=== PATIENT | male | born 1955 | race Caucasian/White ===

== ENCOUNTER 2017-09-07 05:59 | Inpatient (IN) | payer OTHER, SELFPAY ==
[2017-09-07] VITALS (17 sets, daily range): BP systolic 95–133; BP diastolic 60–93; PULSE 67–124; RESP 14–22; TEMP 36.4–36.9; O2SAT 87–98; BMI 27.1; BMI 27.6
--- NOTE | 2017-09-07 | DI.ECHO.S_ITS ---
[facility] +---------+ : : [address] : [place] : : : : [id number] : : : : Phone: [phone]---------+ Echocardiogram Report + + :Name: YEHUDA RICARDO Study Date: 09/07/2017 Height: 72 in : :[facility] Weight: 200 lb : : Gender: Male BSA: 2.1 m2 : :: 1955 Age: 62 yrs BP: 133/78 mmHg: :Reason For Study: CHF : : Performed By: Sonal Sandoval : :Referring: PITER RENE : + + Interpretation Summary The patient was in atrial fibrillation with heart rates between 82-100 bpm during the exam. The left ventricle is moderately dilated. Left ventricular systolic function is moderate to severely reduced. The ejection fraction is estimated to be 30-35%. There is moderate to severe global hypokinesis of the left ventricle. There is severe mitral regurgitation. The mitral annulus is dilated. The mitral valve is normal in structure but abnormal in function. The right ventricular systolic pressure is estimated at 39 mmHg assuming a right atrial pressure of 8 mm Hg. The IVC is dilated (diameter is greater than 2.1 cm) yet it collapses greater than 50% with a sniff. This suggests a right atrial pressure of 8 mm Hg. Pleural effusion noted. The patient had an echocardiogram, but there is no comparison study available. No other echocardiographic abnormalities seen. Procedure: A two-dimensional transthoracic echocardiogram with color flow and Doppler was performed. The study quality was technically adequate. Comparison is made with the echocardiogram of 06/02/2008. The patient had an echocardiogram, but there is no comparison study available. The patient was in atrial fibrillation with heart rates between 82-100 bpm during the exam. Left Ventricle: The left ventricle is moderately dilated. Left ventricular wall thickness is at the upper limits of normal. There is no thrombus. The ejection fraction is estimated to be 30-35%. Left ventricular systolic function is moderate to severely reduced. There is moderate to severe global hypokinesis of the left ventricle. Diastolic function could not be accurately assessed due to atrial fibrillation. Right Ventricle: The right ventricle is normal size. Right ventricular systolic function is mildly reduced. Atria: The left atrium is severely dilated. Right atrial size is normal. There is no Doppler evidence for an interatrial shunt. Mitral Valve: The mitral annulus is dilated. The mitral valve leaflets appear thickened, but open well. The mitral valve is normal in structure but abnormal in function. There is no mitral valve stenosis. There is severe mitral regurgitation. Aortic Valve: The aortic valve is trileaflet. The aortic valve opens well. There is no aortic valve stenosis. There is mild aortic regurgitation. Tricuspid Valve: The tricuspid valve leaflets are thin and pliable. The right ventricular systolic pressure is estimated at 39 mmHg assuming a right atrial pressure of 8 mm Hg. There is mild tricuspid regurgitation. Pulmonic Valve: The pulmonic valve is normal in structure and function. There is a trace or physiologic amount of pulmonic regurgitation. Great Vessels: The aortic root is normal size. The ascending aorta is mildly enlarged. The aortic arch is mildly enlarged. The pulmonary artery is normal size. The IVC is dilated (diameter is greater than 2.1 cm) yet it collapses greater than 50% with a sniff. This suggests a right atrial pressure of 8 mm Hg. Pericardium/ Pleura There is no pericardial effusion. Pleural effusion noted. MMode/2D Measurements & Calculations LVIDd: 6.5 cm LVOT diam: 2.2 cm LVIDs: 5.4 cm Ao root diam: 3.7 cm FS: 18.0 % asc Aorta Diam: 3.9 cm IVSd: 0.81 cm Ao Arch Diam (Prox Trans): 3.1 cm LVPWd: 1.1 cm LV herring. diameter/BSA (cm/m^2): 3.1 LV sys. diameter/BSA (cm/m^2): 2.5 LA A2 area: 47.3 cm2 RA long axis: 5.9 cm LA A4 area: 44.7 cm2 RA area: 22.3 cm2 LA length (vol): 8.0 cm RA vol: 71.3 ml LA vol: 224.9 ml RA : 33.5 ml/m2 LA vol index: 105.6 ml/m2 IVC diam: 2.5 cm RVD1 (basal): 3.7 cm TAPSE: 1.1 cm Doppler Measurements & Calculations Ao V2 max: 91.5 cm/sec LVOT Max Luis Miguel: 78.1 cm/sec Ao V2 mean: 73.1 cm/sec LV V1 max P.5 mmHg Ao max P.5 mmHg LV V1 VTI: 12.4 cm Ao mean P.3 mmHg JESSIE(I,D): 3.0 cm2 Ao V2 VTI: 14.8 cm JESSIE(V,D): 3.1 cm2 sev ratio: 0.83 JESSIE indexed to BSA (cm^2/m^2): 1.4 MV E max luis miguel: 85.3 cm/sec TR max luis miguel: 279.8 cm/sec Med Peak E' Luis Miguel: 5.5 cm/sec TR max P.3 mmHg E/E' med: 15.6 PA V2 max: 46.8 cm/sec Lat Peak E' Luis Miguel: 10.7 cm/sec PA V2 mean: 31.9 cm/sec E/E' lat: 8.0 PA mean P.47 mmHg E/e' average: 11.8 MV P1/2t: 62.1 msec MV P1/2t max luis miguel: 85.8 cm/sec MVA(P1/2t): 3.5 cm2 Reading Physician:04:55 PM
--- NOTE | 2017-09-07 06:27 | ED.SOB ---
HPI - SOB/Dyspnea <Johanna Heredia, DO - Last Filed: 09/07/17 18:09> General Chief Complaint: Shortness of Breath/Dyspnea Stated Complaint: SHORTNESS OF BREATH Time Seen by Provider: 09/07/17 06:18 Source: patient Mode of arrival: ambulatory Limitations: no limitations History of Present Illness Patient is a 62-year-old male who presents with increasing shortness of breath. He was recently at the [facility] where he was found to have atrial fibrillation. He does have a past history of atrial fibrillation but had an ablation in 2004. He has since been started on apixaban and Coreg. He is in AFib with a rate about 120 now he has heart palpitations, but has had them for awhile and doesn't think its any worse. He was also found to have an ejection fraction of 28%. His breathing seems to get better when he is upright he can't tell if it is worse lying flat. He denies any swelling in his lower extremities no fever or productive cough. MD Complaint: shortness of breath Relieving factors: nothing Exacerbating factors: nothing Known history of: congestive heart failure Related Data Home Medications Medication Instructions Recorded Confirmed fluticasone [Flonase Allergy 1 spray INTRANASAL QDAY #0 02/17/16 09/07/17 Relief] beclomethasone dipropionate [Qvar] 1 puff INHALATION BID #0 06/11/17 09/07/17 diclofenac sodium [Voltaren] 2 g TOPICAL QID #0 06/11/17 09/07/17 acetaminophen [Tylenol] 650 mg PO Q4H PRN 09/07/17 09/07/17 apixaban 5 mg PO BID 09/07/17 09/07/17 bupropion HCl [Wellbutrin SR] 150 mg PO DAILY 09/07/17 09/07/17 carvedilol 3.125 mg PO DAILY 09/07/17 09/07/17 carvedilol 6.25 mg PO QPM 09/07/17 09/07/17 cholecalciferol (vitamin D3) 5,000 unit PO DAILY 09/07/17 09/07/17 [Vitamin D3] magnesium 400 mg PO QID 09/07/17 09/07/17 multivitamin 1 tab PO DAILY 09/07/17 09/07/17 niacin 500 mg PO DAILY 09/07/17 09/07/17 omega [id number] oil [[place]-3] 1 tab PO DAILY 09/07/17 09/07/17 omeprazole 20 mg PO DAILY 09/07/17 09/07/17 pregabalin [Lyrica] 75 mg PO DAILY 09/07/17 09/07/17 tamsulosin [Flomax] 0.4 mg PO DAILY 09/07/17 09/07/17 thyroid (pork) [Cantrall Thyroid] 60 mg PO TID 09/07/17 09/07/17 tramadol 50 mg PO TID PRN 09/07/17 09/07/17 Previous Rx's Medication Instructions Recorded etodolac 400 mg PO BID #60 tab 06/11/17 losartan 50 mg PO QDAY #90 tab 06/11/17 pregabalin 200 mg capsule 200 mg PO QHS #60 cap 09/06/17 Allergies Allergy/AdvReac Type Severity Reaction Status Date / Time azithromycin Allergy Mild RASH Verified 09/07/17 06:29 Penicillins Allergy Mild RASH Verified 09/07/17 06:29 simvastatin Allergy Mild ACHES Verified 09/07/17 06:29 Sulfa (Sulfonamide Allergy Mild RASH Verified 09/07/17 06:29 Antibiotics) Calcium Channel Yunier Allergy Mild RASH Uncoded 07/16/17 09:01 Review of Systems <Johanna Heredia DO - Last Filed: 09/07/17 18:09> Review of Systems All systems reviewed & are unremarkable except as noted in HPI and below Constitutional Denies chills, Denies fever(s), Denies lethargy and Denies weakness Cardiovascular Denies chest pain, Denies pedal edema, Denies irregular heart rhythm and Denies palpitations Respiratory Reports as per HPI and Reports system reviewed and no additional complaints, except as docu Gastrointestinal Gastrointestinal: Denies abdominal pain, Denies change in bowel habits, Denies diarrhea, Denies nausea and Denies vomiting Musculoskeletal Denies back pain, Denies muscle weakness, Denies numbness and Denies tingling Integumentary/Breasts Denies pruritus, Denies erythema, Denies rash and Denies wounds Neurologic Denies numbness, Denies tingling and Denies weakness Endocrine Denies palpitations Exam <DO Sandie Zamorano Last Filed: 09/07/17 18:09> Initial Vital Signs Initial Vital Signs: Vital Signs Temperature 97.8 F 09/07/17 06:05 Pulse Rate 124 H 09/07/17 06:05 Respiratory Rate 18 09/07/17 06:05 Blood Pressure 127/88 H 09/07/17 06:05 Pulse Oximetry 93 09/07/17 06:05 Const General: cooperative and healthy appearing Orientation: alert, awake and oriented x3 HENMT Head: normal to inspection and normocephalic Ears: hearing grossly normal bilaterally Eyes Pupils: PERRL EOM: EOM intact bilaterally Resp Effort & Inspection: normal respiratory effort and able to speak in complete sentences Auscultation: no crackles and rales on the left in the mid lung sharp Cardio Rate: tachycardic Rhythm: abnormal rhythm irregularly irregular GI Inspection: non-distended Palpation: soft, no hepatosplenomegaly, No guarding, No pulsatile mass and No tender Auscultation: normal bowel sounds Skin General: no rashes or lesions noted, No jaundice and No petechiae Neuro General: alert, oriented x3 and no focal motor deficits Speech: speech normal Extrem Right lower extremity: no edema Left lower extremity: no edema <Fabian Osman DO - Last Filed: 09/07/17 08:57> Initial Vital Signs Initial Vital Signs: Vital Signs Temperature 97.8 F 09/07/17 06:05 Pulse Rate 124 H 09/07/17 06:05 Respiratory Rate 18 09/07/17 06:05 Blood Pressure 127/88 H 09/07/17 06:05 Pulse Oximetry 93 09/07/17 06:05 Course <Johanna Heredia DO - Last Filed: 09/07/17 18:09> Orders Ordered: ED Orders 09/07/17 10:00 MRSA PCR Stat 09/07/17 12:10 Education, smoking cessation ONGOING 09/07/17 14:15 Magnesium Routine TSH w/ Reflex to FT4 Routine 09/08/17 05:00 Basic Metabolic Panel Routine Troponin I Routine Acetaminophen (Tylenol) 650 mg PO Q4H PRN PRN Reason: Pain, Mild (1-3) Apixaban (Eliquis) 5 mg PO BID [facility] Last Admin: 09/07/17 12:44 Dose: 5 mg Beclomethasone Dipropionate (Qvar) 1 puff INH RTBID [facility] Bupropion HCl (Wellbutrin Sr) 150 mg PO DAILY [facility] Last Admin: 09/07/17 12:45 Dose: 150 mg Fluticasone Propionate (Flonase) 1 spray NASAL DAILY [facility] Last Admin: 09/07/17 12:44 Dose: 1 spray Furosemide (Lasix) 40 mg IV Q8H [facility] Stop: 09/08/17 04:16 Last Admin: 09/07/17 12:44 Dose: 40 mg Magnesium Oxide (Mag Ox) 400 mg PO QID [facility] Last Admin: 09/07/17 17:24 Dose: 400 mg Admin: 09/07/17 12:45 Dose: 400 mg Metoprolol Tartrate (Lopressor) 25 mg PO Q6HR [facility] Last Admin: 09/07/17 17:24 Dose: 25 mg Admin: 09/07/17 12:44 Dose: 25 mg Pregabalin (Lyrica) 75 mg PO DAILY [facility] Last Admin: 09/07/17 12:44 Dose: 75 mg Pregabalin (Lyrica) 200 mg PO BEDTIME [facility] Sodium Chloride (Normal Saline 0.9% Flush) 10 ml IV BID [facility] Sodium Chloride (Normal Saline 0.9% Flush) 10 ml IV PRN PRN PRN Reason: Flush Tamsulosin HCl (Flomax) 0.4 mg PO DAILY [facility] Last Admin: 09/07/17 12:45 Dose: 0.4 mg Thyroid (Cantrall Thyroid) 60 mg PO TID [facility] Last Admin: 09/07/17 12:45 Dose: 60 mg Tramadol HCl (Ultram) 50 mg PO TID PRN PRN Reason: Pain, Moderate (4-6) Zolpidem Tartrate (Ambien) 5 mg PO BEDTIME PRN PRN Reason: Sleep Discontinued Medications Beclomethasone Dipropionate (Qvar) 1 puff INH RTBID [facility] Furosemide (Lasix) 40 mg IV NOW ONE Stop: 09/07/17 06:35 Last Admin: 09/07/17 06:40 Dose: 40 mg Metoprolol Tartrate (Lopressor) 5 mg IV NOW ONE Stop: 09/07/17 06:26 Last Admin: 09/07/17 06:33 Dose: 5 mg Metoprolol Tartrate (Lopressor) 5 mg IV NOW ONE Stop: 09/07/17 12:04 Last Admin: 09/07/17 12:44 Dose: 5 mg Vital Signs - 8 hr 09/07/17 12:21 09/07/17 12:44 09/07/17 15:24 Temperature 97.5 F L Pulse Rate 103 H Respiratory Rate 18 Blood Pressure 133/78 H Pulse Oximetry 98 98 <Fabian Osman, - Last Filed: 09/07/17 08:57> Orders Ordered: ED Orders 09/07/17 10:00 MRSA PCR Stat 09/07/17 12:10 Education, smoking cessation ONGOING 09/07/17 14:15 Magnesium Routine TSH w/ Reflex to FT4 Routine 09/08/17 05:00 Basic Metabolic Panel Routine Troponin I Routine Acetaminophen (Tylenol) 650 mg PO Q4H PRN PRN Reason: Pain, Mild (1-3) Apixaban (Eliquis) 5 mg PO BID [facility] Last Admin: 09/07/17 12:44 Dose: 5 mg Beclomethasone Dipropionate (Qvar) 1 puff INH RTBID [facility] Bupropion HCl (Wellbutrin Sr) 150 mg PO DAILY [facility] Last Admin: 09/07/17 12:45 Dose: 150 mg Fluticasone Propionate (Flonase) 1 spray NASAL DAILY [facility] Last Admin: 09/07/17 12:44 Dose: 1 spray Furosemide (Lasix) 40 mg IV Q8H [facility] Stop: 09/08/17 04:16 Last Admin: 09/07/17 12:44 Dose: 40 mg Magnesium Oxide (Mag Ox) 400 mg PO QID [facility] Last Admin: 09/07/17 17:24 Dose: 400 mg Admin: 09/07/17 12:45 Dose: 400 mg Metoprolol Tartrate (Lopressor) 25 mg PO Q6HR [facility] Last Admin: 09/07/17 17:24 Dose: 25 mg Admin: 09/07/17 12:44 Dose: 25 mg Pregabalin (Lyrica) 75 mg PO DAILY [facility] Last Admin: 09/07/17 12:44 Dose: 75 mg Pregabalin (Lyrica) 200 mg PO BEDTIME [facility] Sodium Chloride (Normal Saline 0.9% Flush) 10 ml IV BID [facility] Sodium Chloride (Normal Saline 0.9% Flush) 10 ml IV PRN PRN PRN Reason: Flush Tamsulosin HCl (Flomax) 0.4 mg PO DAILY [facility] Last Admin: 09/07/17 12:45 Dose: 0.4 mg Thyroid (Cantrall Thyroid) 60 mg PO TID [facility] Last Admin: 09/07/17 12:45 Dose: 60 mg Tramadol HCl (Ultram) 50 mg PO TID PRN PRN Reason: Pain, Moderate (4-6) Zolpidem Tartrate (Ambien) 5 mg PO BEDTIME PRN PRN Reason: Sleep Discontinued Medications Beclomethasone Dipropionate (Qvar) 1 puff INH RTBID [facility] Furosemide (Lasix) 40 mg IV NOW ONE Stop: 09/07/17 06:35 Last Admin: 09/07/17 06:40 Dose: 40 mg Metoprolol Tartrate (Lopressor) 5 mg IV NOW ONE Stop: 09/07/17 06:26 Last Admin: 09/07/17 06:33 Dose: 5 mg Metoprolol Tartrate (Lopressor) 5 mg IV NOW ONE Stop: 09/07/17 12:04 Last Admin: 09/07/17 12:44 Dose: 5 mg Vital Signs - 8 hr 09/07/17 12:21 09/07/17 12:44 09/07/17 15:24 Temperature 97.5 F L Pulse Rate 103 H Respiratory Rate 18 Blood Pressure 133/78 H Pulse Oximetry 98 98 MDM - SOB/Dyspnea <Johanna Heredia DO - Last Filed: 09/07/17 18:09> Lab Data Result diagrams: 09/07/17 06:20 09/07/17 06:20 Lab Results 09/07/17 09/07/17 09/07/17 Range/Units 06:20 06:20 06:20 WBC 6.0 (4.5-11.0) X10^3/uL RBC 5.16 (4.5-5.9) X10^6/uL Hgb 15.6 (13.5-17.5) g/dL Hct 46.5 (41-53) % MCV 90.1 (80-100) fL MCH 30.2 (26-34) PG MCHC 33.5 (30-36) % RDW 13.7 (11.6-14.8) % Plt Count 177 (150-400) X10^3/uL Neut % (Auto) 67.0 (50-75) % Lymph % (Auto) 17.3 L (25-40) % [place] % (Auto) 11.5 (3-14) % Eos % (Auto) 3.3 (2-4) % Baso % (Auto) 0.9 (0-2) % Neut # (Auto) 4000 (3232-3283) /uL PT 13.5 H (10.1-12.7) SECONDS INR 1.2 (0.9-1.3) APTT 37 H (26.4-36.2) SECONDS Sodium 141 (137-145) mmol/L Potassium 4.5 (3.4-5.1) mmol/L Chloride 104 (98-107) mmol/L Carbon Dioxide 28 (22-32) mmol/L BUN 23 H (9-20) mg/dL Creatinine 0.90 (0.66-1.25) mg/dL Estimated GFR > 60.0 (>60) mL/min BUN/Creatinine Ratio 25.6 H (6-22) Glucose 111 H (80-110) mg/dL Calcium 9.0 (8.4-10.2) mg/dL Magnesium 2.3 (1.6-2.3) mg/dL Total Bilirubin 0.8 (0.2-1.3) mg/dL AST 32 (17-59) IU/L ALT 35 (21-72) IU/L Alkaline Phosphatase 57 (38-126) U/L Total Creatine Kinase 148 (55-170) U/L CK-MB (CK-2) 3.82 H (<2.37) ng/mL CK-MB (CK-2) Rel Index 2.6 (1.5-5.0) % Troponin I 0.018 (0.01-0.034) ng/mL B-Natriuretic Peptide 393.0 H (<100) Total Protein 6.6 (6.3-8.2) g/dL Albumin 3.8 (3.5-5.0) g/dL Globulin 2.8 (1.7-4.1) g/dL Albumin/Globulin Ratio 1.4 (1.0-2.8) Procalcitonin (<0.5) ng/mL TSH (0.47-4.68) uIU/mL Nasal Screen MRSA (PCR) (Negative) 09/07/17 09/07/17 09/07/17 Range/Units 06:20 10:00 14:15 WBC (4.5-11.0) X10^3/uL RBC (4.5-5.9) X10^6/uL Hgb (13.5-17.5) g/dL Hct (41-53) % MCV (80-100) fL MCH (26-34) PG MCHC (30-36) % RDW (11.6-14.8) % Plt Count (150-400) X10^3/uL Neut % (Auto) (50-75) % Lymph % (Auto) (25-40) % [place] % (Auto) (3-14) % Eos % (Auto) (2-4) % Baso % (Auto) (0-2) % Neut # (Auto) (8068-4164) /uL PT (10.1-12.7) SECONDS INR (0.9-1.3) APTT (26.4-36.2) SECONDS Sodium (137-145) mmol/L Potassium (3.4-5.1) mmol/L Chloride (98-107) mmol/L Carbon Dioxide (22-32) mmol/L BUN (9-20) mg/dL Creatinine (0.66-1.25) mg/dL Estimated GFR (>60) mL/min BUN/Creatinine Ratio (6-22) Glucose (80-110) mg/dL Calcium (8.4-10.2) mg/dL Magnesium 2.0 (1.6-2.3) mg/dL Total Bilirubin (0.2-1.3) mg/dL AST (17-59) IU/L ALT (21-72) IU/L Alkaline Phosphatase (38-126) U/L Total Creatine Kinase (55-170) U/L CK-MB (CK-2) (<2.37) ng/mL CK-MB (CK-2) Rel Index (1.5-5.0) % Troponin I (0.01-0.034) ng/mL B-Natriuretic Peptide (<100) Total Protein (6.3-8.2) g/dL Albumin (3.5-5.0) g/dL Globulin (1.7-4.1) g/dL Albumin/Globulin Ratio (1.0-2.8) Procalcitonin < 0.05 (<0.5) ng/mL TSH (0.47-4.68) uIU/mL Nasal Screen MRSA (PCR) Negative for mrsa (Negative) 09/07/17 Range/Units 14:15 WBC (4.5-11.0) X10^3/uL RBC (4.5-5.9) X10^6/uL Hgb (13.5-17.5) g/dL Hct (41-53) % MCV (80-100) fL MCH (26-34) PG MCHC (30-36) % RDW (11.6-14.8) % Plt Count (150-400) X10^3/uL Neut % (Auto) (50-75) % Lymph % (Auto) (25-40) % [place] % (Auto) (3-14) % Eos % (Auto) (2-4) % Baso % (Auto) (0-2) % Neut # (Auto) (0721-0748) /uL PT (10.1-12.7) SECONDS INR (0.9-1.3) APTT (26.4-36.2) SECONDS Sodium (137-145) mmol/L Potassium (3.4-5.1) mmol/L Chloride (98-107) mmol/L Carbon Dioxide (22-32) mmol/L BUN (9-20) mg/dL Creatinine (0.66-1.25) mg/dL Estimated GFR (>60) mL/min BUN/Creatinine Ratio (6-22) Glucose (80-110) mg/dL Calcium (8.4-10.2) mg/dL Magnesium (1.6-2.3) mg/dL Total Bilirubin (0.2-1.3) mg/dL AST (17-59) IU/L ALT (21-72) IU/L Alkaline Phosphatase (38-126) U/L Total Creatine Kinase (55-170) U/L CK-MB (CK-2) (<2.37) ng/mL CK-MB (CK-2) Rel Index (1.5-5.0) % Troponin I (0.01-0.034) ng/mL B-Natriuretic Peptide (<100) Total Protein (6.3-8.2) g/dL Albumin (3.5-5.0) g/dL Globulin (1.7-4.1) g/dL Albumin/Globulin Ratio (1.0-2.8) Procalcitonin (<0.5) ng/mL TSH 1.30 (0.47-4.68) uIU/mL Nasal Screen MRSA (PCR) (Negative) ECG Data Attestation: I personally reviewed and interpreted this ECG as follows: Prior ECG tracings: not available for review Interpretation: AFib rate [address] changes no priors <Fabian Osman DO - Last Filed: 09/07/17 08:57> Lab Data Attestation: I reviewed the patient's lab results. Lab Results 09/07/17 09/07/17 09/07/17 Range/Units 06:20 06:20 06:20 WBC 6.0 (4.5-11.0) X10^3/uL RBC 5.16 (4.5-5.9) X10^6/uL Hgb 15.6 (13.5-17.5) g/dL Hct 46.5 (41-53) % MCV 90.1 (80-100) fL MCH 30.2 (26-34) PG MCHC 33.5 (30-36) % RDW 13.7 (11.6-14.8) % Plt Count 177 (150-400) X10^3/uL Neut % (Auto) 67.0 (50-75) % Lymph % (Auto) 17.3 L (25-40) % [place] % (Auto) 11.5 (3-14) % Eos % (Auto) 3.3 (2-4) % Baso % (Auto) 0.9 (0-2) % Neut # (Auto) 4000 (9947-0871) /uL PT 13.5 H (10.1-12.7) SECONDS INR 1.2 (0.9-1.3) APTT 37 H (26.4-36.2) SECONDS Sodium 141 (137-145) mmol/L Potassium 4.5 (3.4-5.1) mmol/L Chloride 104 (98-107) mmol/L Carbon Dioxide 28 (22-32) mmol/L BUN 23 H (9-20) mg/dL Creatinine 0.90 (0.66-1.25) mg/dL Estimated GFR > 60.0 (>60) mL/min BUN/Creatinine Ratio 25.6 H (6-22) Glucose 111 H (80-110) mg/dL Calcium 9.0 (8.4-10.2) mg/dL Magnesium 2.3 (1.6-2.3) mg/dL Total Bilirubin 0.8 (0.2-1.3) mg/dL AST 32 (17-59) IU/L ALT 35 (21-72) IU/L Alkaline Phosphatase 57 (38-126) U/L Total Creatine Kinase 148 (55-170) U/L CK-MB (CK-2) 3.82 H (<2.37) ng/mL CK-MB (CK-2) Rel Index 2.6 (1.5-5.0) % Troponin I 0.018 (0.01-0.034) ng/mL B-Natriuretic Peptide 393.0 H (<100) Total Protein 6.6 (6.3-8.2) g/dL Albumin 3.8 (3.5-5.0) g/dL Globulin 2.8 (1.7-4.1) g/dL Albumin/Globulin Ratio 1.4 (1.0-2.8) Procalcitonin (<0.5) ng/mL TSH (0.47-4.68) uIU/mL Nasal Screen MRSA (PCR) (Negative) 09/07/17 09/07/17 09/07/17 Range/Units 06:20 10:00 14:15 WBC (4.5-11.0) X10^3/uL RBC (4.5-5.9) X10^6/uL Hgb (13.5-17.5) g/dL Hct (41-53) % MCV (80-100) fL MCH (26-34) PG MCHC (30-36) % RDW (11.6-14.8) % Plt Count (150-400) X10^3/uL Neut % (Auto) (50-75) % Lymph % (Auto) (25-40) % [place] % (Auto) (3-14) % Eos % (Auto) (2-4) % Baso % (Auto) (0-2) % Neut # (Auto) (3100-5355) /uL PT (10.1-12.7) SECONDS INR (0.9-1.3) APTT (26.4-36.2) SECONDS Sodium (137-145) mmol/L Potassium (3.4-5.1) mmol/L Chloride (98-107) mmol/L Carbon Dioxide (22-32) mmol/L BUN (9-20) mg/dL Creatinine (0.66-1.25) mg/dL Estimated GFR (>60) mL/min BUN/Creatinine Ratio (6-22) Glucose (80-110) mg/dL Calcium (8.4-10.2) mg/dL Magnesium 2.0 (1.6-2.3) mg/dL Total Bilirubin (0.2-1.3) mg/dL AST (17-59) IU/L ALT (21-72) IU/L Alkaline Phosphatase (38-126) U/L Total Creatine Kinase (55-170) U/L CK-MB (CK-2) (<2.37) ng/mL CK-MB (CK-2) Rel Index (1.5-5.0) % Troponin I (0.01-0.034) ng/mL B-Natriuretic Peptide (<100) Total Protein (6.3-8.2) g/dL Albumin (3.5-5.0) g/dL Globulin (1.7-4.1) g/dL Albumin/Globulin Ratio (1.0-2.8) Procalcitonin < 0.05 (<0.5) ng/mL TSH (0.47-4.68) uIU/mL Nasal Screen MRSA (PCR) Negative for mrsa (Negative) 09/07/17 Range/Units 14:15 WBC (4.5-11.0) X10^3/uL RBC (4.5-5.9) X10^6/uL Hgb (13.5-17.5) g/dL Hct (41-53) % MCV (80-100) fL MCH (26-34) PG MCHC (30-36) % RDW (11.6-14.8) % Plt Count (150-400) X10^3/uL Neut % (Auto) (50-75) % Lymph % (Auto) (25-40) % [place] % (Auto) (3-14) % Eos % (Auto) (2-4) % Baso % (Auto) (0-2) % Neut # (Auto) (9936-3491) /uL PT (10.1-12.7) SECONDS INR (0.9-1.3) APTT (26.4-36.2) SECONDS Sodium (137-145) mmol/L Potassium (3.4-5.1) mmol/L Chloride (98-107) mmol/L Carbon Dioxide (22-32) mmol/L BUN (9-20) mg/dL Creatinine (0.66-1.25) mg/dL Estimated GFR (>60) mL/min BUN/Creatinine Ratio (6-22) Glucose (80-110) mg/dL Calcium (8.4-10.2) mg/dL Magnesium (1.6-2.3) mg/dL Total Bilirubin (0.2-1.3) mg/dL AST (17-59) IU/L ALT (21-72) IU/L Alkaline Phosphatase (38-126) U/L Total Creatine Kinase (55-170) U/L CK-MB (CK-2) (<2.37) ng/mL CK-MB (CK-2) Rel Index (1.5-5.0) % Troponin I (0.01-0.034) ng/mL B-Natriuretic Peptide (<100) Total Protein (6.3-8.2) g/dL Albumin (3.5-5.0) g/dL Globulin (1.7-4.1) g/dL Albumin/Globulin Ratio (1.0-2.8) Procalcitonin (<0.5) ng/mL TSH 1.30 (0.47-4.68) uIU/mL Nasal Screen MRSA (PCR) (Negative) Imaging Data Chest x-ray: Radiologist's impression: PROCEDURE: XR CHEST 1V INDICATIONS: shortness of breath TECHNIQUE: One view of the chest was acquired. COMPARISON: [facility], , CHEST 1 VIEW, 05/19/2008, 12:20. FINDINGS: Surgical changes and devices: None. Lungs and pleura: The pulmonary vasculature is diffusely increased with prominent perihilar interstitial markings evident. Increased attenuation at the left lung base partially obscures the left diaphragm. Small amount of fluid is seen extending along the minor fissure on the right. There is no pneumothorax. Mediastinum: Mediastinal contours appear normal. Moderate cardiomegaly is noted. Bones and chest wall: No suspicious bony lesions. Overlying soft tissues appear unremarkable. IMPRESSION: Cardiomegaly and moderate vascular congestion is suspicious for developing pulmonary edema. Superimposed atypical pneumonia is felt to be less likely. Note: The preliminary ED physician interpretation and the final report are concordant. Dictated by: Adam Cruz M.D. on 09/07/2017 at 8:28 ECG Data Attestation: I personally reviewed and interpreted this ECG as follows: Prior ECG tracings: not available for review Interpretation: Atrial fibrillation ventricular rate of 107 Occasional PVCs Right bundle branch block Nonspecific ST T wave changes MDM Narrative Medical decision making narrative: 0700: Received turned over from night provider. Reviewed patient's history and physical exam, labs, EKG, chest x-ray. Patient had received metoprolol and Lasix prior to my arrival. Heart rate now in the high 90s low 100s. Patient reports no improvement in his respiratory symptoms. Just after my initial evaluation patient did urinate approximately 400 cc. The decreased his oxygen to 1.5 L. Satting 100%. Patient unable to lay back in bed. Unable to sit in bed with his legs up. Reports no weight gain over the past several days. We did discuss options with the patient and his who was at bedside. I feel the patient would require a stay here in the emergency department for further diuresis and respiratory support. Attempted to contact [facility] where the patient's handle bar assembler and head lineman are located however they were full and not accepting transfers. I discussed with the patient other options to include transfer to another facility that has Cardiology and pulmonology although this would be to a place that does not have his records worse is being admitted here to this hospital. After this discussion the patient and family decided to not be transferred to be admitted to this hospital here. Patient's primary doctor is Dr. way and I discussed the case with Dr. Sanches who is director on air for [facility]. The patient and are requesting the hospitalist service. Dr. Sanches agreed for the hospital service to admit the patient. I discussed the case with Dr. Ellis who will admit the patient here for further evaluation and treatment. P Discharge Plan Departure Patient Disposition: Admitted As Inpatient Clinical Impression: CHF (congestive heart failure), Sarcoidosis, Atrial fibrillation, Breath shortness Discharge Date/Time: 09/07/17 09:35 Interventions: ED Discharge Assessment Last Done: 09/07/17 09:34 Admit Date/Time: 09/07/17 09:26 Admit Provider: Uli Ellis ED Cosign/Signout <Johanna Heredia DO - Last Filed: 09/07/17 18:09> Sign Out Provider Sign Out Attestation: Patient signed out to Dr. Osman. Waiting for Lasix to take affect on and monitor. Currently on 1 or 2 L of O2. Unknown if DC or admit at this time.
[2017-09-07 06:33] LABS: Add Manual Diff / Slide Review NO; Basophils Percent Auto 0.9 % (0-2); Eosinophils Percent Auto 3.3 % (2-4); Hematocrit 46.5 % (41-53); Hemoglobin 15.6 g/dL (13.5-17.5); Lymphocytes Percent Auto 17.3 % (25-40); Mean Corpuscular HGB Conc 33.5 % (30-36); Mean Corpuscular Hemoglobin 30.2 PG (26-34); Mean Corpuscular Volume 90.1 fL (80-100); Monocytes Percent Auto 11.5 % (3-14); Neutrophils Absolute Auto 4000 /uL (3000-5900); Platelet Count 177 X10^3/uL (150-400); Red Blood Cell Count 5.16 X10^6/uL (4.5-5.9); Red Cell Distribution Width 13.7 % (11.6-14.8)
[2017-09-07] MEDS: METOPROLOL TARTRATE 5 MG/5 ML INJ IV ×2 (06:33→12:44)
--- NOTE | 2017-09-07 06:34 | ED_ITS ---
HPI - SOB/Dyspnea <Johanna Heredia, DO - Last Filed: 09/07/17 18:09> General Chief Complaint: Shortness of Breath/Dyspnea Stated Complaint: SHORTNESS OF BREATH Time Seen by Provider: 09/07/17 06:18 Source: patient Mode of arrival: ambulatory Limitations: no limitations History of Present Illness Patient is a 62-year-old male who presents with increasing shortness of breath. He was recently at the [facility] where he was found to have atrial fibrillation. He does have a past history of atrial fibrillation but had an ablation in 2004. He has since been started on apixaban and Coreg. He is in AFib with a rate about 120 now he has heart palpitations, but has had them for awhile and doesn't think its any worse. He was also found to have an ejection fraction of 28%. His breathing seems to get better when he is upright he can't tell if it is worse lying flat. He denies any swelling in his lower extremities no fever or productive cough. MD Complaint: shortness of breath Relieving factors: nothing Exacerbating factors: nothing Known history of: congestive heart failure Related Data Home Medications Medication Instructions Recorded Confirmed fluticasone [Flonase Allergy 1 spray INTRANASAL QDAY #0 02/17/16 09/07/17 Relief] beclomethasone dipropionate [Qvar] 1 puff INHALATION BID #0 06/11/17 09/07/17 diclofenac sodium [Voltaren] 2 g TOPICAL QID #0 06/11/17 09/07/17 acetaminophen [Tylenol] 650 mg PO Q4H PRN 09/07/17 09/07/17 apixaban 5 mg PO BID 09/07/17 09/07/17 bupropion HCl [Wellbutrin SR] 150 mg PO DAILY 09/07/17 09/07/17 carvedilol 3.125 mg PO DAILY 09/07/17 09/07/17 carvedilol 6.25 mg PO QPM 09/07/17 09/07/17 cholecalciferol (vitamin D3) 5,000 unit PO DAILY 09/07/17 09/07/17 [Vitamin D3] magnesium 400 mg PO QID 09/07/17 09/07/17 multivitamin 1 tab PO DAILY 09/07/17 09/07/17 niacin 500 mg PO DAILY 09/07/17 09/07/17 omega [id number] oil [Pepperell-3] 1 tab PO DAILY 09/07/17 09/07/17 omeprazole 20 mg PO DAILY 09/07/17 09/07/17 pregabalin [Lyrica] 75 mg PO DAILY 09/07/17 09/07/17 tamsulosin [Flomax] 0.4 mg PO DAILY 09/07/17 09/07/17 thyroid (pork) [Hudson Thyroid] 60 mg PO TID 09/07/17 09/07/17 tramadol 50 mg PO TID PRN 09/07/17 09/07/17 Previous Rx's Medication Instructions Recorded etodolac 400 mg PO BID #60 tab 06/11/17 losartan 50 mg PO QDAY #90 tab 06/11/17 pregabalin 200 mg capsule 200 mg PO QHS #60 cap 09/06/17 Allergies Allergy/AdvReac Type Severity Reaction Status Date / Time azithromycin Allergy Mild RASH Verified 09/07/17 06:29 Penicillins Allergy Mild RASH Verified 09/07/17 06:29 simvastatin Allergy Mild ACHES Verified 09/07/17 06:29 Sulfa (Sulfonamide Allergy Mild RASH Verified 09/07/17 06:29 Antibiotics) Calcium Channel Yunier Allergy Mild RASH Uncoded 07/16/17 09:01 Review of Systems <Johanna Heredia DO - Last Filed: 09/07/17 18:09> Review of Systems All systems reviewed & are unremarkable except as noted in HPI and below Constitutional Denies chills, Denies fever(s), Denies lethargy and Denies weakness Cardiovascular Denies chest pain, Denies pedal edema, Denies irregular heart rhythm and Denies palpitations Respiratory Reports as per HPI and Reports system reviewed and no additional complaints, except as docu Gastrointestinal Gastrointestinal: Denies abdominal pain, Denies change in bowel habits, Denies diarrhea, Denies nausea and Denies vomiting Musculoskeletal Denies back pain, Denies muscle weakness, Denies numbness and Denies tingling Integumentary/Breasts Denies pruritus, Denies erythema, Denies rash and Denies wounds Neurologic Denies numbness, Denies tingling and Denies weakness Endocrine Denies palpitations Exam <DO Sanide Zamorano Last Filed: 09/07/17 18:09> Initial Vital Signs Initial Vital Signs: Vital Signs Temperature 97.8 F 09/07/17 06:05 Pulse Rate 124 H 09/07/17 06:05 Respiratory Rate 18 09/07/17 06:05 Blood Pressure 127/88 H 09/07/17 06:05 Pulse Oximetry 93 09/07/17 06:05 Const General: cooperative and healthy appearing Orientation: alert, awake and oriented x3 HENMT Head: normal to inspection and normocephalic Ears: hearing grossly normal bilaterally Eyes Pupils: PERRL EOM: EOM intact bilaterally Resp Effort & Inspection: normal respiratory effort and able to speak in complete sentences Auscultation: no crackles and rales on the left in the mid lung sharp Cardio Rate: tachycardic Rhythm: abnormal rhythm irregularly irregular GI Inspection: non-distended Palpation: soft, no hepatosplenomegaly, No guarding, No pulsatile mass and No tender Auscultation: normal bowel sounds Skin General: no rashes or lesions noted, No jaundice and No petechiae Neuro General: alert, oriented x3 and no focal motor deficits Speech: speech normal Extrem Right lower extremity: no edema Left lower extremity: no edema <Fabian Osman DO - Last Filed: 09/07/17 08:57> Initial Vital Signs Initial Vital Signs: Vital Signs Temperature 97.8 F 09/07/17 06:05 Pulse Rate 124 H 09/07/17 06:05 Respiratory Rate 18 09/07/17 06:05 Blood Pressure 127/88 H 09/07/17 06:05 Pulse Oximetry 93 09/07/17 06:05 Course <Johanna Heredia DO - Last Filed: 09/07/17 18:09> Orders Ordered: ED Orders 09/07/17 10:00 MRSA PCR Stat 09/07/17 12:10 Education, smoking cessation ONGOING 09/07/17 14:15 Magnesium Routine TSH w/ Reflex to FT4 Routine 09/08/17 05:00 Basic Metabolic Panel Routine Troponin I Routine Acetaminophen (Tylenol) 650 mg PO Q4H PRN PRN Reason: Pain, Mild (1-3) Apixaban (Eliquis) 5 mg PO BID [facility] Last Admin: 09/07/17 12:44 Dose: 5 mg Beclomethasone Dipropionate (Qvar) 1 puff INH RTBID [facility] Bupropion HCl (Wellbutrin Sr) 150 mg PO DAILY [facility] Last Admin: 09/07/17 12:45 Dose: 150 mg Fluticasone Propionate (Flonase) 1 spray NASAL DAILY [facility] Last Admin: 09/07/17 12:44 Dose: 1 spray Furosemide (Lasix) 40 mg IV Q8H [facility] Stop: 09/08/17 04:16 Last Admin: 09/07/17 12:44 Dose: 40 mg Magnesium Oxide (Mag Ox) 400 mg PO QID [facility] Last Admin: 09/07/17 17:24 Dose: 400 mg Admin: 09/07/17 12:45 Dose: 400 mg Metoprolol Tartrate (Lopressor) 25 mg PO Q6HR [facility] Last Admin: 09/07/17 17:24 Dose: 25 mg Admin: 09/07/17 12:44 Dose: 25 mg Pregabalin (Lyrica) 75 mg PO DAILY [facility] Last Admin: 09/07/17 12:44 Dose: 75 mg Pregabalin (Lyrica) 200 mg PO BEDTIME [facility] Sodium Chloride (Normal Saline 0.9% Flush) 10 ml IV BID [facility] Sodium Chloride (Normal Saline 0.9% Flush) 10 ml IV PRN PRN PRN Reason: Flush Tamsulosin HCl (Flomax) 0.4 mg PO DAILY [facility] Last Admin: 09/07/17 12:45 Dose: 0.4 mg Thyroid (Hudson Thyroid) 60 mg PO TID [facility] Last Admin: 09/07/17 12:45 Dose: 60 mg Tramadol HCl (Ultram) 50 mg PO TID PRN PRN Reason: Pain, Moderate (4-6) Zolpidem Tartrate (Ambien) 5 mg PO BEDTIME PRN PRN Reason: Sleep Discontinued Medications Beclomethasone Dipropionate (Qvar) 1 puff INH RTBID [facility] Furosemide (Lasix) 40 mg IV NOW ONE Stop: 09/07/17 06:35 Last Admin: 09/07/17 06:40 Dose: 40 mg Metoprolol Tartrate (Lopressor) 5 mg IV NOW ONE Stop: 09/07/17 06:26 Last Admin: 09/07/17 06:33 Dose: 5 mg Metoprolol Tartrate (Lopressor) 5 mg IV NOW ONE Stop: 09/07/17 12:04 Last Admin: 09/07/17 12:44 Dose: 5 mg Vital Signs - 8 hr 09/07/17 12:21 09/07/17 12:44 09/07/17 15:24 Temperature 97.5 F L Pulse Rate 103 H Respiratory Rate 18 Blood Pressure 133/78 H Pulse Oximetry 98 98 <Fabian Osman, - Last Filed: 09/07/17 08:57> Orders Ordered: ED Orders 09/07/17 10:00 MRSA PCR Stat 09/07/17 12:10 Education, smoking cessation ONGOING 09/07/17 14:15 Magnesium Routine TSH w/ Reflex to FT4 Routine 09/08/17 05:00 Basic Metabolic Panel Routine Troponin I Routine Acetaminophen (Tylenol) 650 mg PO Q4H PRN PRN Reason: Pain, Mild (1-3) Apixaban (Eliquis) 5 mg PO BID [facility] Last Admin: 09/07/17 12:44 Dose: 5 mg Beclomethasone Dipropionate (Qvar) 1 puff INH RTBID [facility] Bupropion HCl (Wellbutrin Sr) 150 mg PO DAILY [facility] Last Admin: 09/07/17 12:45 Dose: 150 mg Fluticasone Propionate (Flonase) 1 spray NASAL DAILY [facility] Last Admin: 09/07/17 12:44 Dose: 1 spray Furosemide (Lasix) 40 mg IV Q8H [facility] Stop: 09/08/17 04:16 Last Admin: 09/07/17 12:44 Dose: 40 mg Magnesium Oxide (Mag Ox) 400 mg PO QID [facility] Last Admin: 09/07/17 17:24 Dose: 400 mg Admin: 09/07/17 12:45 Dose: 400 mg Metoprolol Tartrate (Lopressor) 25 mg PO Q6HR [facility] Last Admin: 09/07/17 17:24 Dose: 25 mg Admin: 09/07/17 12:44 Dose: 25 mg Pregabalin (Lyrica) 75 mg PO DAILY [facility] Last Admin: 09/07/17 12:44 Dose: 75 mg Pregabalin (Lyrica) 200 mg PO BEDTIME [facility] Sodium Chloride (Normal Saline 0.9% Flush) 10 ml IV BID [facility] Sodium Chloride (Normal Saline 0.9% Flush) 10 ml IV PRN PRN PRN Reason: Flush Tamsulosin HCl (Flomax) 0.4 mg PO DAILY [facility] Last Admin: 09/07/17 12:45 Dose: 0.4 mg Thyroid (Hudson Thyroid) 60 mg PO TID [facility] Last Admin: 09/07/17 12:45 Dose: 60 mg Tramadol HCl (Ultram) 50 mg PO TID PRN PRN Reason: Pain, Moderate (4-6) Zolpidem Tartrate (Ambien) 5 mg PO BEDTIME PRN PRN Reason: Sleep Discontinued Medications Beclomethasone Dipropionate (Qvar) 1 puff INH RTBID [facility] Furosemide (Lasix) 40 mg IV NOW ONE Stop: 09/07/17 06:35 Last Admin: 09/07/17 06:40 Dose: 40 mg Metoprolol Tartrate (Lopressor) 5 mg IV NOW ONE Stop: 09/07/17 06:26 Last Admin: 09/07/17 06:33 Dose: 5 mg Metoprolol Tartrate (Lopressor) 5 mg IV NOW ONE Stop: 09/07/17 12:04 Last Admin: 09/07/17 12:44 Dose: 5 mg Vital Signs - 8 hr 09/07/17 12:21 09/07/17 12:44 09/07/17 15:24 Temperature 97.5 F L Pulse Rate 103 H Respiratory Rate 18 Blood Pressure 133/78 H Pulse Oximetry 98 98 MDM - SOB/Dyspnea <Johanna Heredia DO - Last Filed: 09/07/17 18:09> Lab Data Result diagrams: 09/07/17 06:20 09/07/17 06:20 Lab Results 09/07/17 09/07/17 09/07/17 Range/Units 06:20 06:20 06:20 WBC 6.0 (4.5-11.0) X10^3/uL RBC 5.16 (4.5-5.9) X10^6/uL Hgb 15.6 (13.5-17.5) g/dL Hct 46.5 (41-53) % MCV 90.1 (80-100) fL MCH 30.2 (26-34) PG MCHC 33.5 (30-36) % RDW 13.7 (11.6-14.8) % Plt Count 177 (150-400) X10^3/uL Neut % (Auto) 67.0 (50-75) % Lymph % (Auto) 17.3 L (25-40) % [place] % (Auto) 11.5 (3-14) % Eos % (Auto) 3.3 (2-4) % Baso % (Auto) 0.9 (0-2) % Neut # (Auto) 4000 (8622-5774) /uL PT 13.5 H (10.1-12.7) SECONDS INR 1.2 (0.9-1.3) APTT 37 H (26.4-36.2) SECONDS Sodium 141 (137-145) mmol/L Potassium 4.5 (3.4-5.1) mmol/L Chloride 104 (98-107) mmol/L Carbon Dioxide 28 (22-32) mmol/L BUN 23 H (9-20) mg/dL Creatinine 0.90 (0.66-1.25) mg/dL Estimated GFR > 60.0 (>60) mL/min BUN/Creatinine Ratio 25.6 H (6-22) Glucose 111 H (80-110) mg/dL Calcium 9.0 (8.4-10.2) mg/dL Magnesium 2.3 (1.6-2.3) mg/dL Total Bilirubin 0.8 (0.2-1.3) mg/dL AST 32 (17-59) IU/L ALT 35 (21-72) IU/L Alkaline Phosphatase 57 (38-126) U/L Total Creatine Kinase 148 (55-170) U/L CK-MB (CK-2) 3.82 H (<2.37) ng/mL CK-MB (CK-2) Rel Index 2.6 (1.5-5.0) % Troponin I 0.018 (0.01-0.034) ng/mL B-Natriuretic Peptide 393.0 H (<100) Total Protein 6.6 (6.3-8.2) g/dL Albumin 3.8 (3.5-5.0) g/dL Globulin 2.8 (1.7-4.1) g/dL Albumin/Globulin Ratio 1.4 (1.0-2.8) Procalcitonin (<0.5) ng/mL TSH (0.47-4.68) uIU/mL Nasal Screen MRSA (PCR) (Negative) 09/07/17 09/07/17 09/07/17 Range/Units 06:20 10:00 14:15 WBC (4.5-11.0) X10^3/uL RBC (4.5-5.9) X10^6/uL Hgb (13.5-17.5) g/dL Hct (41-53) % MCV (80-100) fL MCH (26-34) PG MCHC (30-36) % RDW (11.6-14.8) % Plt Count (150-400) X10^3/uL Neut % (Auto) (50-75) % Lymph % (Auto) (25-40) % [place] % (Auto) (3-14) % Eos % (Auto) (2-4) % Baso % (Auto) (0-2) % Neut # (Auto) (9788-5287) /uL PT (10.1-12.7) SECONDS INR (0.9-1.3) APTT (26.4-36.2) SECONDS Sodium (137-145) mmol/L Potassium (3.4-5.1) mmol/L Chloride (98-107) mmol/L Carbon Dioxide (22-32) mmol/L BUN (9-20) mg/dL Creatinine (0.66-1.25) mg/dL Estimated GFR (>60) mL/min BUN/Creatinine Ratio (6-22) Glucose (80-110) mg/dL Calcium (8.4-10.2) mg/dL Magnesium 2.0 (1.6-2.3) mg/dL Total Bilirubin (0.2-1.3) mg/dL AST (17-59) IU/L ALT (21-72) IU/L Alkaline Phosphatase (38-126) U/L Total Creatine Kinase (55-170) U/L CK-MB (CK-2) (<2.37) ng/mL CK-MB (CK-2) Rel Index (1.5-5.0) % Troponin I (0.01-0.034) ng/mL B-Natriuretic Peptide (<100) Total Protein (6.3-8.2) g/dL Albumin (3.5-5.0) g/dL Globulin (1.7-4.1) g/dL Albumin/Globulin Ratio (1.0-2.8) Procalcitonin < 0.05 (<0.5) ng/mL TSH (0.47-4.68) uIU/mL Nasal Screen MRSA (PCR) Negative for mrsa (Negative) 09/07/17 Range/Units 14:15 WBC (4.5-11.0) X10^3/uL RBC (4.5-5.9) X10^6/uL Hgb (13.5-17.5) g/dL Hct (41-53) % MCV (80-100) fL MCH (26-34) PG MCHC (30-36) % RDW (11.6-14.8) % Plt Count (150-400) X10^3/uL Neut % (Auto) (50-75) % Lymph % (Auto) (25-40) % [place] % (Auto) (3-14) % Eos % (Auto) (2-4) % Baso % (Auto) (0-2) % Neut # (Auto) (1856-8050) /uL PT (10.1-12.7) SECONDS INR (0.9-1.3) APTT (26.4-36.2) SECONDS Sodium (137-145) mmol/L Potassium (3.4-5.1) mmol/L Chloride (98-107) mmol/L Carbon Dioxide (22-32) mmol/L BUN (9-20) mg/dL Creatinine (0.66-1.25) mg/dL Estimated GFR (>60) mL/min BUN/Creatinine Ratio (6-22) Glucose (80-110) mg/dL Calcium (8.4-10.2) mg/dL Magnesium (1.6-2.3) mg/dL Total Bilirubin (0.2-1.3) mg/dL AST (17-59) IU/L ALT (21-72) IU/L Alkaline Phosphatase (38-126) U/L Total Creatine Kinase (55-170) U/L CK-MB (CK-2) (<2.37) ng/mL CK-MB (CK-2) Rel Index (1.5-5.0) % Troponin I (0.01-0.034) ng/mL B-Natriuretic Peptide (<100) Total Protein (6.3-8.2) g/dL Albumin (3.5-5.0) g/dL Globulin (1.7-4.1) g/dL Albumin/Globulin Ratio (1.0-2.8) Procalcitonin (<0.5) ng/mL TSH 1.30 (0.47-4.68) uIU/mL Nasal Screen MRSA (PCR) (Negative) ECG Data Attestation: I personally reviewed and interpreted this ECG as follows: Prior ECG tracings: not available for review Interpretation: AFib rate [address] changes no priors <Fabian Osman DO - Last Filed: 09/07/17 08:57> Lab Data Attestation: I reviewed the patient's lab results. Lab Results 09/07/17 09/07/17 09/07/17 Range/Units 06:20 06:20 06:20 WBC 6.0 (4.5-11.0) X10^3/uL RBC 5.16 (4.5-5.9) X10^6/uL Hgb 15.6 (13.5-17.5) g/dL Hct 46.5 (41-53) % MCV 90.1 (80-100) fL MCH 30.2 (26-34) PG MCHC 33.5 (30-36) % RDW 13.7 (11.6-14.8) % Plt Count 177 (150-400) X10^3/uL Neut % (Auto) 67.0 (50-75) % Lymph % (Auto) 17.3 L (25-40) % [place] % (Auto) 11.5 (3-14) % Eos % (Auto) 3.3 (2-4) % Baso % (Auto) 0.9 (0-2) % Neut # (Auto) 4000 (8166-4033) /uL PT 13.5 H (10.1-12.7) SECONDS INR 1.2 (0.9-1.3) APTT 37 H (26.4-36.2) SECONDS Sodium 141 (137-145) mmol/L Potassium 4.5 (3.4-5.1) mmol/L Chloride 104 (98-107) mmol/L Carbon Dioxide 28 (22-32) mmol/L BUN 23 H (9-20) mg/dL Creatinine 0.90 (0.66-1.25) mg/dL Estimated GFR > 60.0 (>60) mL/min BUN/Creatinine Ratio 25.6 H (6-22) Glucose 111 H (80-110) mg/dL Calcium 9.0 (8.4-10.2) mg/dL Magnesium 2.3 (1.6-2.3) mg/dL Total Bilirubin 0.8 (0.2-1.3) mg/dL AST 32 (17-59) IU/L ALT 35 (21-72) IU/L Alkaline Phosphatase 57 (38-126) U/L Total Creatine Kinase 148 (55-170) U/L CK-MB (CK-2) 3.82 H (<2.37) ng/mL CK-MB (CK-2) Rel Index 2.6 (1.5-5.0) % Troponin I 0.018 (0.01-0.034) ng/mL B-Natriuretic Peptide 393.0 H (<100) Total Protein 6.6 (6.3-8.2) g/dL Albumin 3.8 (3.5-5.0) g/dL Globulin 2.8 (1.7-4.1) g/dL Albumin/Globulin Ratio 1.4 (1.0-2.8) Procalcitonin (<0.5) ng/mL TSH (0.47-4.68) uIU/mL Nasal Screen MRSA (PCR) (Negative) 09/07/17 09/07/17 09/07/17 Range/Units 06:20 10:00 14:15 WBC (4.5-11.0) X10^3/uL RBC (4.5-5.9) X10^6/uL Hgb (13.5-17.5) g/dL Hct (41-53) % MCV (80-100) fL MCH (26-34) PG MCHC (30-36) % RDW (11.6-14.8) % Plt Count (150-400) X10^3/uL Neut % (Auto) (50-75) % Lymph % (Auto) (25-40) % [place] % (Auto) (3-14) % Eos % (Auto) (2-4) % Baso % (Auto) (0-2) % Neut # (Auto) (2131-4101) /uL PT (10.1-12.7) SECONDS INR (0.9-1.3) APTT (26.4-36.2) SECONDS Sodium (137-145) mmol/L Potassium (3.4-5.1) mmol/L Chloride (98-107) mmol/L Carbon Dioxide (22-32) mmol/L BUN (9-20) mg/dL Creatinine (0.66-1.25) mg/dL Estimated GFR (>60) mL/min BUN/Creatinine Ratio (6-22) Glucose (80-110) mg/dL Calcium (8.4-10.2) mg/dL Magnesium 2.0 (1.6-2.3) mg/dL Total Bilirubin (0.2-1.3) mg/dL AST (17-59) IU/L ALT (21-72) IU/L Alkaline Phosphatase (38-126) U/L Total Creatine Kinase (55-170) U/L CK-MB (CK-2) (<2.37) ng/mL CK-MB (CK-2) Rel Index (1.5-5.0) % Troponin I (0.01-0.034) ng/mL B-Natriuretic Peptide (<100) Total Protein (6.3-8.2) g/dL Albumin (3.5-5.0) g/dL Globulin (1.7-4.1) g/dL Albumin/Globulin Ratio (1.0-2.8) Procalcitonin < 0.05 (<0.5) ng/mL TSH (0.47-4.68) uIU/mL Nasal Screen MRSA (PCR) Negative for mrsa (Negative) 09/07/17 Range/Units 14:15 WBC (4.5-11.0) X10^3/uL RBC (4.5-5.9) X10^6/uL Hgb (13.5-17.5) g/dL Hct (41-53) % MCV (80-100) fL MCH (26-34) PG MCHC (30-36) % RDW (11.6-14.8) % Plt Count (150-400) X10^3/uL Neut % (Auto) (50-75) % Lymph % (Auto) (25-40) % [place] % (Auto) (3-14) % Eos % (Auto) (2-4) % Baso % (Auto) (0-2) % Neut # (Auto) (0943-7693) /uL PT (10.1-12.7) SECONDS INR (0.9-1.3) APTT (26.4-36.2) SECONDS Sodium (137-145) mmol/L Potassium (3.4-5.1) mmol/L Chloride (98-107) mmol/L Carbon Dioxide (22-32) mmol/L BUN (9-20) mg/dL Creatinine (0.66-1.25) mg/dL Estimated GFR (>60) mL/min BUN/Creatinine Ratio (6-22) Glucose (80-110) mg/dL Calcium (8.4-10.2) mg/dL Magnesium (1.6-2.3) mg/dL Total Bilirubin (0.2-1.3) mg/dL AST (17-59) IU/L ALT (21-72) IU/L Alkaline Phosphatase (38-126) U/L Total Creatine Kinase (55-170) U/L CK-MB (CK-2) (<2.37) ng/mL CK-MB (CK-2) Rel Index (1.5-5.0) % Troponin I (0.01-0.034) ng/mL B-Natriuretic Peptide (<100) Total Protein (6.3-8.2) g/dL Albumin (3.5-5.0) g/dL Globulin (1.7-4.1) g/dL Albumin/Globulin Ratio (1.0-2.8) Procalcitonin (<0.5) ng/mL TSH 1.30 (0.47-4.68) uIU/mL Nasal Screen MRSA (PCR) (Negative) Imaging Data Chest x-ray: Radiologist's impression: PROCEDURE: XR CHEST 1V INDICATIONS: shortness of breath TECHNIQUE: One view of the chest was acquired. COMPARISON: [facility], , CHEST 1 VIEW, 05/19/2008, 12:20. FINDINGS: Surgical changes and devices: None. Lungs and pleura: The pulmonary vasculature is diffusely increased with prominent perihilar interstitial markings evident. Increased attenuation at the left lung base partially obscures the left diaphragm. Small amount of fluid is seen extending along the minor fissure on the right. There is no pneumothorax. Mediastinum: Mediastinal contours appear normal. Moderate cardiomegaly is noted. Bones and chest wall: No suspicious bony lesions. Overlying soft tissues appear unremarkable. IMPRESSION: Cardiomegaly and moderate vascular congestion is suspicious for developing pulmonary edema. Superimposed atypical pneumonia is felt to be less likely. Note: The preliminary ED physician interpretation and the final report are concordant. Dictated by: Adam Cruz M.D. on 09/07/2017 at 8:28 ECG Data Attestation: I personally reviewed and interpreted this ECG as follows: Prior ECG tracings: not available for review Interpretation: Atrial fibrillation ventricular rate of 107 Occasional PVCs Right bundle branch block Nonspecific ST T wave changes MDM Narrative Medical decision making narrative: 0700: Received turned over from night provider. Reviewed patient's history and physical exam, labs, EKG, chest x- ray. Patient had received metoprolol and Lasix prior to my arrival. Heart rate now in the high 90s low 100s. Patient reports no improvement in his respiratory symptoms. Just after my initial evaluation patient did urinate approximately 400 cc. The decreased his oxygen to 1.5 L. Satting 100%. Patient unable to lay back in bed. Unable to sit in bed with his legs up. Reports no weight gain over the past several days. We did discuss options with the patient and his who was at bedside. I feel the patient would require a stay here in the emergency department for further diuresis and respiratory support. Attempted to contact [facility] where the patient's nurse assessor and finishing supervisor are located however they were full and not accepting transfers. I discussed with the patient other options to include transfer to another facility that has Cardiology and pulmonology although this would be to a place that does not have his records worse is being admitted here to this hospital. After this discussion the patient and family decided to not be transferred to be admitted to this hospital here. Patient's primary doctor is Dr. way and I discussed the case with Dr. Sanches who is nuisance wildlife control operator for [facility]. The patient and are requesting the hospitalist service. Dr. Sanches agreed for the hospital service to admit the patient. I discussed the case with Dr. Ellis who will admit the patient here for further evaluation and treatment. P Discharge Plan Departure Patient Disposition: Admitted As Inpatient Clinical Impression: CHF (congestive heart failure), Sarcoidosis, Atrial fibrillation, Breath shortness Discharge Date/Time: 09/07/17 09:35 Interventions: ED Discharge Assessment Last Done: 09/07/17 09:34 Admit Date/Time: 09/07/17 09:26 Admit Provider: Uli Ellis ED Cosign/Signout <Johanna Heredia DO - Last Filed: 09/07/17 18:09> Sign Out Provider Sign Out Attestation: Patient signed out to Dr. Osman. Waiting for Lasix to take affect on and monitor. Currently on 1 or 2 L of O2. Unknown if DC or admit at this time.
[2017-09-07 06:36] LABS: INR 1.2 (0.9-1.3); Prothrombin Time 13.5 SECONDS (10.1-12.7)
[2017-09-07 06:39] LABS: PTT Partial Thromboplastin Tim 37 SECONDS (26.4-36.2)
[2017-09-07] MEDS: FUROSEMIDE 40 MG/4 ML VIAL IV ×3 (06:40→21:07)
[2017-09-07 06:42] LABS: Alanine Aminotransferase 35 IU/L (21-72); Albumin 3.8 g/dL (3.5-5.0); Albumin Globulin Ratio 1.4 (1.0-2.8); Alkaline Phosphatase 57 U/L (38-126); Aspartate Aminotransferase 32 IU/L (17-59); BUN Creatinine Ratio 25.6 (6-22); Bilirubin Total 0.8 mg/dL (0.2-1.3); Blood Urea Nitrogen 23 mg/dL (9-20); Carbon Dioxide 28 mmol/L (22-32); Chloride 104 mmol/L (98-107); Creatine Kinase 148 U/L (55-170); Estimated Glomerular Filt Rate > 60.0 mL/min (>60); Globulin 2.8 g/dL (1.7-4.1); Glucose 111 mg/dL (80-110); HEMOLYSIS < 15 (0-50); Magnesium 2.3 mg/dL (1.6-2.3); Potassium 4.5 mmol/L (3.4-5.1); Sodium 141 mmol/L (137-145); Total Protein 6.6 g/dL (6.3-8.2)
[2017-09-07 06:54] LABS: Troponin I 0.018 ng/mL (0.01-0.034)
[2017-09-07 06:57] LABS: CKMB % Relative Index 2.6 % (1.5-5.0); Creatine Kinase MB 3.82 ng/mL (<2.37); Procalcitonin < 0.05 ng/mL (<0.5)
--- NOTE | 2017-09-07 10:25 | PC.ADMIT ---
Admission Note: Arrived room 101 from ER at 0930. Walked into room from stretcher, steady on feet. Mild shortness of breath on exertion but pt reports breathing is much improved post-Lasix administration. Oxygen sats 92-93% on 2L NC, crackles heard posteriorly to bases. Afib RVR on monitor with PVCs, rate in the low 100s, increases 110s with activity. Oriented to room and to bed/call light/tv controls. All valuables with , Amisha, who is at bedside. The patient,Yelitza Montalvo,62 y/o, was given written information regarding hospital policies, unit procedures and contact persons. Patient's smoking status: Never smoker. Vital Signs - 8 hr 09/07/17 06:05 09/07/17 06:49 09/07/17 08:00 Temperature 97.8 F 97.8 F Pulse Rate 124 H 124 H 103 H Respiratory Rate 18 18 14 Blood Pressure 127/88 H 127/88 H Blood Pressure [Left Arm] 96/80 Pulse Oximetry 93 93 95 09/07/17 08:51 09/07/17 09:47 Temperature 98.5 F Pulse Rate 100 H 110 H Respiratory Rate 18 15 Blood Pressure 114/93 H Blood Pressure [Left Arm] 101/82 H Pulse Oximetry 95 92
--- NOTE | 2017-09-07 12:18 | P.HP_ITS ---
History of Present Illness Date Patient Seen: 09/07/17 Time Patient Seen: 12:13 Chief complaint: SHORTNESS OF BREATH Narrative: 62-year-old male with history of sarcoidosis and intermittent atrial fibrillation presents with increasing shortness of breath over the past 24 hr. He has had significant orthopnea symptoms and dyspnea on exertion and dyspnea at rest. Symptoms also seem to be correlated with palpitations. Previous history of AFib underwent ablation in 2004 and then was fine up until just a few months ago when he started having intermittent symptoms and saw his supervisor litharge who placed a monitor on him that showed he was having AFib quite a lot. That that time they put him on carvedilol to help with rate control also put him on anticoagulation. Currently he is on carvedilol 3.125 in the morning and 6.25 at night. Some chest pressure with these symptoms also. He has been evaluated recently for his sarcoid they been investigating possible exacerbation of the sarcoid and possible cardiac involvement. He has had MRI of the heart and a PET scan of the heart looking for active sarcoid in these tests were inconclusive. The patient is on inhaled steroid for the sarcoid. He has not ever been on IV steroids. Patient History Medical History Sarcoidosis (Chronic) Essential hypertension (Chronic 09/26/10) Hyperlipidemia (Chronic 09/26/10) Hypothyroidism (01/20/14) GERD (gastroesophageal reflux disease) (Acute) Osteoarthritis (Acute) Sleep apnea (Acute) Afib (Acute) Cardiomyopathy (Acute) Surgical History History of cardiac radiofrequency ablation (RFA) History of carpal tunnel repair History of carpal tunnel repair Status post appendectomy Status post eye surgery Family & Social History Social History: household members spouse,family Prior Living Arrangements House Safety & Behavioral: Feels Safe in Current Yes Environment Been Physically Hurt or No Threatened By a Person Suicidal Ideation Description None Suicide Plan Description No Plan Tobacco & Substance use: Tobacco type smokeless tobacco Smoking Status Never smoker alcohol intake never alcohol intake frequency other Substance Use Type does not use Meds Home Medications Medication Instructions Recorded Confirmed Type fluticasone [Flonase Allergy 1 spray INTRANASAL QDAY #0 02/17/16 09/07/17 History Relief] beclomethasone dipropionate [Qvar] 1 puff INHALATION BID #0 06/11/17 09/07/17 History diclofenac sodium [Voltaren] 2 g TOPICAL QID #0 06/11/17 09/07/17 History etodolac 400 mg PO BID #60 tab 06/11/17 09/07/17 Rx losartan 50 mg PO QDAY #90 tab 06/11/17 09/07/17 Rx pregabalin 200 mg capsule 200 mg PO QHS #60 cap 09/06/17 09/07/17 Rx acetaminophen [Tylenol] 650 mg PO Q4H PRN 09/07/17 09/07/17 History apixaban 5 mg PO BID 09/07/17 09/07/17 History bupropion HCl [Wellbutrin SR] 150 mg PO DAILY 09/07/17 09/07/17 History carvedilol 3.125 mg PO DAILY 09/07/17 09/07/17 History carvedilol 6.25 mg PO QPM 09/07/17 09/07/17 History cholecalciferol (vitamin D3) 5,000 unit PO DAILY 09/07/17 09/07/17 History [Vitamin D3] magnesium 400 mg PO QID 09/07/17 09/07/17 History multivitamin 1 tab PO DAILY 09/07/17 09/07/17 History niacin 500 mg PO DAILY 09/07/17 09/07/17 History omega 4-ran-avu-fish oil [[employer]-3] 1 tab PO DAILY 09/07/17 09/07/17 History omeprazole 20 mg PO DAILY 09/07/17 09/07/17 History pregabalin [Lyrica] 75 mg PO DAILY 09/07/17 09/07/17 History tamsulosin [Flomax] 0.4 mg PO DAILY 09/07/17 09/07/17 History thyroid (pork) [[place] Thyroid] 60 mg PO TID 09/07/17 09/07/17 History tramadol 50 mg PO TID PRN 09/07/17 09/07/17 History Allergies Allergy/AdvReac Type Severity Reaction Status Date / Time azithromycin Allergy Mild RASH Verified 09/07/17 06:29 Penicillins Allergy Mild RASH Verified 09/07/17 06:29 simvastatin Allergy Mild ACHES Verified 09/07/17 06:29 Sulfa (Sulfonamide Allergy Mild RASH Verified 09/07/17 06:29 Antibiotics) Calcium Channel Yunier Allergy Mild RASH Uncoded 07/16/17 09:01 Review of Systems Review of Systems All systems reviewed & are unremarkable except as noted in HPI and below Exam Vital Signs (past 8 hours): - 09/07/17 06:05 09/07/17 06:49 09/07/17 08:00 Temperature 97.8 F 97.8 F Pulse Rate 124 H 124 H 103 H Respiratory Rate 18 18 14 Blood Pressure 127/88 H 127/88 H Blood Pressure [Left Arm] 96/80 Pulse Oximetry 93 93 95 09/07/17 08:51 09/07/17 09:47 Temperature 98.5 F Pulse Rate 100 H 110 H Respiratory Rate 18 15 Blood Pressure 114/93 H Blood Pressure [Left Arm] 101/82 H Pulse Oximetry 95 92 Oxygen Delivery Method Nasal Cannula Oxygen Flow Rate 2 Narrative Exam Narrative: Pleasant male no acute distress HEENT exam remarkable for alopecia Oropharynx clear Neck some JVD is noted No thyromegaly Lungs some crackles in the bases Heart is irregular tachycardic Abdomen soft nontender no masses Lower extremities trace edema Neuro exam awake alert oriented no focal deficits speech normal Skin warm and dry Objective Labs Result Diagrams: 09/07/17 06:20 09/07/17 06:20 Labs: Laboratory Results - last 24 hr 09/07/17 09/07/17 09/07/17 06:20 06:20 06:20 WBC 6.0 RBC 5.16 Hgb 15.6 Hct 46.5 MCV 90.1 MCH 30.2 MCHC 33.5 RDW 13.7 Plt Count 177 Neut % (Auto) 67.0 Lymph % (Auto) 17.3 L [place] % (Auto) 11.5 Eos % (Auto) 3.3 Baso % (Auto) 0.9 Neut # (Auto) 4000 PT 13.5 H INR 1.2 APTT 37 H Sodium 141 Potassium 4.5 Chloride 104 Carbon Dioxide 28 BUN 23 H Creatinine 0.90 Estimated GFR > 60.0 BUN/Creatinine Ratio 25.6 H Glucose 111 H Calcium 9.0 Magnesium 2.3 Total Bilirubin 0.8 AST 32 ALT 35 Alkaline Phosphatase 57 Total Creatine Kinase 148 CK-MB (CK-2) 3.82 H CK-MB (CK-2) Rel Index 2.6 Troponin I 0.018 B-Natriuretic Peptide 393.0 H Total Protein 6.6 Albumin 3.8 Globulin 2.8 Albumin/Globulin Ratio 1.4 Procalcitonin 09/07/17 06:20 WBC RBC Hgb Hct MCV MCH MCHC RDW Plt Count Neut % (Auto) Lymph % (Auto) [place] % (Auto) Eos % (Auto) Baso % (Auto) Neut # (Auto) PT INR APTT Sodium Potassium Chloride Carbon Dioxide BUN Creatinine Estimated GFR BUN/Creatinine Ratio Glucose Calcium Magnesium Total Bilirubin AST ALT Alkaline Phosphatase Total Creatine Kinase CK-MB (CK-2) CK-MB (CK-2) Rel Index Troponin I B-Natriuretic Peptide Total Protein Albumin Globulin Albumin/Globulin Ratio Procalcitonin < 0.05 Assessment & Plan Plan: Assessment/Plan Narrative: One. Acute exacerbation of systolic heart failure. He was told recently when he had his MRI that his ejection fraction was in the 20% 28% range. Previous echo back in February of last year showed ejection fraction in the 40s this is all reported to me verbally by the spouse. I think that at this point the course of action should be to diurese with Lasix and then rate control to get the heart rate back down I think that he will have more effective cardiac output with that. Repeat the echo today check thyroid magnesium also 2. Atrial fibrillation recurrent had been paroxysmal now seems to be chronic. Better he needs better rate control he is on a small dose of carvedilol his blood pressure is not very high am afraid that if we go higher on the carvedilol to control the rate that is pressure will go too low so I will switch him to metoprolol hold the losartan for now and get the rate under better control possibly add digoxin or diltiazem if needed. Continue anticoagulation 3. Sarcoidosis uncertain if this is active. I think initially controlling the heart rate and diuresing would be the 1st course of action to help with his symptoms but if he still having cough and dyspnea then putting him on a dose course of IV steroids to see if that helps would be reasonable 4. DVT prophylaxis already on anticoagulation Quality VTE Deep Vein Thrombosis/Pulmonary Embolism Present on Admission: No
[2017-09-07] MEDS: PREGABALIN 75 MG CAPSULE PO (12:44)
[2017-09-07] MEDS: APIXABAN 5 MG TABLET PO ×2 (12:44→21:07)
[2017-09-07] MEDS: FLUTICASONE 120 SPRAY/16 GM SPRAY.SUSP NASAL (12:44)
[2017-09-07] MEDS: METOPROLOL 25 MG TABLET PO ×3 (12:44→23:59)
[2017-09-07] MEDS: buPROPion SR 150 MG TAB PO (12:45)
[2017-09-07] MEDS: TAMSULOSIN 0.4 MG CAPSULE PO (12:45)
[2017-09-07] MEDS: THYROID, PORK 60 MG TABLET PO ×2 (12:45→21:08)
[2017-09-07] MEDS: MAGNESIUM OXIDE 400 MG TABLET PO ×3 (12:45→21:08)
[2017-09-07] MEDS: BECLOMETHASONE 80 MCG INH 10.6 GM 1 PUFF INH (18:25)
--- NOTE | 2017-09-07 20:07 | RT ---
BREATH SOUNDS ARE DECREASED W/ FAINT FINE CRACKLES IN BLL. RR = 16.
[2017-09-07] MEDS: PREGABALIN 50 MG CAPSULE 200 MG PO (21:08)
[2017-09-07] MEDS: SODIUM CHLORIDE 0.9% FLUSH 10 ML IV (21:09)
[2017-09-07] MEDS: PANTOPRAZOLE 20 MG TABLET PO (21:28)
--- NOTE | 2017-09-07 21:41 | PC.NURSE ---
aníbal note pt trialed on room air. Pt initally maintaining 93%, but dropped to 90% and reported some SOB. O2 back at 2 L/min. Home cpap set up and ready to go with O2 bleed-in.
[2017-09-08] VITALS (14 sets, daily range): BP systolic 94–116; BP diastolic 56–71; PULSE 69–84; RESP 16–19; TEMP 36.1–36.7; O2SAT 91–97
[2017-09-08] MEDS: FUROSEMIDE 40 MG/4 ML VIAL IV ×3 (04:55→21:41)
[2017-09-08] MEDS: METOPROLOL 25 MG TABLET PO (05:49)
[2017-09-08 05:58] LABS: BUN Creatinine Ratio 24.5 (6-22); Blood Urea Nitrogen 27 mg/dL (9-20); Calcium 9.1 mg/dL (8.4-10.2); Carbon Dioxide 37 mmol/L (22-32); Chloride 99 mmol/L (98-107); Estimated Glomerular Filt Rate > 60.0 mL/min (>60); Glucose 99 mg/dL (80-110); HEMOLYSIS < 15 (0-50); Potassium 3.9 mmol/L (3.4-5.1); Sodium 142 mmol/L (137-145)
[2017-09-08 06:08] LABS: Troponin I 0.018 ng/mL (0.01-0.034)
[2017-09-08] MEDS: BECLOMETHASONE 80 MCG INH 10.6 GM 1 PUFF INH ×2 (07:01→22:20)
[2017-09-08] MEDS: THYROID, PORK 60 MG TABLET PO ×3 (08:04→21:42)
[2017-09-08] MEDS: PREGABALIN 75 MG CAPSULE PO (08:05)
[2017-09-08] MEDS: APIXABAN 5 MG TABLET PO ×2 (08:05→21:41)
[2017-09-08] MEDS: FLUTICASONE 120 SPRAY/16 GM SPRAY.SUSP NASAL (08:05)
[2017-09-08] MEDS: MAGNESIUM OXIDE 400 MG TABLET PO ×4 (08:05→21:41)
[2017-09-08] MEDS: buPROPion SR 150 MG TAB PO (08:05)
[2017-09-08] MEDS: SODIUM CHLORIDE 0.9% FLUSH 10 ML IV ×2 (08:06→21:42)
[2017-09-08] MEDS: TAMSULOSIN 0.4 MG CAPSULE PO (08:06)
--- NOTE | 2017-09-08 11:15 | PM.PN.1 ---
Subjective Date Patient Seen: 09/08/17 Time Patient Seen: 11:16 Interval history: Feeling better Exam Vital Signs (past 8 hours): - 09/08/17 04:40 09/08/17 05:39 09/08/17 05:54 Temperature 97.6 F Pulse Rate 71 Respiratory Rate 18 Blood Pressure 116/58 L Pulse Oximetry 96 96 93 09/08/17 07:00 09/08/17 08:27 Temperature 97.0 F L Pulse Rate 69 Respiratory Rate 16 19 Blood Pressure 110/64 Pulse Oximetry 97 93 Oxygen Delivery Method Room Air Oxygen Flow Rate 0 Narrative Exam Narrative: In general no acute distress HEENT exam unremarkable Neck supple no JVD Lungs Clear to auscultation Heart irregular rate controlled Abdomen soft nontender Lower extremities trace edema Neuro exam unremarkable Skin warm and dry Objective Labs Result Diagrams: 09/07/17 06:20 09/08/17 05:15 Labs: Laboratory Results - last 24 hr 09/07/17 09/07/17 09/07/17 10:00 14:15 14:15 Sodium Potassium Chloride Carbon Dioxide BUN Creatinine Estimated GFR BUN/Creatinine Ratio Glucose Calcium Magnesium 2.0 Troponin I TSH 1.30 Nasal Screen MRSA (PCR) Negative for mrsa 09/08/17 05:15 Sodium 142 Potassium 3.9 Chloride 99 Carbon Dioxide 37 H BUN 27 H Creatinine 1.10 Estimated GFR > 60.0 BUN/Creatinine Ratio 24.5 H Glucose 99 Calcium 9.1 Magnesium Troponin I 0.018 TSH Nasal Screen MRSA (PCR) Assessment & Plan Plan: Assessment/Plan Narrative: One. Acute exacerbation of systolic heart failure. Echo showed ejection fraction 30% with global hypokinesis. He had uncontrolled rate during the echo on the AFib. Plan to continue IV diuresis he had a good diuresis yesterday I will continue with some IV Lasix today and start him on potassium and then had hopefully anticipate discharge tomorrow on oral Lasix with better rate control and continue losartan. I have decreased his losartan dose down to 25 as we are increasing his beta-yumiko. 2. Atrial fibrillation recurrent had been paroxysmal now seems to be chronic. Continue anticoagulation heart rate around 80 at rest. Plan to increase the metoprolol to 75 b.i.d. and see if we can get the resting rate a little lower. Carvedilol has been stopped 3. Sarcoidosis uncertain if this is active. I think initially controlling the heart rate and diuresing would be the 1st course of action to help with his symptoms but if he still having cough and dyspnea then putting him on a dose course of IV steroids to see if that helps would be reasonable 4. DVT prophylaxis already on anticoagulation 5. Sleep apnea he is on CPAP he required oxygen last night due to high some hypoxemia. This might be due to the heart failure. Plan to recheck oxygen tonight and if needed will arrange nighttime oxygen Quality VTE Deep Vein Thrombosis/Pulmonary Embolism Present on Admission: No
[2017-09-08] MEDS: METOPROLOL 25 MG TABLET 75 MG PO ×2 (11:58→21:40)
[2017-09-08] MEDS: POTASSIUM CHLORIDE 20 MEQ TAB PO ×2 (11:58→16:33)
--- NOTE | 2017-09-08 13:31 | CM.DANOTE ---
DCP: assessment: Case received, EMR reviewed and met with pt. Introduced self and role. Pt had just come out of the bathroom, RN confirms he is up and independent in his room. Pt is a 62 year old male who admitted yesterday to care of the hospitalist team. PCP: Dr. Rowe Payer: [facility] Pt sees cardiology and pulmonology at the [facility] Pt and his , Amisha (who works here at [facility] as Quality/Risk Director) did request that pt be admitted to the hospitalist team while here and Dr. Ellis and Dr. Sanches (on for Dr. Rowe) were agreeable to same. Pt is functionally independent in the community. He does say that he has been having some difficulty with breathing at night in spite of CPAP and that [facility] care team is looking into ? of home oxygen to be part of the CPAP process. Pt is expecting to d/c to home once stable for same. CM/dcp team to follow prn for any needs that may arise.
--- NOTE | 2017-09-08 14:19 | PC.NURSE ---
Day Shift Patient transferred to room 217 at 1420 via wheelchair. All belongings with pt including CPAP, cell phone, cell phone director of donor relations, clothing, and medications. Report given to Joann SHEEHAN.
--- NOTE | 2017-09-08 14:52 | PC.NURSE ---
TSF FROM ICU - arrived via wc, indep to bed, breathing unlabored, 02 sat 93% ra on arrival. RT notified and in to set up cpap for tonight and advised of dr. metz for contin 02 pulse ox and recordings to see if pt may qualify for home 02 as per Gisselle, pt req 2L 02 last night w/cpap. Has belongings, including cpap, cell phone, tablet, headphones, ham marker, clothing, oriented to room, bed, call light available.
[2017-09-08] MEDS: PANTOPRAZOLE 20 MG TABLET PO (16:33)
[2017-09-08] MEDS: PREGABALIN 50 MG CAPSULE 200 MG PO (21:40)
--- NOTE | 2017-09-08 22:39 | RT ---
PT APPEARS COMFORTABLE ON HOME CPAP ON RA. O2 SAT NOTED AT 96%. PT IS CURRENTLY ON CONTINUOUS P/O MONITORING, PER VERBAL ORDER BY DR. RENE. PLAN: PERIODICALLY NOTE O2 SAT ON RA WHILE ON HOME CPAP ASLEEP.
[2017-09-09] VITALS (7 sets, daily range): BP systolic 109–116; BP diastolic 54–68; PULSE 69–85; RESP 12–16; TEMP 36.4–36.5; O2SAT 90–97
--- NOTE | 2017-09-09 04:20 | PC.NURSE ---
Addendum entered by Betsy Ramirez R.N. 09/09/17 06:52: RT in to darleneal pt this AM. removed from continuous pulse ox. Pt stated RT told him that he wasn't going to need home oxygen. Pt stated the RT stated that he didn't drop below 90% through the night and pt stated that he tends to stop breathing when he relaxes while sleeping. Pt given coffee this AM per his request, pt belongings and call light within reach. pt ambulates steady gait. will continue to monitor. denied further needs at this time. Original Note: [id number]---- assumed care of pt from outgoing shift, pt awake, ambulates to BR and back to bed, no difficulty, steady gait. using hoe cpap no oxygen bled in. Pt on continuous pulse ox. Hr A fib so pulse ox is having difficulty reading the rhythm, and sometimes drops lower than what it is actually based off of pocket pulse ox. Pt makes needs known, pt compliant with nursing assessments. will continue to monitor pt for safety.
[2017-09-09 06:01] LABS: BUN Creatinine Ratio 25.5 (6-22); Blood Urea Nitrogen 28 mg/dL (9-20); Calcium 9.5 mg/dL (8.4-10.2); Carbon Dioxide 36 mmol/L (22-32); Chloride 97 mmol/L (98-107); Estimated Glomerular Filt Rate > 60.0 mL/min (>60); Glucose 105 mg/dL (80-110); HEMOLYSIS 22 (0-50); Potassium 4.3 mmol/L (3.4-5.1); Sodium 142 mmol/L (137-145)
[2017-09-09] MEDS: BECLOMETHASONE 80 MCG INH 10.6 GM 1 PUFF INH (08:37)
[2017-09-09] MEDS: FLUTICASONE 120 SPRAY/16 GM SPRAY.SUSP NASAL (09:10)
[2017-09-09] MEDS: POTASSIUM CHLORIDE 20 MEQ TAB PO (09:10)
[2017-09-09] MEDS: THYROID, PORK 60 MG TABLET PO (09:11)
[2017-09-09] MEDS: MAGNESIUM OXIDE 400 MG TABLET PO (09:13)
[2017-09-09] MEDS: buPROPion SR 150 MG TAB PO (09:13)
[2017-09-09] MEDS: APIXABAN 5 MG TABLET PO (09:13)
[2017-09-09] MEDS: LOSARTAN 25 MG TABLET PO (09:13)
[2017-09-09] MEDS: PREGABALIN 75 MG CAPSULE PO (09:14)
[2017-09-09] MEDS: METOPROLOL 25 MG TABLET 75 MG PO (09:14)
[2017-09-09] MEDS: TAMSULOSIN 0.4 MG CAPSULE PO (09:15)
--- NOTE | 2017-09-09 09:43 | PM.DS.1 ---
History of Present Illness Date Patient Seen: 09/09/17 Time Patient Seen: 09:43 Chief complaint: SHORTNESS OF BREATH Narrative: 62-year-old male with history of pulmonary sarcoidosis and intermittent atrial fibrillation presents with increasing shortness of breath over the past 24 hr. He has had significant orthopnea symptoms and dyspnea on exertion and dyspnea at rest. Symptoms also seem to be correlated with palpitations. Previous history of AFib underwent ablation in 2004 and then was fine up until just a few months ago when he started having intermittent symptoms and saw his casting sorter who placed a monitor on him that showed he was having AFib quite a lot. That that time they put him on carvedilol to help with rate control also put him on anticoagulation. Currently he is on carvedilol 3.125 in the morning and 6.25 at night. Some chest pressure with these symptoms also. He has been evaluated recently for his sarcoid they been investigating possible exacerbation of the sarcoid and possible cardiac involvement. He has had MRI of the heart and a PET scan of the heart looking for active sarcoid in these tests were inconclusive. The patient is on inhaled steroid for the sarcoid. He has not ever been on IV steroids. Discharge Providers Date of admission: 09/07/17 09:26 Primary care physician: Adenike Rowe MD Discharge provider: GREGG Kaufman Summary Discharge Diagnosis: 1. Acute exacerbation of chronic systolic heart failure 2. Atrial fibrillation 3. Chronic sarcoidosis Hospital Course: This is a summary of a 2 day hospitalization for this 62-year-old male who presented to the emergency room with increasing shortness of breath over 24 hr period. At the time of admission he was in atrial fibrillation with a rapid ventricular response in the 120s. BNP was 393 and his chest x-ray showed cardiomegaly and moderate vascular congestion suspicious for pulmonary edema. His echocardiogram showed all dilated left ventricle along with left ventricular systolic function moderately to severely reduced. His ejection fraction was estimated to be between 30 35%. There was also moderate to severe global hypokinesis of the left ventricle. There is also severe mitral regurgitation. A net loss of 4 L of fluid was diuresed using IV Lasix. He was started on metoprolol for better rate control. We decreased his dose of losartan and stop his carvedilol. He remains in atrial fibrillation with controlled ventricular response in the 60s 70s with occasional abberantly conducted beats. He will need to be followed up by Cardiology for his arrhythmia and his [place] line attendant to assess whether sarcoidosis is active at this point. He has a scheduled follow-up appointment with Cardiology this Saturday which she plans to keep. Exam Vital Signs (past 8 hours): - 09/09/17 02:20 09/09/17 05:07 09/09/17 07:55 Temperature 97.7 F 97.6 F Pulse Rate 76 85 Respiratory Rate 16 16 Blood Pressure 109/68 116/54 L Pulse Oximetry 91 92 95 09/09/17 08:19 09/09/17 08:39 Temperature Pulse Rate 69 Respiratory Rate 12 Blood Pressure Pulse Oximetry 93 97 Oxygen Delivery Method Room Air Oxygen Flow Rate 0 Narrative Exam Narrative: Sitting in bed in no acute pulmonary or cardiac distress. Const General: cooperative, healthy appearing, comfortable, well developed and well groomed Nutritional Appearance: average body habitus Orientation: alert, awake and oriented x3 HENMT Head: normal to inspection, normocephalic and atraumatic Eyes Pupils: PERRL Neck Neck: normal visual inspection, trachea midline and supple Other: No neck vein distention or lymphadenopathy. Chest Chest: normal inspection of the chest Resp Effort & Inspection: normal respiratory effort, able to speak in complete sentences and cough (This is a chronic cough since he had since approximately March.) Quality of cough: dry Auscultation: clear to auscultation bilaterally Cardio Rhythm: abnormal rhythm (Monitor shows atrial fibrillation with controlled ventricular response in the 60s to 70s. Occasional abberantly conducted beats.) GI Inspection: normal to inspection Palpation: soft Auscultation: normal bowel sounds Other: Nontender Other: No dysuria Back/Spine/Pelvis Back: normal to inspection Skin General: no rashes or lesions noted, dry skin and warm Neuro General: awake and oriented x3 Cranial Nerves: CN's II-XI intact bilaterally Cognition: normal cognition Speech: speech normal Gait: normal gait Motor: muscle tone normal throughout Sensory Exam: no sensory deficits noted Extrem General: normal to inspection and no pedal edema Psych Appearance: grossly normal Mental Status: mental status grossly normal Mood: congruent mood Affect: normal affect Attitude: cooperative Thought Process: normal Thought Content: normal Judgment: judgment good Objective Labs Result Diagrams: 09/07/17 06:20 09/09/17 05:18 Labs: Laboratory Results - last 24 hr 09/09/17 09/09/17 05:18 05:18 Sodium 142 Potassium 4.3 Chloride 97 L Carbon Dioxide 36 H BUN 28 H Creatinine 1.10 Estimated GFR > 60.0 BUN/Creatinine Ratio 25.5 H Glucose 105 Calcium 9.5 B-Natriuretic Peptide 283.0 H Name: YEHUDA RICARDO Study Date: 09/07/2017 Height: 72 in : :[facility] Weight: 200 lb : : Gender: Male BSA: 2.1 m2 : :: 1955 Age: 62 yrs BP: 133/78 mmHg: :Reason For Study: CHF : : Performed By: Sonal Sandoval : :Referring: PITER RENE : + + Interpretation Summary The patient was in atrial fibrillation with heart rates between 82-100 bpm during the exam. The left ventricle is moderately dilated. Left ventricular systolic function is moderate to severely reduced. The ejection fraction is estimated to be 30-35%. There is moderate to severe global hypokinesis of the left ventricle. There is severe mitral regurgitation. The mitral annulus is dilated. The mitral valve is normal in structure but abnormal in function. The right ventricular systolic pressure is estimated at 39 mmHg assuming a right atrial pressure of 8 mm Hg. The IVC is dilated (diameter is greater than 2.1 cm) yet it collapses greater than 50% with a sniff. This suggests a right atrial pressure of 8 mm Hg. Pleural effusion noted. The patient had an echocardiogram, but there is no comparison study available. No other echocardiographic abnormalities seen. Procedure: A two-dimensional transthoracic echocardiogram with color flow and Doppler was performed. The study quality was technically adequate. Comparison is made with the echocardiogram of 06/02/2008. The patient had an echocardiogram, but there is no comparison study available. The patient was in atrial fibrillation with heart rates between 82-100 bpm during the exam. Left Ventricle: The left ventricle is moderately dilated. Left ventricular wall thickness is at the upper limits of normal. There is no thrombus. The ejection fraction is estimated to be 30-35%. Left ventricular systolic function is moderate to severely reduced. There is moderate to severe global hypokinesis of the left ventricle. Diastolic function could not be accurately assessed due to atrial fibrillation. Right Ventricle: The right ventricle is normal size. Right ventricular systolic function is mildly reduced. Atria: The left atrium is severely dilated. Right atrial size is normal. There is no Doppler evidence for an interatrial shunt. Mitral Valve: The mitral annulus is dilated. The mitral valve leaflets appear thickened, but open well. The mitral valve is normal in structure but abnormal in function. There is no mitral valve stenosis. There is severe mitral regurgitation. Aortic Valve: The aortic valve is trileaflet. The aortic valve opens well. There is no aortic valve stenosis. There is mild aortic regurgitation. Tricuspid Valve: The tricuspid valve leaflets are thin and pliable. The right ventricular systolic pressure is estimated at 39 mmHg assuming a right atrial pressure of 8 mm Hg. There is mild tricuspid regurgitation. Pulmonic Valve: The pulmonic valve is normal in structure and function. There is a trace or physiologic amount of pulmonic regurgitation. Great Vessels: The aortic root is normal size. The ascending aorta is mildly enlarged. The aortic arch is mildly enlarged. The pulmonary artery is normal size. The IVC is dilated (diameter is greater than 2.1 cm) yet it collapses greater than 50% with a sniff. This suggests a right atrial pressure of 8 mm Hg. Pericardium/ Pleura There is no pericardial effusion. Pleural effusion noted. MMode/2D Measurements & Calculations LVIDd: 6.5 cm LVOT diam: 2.2 cm LVIDs: 5.4 cm Ao root diam: 3.7 cm FS: 18.0 % asc Aorta Diam: 3.9 cm IVSd: 0.81 cm Ao Arch Diam (Prox Trans): 3.1 cm LVPWd: 1.1 cm LV herring. diameter/BSA (cm/m^2): 3.1 LV sys. diameter/BSA (cm/m^2): 2.5 LA A2 area: 47.3 cm2 RA long axis: 5.9 cm LA A4 area: 44.7 cm2 RA area: 22.3 cm2 LA length (vol): 8.0 cm RA vol: 71.3 ml LA vol: 224.9 ml RA : 33.5 ml/m2 LA vol index: 105.6 ml/m2 IVC diam: 2.5 cm RVD1 (basal): 3.7 cm TAPSE: 1.1 cm Doppler Measurements & Calculations Ao V2 max: 91.5 cm/sec LVOT Max Luis Miguel: 78.1 cm/sec Ao V2 mean: 73.1 cm/sec LV V1 max P.5 mmHg Ao max P.5 mmHg LV V1 VTI: 12.4 cm Ao mean P.3 mmHg JESSIE(I,D): 3.0 cm2 Ao V2 VTI: 14.8 cm JESSIE(V,D): 3.1 cm2 sev ratio: 0.83 JESSIE indexed to BSA (cm^2/m^2): 1.4 MV E max luis miguel: 85.3 cm/sec TR max luis miguel: 279.8 cm/sec Med Peak E' Luis Miguel: 5.5 cm/sec TR max P.3 mmHg E/E' med: 15.6 PA V2 max: 46.8 cm/sec Lat Peak E' Luis Miguel: 10.7 cm/sec PA V2 mean: 31.9 cm/sec E/E' lat: 8.0 PA mean P.47 mmHg E/e' average: 11.8 MV P1/2t: 62.1 msec MV P1/2t max luis miguel: 85.8 cm/sec MVA(P1/2t): 3.5 cm2 Reading Physician:04:55 PM Discharge Plan Discharge Plan Patient Disposition: Home, Self-Care Discharge comment: Patient has follow-up appointment with Cardiology in [place] this . Discharge Med Rec/Prescriptions Prescriptions: New potassium chloride [Klor-Con M20] 20 mEq Tablet,Er Particles/Crystals 20 meq PO BIDWM Qty: 60 RF: 3 losartan 25 mg Tablet 25 mg PO DAILY Qty: 30 RF: 3 metoprolol tartrate 75 mg tablet 75 mg PO BID Qty: 60 RF: 3 furosemide [Lasix] 40 mg tablet 40 mg PO DAILY Qty: 30 RF: 3 Continue fluticasone [Flonase Allergy Relief] 9.9 ML spray,suspension 1 spray Intranasal QDAY Qty: 0 RF: 0 beclomethasone dipropionate [Qvar] 80 MCG/PUFF aerosol 1 puff Inhalation BID Qty: 0 RF: 0 diclofenac sodium [Voltaren] 1 % gel 2 g Topical QID Qty: 0 RF: 0 etodolac 400 MG tablet 400 mg PO BID Qty: 60 RF: 5 pregabalin [Lyrica] 200 mg capsule 200 mg PO QHS Qty: 60 RF: 0 multivitamin Tablet 1 tab PO DAILY RF: 0 niacin 500 mg Tablet 500 mg PO DAILY RF: 0 magnesium 200 mg Tablet 400 mg PO QID RF: 0 acetaminophen [Tylenol] 325 mg Capsule 650 mg PO Q4H PRN (Reason: Pain, Mild) RF: 0 cholecalciferol (vitamin D3) [Vitamin D3] 5,000 unit Tablet 5,000 unit PO DAILY RF: 0 thyroid (pork) [[place] Thyroid] 60 mg Tablet 60 mg PO TID RF: 0 apixaban 5 mg Tablet 5 mg PO BID RF: 0 omega 5-fuo-mvf-fish oil [[place]-3] 350 mg-235 mg- 90 mg-597 mg Capsule,Delayed Release(Dr/Ec) 1 tab PO DAILY RF: 0 bupropion HCl [Wellbutrin SR] 150 mg tablet extended release 12 hr 150 mg PO DAILY RF: 0 tramadol 50 MG tablet 50 mg PO TID PRN (Reason: Pain, Moderate) RF: 0 tamsulosin [Flomax] 0.4 MG capsule,extended release 24hr 0.4 mg PO DAILY RF: 0 omeprazole 20 MG capsule,delayed release(DR/EC) 20 mg PO DAILY RF: 0 pregabalin [Lyrica] 75 MG capsule 75 mg PO DAILY RF: 0 Discontinued losartan 50 MG tablet 50 mg PO QDAY Qty: 90 RF: 2 carvedilol 3.125 mg Tablet 3.125 mg PO DAILY RF: 0 carvedilol 3.125 mg Tablet 6.25 mg PO QPM RF: 0 Follow up/Referrals: Adenike Rowe MD [Primary Care Provider] - 1 Week (*appt:09/17 @ 11:30 w/dr rowe @ [facility] [phone]) Provider Discharge Instructions Diet: Low-sodium Activity: As tolerated Oxygen: Room air Visit Report/Discharge Packet Instructions: Heart Failure, Atrial Fibrillation, Sarcoidosis, DI for Heart Failure, DI for Atrial Fibrillation Discharge Data Primary Care Provider: Adenike Rowe Attending Provider: Piter Rene Admit Date/Time: 09/07/17 09:26 Quality VTE Deep Vein Thrombosis/Pulmonary Embolism Present on Admission: No
--- NOTE | 2017-09-09 10:02 | P.DS_ITS ---
History of Present Illness Date Patient Seen: 09/09/17 Time Patient Seen: 09:43 Chief complaint: SHORTNESS OF BREATH Narrative: 62-year-old male with history of pulmonary sarcoidosis and intermittent atrial fibrillation presents with increasing shortness of breath over the past 24 hr. He has had significant orthopnea symptoms and dyspnea on exertion and dyspnea at rest. Symptoms also seem to be correlated with palpitations. Previous history of AFib underwent ablation in 2004 and then was fine up until just a few months ago when he started having intermittent symptoms and saw his burrer marker axle who placed a monitor on him that showed he was having AFib quite a lot. That that time they put him on carvedilol to help with rate control also put him on anticoagulation. Currently he is on carvedilol 3.125 in the morning and 6.25 at night. Some chest pressure with these symptoms also. He has been evaluated recently for his sarcoid they been investigating possible exacerbation of the sarcoid and possible cardiac involvement. He has had MRI of the heart and a PET scan of the heart looking for active sarcoid in these tests were inconclusive. The patient is on inhaled steroid for the sarcoid. He has not ever been on IV steroids. Discharge Providers Date of admission: 09/07/17 09:26 Primary care physician: Adenike Rowe MD Discharge provider: GREGG Kaufman Summary Discharge Diagnosis: 1. Acute exacerbation of chronic systolic heart failure 2. Atrial fibrillation 3. Chronic sarcoidosis Hospital Course: This is a summary of a 2 day hospitalization for this 62-year- old male who presented to the emergency room with increasing shortness of breath over 24 hr period. At the time of admission he was in atrial fibrillation with a rapid ventricular response in the 120s. BNP was 393 and his chest x-ray showed cardiomegaly and moderate vascular congestion suspicious for pulmonary edema. His echocardiogram showed all dilated left ventricle along with left ventricular systolic function moderately to severely reduced. His ejection fraction was estimated to be between 30 35%. There was also moderate to severe global hypokinesis of the left ventricle. There is also severe mitral regurgitation. A net loss of 4 L of fluid was diuresed using IV Lasix. He was started on metoprolol for better rate control. We decreased his dose of losartan and stop his carvedilol. He remains in atrial fibrillation with controlled ventricular response in the 60s 70s with occasional abberantly conducted beats. 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 He has a scheduled follow-up appointment with Cardiology this Saturday which she plans to keep. Exam Vital Signs (past 8 hours): - 09/09/17 02:20 09/09/17 05:07 09/09/17 07:55 Temperature 97.7 F 97.6 F Pulse Rate 76 85 Respiratory Rate 16 16 Blood Pressure 109/68 116/54 L Pulse Oximetry 91 92 95 09/09/17 08:19 09/09/17 08:39 Temperature Pulse Rate 69 Respiratory Rate 12 Blood Pressure Pulse Oximetry 93 97 Oxygen Delivery Method Room Air Oxygen Flow Rate 0 Narrative Exam Narrative: Sitting in bed in no acute pulmonary or cardiac distress. Const General: cooperative, healthy appearing, comfortable, well developed and well groomed Nutritional Appearance: average body habitus Orientation: alert, awake and oriented x3 HENMT Head: normal to inspection, normocephalic and atraumatic Eyes Pupils: PERRL Neck Neck: normal visual inspection, trachea midline and supple Other: No neck vein distention or lymphadenopathy. Chest Chest: normal inspection of the chest Resp Effort & Inspection: normal respiratory effort, able to speak in complete sentences and cough (This is a chronic cough since he had since approximately March.) Quality of cough: dry Auscultation: clear to auscultation bilaterally Cardio Rhythm: abnormal rhythm (Monitor shows atrial fibrillation with controlled ventricular response in the 60s to 70s. Occasional abberantly conducted beats.) GI Inspection: normal to inspection Palpation: soft Auscultation: normal bowel sounds Other: Nontender Other: No dysuria Back/Spine/Pelvis Back: normal to inspection Skin General: no rashes or lesions noted, dry skin and warm Neuro General: awake and oriented x3 Cranial Nerves: CN's II-XI intact bilaterally Cognition: normal cognition Speech: speech normal Gait: normal gait Motor: muscle tone normal throughout Sensory Exam: no sensory deficits noted Extrem General: normal to inspection and no pedal edema Psych Appearance: grossly normal Mental Status: mental status grossly normal Mood: congruent mood Affect: normal affect Attitude: cooperative Thought Process: normal Thought Content: normal Judgment: judgment good Objective Labs Result Diagrams: 09/07/17 06:20 09/09/17 05:18 Labs: Laboratory Results - last 24 hr 09/09/17 09/09/17 05:18 05:18 Sodium 142 Potassium 4.3 Chloride 97 L Carbon Dioxide 36 H BUN 28 H Creatinine 1.10 Estimated GFR > 60.0 BUN/Creatinine Ratio 25.5 H Glucose 105 Calcium 9.5 B-Natriuretic Peptide 283.0 H Name: YEHUDA RICARDO Study Date: 09/07/2017 Height: 72 in : :[facility] Weight: 200 lb : : Gender: Male BSA: 2.1 m2 : :: 1955 Age: 62 yrs BP: 133/78 mmHg: :Reason For Study: CHF : : Performed By: Sonal Sandoval : :Referring: PITER RENE : + + Interpretation Summary The patient was in atrial fibrillation with heart rates between 82-100 bpm during the exam. The left ventricle is moderately dilated. Left ventricular systolic function is moderate to severely reduced. The ejection fraction is estimated to be 30-35%. There is moderate to severe global hypokinesis of the left ventricle. There is severe mitral regurgitation. The mitral annulus is dilated. The mitral valve is normal in structure but abnormal in function. The right ventricular systolic pressure is estimated at 39 mmHg assuming a right atrial pressure of 8 mm Hg. The IVC is dilated (diameter is greater than 2.1 cm) yet it collapses greater than 50% with a sniff. This suggests a right atrial pressure of 8 mm Hg. Pleural effusion noted. The patient had an echocardiogram, but there is no comparison study available. No other echocardiographic abnormalities seen. Procedure: A two-dimensional transthoracic echocardiogram with color flow and Doppler was performed. The study quality was technically adequate. Comparison is made with the echocardiogram of 06/02/2008. The patient had an echocardiogram, but there is no comparison study available. The patient was in atrial fibrillation with heart rates between 82-100 bpm during the exam. Left Ventricle: The left ventricle is moderately dilated. Left ventricular wall thickness is at the upper limits of normal. There is no thrombus. The ejection fraction is estimated to be 30-35%. Left ventricular systolic function is moderate to severely reduced. There is moderate to severe global hypokinesis of the left ventricle. Diastolic function could not be accurately assessed due to atrial fibrillation. Right Ventricle: The right ventricle is normal size. Right ventricular systolic function is mildly reduced. Atria: The left atrium is severely dilated. Right atrial size is normal. There is no Doppler evidence for an interatrial shunt. Mitral Valve: The mitral annulus is dilated. The mitral valve leaflets appear thickened, but open well. The mitral valve is normal in structure but abnormal in function. There is no mitral valve stenosis. There is severe mitral regurgitation. Aortic Valve: The aortic valve is trileaflet. The aortic valve opens well. There is no aortic valve stenosis. There is mild aortic regurgitation. Tricuspid Valve: The tricuspid valve leaflets are thin and pliable. The right ventricular systolic pressure is estimated at 39 mmHg assuming a right atrial pressure of 8 mm Hg. There is mild tricuspid regurgitation. Pulmonic Valve: The pulmonic valve is normal in structure and function. There is a trace or physiologic amount of pulmonic regurgitation. Great Vessels: The aortic root is normal size. The ascending aorta is mildly enlarged. The aortic arch is mildly enlarged. The pulmonary artery is normal size. The IVC is dilated (diameter is greater than 2.1 cm) yet it collapses greater than 50% with a sniff. This suggests a right atrial pressure of 8 mm Hg. Pericardium/ Pleura There is no pericardial effusion. Pleural effusion noted. MMode/2D Measurements & Calculations LVIDd: 6.5 cm LVOT diam: 2.2 cm LVIDs: 5.4 cm Ao root diam: 3.7 cm FS: 18.0 % asc Aorta Diam: 3.9 cm IVSd: 0.81 cm Ao Arch Diam (Prox Trans): 3.1 cm LVPWd: 1.1 cm LV herring. diameter/BSA (cm/m^2): 3.1 LV sys. diameter/BSA (cm/m^2): 2.5 LA A2 area: 47.3 cm2 RA long axis: 5.9 cm LA A4 area: 44.7 cm2 RA area: 22.3 cm2 LA length (vol): 8.0 cm RA vol: 71.3 ml LA vol: 224.9 ml RA : 33.5 ml/m2 LA vol index: 105.6 ml/m2 IVC diam: 2.5 cm RVD1 (basal): 3.7 cm TAPSE: 1.1 cm Doppler Measurements & Calculations Ao V2 max: 91.5 cm/sec LVOT Max Luis Miguel: 78.1 cm/sec Ao V2 mean: 73.1 cm/sec LV V1 max P.5 mmHg Ao max P.5 mmHg LV V1 VTI: 12.4 cm Ao mean P.3 mmHg JESSIE(I,D): 3.0 cm2 Ao V2 VTI: 14.8 cm JESSIE(V,D): 3.1 cm2 sev ratio: 0.83 JESSIE indexed to BSA (cm^2/m^2): 1.4 MV E max luis miguel: 85.3 cm/sec TR max luis miguel: 279.8 cm/sec Med Peak E' Luis Miguel: 5.5 cm/sec TR max P.3 mmHg E/E' med: 15.6 PA V2 max: 46.8 cm/sec Lat Peak E' Luis Miguel: 10.7 cm/sec PA V2 mean: 31.9 cm/sec E/E' lat: 8.0 PA mean P.47 mmHg E/e' average: 11.8 MV P1/2t: 62.1 msec MV P1/2t max luis miguel: 85.8 cm/sec MVA(P1/2t): 3.5 cm2 Reading Physician:04:55 PM Discharge Plan Discharge Plan Patient Disposition: Home, Self-Care Discharge comment: Patient has follow-up appointment with Cardiology in [place] this . Discharge Med Rec/Prescriptions Prescriptions: New potassium chloride [Klor-Con M20] 20 mEq Tablet,Er Particles/Crystals 20 meq PO BIDWM Qty: 60 RF: 3 losartan 25 mg Tablet 25 mg PO DAILY Qty: 30 RF: 3 metoprolol tartrate 75 mg tablet 75 mg PO BID Qty: 60 RF: 3 furosemide [Lasix] 40 mg tablet 40 mg PO DAILY Qty: 30 RF: 3 Continue fluticasone [Flonase Allergy Relief] 9.9 ML spray,suspension 1 spray Intranasal QDAY Qty: 0 RF: 0 beclomethasone dipropionate [Qvar] 80 MCG/PUFF aerosol 1 puff Inhalation BID Qty: 0 RF: 0 diclofenac sodium [Voltaren] 1 % gel 2 g Topical QID Qty: 0 RF: 0 etodolac 400 MG tablet 400 mg PO BID Qty: 60 RF: 5 pregabalin [Lyrica] 200 mg capsule 200 mg PO QHS Qty: 60 RF: 0 multivitamin Tablet 1 tab PO DAILY RF: 0 niacin 500 mg Tablet 500 mg PO DAILY RF: 0 magnesium 200 mg Tablet 400 mg PO QID RF: 0 acetaminophen [Tylenol] 325 mg Capsule 650 mg PO Q4H PRN (Reason: Pain, Mild) RF: 0 cholecalciferol (vitamin D3) [Vitamin D3] 5,000 unit Tablet 5,000 unit PO DAILY RF: 0 thyroid (pork) [[place] Thyroid] 60 mg Tablet 60 mg PO TID RF: 0 apixaban 5 mg Tablet 5 mg PO BID RF: 0 omega 1-fzw-kcf-fish oil [[place]-3] 350 mg-235 mg- 90 mg-597 mg Capsule, Delayed Release(Dr/Ec) 1 tab PO DAILY RF: 0 bupropion HCl [Wellbutrin SR] 150 mg tablet extended release 12 hr 150 mg PO DAILY RF: 0 tramadol 50 MG tablet 50 mg PO TID PRN (Reason: Pain, Moderate) RF: 0 tamsulosin [Flomax] 0.4 MG capsule,extended release 24hr 0.4 mg PO DAILY RF: 0 omeprazole 20 MG capsule,delayed release(DR/EC) 20 mg PO DAILY RF: 0 pregabalin [Lyrica] 75 MG capsule 75 mg PO DAILY RF: 0 Discontinued losartan 50 MG tablet 50 mg PO QDAY Qty: 90 RF: 2 carvedilol 3.125 mg Tablet 3.125 mg PO DAILY RF: 0 carvedilol 3.125 mg Tablet 6.25 mg PO QPM RF: 0 Follow up/Referrals: Adenike Rowe MD [Primary Care Provider] - 1 Week (*appt:09/17 @ 11:30 w/dr rowe @ [facility] [phone]) Provider Discharge Instructions Diet: Low-sodium Activity: As tolerated Oxygen: Room air Visit Report/Discharge Packet Instructions: Heart Failure, Atrial Fibrillation, Sarcoidosis, DI for Heart Failure, DI for Atrial Fibrillation Discharge Data Primary Care Provider: Adenike Rowe Attending Provider: Piter Rene Admit Date/Time: 09/07/17 09:26 Quality VTE Deep Vein Thrombosis/Pulmonary Embolism Present on Admission: No
--- NOTE | 2017-09-09 10:25 | CM.DPC ---
DC Plan and patient d/c today: DCP went to check in on patient who discharged to home this morning just moments prior to DCP arrival in pt room. He is d/c to home with self and spouse care. Marcy Dash RN
--- NOTE | 2017-09-09 10:39 | PC.NURSE ---
Day shift: Pt left unit at approx 1005. He ambulated to car with his spouse and this creative writer. HAs all personal belongings and MD scrips. Paperwork signed and questions answered.
== END 2017-09-09 10:40 | disposition home or self-care (01) | DRG 293 ==
LOC: ED 08:49 → ICU 09:27 → AC 09-08 14:49
PROVIDERS: Emergency Medicine; Admitting Provider Internal Medicine; Emergency Provider Emergency Medicine; Family Provider Nurse Practitioner; PCP Family Medicine; Visit Provider Internal Medicine
DX: I11.0 Hypertensive heart disease with heart failure (principal); I50.23 Acute on chronic systolic (congestive) heart failure; I42.9 Cardiomyopathy, unspecified; I48.2 Chronic atrial fibrillation; E03.9 Hypothyroidism, unspecified; K21.9 Gastro-esophageal reflux disease without esophagitis; G47.30 Sleep apnea, unspecified; D86.9 Sarcoidosis, unspecified; Z79.51 Long term (current) use of inhaled steroids; I34.0 Nonrheumatic mitral (valve) insufficiency
CPT/HCPCS: 36415; 71045; 80048; 80053; 82550; 82553; 83735; 83880; 84145; 84443; 84484; 85025; 85610; 85730; 87797; 93005; 93010; 93041; 93306; 94640; 94760; 94762; 96374; 96375; 99284; 99285; J1940

== ENCOUNTER → 2017-09-24 12:18 | Outpatient (CLI) | payer OTHER, SELFPAY ==
[2017-09-07 10:16] VITALS: BMI 27.6
[2017-09-24 13:03] LABS: HEMOLYSIS 37 (0-50); Potassium 4.2 mmol/L (3.4-5.1)
== END ==
PROVIDERS: Family Provider Nurse Practitioner; PCP Family Medicine; Visit Provider Family Medicine
DX: I50.9 Heart failure, unspecified (principal)
CPT/HCPCS: 36415; 84132

== ENCOUNTER → 2017-11-22 09:28 | Outpatient (CLI) | payer OTHER, SELFPAY ==
[2017-09-07 10:16] VITALS: BMI 27.6
== END ==
PROVIDERS: PCP Family Medicine; Visit Provider Family Medicine
DX: E03.9 Hypothyroidism, unspecified (principal)
CPT/HCPCS: 36415; 84443

== ENCOUNTER → 2018-01-07 09:38 | Outpatient (CLI) | payer OTHER, SELFPAY ==
[2017-09-07 10:16] VITALS: BMI 27.6
[2018-01-07 11:14] LABS: Thyroid Stimulating Hormone 4.75 uIU/mL (0.47-4.68)
== END ==
PROVIDERS: Family Provider Family Medicine; PCP Family Medicine; Visit Provider Family Medicine
DX: E03.9 Hypothyroidism, unspecified (principal)
CPT/HCPCS: 36415; 84443

== ENCOUNTER 2018-03-05 08:30 | Outpatient (RCR) | payer OTHER, SELFPAY ==
[2017-09-07 10:16] VITALS: BMI 27.6
[2017-12-03 09:30] VITALS: BP 120/70; BP 126/74; O2SAT 96; BMI 28.5
[2017-12-30 13:51] VITALS: BP 112/62
[2018-01-27 14:55] VITALS: BP 112/70
[2018-02-24 15:59] VITALS: BP 104/62
[2018-03-06 07:59] VITALS: BP 108/64; BP 118/66
== END 2018-03-13 09:33 ==
LOC: CAR 08:30
PROVIDERS: Family Provider Family Medicine; PCP Family Medicine; Visit Provider Internal Medicine
DX: I50.9 Heart failure, unspecified (principal)
CPT/HCPCS: 93798

== ENCOUNTER → 2018-08-04 10:39 | Outpatient (CLI) | payer OTHER, SELFPAY ==
[2017-09-07 10:16] VITALS: BMI 27.6
[2018-03-06 07:59] VITALS: BP 108/64
[2018-08-04 12:35] LABS: Thyroid Stimulating Hormone 1.78 uIU/mL (0.47-4.68)
== END ==
PROVIDERS: Family Provider Family Medicine; PCP Family Medicine; Visit Provider Family Medicine
DX: E03.9 Hypothyroidism, unspecified (principal)
CPT/HCPCS: 36415; 84443

== ENCOUNTER 2018-08-28 17:27 | Emergency (ER) | payer OTHER, SELFPAY ==
[2017-09-07 10:16] VITALS: BMI 27.6
[2018-03-06 07:59] VITALS: BP 108/64
[2018-08-28] VITALS (9 sets, daily range): BP systolic 103–132; BP diastolic 69–88; PULSE 55–99; RESP 10–16; TEMP 36.5–36.9; O2SAT 92–99
--- NOTE | 2018-08-28 17:43 | DI.RAD.S_ITS ---
PROCEDURE: XR CHEST 1V INDICATIONS: Tachycardia TECHNIQUE: One view of the chest was acquired. COMPARISON: [facility], CR, XR CHEST 1V, 09/07/2017, 6:31. [facility], CR, CHEST 1 VIEW, 05/19/2008, 12:20. FINDINGS: Surgical changes and devices: An electronic device projects over the mediastinal silhouette. Lungs and pleura: There is prominence of pulmonary vasculature. Left perihilar and left basilar pulmonary opacities are similar to slightly decreased from prior exam of 09/07/17. Mediastinum: Mediastinal contours appear normal. Heart size is normal. Bones and chest wall: No suspicious bony lesions. Overlying soft tissues appear unremarkable. IMPRESSION: Left perihilar and left basilar pulmonary opacities are similar to slightly decreased from comparison exam of 09/07/17, and may represent parenchymal scarring (less likely atelectasis or aspiration/pneumonia). Dictated by: Francisco J Stanley M.D. on 08/28/2018 at 19:14 Approved by: Francisco J Stanley M.D. on 08/28/2018 at 19:16
[2018-08-28 17:58] LABS: Add Manual Diff / Slide Review NO; Basophils Absolute Auto 100 /uL (0-100); Basophils Percent Auto 0.9 % (0-2); Eosinophils Absolute Auto 100 /uL (0-450); Hematocrit 45.7 % (41-53); Hemoglobin 15.7 g/dL (13.5-17.5); Lymphocytes Absolute Auto 1000 /uL (1100-4500); Lymphocytes Percent Auto 15.6 % (25-40); Mean Corpuscular HGB Conc 34.2 % (30-36); Mean Corpuscular Hemoglobin 32.1 PG (26-34); Mean Corpuscular Volume 93.7 fL (80-100); Monocytes Absolute Auto 600 /uL (0-900); Monocytes Percent Auto 10.3 % (3-14); Neutrophils Absolute Auto 4500 /uL (1500-7000); Neutrophils Percent Auto 72.2 % (50-75); Platelet Count 214 X10^3/uL (150-400); Red Blood Cell Count 4.88 X10^6/uL (4.5-5.9); White Blood Cell Count 6.3 X10^3/uL (4.5-11.0)
[2018-08-28 18:02] LABS: INR 1.1 (0.9-1.3); Prothrombin Time 12.7 SECONDS (10.1-12.7)
[2018-08-28 18:09] LABS: Alanine Aminotransferase 22 IU/L (21-72); Albumin 4.1 g/dL (3.5-5.0); Albumin Globulin Ratio 1.6 (1.0-2.8); Alkaline Phosphatase 43 U/L (38-126); Aspartate Aminotransferase 30 IU/L (17-59); BUN Creatinine Ratio 33.3 (6-22); Bilirubin Total 0.4 mg/dL (0.2-1.3); Blood Urea Nitrogen 30 mg/dL (9-20); Calcium 9.6 mg/dL (8.4-10.2); Carbon Dioxide 29 mmol/L (22-32); Chloride 103 mmol/L (98-107); Estimated Glomerular Filt Rate > 60.0 mL/min (>60); Globulin 2.6 g/dL (1.7-4.1); Glucose 113 mg/dL (80-110); HEMOLYSIS 19 (0-50); Lipase 147 U/L (23-300); PTT Partial Thromboplastin Tim 34 SECONDS (26.4-36.2); Potassium 4.1 mmol/L (3.4-5.1); Sodium 138 mmol/L (137-145); Total Protein 6.7 g/dL (6.3-8.2)
[2018-08-28 18:20] LABS: B Type Natriuretic Peptide < 100 (<100); Troponin I < 0.012 ng/mL (0.01-0.034)
--- NOTE | 2018-08-28 18:33 | ED.ARRPALP ---
HPI - Arrhythmia/Palpitations General Chief Complaint: Arrhythmia/Palpitations Stated Complaint: irregular heart beats Time Seen by Provider: 08/28/18 17:42 Source: patient and family Mode of arrival: ambulatory Limitations: no limitations History of Present Illness HPI narrative: 63-year-old male nonsmoker with history of sarcoid and recurrence atrial fibrillation and a flutter status post for ablation so presents with chest pain and palpitations. [facility] and had been symptom-free and doing quite well until 1 week ago when he developed palpitations. It is very characteristic for him to develop anterior chest pain with palpitations despite the rate. He denies associated symptoms such as dizziness, weakness or lightheadedness. He denies any change in medications, lifestyle or diet. 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 Due to his ongoing symptoms he was encouraged to come see us by his doctors. He has been on apixaban since his last ablation many months ago and has missed no doses. MD complaint: rapid heart beat and palpitations Onset (ago): day(s) Duration: constant Severity: moderate Arrhythmia history: atrial fibrillation, on anti-coagulants, history of ablation and history of electrical cardioversion Associated symptoms: chest pain Related Data Home Medications Medication Instructions Recorded Confirmed fluticasone propionate [Flonase 1 spray INTRANASAL QDAY #0 02/17/16 08/28/18 Allergy Relief] diclofenac sodium [Voltaren] 2 g TOPICAL QID #0 06/11/17 08/28/18 acetaminophen [Tylenol] 650 mg PO Q4H PRN 09/07/17 08/28/18 apixaban 5 mg PO BID 09/07/17 08/28/18 cholecalciferol (vitamin D3) 5,000 unit PO DAILY 09/07/17 08/28/18 [Vitamin D3] magnesium 400 mg PO QID 09/07/17 08/08/18 multivitamin 1 tab PO DAILY 09/07/17 08/08/18 niacin 500 mg PO DAILY 09/07/17 08/08/18 omega 4-[id number]-wmv-fish oil [[place]-3] 1 tab PO DAILY 09/07/17 08/08/18 beclomethasone dipropionate [Qvar 1 puff INHALATION BID 08/28/18 08/28/18 RediHaler] metoprolol succinate 25 mg PO BID 08/28/18 08/28/18 prednisone 10 mg PO DAILY 08/28/18 08/28/18 pregabalin [Lyrica] 200 mg PO BEDTIME 08/28/18 08/28/18 Previous Rx's Medication Instructions Recorded bupropion HCl SR 150 mg tablet,12 150 mg PO BID #180 tab 01/10/18 hr sustained-release thyroid (pork) 90 mg tablet 90 mg PO DAILY #90 tab 01/10/18 tamsulosin 0.4 mg capsule 0.8 mg PO DAILY #180 cap 05/23/18 losartan 25 mg tablet 12.5 mg PO BID #30 tab 07/25/18 pregabalin 75 mg capsule 75 mg PO TID #90 cap 07/25/18 furosemide 20 mg tablet 20 mg PO DAILY #30 tab 07/30/18 tramadol 50 mg tablet 50 mg PO TID PRN #60 tab 08/08/18 omeprazole 20 mg capsule,delayed 20 mg PO BID #60 cap 08/13/18 release Allergies Allergy/AdvReac Type Severity Reaction Status Date / Time azithromycin Allergy Mild RASH Verified 08/08/18 08:48 Penicillins Allergy Mild RASH Verified 08/08/18 08:48 simvastatin Allergy Mild ACHES Verified 08/08/18 08:48 Sulfa (Sulfonamide Allergy Mild RASH Verified 08/08/18 08:48 Antibiotics) Calcium Channel Yunier Allergy Mild RASH Uncoded 08/08/18 08:48 Review of Systems Constitutional Denies chills, Denies fever(s), Denies lethargy and Denies weakness Eyes Denies change in vision, Denies eye discharge, Denies irritation and Denies loss of vision ENT Ears, Nose, Mouth, and Throat: Denies change in voice, Denies neck pain and Denies sore throat Cardiovascular Reports chest pain, Reports irregular heart rhythm, Denies lightheadedness, Reports palpitations, Denies dyspnea, Denies dyspnea on exertion and Denies orthopnea Respiratory Denies cough, Denies dyspnea, Denies dyspnea on exertion and Denies wheezing Gastrointestinal Gastrointestinal: Denies abdominal pain, Denies change in bowel habits, Denies diarrhea, Denies nausea and Denies vomiting Genitourinary Denies hematuria, Denies flank pain, Denies urinary incontinence and Denies urinary urgency Musculoskeletal Denies neck pain Integumentary/Breasts Denies pruritus, Denies erythema, Denies rash and Denies wounds Neurologic Denies confusion, Denies loss of vision and Denies weakness Psychiatric Denies anxiety, Denies confusion, Denies depression, Denies homicidal ideation and Denies suicidal ideation Endocrine Reports palpitations Hematologic/Lymphatic Denies easy bruising Allergic/Immunologic Denies wheezing [facility] History Sarcoidosis (Chronic) Essential hypertension (Chronic 09/26/10) Hyperlipidemia (Chronic 09/26/10) Hypothyroidism (Chronic 01/20/14) Afib (Chronic) Allergy to mold (Chronic ~2011) Cardiomyopathy (Chronic) Chronic systolic heart failure (Chronic) Fibromyalgia (Chronic 2009) GERD (gastroesophageal reflux disease) (Chronic) Hayfever (Chronic 2011) Morphea (Chronic) Osteoarthritis (Chronic) Shoulder pain (Chronic) Sleep apnea (Chronic 2002) Trigger finger (Chronic 2014) Vitiligo (Chronic ~1994) Abnormal CXR (chest x-ray) (Resolved 2002) CTS (carpal tunnel syndrome) (Resolved 1999) Cardiac arrhythmia (Resolved 2004) Chicken pox (Resolved) Measles (Resolved) Mumps (Resolved) Surgical History Anesthesia (Resolved) History of cardiac radiofrequency ablation (RFA) (Resolved 2004) History of carpal tunnel repair (Resolved 1979) History of carpal tunnel repair (Resolved 2011) History of nasal surgery (Resolved ~2012) History of orthopedic surgery (Resolved ~1959) History of thoracic surgery (Resolved 2004) Status post appendectomy (Resolved 1977) Status post eye surgery (Resolved) Family History Brother Overweight History of Coumadin therapy Father Psoriasis Mother Hypertension Depression Circulation disorder of lower extremity Social History household members: spouse and family pets and animals: Yes education level: college guillermo/tenriism: Jewish seatbelt use: always water heater temp set < 120 deg: Yes working smoke detector in home: Yes fire extinguisher in home: Yes Smoking Status: Never smoker alcohol intake: never caffeine: Yes (1-2 per day) Family History Brother Overweight History of Coumadin therapy Father Psoriasis Mother Hypertension Depression Circulation disorder of lower extremity Social History household members: spouse and family pets and animals: Yes education level: college guillermo/tenriism: Jewish seatbelt use: always water heater temp set < 120 deg: Yes working smoke detector in home: Yes fire extinguisher in home: Yes Smoking Status: Never smoker alcohol intake: never caffeine: Yes (1-2 per day) Exam Narrative Exam Narrative: GENERAL: A 63-year-old male resting comfortably, appears stated age, mild distress HEAD: Atraumatic. Normocephalic. No temporal or scalp tenderness. EYES: Pupils equal round and reactive. Extraocular motions intact. No scleral icterus. No injection or drainage. ENT: Nose without bleeding, purulent drainage or septal hematoma. Throat without erythema, tonsillar hypertrophy or exudate. Uvula midline. Airway patent. NECK: Trachea midline. No JVD or lymphadenopathy. Supple, nontender, no meningeal signs. CARDIOVASCULAR: Irregular rate and rhythm without murmurs, gallops, or rubs. RESPIRATORY: Clear to auscultation. Breath sounds equal bilaterally. No wheezes, rales, or rhonchi. GASTROINTESTINAL: Abdomen soft, non-tender, nondistended. No hepato-splenomegaly, or palpable masses. No guarding. EXTREMITIES: No clubbing, cyanosis, or edema. No joint tenderness, effusion, or edema noted. BACK: Nontender without deformity or crepitance. No flank tenderness. NEURO: AOx3. SKIN: No rash or erythema. Initial Vital Signs Initial Vital Signs: Vital Signs Temperature 98.4 F 08/28/18 17:38 Pulse Rate 99 H 08/28/18 17:38 Respiratory Rate 12 08/28/18 17:38 Blood Pressure 132/81 08/28/18 17:38 Pulse Oximetry 99 08/28/18 17:38 Procedures Cardioversion Consent Signed: Yes Cardiac rhythm prior to cardioversion: 2:1 to 4:1 flutter Stability: Unstable Number of attempts (shocks): 1 Joules used: 50 Cardiac rhythm post-cardioversion: NSR @ 61 Procedural Sedation Patient Age: Patient is 5yrs or older Consent signed: Yes Time out performed: Yes Indication: cardioversion ASA Class: II Mallampati Airway Classification: Class II Preparation: manager cardiac applied, pulse oximeter, capnometry used, supplemental O2 applied, suction/airway equipment at bedside and IV secured IV Propofol dose (mg): 80 Intraservice time/total sedation time (min): 10 ED Sedation Level: Moderate (Concious) Patient Tolerated Procedure: Well Complications: hypoventilation Interventions: Airway repositioned Course Orders Ordered: ED Orders 08/28/18 17:37 EKG-12 Lead Stat 08/28/18 17:43 XR chest 1V Stat 08/28/18 17:45 B Type Natriuretic Peptide Stat Complete Blood Count AUTO DIFF Stat Comprehensive Metabolic Panel Stat Lipase Stat Partial Thromboplastin Time Stat Prothrombin Time INR Stat Thyroid Stimulating Hormone Stat Troponin I Stat Discontinued Medications Propofol (Diprivan) 80 mg IV NOW ONE Stop: 08/28/18 20:08 Last Admin: 08/28/18 19:58 Dose: 80 mg Consultations Consultation #1: call to Cardiology. Discussed case with on-call atrophy is the hardboard grinder who assures agreement that this patient is appropriate candidate for cardioversion given his symptoms and assumed safety of procedure given use of Eliquis. Though he has no signs of ischemia he becomes quite symptomatic any time he is in atrial flutter even with a rate in the 60s to 70s. Time: 18:49 Vital Signs - 8 hr 08/28/18 17:38 08/28/18 19:55 08/28/18 20:00 Temperature 98.4 F 97.7 F Pulse Rate 99 H 68 89 Respiratory Rate 12 11 L Blood Pressure 132/81 Blood Pressure [Right Arm] 110/88 117/75 Pulse Oximetry 99 98 96 08/28/18 20:05 08/28/18 20:40 Temperature Pulse Rate 59 L 84 Respiratory Rate 16 Blood Pressure Blood Pressure [Right Arm] 114/71 Pulse Oximetry 99 MDM - Arrhythmia/Palpitations Lab Data Result diagrams: 08/28/18 17:45 08/28/18 17:45 Lab Results 08/28/18 08/28/18 08/28/18 Range/Units 17:45 17:45 17:45 WBC 6.3 (4.5-11.0) X10^3/uL RBC 4.88 (4.5-5.9) X10^6/uL Hgb 15.7 (13.5-17.5) g/dL Hct 45.7 (41-53) % MCV 93.7 (80-100) fL MCH 32.1 (26-34) PG MCHC 34.2 (30-36) % RDW 13.0 (11.6-14.8) % Plt Count 214 (150-400) X10^3/uL Neut % (Auto) 72.2 (50-75) % Lymph % (Auto) 15.6 L (25-40) % [place] % (Auto) 10.3 (3-14) % Eos % (Auto) 1.0 L (2-4) % Baso % (Auto) 0.9 (0-2) % Neut # (Auto) 4500 (8629-5273) /uL Lymph # (Auto) 1000 L (4877-1456) /uL [place] # (Auto) 600 (0-900) /uL Eos # (Auto) 100 (0-450) /uL Baso # (Auto) 100 (0-100) /uL PT (10.1-12.7) SECONDS INR (0.9-1.3) APTT 34 D (26.4-36.2) SECONDS Sodium 138 (137-145) mmol/L Potassium 4.1 (3.4-5.1) mmol/L Chloride 103 (98-107) mmol/L Carbon Dioxide 29 (22-32) mmol/L BUN 30 H (9-20) mg/dL Creatinine 0.90 (0.66-1.25) mg/dL Estimated GFR > 60.0 (>60) mL/min BUN/Creatinine Ratio 33.3 H (6-22) Glucose 113 H (80-110) mg/dL Calcium 9.6 (8.4-10.2) mg/dL Total Bilirubin 0.4 (0.2-1.3) mg/dL AST 30 (17-59) IU/L ALT 22 (21-72) IU/L Alkaline Phosphatase 43 (38-126) U/L Troponin I (0.01-0.034) ng/mL B-Natriuretic Peptide < 100 (<100) Total Protein 6.7 (6.3-8.2) g/dL Albumin 4.1 (3.5-5.0) g/dL Globulin 2.6 (1.7-4.1) g/dL Albumin/Globulin Ratio 1.6 (1.0-2.8) Lipase 147 (23-300) U/L TSH (0.47-4.68) uIU/mL 08/28/18 08/28/18 08/28/18 Range/Units 17:45 17:45 17:45 WBC (4.5-11.0) X10^3/uL RBC (4.5-5.9) X10^6/uL Hgb (13.5-17.5) g/dL Hct (41-53) % MCV (80-100) fL MCH (26-34) PG MCHC (30-36) % RDW (11.6-14.8) % Plt Count (150-400) X10^3/uL Neut % (Auto) (50-75) % Lymph % (Auto) (25-40) % [place] % (Auto) (3-14) % Eos % (Auto) (2-4) % Baso % (Auto) (0-2) % Neut # (Auto) (2635-4999) /uL Lymph # (Auto) (6476-3463) /uL [place] # (Auto) (0-900) /uL Eos # (Auto) (0-450) /uL Baso # (Auto) (0-100) /uL PT 12.7 (10.1-12.7) SECONDS INR 1.1 (0.9-1.3) APTT (26.4-36.2) SECONDS Sodium (137-145) mmol/L Potassium (3.4-5.1) mmol/L Chloride (98-107) mmol/L Carbon Dioxide (22-32) mmol/L BUN (9-20) mg/dL Creatinine (0.66-1.25) mg/dL Estimated GFR (>60) mL/min BUN/Creatinine Ratio (6-22) Glucose (80-110) mg/dL Calcium (8.4-10.2) mg/dL Total Bilirubin (0.2-1.3) mg/dL AST (17-59) IU/L ALT (21-72) IU/L Alkaline Phosphatase (38-126) U/L Troponin I < 0.012 (0.01-0.034) ng/mL B-Natriuretic Peptide (<100) Total Protein (6.3-8.2) g/dL Albumin (3.5-5.0) g/dL Globulin (1.7-4.1) g/dL Albumin/Globulin Ratio (1.0-2.8) Lipase (23-300) U/L TSH 1.73 (0.47-4.68) uIU/mL Discharge Plan Departure Patient Disposition: Home Clinical Impression: Atrial fibrillation and flutter Discharge Date/Time: 08/28/18 21:25 Interventions: ED Discharge Assessment Last Done: 08/28/18 21:25 Instructions: DI for Atrial Flutter Activity Restrictions/Additional Instructions: *You have been diagnosed with [symptomatic atrial flutter with procedural sedation and electrocardioversion] *What to do: * continue to take medications as directed *Follow up with your primary care provider in 2-3 days, call for an appointment. Let them know you were seen in the Emergency Department and that we ask that you be seen in follow up *Return to ER if you should have any new, worsening or concerning symptoms, such as [ chest pain, dizziness, weakness, shortness of breath or other bothersome symptoms] Prescriptions: No Action tramadol 50 mg tablet 50 mg PO TID PRN (Reason: Pain, Moderate) Qty: 60 RF: 0 fluticasone propionate [Flonase Allergy Relief] 9.9 ML spray,suspension 1 spray Intranasal QDAY Qty: 0 RF: 0 diclofenac sodium [Voltaren] 1 % gel 2 g Topical QID Qty: 0 RF: 0 thyroid (pork) [[place] Thyroid] 90 mg tablet 90 mg PO DAILY Qty: 90 RF: 3 bupropion HCl [Wellbutrin SR] 150 mg tablet sustained-release 12 hr 150 mg PO BID Qty: 180 RF: 3 tamsulosin [Flomax] 0.4 mg capsule 0.8 mg PO DAILY Qty: 180 RF: 3 losartan 25 mg tablet 12.5 mg PO BID Qty: 30 RF: 5 Lyrica 75 mg capsule 75 mg PO TID Qty: 90 RF: 3 furosemide 20 mg tablet 20 mg PO DAILY Qty: 30 RF: 5 omeprazole 20 mg capsule,delayed release(DR/EC) 20 mg PO BID Qty: 60 RF: 5 multivitamin Tablet 1 tab PO DAILY RF: 0 niacin 500 mg Tablet 500 mg PO DAILY RF: 0 magnesium 200 mg Tablet 400 mg PO QID RF: 0 acetaminophen [Tylenol] 325 mg Capsule 650 mg PO Q4H PRN (Reason: Pain, Mild) RF: 0 cholecalciferol (vitamin D3) [Vitamin D3] 5,000 unit Tablet 5,000 unit PO DAILY RF: 0 apixaban 5 mg Tablet 5 mg PO BID RF: 0 omega 5-qrr-oys-fish oil [[place]-3] 350 mg-235 mg- 90 mg-597 mg Capsule,Delayed Release(Dr/Ec) 1 tab PO DAILY RF: 0 prednisone 10 mg tablet 10 mg PO DAILY RF: 0 metoprolol succinate 25 mg tablet extended release 24 hr 25 mg PO BID RF: 0 Qvar RediHaler 80 mcg/actuation HFA aerosol breath activated 1 puff inhalation BID RF: 0 Lyrica 200 mg capsule 200 mg PO BEDTIME RF: 0 Referrals: Adenike Rowe MD [Primary Care Provider] -
--- NOTE | 2018-08-28 18:50 | ED_ITS ---
HPI - Arrhythmia/Palpitations General Chief Complaint: Arrhythmia/Palpitations Stated Complaint: irregular heart beats Time Seen by Provider: 08/28/18 17:42 Source: patient and family Mode of arrival: ambulatory Limitations: no limitations History of Present Illness HPI narrative: 63-year-old male nonsmoker with history of sarcoid and recurrence atrial fibrillation and a flutter status post for ablation so presents with chest pain and palpitations. He had 4 ablation last year at the [facility] and had been symptom-free and doing quite well until 1 week ago when he developed palpitations. It is very characteristic for him to develop anterior chest pain with palpitations despite the rate. He denies associated symptoms such as dizziness, weakness or lightheadedness. He denies any change in medications, lifestyle or diet. 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 Due to his ongoing symptoms he was encouraged to come see us by his doctors. He has been on apixaban since his last ablation many months ago and has missed no doses. MD complaint: rapid heart beat and palpitations Onset (ago): day(s) Duration: constant Severity: moderate Arrhythmia history: atrial fibrillation, on anti-coagulants, history of ablation and history of electrical cardioversion Associated symptoms: chest pain Related Data Home Medications Medication Instructions Recorded Confirmed fluticasone propionate [Flonase 1 spray INTRANASAL QDAY #0 02/17/16 08/28/18 Allergy Relief] diclofenac sodium [Voltaren] 2 g TOPICAL QID #0 06/11/17 08/28/18 acetaminophen [Tylenol] 650 mg PO Q4H PRN 09/07/17 08/28/18 apixaban 5 mg PO BID 09/07/17 08/28/18 cholecalciferol (vitamin D3) 5,000 unit PO DAILY 09/07/17 08/28/18 [Vitamin D3] magnesium 400 mg PO QID 09/07/17 08/08/18 multivitamin 1 tab PO DAILY 09/07/17 08/08/18 niacin 500 mg PO DAILY 09/07/17 08/08/18 omega 3-puq-kcu-fish oil [[place]-3] 1 tab PO DAILY 09/07/17 08/08/18 beclomethasone dipropionate [Qvar 1 puff INHALATION BID 08/28/18 08/28/18 RediHaler] metoprolol succinate 25 mg PO BID 08/28/18 08/28/18 prednisone 10 mg PO DAILY 08/28/18 08/28/18 pregabalin [Lyrica] 200 mg PO BEDTIME 08/28/18 08/28/18 Previous Rx's Medication Instructions Recorded bupropion HCl SR 150 mg tablet,12 150 mg PO BID #180 tab 01/10/18 hr sustained-release thyroid (pork) 90 mg tablet 90 mg PO DAILY #90 tab 01/10/18 tamsulosin 0.4 mg capsule 0.8 mg PO DAILY #180 cap 05/23/18 losartan 25 mg tablet 12.5 mg PO BID #30 tab 07/25/18 pregabalin 75 mg capsule 75 mg PO TID #90 cap 07/25/18 furosemide 20 mg tablet 20 mg PO DAILY #30 tab 07/30/18 tramadol 50 mg tablet 50 mg PO TID PRN #60 tab 08/08/18 omeprazole 20 mg capsule,delayed 20 mg PO BID #60 cap 08/13/18 release Allergies Allergy/AdvReac Type Severity Reaction Status Date / Time azithromycin Allergy Mild RASH Verified 08/08/18 08:48 Penicillins Allergy Mild RASH Verified 08/08/18 08:48 simvastatin Allergy Mild ACHES Verified 08/08/18 08:48 Sulfa (Sulfonamide Allergy Mild RASH Verified 08/08/18 08:48 Antibiotics) Calcium Channel Yunier Allergy Mild RASH Uncoded 08/08/18 08:48 Review of Systems Constitutional Denies chills, Denies fever(s), Denies lethargy and Denies weakness Eyes Denies change in vision, Denies eye discharge, Denies irritation and Denies loss of vision ENT Ears, Nose, Mouth, and Throat: Denies change in voice, Denies neck pain and Denies sore throat Cardiovascular Reports chest pain, Reports irregular heart rhythm, Denies lightheadedness, Reports palpitations, Denies dyspnea, Denies dyspnea on exertion and Denies orthopnea Respiratory Denies cough, Denies dyspnea, Denies dyspnea on exertion and Denies wheezing Gastrointestinal Gastrointestinal: Denies abdominal pain, Denies change in bowel habits, Denies diarrhea, Denies nausea and Denies vomiting Genitourinary Denies hematuria, Denies flank pain, Denies urinary incontinence and Denies urinary urgency Musculoskeletal Denies neck pain Integumentary/Breasts Denies pruritus, Denies erythema, Denies rash and Denies wounds Neurologic Denies confusion, Denies loss of vision and Denies weakness Psychiatric Denies anxiety, Denies confusion, Denies depression, Denies homicidal ideation and Denies suicidal ideation Endocrine Reports palpitations Hematologic/Lymphatic Denies easy bruising Allergic/Immunologic Denies wheezing [facility] Medical History Sarcoidosis (Chronic) Essential hypertension (Chronic 09/26/10) Hyperlipidemia (Chronic 09/26/10) Hypothyroidism (Chronic 01/20/14) Afib (Chronic) Allergy to mold (Chronic ~2011) Cardiomyopathy (Chronic) Chronic systolic heart failure (Chronic) Fibromyalgia (Chronic 2009) GERD (gastroesophageal reflux disease) (Chronic) Hayfever (Chronic 2011) Morphea (Chronic) Osteoarthritis (Chronic) Shoulder pain (Chronic) Sleep apnea (Chronic 2002) Trigger finger (Chronic 2014) Vitiligo (Chronic ~1994) Abnormal CXR (chest x-ray) (Resolved 2002) CTS (carpal tunnel syndrome) (Resolved 1999) Cardiac arrhythmia (Resolved 2004) Chicken pox (Resolved) Measles (Resolved) Mumps (Resolved) Surgical History Anesthesia (Resolved) History of cardiac radiofrequency ablation (RFA) (Resolved 2004) History of carpal tunnel repair (Resolved 1979) History of carpal tunnel repair (Resolved 2011) History of nasal surgery (Resolved ~2012) History of orthopedic surgery (Resolved ~1959) History of thoracic surgery (Resolved 2004) Status post appendectomy (Resolved 1977) Status post eye surgery (Resolved) Family History Brother Overweight History of Coumadin therapy Father Psoriasis Mother Hypertension Depression Circulation disorder of lower extremity Social History household members: spouse and family pets and animals: Yes education level: college guillermo/restoration: [employer] seatbelt use: always water heater temp set < 120 deg: Yes working smoke detector in home: Yes fire extinguisher in home: Yes Smoking Status: Never smoker alcohol intake: never caffeine: Yes (1-2 per day) Family History Brother Overweight History of Coumadin therapy Father Psoriasis Mother Hypertension Depression Circulation disorder of lower extremity Social History household members: spouse and family pets and animals: Yes education level: college guillermo/restoration: [employer] seatbelt use: always water heater temp set < 120 deg: Yes working smoke detector in home: Yes fire extinguisher in home: Yes Smoking Status: Never smoker alcohol intake: never caffeine: Yes (1-2 per day) Exam Narrative Exam Narrative: GENERAL: A 63-year-old male resting comfortably, appears stated age, mild distress HEAD: Atraumatic. Normocephalic. No temporal or scalp tenderness. EYES: Pupils equal round and reactive. Extraocular motions intact. No scleral icterus. No injection or drainage. ENT: Nose without bleeding, purulent drainage or septal hematoma. Throat without erythema, tonsillar hypertrophy or exudate. Uvula midline. Airway patent. NECK: Trachea midline. No JVD or lymphadenopathy. Supple, nontender, no meningeal signs. CARDIOVASCULAR: Irregular rate and rhythm without murmurs, gallops, or rubs. RESPIRATORY: Clear to auscultation. Breath sounds equal bilaterally. No wheezes, rales, or rhonchi. GASTROINTESTINAL: Abdomen soft, non-tender, nondistended. No hepato- splenomegaly, or palpable masses. No guarding. EXTREMITIES: No clubbing, cyanosis, or edema. No joint tenderness, effusion, or edema noted. BACK: Nontender without deformity or crepitance. No flank tenderness. NEURO: AOx3. SKIN: No rash or erythema. Initial Vital Signs Initial Vital Signs: Vital Signs Temperature 98.4 F 08/28/18 17:38 Pulse Rate 99 H 08/28/18 17:38 Respiratory Rate 12 08/28/18 17:38 Blood Pressure 132/81 08/28/18 17:38 Pulse Oximetry 99 08/28/18 17:38 Procedures Cardioversion Consent Signed: Yes Cardiac rhythm prior to cardioversion: 2:1 to 4:1 flutter Stability: Unstable Number of attempts (shocks): 1 Joules used: 50 Cardiac rhythm post-cardioversion: NSR @ 61 Procedural Sedation Patient Age: Patient is 5yrs or older Consent signed: Yes Time out performed: Yes Indication: cardioversion ASA Class: II Mallampati Airway Classification: Class II Preparation: security monitor applied, pulse oximeter, capnometry used, supplemental O2 applied, suction/airway equipment at bedside and IV secured IV Propofol dose (mg): 80 Intraservice time/total sedation time (min): 10 ED Sedation Level: Moderate (Concious) Patient Tolerated Procedure: Well Complications: hypoventilation Interventions: Airway repositioned Course Orders Ordered: ED Orders 08/28/18 17:37 EKG-12 Lead Stat 08/28/18 17:43 XR chest 1V Stat 08/28/18 17:45 B Type Natriuretic Peptide Stat Complete Blood Count AUTO DIFF Stat Comprehensive Metabolic Panel Stat Lipase Stat Partial Thromboplastin Time Stat Prothrombin Time INR Stat Thyroid Stimulating Hormone Stat Troponin I Stat Discontinued Medications Propofol (Diprivan) 80 mg IV NOW ONE Stop: 08/28/18 20:08 Last Admin: 08/28/18 19:58 Dose: 80 mg Consultations Consultation #1: call to Cardiology. Discussed case with on-call atrophy is the attending radiologist who assures agreement that this patient is appropriate candidate for cardioversion given his symptoms and assumed safety of procedure given use of Eliquis. Though he has no signs of ischemia he becomes quite symptomatic any time he is in atrial flutter even with a rate in the 60s to 70s. Time: 18:49 Vital Signs - 8 hr 08/28/18 17:38 08/28/18 19:55 08/28/18 20:00 Temperature 98.4 F 97.7 F Pulse Rate 99 H 68 89 Respiratory Rate 12 11 L Blood Pressure 132/81 Blood Pressure [Right Arm] 110/88 117/75 Pulse Oximetry 99 98 96 08/28/18 20:05 08/28/18 20:40 Temperature Pulse Rate 59 L 84 Respiratory Rate 16 Blood Pressure Blood Pressure [Right Arm] 114/71 Pulse Oximetry 99 MDM - Arrhythmia/Palpitations Lab Data Result diagrams: 08/28/18 17:45 08/28/18 17:45 Lab Results 08/28/18 08/28/18 08/28/18 Range/Units 17:45 17:45 17:45 WBC 6.3 (4.5-11.0) X10^3/uL RBC 4.88 (4.5-5.9) X10^6/uL Hgb 15.7 (13.5-17.5) g/dL Hct 45.7 (41-53) % MCV 93.7 (80-100) fL MCH 32.1 (26-34) PG MCHC 34.2 (30-36) % RDW 13.0 (11.6-14.8) % Plt Count 214 (150-400) X10^3/uL Neut % (Auto) 72.2 (50-75) % Lymph % (Auto) 15.6 L (25-40) % [place] % (Auto) 10.3 (3-14) % Eos % (Auto) 1.0 L (2-4) % Baso % (Auto) 0.9 (0-2) % Neut # (Auto) 4500 (9539-2592) /uL Lymph # (Auto) 1000 L (2369-6636) /uL [place] # (Auto) 600 (0-900) /uL Eos # (Auto) 100 (0-450) /uL Baso # (Auto) 100 (0-100) /uL PT (10.1-12.7) SECONDS INR (0.9-1.3) APTT 34 D (26.4-36.2) SECONDS Sodium 138 (137-145) mmol/L Potassium 4.1 (3.4-5.1) mmol/L Chloride 103 (98-107) mmol/L Carbon Dioxide 29 (22-32) mmol/L BUN 30 H (9-20) mg/dL Creatinine 0.90 (0.66-1.25) mg/dL Estimated GFR > 60.0 (>60) mL/min BUN/Creatinine Ratio 33.3 H (6-22) Glucose 113 H (80-110) mg/dL Calcium 9.6 (8.4-10.2) mg/dL Total Bilirubin 0.4 (0.2-1.3) mg/dL AST 30 (17-59) IU/L ALT 22 (21-72) IU/L Alkaline Phosphatase 43 (38-126) U/L Troponin I (0.01-0.034) ng/mL B-Natriuretic Peptide < 100 (<100) Total Protein 6.7 (6.3-8.2) g/dL Albumin 4.1 (3.5-5.0) g/dL Globulin 2.6 (1.7-4.1) g/dL Albumin/Globulin Ratio 1.6 (1.0-2.8) Lipase 147 (23-300) U/L TSH (0.47-4.68) uIU/mL 08/28/18 08/28/18 08/28/18 Range/Units 17:45 17:45 17:45 WBC (4.5-11.0) X10^3/uL RBC (4.5-5.9) X10^6/uL Hgb (13.5-17.5) g/dL Hct (41-53) % MCV (80-100) fL MCH (26-34) PG MCHC (30-36) % RDW (11.6-14.8) % Plt Count (150-400) X10^3/uL Neut % (Auto) (50-75) % Lymph % (Auto) (25-40) % [place] % (Auto) (3-14) % Eos % (Auto) (2-4) % Baso % (Auto) (0-2) % Neut # (Auto) (3671-8408) /uL Lymph # (Auto) (8178-8114) /uL [place] # (Auto) (0-900) /uL Eos # (Auto) (0-450) /uL Baso # (Auto) (0-100) /uL PT 12.7 (10.1-12.7) SECONDS INR 1.1 (0.9-1.3) APTT (26.4-36.2) SECONDS Sodium (137-145) mmol/L Potassium (3.4-5.1) mmol/L Chloride (98-107) mmol/L Carbon Dioxide (22-32) mmol/L BUN (9-20) mg/dL Creatinine (0.66-1.25) mg/dL Estimated GFR (>60) mL/min BUN/Creatinine Ratio (6-22) Glucose (80-110) mg/dL Calcium (8.4-10.2) mg/dL Total Bilirubin (0.2-1.3) mg/dL AST (17-59) IU/L ALT (21-72) IU/L Alkaline Phosphatase (38-126) U/L Troponin I < 0.012 (0.01-0.034) ng/mL B-Natriuretic Peptide (<100) Total Protein (6.3-8.2) g/dL Albumin (3.5-5.0) g/dL Globulin (1.7-4.1) g/dL Albumin/Globulin Ratio (1.0-2.8) Lipase (23-300) U/L TSH 1.73 (0.47-4.68) uIU/mL Discharge Plan Departure Patient Disposition: Home Clinical Impression: Atrial fibrillation and flutter Discharge Date/Time: 08/28/18 21:25 Interventions: ED Discharge Assessment Last Done: 08/28/18 21:25 Instructions: DI for Atrial Flutter Activity Restrictions/Additional Instructions: *You have been diagnosed with [symptomatic atrial flutter with procedural sedation and electrocardioversion] *What to do: * continue to take medications as directed *Follow up with your primary care provider in 2-3 days, call for an appointment. Let them know you were seen in the Emergency Department and that we ask that you be seen in follow up *Return to ER if you should have any new, worsening or concerning symptoms, such as [ chest pain, dizziness, weakness, shortness of breath or other bothersome symptoms] Prescriptions: No Action tramadol 50 mg tablet 50 mg PO TID PRN (Reason: Pain, Moderate) Qty: 60 RF: 0 fluticasone propionate [Flonase Allergy Relief] 9.9 ML spray,suspension 1 spray Intranasal QDAY Qty: 0 RF: 0 diclofenac sodium [Voltaren] 1 % gel 2 g Topical QID Qty: 0 RF: 0 thyroid (pork) [[place] Thyroid] 90 mg tablet 90 mg PO DAILY Qty: 90 RF: 3 bupropion HCl [Wellbutrin SR] 150 mg tablet sustained-release 12 hr 150 mg PO BID Qty: 180 RF: 3 tamsulosin [Flomax] 0.4 mg capsule 0.8 mg PO DAILY Qty: 180 RF: 3 losartan 25 mg tablet 12.5 mg PO BID Qty: 30 RF: 5 Lyrica 75 mg capsule 75 mg PO TID Qty: 90 RF: 3 furosemide 20 mg tablet 20 mg PO DAILY Qty: 30 RF: 5 omeprazole 20 mg capsule,delayed release(DR/EC) 20 mg PO BID Qty: 60 RF: 5 multivitamin Tablet 1 tab PO DAILY RF: 0 niacin 500 mg Tablet 500 mg PO DAILY RF: 0 magnesium 200 mg Tablet 400 mg PO QID RF: 0 acetaminophen [Tylenol] 325 mg Capsule 650 mg PO Q4H PRN (Reason: Pain, Mild) RF: 0 cholecalciferol (vitamin D3) [Vitamin D3] 5,000 unit Tablet 5,000 unit PO DAILY RF: 0 apixaban 5 mg Tablet 5 mg PO BID RF: 0 omega 9-rps-oep-fish oil [[place]-3] 350 mg-235 mg- 90 mg-597 mg Capsule,Delayed Release(Dr/Ec) 1 tab PO DAILY RF: 0 prednisone 10 mg tablet 10 mg PO DAILY RF: 0 metoprolol succinate 25 mg tablet extended release 24 hr 25 mg PO BID RF: 0 Qvar RediHaler 80 mcg/actuation HFA aerosol breath activated 1 puff inhalation BID RF: 0 Lyrica 200 mg capsule 200 mg PO BEDTIME RF: 0 Referrals: Adenike Rowe MD [Primary Care Provider] -
[2018-08-28 18:52] LABS: Thyroid Stimulating Hormone 1.73 uIU/mL (0.47-4.68)
[2018-08-28] MEDS: PROPOFOL 200 MG/20 ML VIAL 80 MG IV (19:58)
== END 2018-08-28 21:25 | disposition home or self-care (01) ==
PROVIDERS: Emergency Medicine; Emergency Provider Emergency Medicine; Family Provider Family Medicine; PCP Family Medicine
DX: I48.91 Unspecified atrial fibrillation (principal)
CPT/HCPCS: 36591; 71045; 80053; 83690; 83880; 84443; 84484; 85025; 85610; 85730; 92960; 93005; 94770; 99283; 99285; J2704

== ENCOUNTER → 2019-01-16 08:55 | Outpatient (CLI) | payer OTHER, SELFPAY ==
[2017-09-07 10:16] VITALS: BMI 27.6
[2018-03-06 07:59] VITALS: BP 108/64
--- NOTE | 2019-01-23 07:53 | PM.PFT.1 ---
Pulmonary Function Test Referral & Results Date Patient Seen: 01/16/19 Requesting provider: Raisa Hunter Results: The spirometry demonstrates an FVC of 5.62 L which is 112% of predicted. The FEV1 was measured at 3.88 L which is 103% of predicted. The FEV1/FVC ratio was 69 which is 92% of predicted. Following the administration of bronchodilator there was a 51% improvement in FEF 25-75% and 9% improvement in FEV1. Lung volumes show an SVC of 5.23 L which is 104% of predicted. The diffusing capacity was measured at 30.62 which is 87% of predicted. No hemoglobin value was provided, so no correction for potential anemia could be made, if appropriate. The maximum voluntary ventilation was normal Interpretation: This study demonstrates normal spirometry although there is some limited evidence of mild improvement following bronchodilator in the face of these normal numbers There may be a slight reduction in diffusing capacity unless patient is anemic This study could also be considered entirely normal Clinical correlation suggested
== END ==
PROVIDERS: PCP Family Medicine; Visit Provider Internal Medicine
DX: D86.9 Sarcoidosis, unspecified (principal)
CPT/HCPCS: 94060; 94726; 94729

== ENCOUNTER 2019-01-29 12:22 | Emergency (ER) | payer OTHER, SELFPAY ==
[2017-09-07 10:16] VITALS: BMI 27.6
[2018-03-06 07:59] VITALS: BP 108/64
[2019-01-29 12:30] VITALS: BP 146/94; PULSE 58; RESP 16; TEMP 36.6; O2SAT 98
--- NOTE | 2019-01-29 12:34 | DI.RAD.S_ITS ---
PROCEDURE: XR SHOULDER RT MIN 2V INDICATIONS: right shoulder new injury/ low rom. TECHNIQUE: 3 views of the shoulder were acquired. COMPARISON: None. FINDINGS: Bones: No fractures or dislocations. No suspicious bony lesions. Visualized ribs appear intact. A.c. joint and glenohumeral joint degenerative change. Soft tissues: No suspicious soft tissue calcifications. IMPRESSION: No evidence acute bony abnormality of the right shoulder. Degenerative change. If clinical suspicion and/or symptoms persist, further assessment with repeat plain films, or advanced imaging (e.g., CT, MRI, or bone scan) may be helpful for further assessment. Dictated by: Sabas Barrera M.D. on 01/29/2019 at 12:50 Approved by: Sabas Barrera M.D. on 01/29/2019 at 12:53
--- NOTE | 2019-01-29 12:34 | DI.RAD.S_ITS ---
PROCEDURE: XR HUMERUS RT 2V INDICATIONS: new injury/ low rom. TECHNIQUE: 2 views of the humerus were acquired. COMPARISON: [facility], CR, XR SHOULDER RT MIN 2V, 01/29/2019, 12:32. FINDINGS: Bones: No fractures or dislocations. No suspicious bony lesions. Soft tissues: No suspicious soft tissue calcifications. The visualized lung demonstrates an unremarkable appearance. IMPRESSION: Normal plain films. Dictated by: Luis Brown M.D. on 01/29/2019 at 11:51 Approved by: Luis Brown M.D. on 01/29/2019 at 11:52
--- NOTE | 2019-01-29 12:36 | ED.GENADULT ---
HPI - General Adult General Chief complaint: Extremity Injury, Upper Stated complaint: tripped and injured right shoulder Time Seen by Provider: 01/29/19 12:26 Source: patient Mode of arrival: Ambulatory Limitations: no limitations History of Present Illness HPI narrative: 63-year-old male here for evaluation of right shoulder injury. Patient states approximately 2 hours ago he was walking and tripped on the sidewalk and landing forward with both arms outstretched. Since then has had right shoulder pain. No other injuries reported from the event. Related Data Home Medications Medication Instructions Recorded Confirmed fluticasone propionate [Flonase 1 spray INTRANASAL QDAY #0 02/17/16 08/28/18 Allergy Relief] diclofenac sodium [Voltaren] 2 g TOPICAL QID #0 06/11/17 08/28/18 acetaminophen [Tylenol] 650 mg PO Q4H PRN 09/07/17 08/28/18 apixaban 5 mg PO BID 09/07/17 08/28/18 cholecalciferol (vitamin D3) 5,000 unit PO DAILY 09/07/17 08/28/18 [Vitamin D3] magnesium 400 mg PO QID 09/07/17 08/08/18 multivitamin 1 tab PO DAILY 09/07/17 08/08/18 niacin 500 mg PO DAILY 09/07/17 08/08/18 omega 2-dlt-qmh-fish oil [[place]-3] 1 tab PO DAILY 09/07/17 08/08/18 beclomethasone dipropionate [Qvar 1 puff INHALATION BID 08/28/18 08/28/18 RediHaler] metoprolol succinate 25 mg PO BID 08/28/18 08/28/18 prednisone 10 mg PO DAILY 08/28/18 08/28/18 amiodarone 200 mg tablet 200 mg PO DAILY 12/11/18 Previous Rx's Medication Instructions Recorded tamsulosin 0.4 mg capsule 0.8 mg PO DAILY #180 cap 05/23/18 pregabalin 75 mg capsule 75 mg PO TID #90 cap 07/25/18 omeprazole 20 mg capsule,delayed 20 mg PO BID #60 cap 08/13/18 release losartan 25 mg tablet 12.5 mg PO BID #30 tab 12/16/18 bupropion HCl 150 mg tablet,12 hr See Rx Instructions .ROUTE 10/22/19 sustained-release .COMPLEX #180 tablet tramadol 50 mg tablet See Rx Instructions .ROUTE 01/13/19 .COMPLEX #60 tablet pregabalin 200 mg capsule See Rx Instructions .ROUTE 01/21/19 .COMPLEX #90 cap furosemide 20 mg tablet See Rx Instructions .ROUTE 01/23/19 .COMPLEX #30 tablet thyroid (pork) 90 mg tablet 90 mg PO DAILY #90 tab 01/23/19 meloxicam [Mobic] 15 mg PO DAILY PRN #30 tab 01/29/19 Allergies Allergy/AdvReac Type Severity Reaction Status Date / Time azithromycin Allergy Mild RASH Verified 08/08/18 08:48 Penicillins Allergy Mild RASH Verified 08/08/18 08:48 simvastatin Allergy Mild ACHES Verified 08/08/18 08:48 Sulfa (Sulfonamide Allergy Mild RASH Verified 08/08/18 08:48 Antibiotics) Calcium Channel Yunier Allergy Mild RASH Uncoded 08/08/18 08:48 Review of Systems Constitutional Constitutional: Denies headache(s) ENT Ears, Nose, Mouth, and Throat: Denies headache(s) and Denies disequilibrium Cardiovascular Cardiovascular: Denies chest pain and Denies dyspnea Respiratory Respiratory: Denies dyspnea Musculoskeletal Musculoskeletal: Reports arthralgias Comments: Right shoulder Integumentary/Breasts Skin/Breast: Denies rash Neurologic Neurologic: Denies headache(s), Denies paresthesias and Denies disequilibrium Patient History Medical History Abnormal CXR (chest x-ray) (Resolved 2002) Afib (Chronic) Allergy to mold (Chronic ~2011) Cardiac arrhythmia (Resolved 2004) Cardiomyopathy (Chronic) Chicken pox (Resolved) Chronic systolic heart failure (Chronic) CTS (carpal tunnel syndrome) (Resolved 1999) Essential hypertension (Chronic 09/26/10) Fibromyalgia (Chronic 2009) GERD (gastroesophageal reflux disease) (Chronic) Hayfever (Chronic 2011) Hyperlipidemia (Chronic 09/26/10) Hypothyroidism (Chronic 01/20/14) Measles (Resolved) Morphea (Chronic) Mumps (Resolved) Osteoarthritis (Chronic) Sarcoidosis (Chronic) Shoulder pain (Chronic) Sleep apnea (Chronic 2002) Trigger finger (Chronic 2014) Vitiligo (Chronic ~1994) Social History household members: spouse and family pets and animals: Yes education level: college [employer]/syn[employer]: [employer] seatbelt use: always water heater temp set < 120 deg: Yes working smoke detector in home: Yes fire extinguisher in home: Yes Smoking Status: Never smoker alcohol intake: never caffeine: Yes (1-2 per day) alcohol intake frequency: other Substance Use Type: does not use Exam Initial Vital Signs Initial Vital Signs: Vital Signs Temperature 97.8 F 01/29/19 12:30 Pulse Rate 58 L 01/29/19 12:30 Respiratory Rate 16 01/29/19 12:30 Blood Pressure 146/94 H 01/29/19 12:30 Pulse Oximetry 98 01/29/19 12:30 HENMT Head: normal to inspection and normocephalic Cardio Pulses: radial pulses present on the left Skin Lesions: no lesions Rashes: no rashes Neuro Sensory Exam: no sensory deficits noted Extrem Other: Left wrist, left hand, left elbow unremarkable. Patient with tenderness to palpation and decreased range of motion of the left shoulder. Course Orders Ordered: ED Orders 01/29/19 12:34 XR humerus RT 2V Stat XR shoulder RT min 2V Stat Vital Signs Vital signs: Vital Signs - 8 hr 01/29/19 12:30 Temperature 97.8 F Pulse Rate 58 L Respiratory Rate 16 Blood Pressure 146/94 H Pulse Oximetry 98 Medical Decision Making Imaging Data Shoulder x-ray: Radiologist's impression: [address] [address] XRay Report Signed Patient: Yelitza Montalvo LMR#: [id number] : 6Acct:[id number] Age/Sex: 63 / MDate of Service: 01/29/19 Loc: ED Accession Number: [id number] Procedure: XR shoulder RT min 2V Ordering Provider: Fabian Osman D.O. PROCEDURE: XR SHOULDER RT MIN 2V INDICATIONS: right shoulder new injury/ low rom. TECHNIQUE: 3 views of the shoulder were acquired. COMPARISON: None. FINDINGS: Bones: No fractures or dislocations. No suspicious bony lesions. Visualized ribs appear intact. A.c. joint and glenohumeral joint degenerative change. Soft tissues: No suspicious soft tissue calcifications. IMPRESSION: No evidence acute bony abnormality of the right shoulder. Degenerative change. If clinical suspicion and/or symptoms persist, further assessment with repeat plain films, or advanced imaging (e.g., CT, MRI, or bone scan) may be helpful for further assessment. Dictated by: Sabas Barrera M.D. on 01/29/2019 at 12:50 Approved by: Sabas Barrera M.D. on 01/29/2019 at 12:53 Humerus x-ray: Radiologist's impression: [address] [address] XRay Report Signed Patient: Yelitza Montalvo LMR#: [id number] : 6Acct:[id number] Age/Sex: 63 / MDate of Service: 01/29/19 Loc: ED Accession Number: [id number] Procedure: XR humerus RT 2V Ordering Provider: Fabian Osman D.O. PROCEDURE: XR HUMERUS RT 2V INDICATIONS: new injury/ low rom. TECHNIQUE: 2 views of the humerus were acquired. COMPARISON: [facility], CR, XR SHOULDER RT MIN 2V, 01/29/2019, 12:32. FINDINGS: Bones: No fractures or dislocations. No suspicious bony lesions. Soft tissues: No suspicious soft tissue calcifications. The visualized lung demonstrates an unremarkable appearance. IMPRESSION: Normal plain films. Dictated by: Luis Brown M.D. on 01/29/2019 at 11:51 Approved by: Luis Brown M.D. on 01/29/2019 at 11:52 MDM Narrative Medical decision making narrative: No fractures noted on the x-ray. Patient is neurovascularly intact. Offered a sling however the patient declined. Offered pain medication however the patient declined. Did discuss pendulum swings. Informed him that if his symptoms do not improve in the next couple days should talk with his primary doctor about further evaluation treatment. He expressed understanding agreement plan. Discharge Plan Departure Patient Disposition: Home Clinical Impression: Right shoulder pain Qualifiers: Chronicity: acute Qualified Code(s): M25.511 - Pain in right shoulder Instructions: How To Perform RICE (Rest, Ice, Compress, Elevate), DI for Shoulder Pain Activity Restrictions/Additional Instructions: Use ice like we discussed. Also do the pendulum swings like we discussed. If your symptoms do not improve over the next couple days contact your primary provider for follow-up to discuss further workup to include potential physical therapy or orthopedic referrals. Your not restricted on any of your activities. Return to the emergency department for any new or worsening symptoms Prescriptions: New meloxicam [Mobic] 15 mg tablet 15 mg PO DAILY PRN (Reason: pain) Qty: 30 RF: 0 No Action fluticasone propionate [Flonase Allergy Relief] 9.9 ML spray,suspension 1 spray Intranasal QDAY Qty: 0 RF: 0 diclofenac sodium [Voltaren] 1 % gel 2 g Topical QID Qty: 0 RF: 0 tamsulosin [Flomax] 0.4 mg capsule 0.8 mg PO DAILY Qty: 180 RF: 3 Lyrica 75 mg capsule 75 mg PO TID Qty: 90 RF: 3 omeprazole 20 mg capsule,delayed release(DR/EC) 20 mg PO BID Qty: 60 RF: 5 amiodarone 200 mg tablet 200 mg PO DAILY RF: 0 losartan 25 mg tablet 12.5 mg PO BID Qty: 30 RF: 5 bupropion HCl 150 mg tablet sustained-release 12 hr See Rx Instructions .ROUTE .COMPLEX Qty: 180 RF: 2 tramadol 50 mg tablet See Rx Instructions .ROUTE .COMPLEX Qty: 60 RF: 0 pregabalin 200 mg capsule See Rx Instructions .ROUTE .COMPLEX Qty: 90 RF: 0 furosemide 20 mg tablet See Rx Instructions .ROUTE .COMPLEX Qty: 30 RF: 3 thyroid (pork) [[place] Thyroid] 90 mg tablet 90 mg PO DAILY Qty: 90 RF: 1 multivitamin Tablet 1 tab PO DAILY RF: 0 niacin 500 mg Tablet 500 mg PO DAILY RF: 0 magnesium 200 mg Tablet 400 mg PO QID RF: 0 acetaminophen [Tylenol] 325 mg Capsule 650 mg PO Q4H PRN (Reason: Pain, Mild) RF: 0 cholecalciferol (vitamin D3) [Vitamin D3] 5,000 unit Tablet 5,000 unit PO DAILY RF: 0 apixaban 5 mg Tablet 5 mg PO BID RF: 0 omega 7-uzf-xsf-fish oil [[place]-3] 350 mg-235 mg- 90 mg-597 mg Capsule,Delayed Release(Dr/Ec) 1 tab PO DAILY RF: 0 prednisone 10 mg tablet 10 mg PO DAILY RF: 0 metoprolol succinate 25 mg tablet extended release 24 hr 25 mg PO BID RF: 0 Qvar RediHaler 80 mcg/actuation HFA aerosol breath activated 1 puff inhalation BID RF: 0 Referrals: Adenike Rowe MD [Primary Care Provider] - Stand Alone Forms: Work Release Note
[2019-01-29 13:36] VITALS: BP 126/76; PULSE 51; RESP 16; O2SAT 96
== END 2019-01-29 13:36 | disposition home or self-care (01) ==
PROVIDERS: Emergency Provider Emergency Medicine; PCP Family Medicine
DX: M25.511 Pain in right shoulder (principal)
CPT/HCPCS: 73030; 73060; 99282; 99283

== ENCOUNTER → 2019-02-10 17:38 | Outpatient (CLI) | payer OTHER, SELFPAY ==
[2017-09-07 10:16] VITALS: BMI 27.6
[2018-03-06 07:59] VITALS: BP 108/64
--- NOTE | 2019-02-10 17:42 | DI.MRI.S_ITS ---
PROCEDURE: MR SHOULDER RT WO CON INDICATIONS: unable to lift , shoulder pain, injury, fall TECHNIQUE: Noncontrast oblique coronal T2 fast spin echo with fat saturation, oblique sagittal T1 spin echo and T2 fast spin echo with fat saturation, axial T1 spin echo and T2 fast spin echo with fat saturation through the shoulder. COMPARISON: None. FINDINGS: Image quality: Excellent. Rotator cuff: The infraspinatus and subscapularis tendons appear intact throughout but the infraspinatus muscle dorsally at its middle third contains elevated fluid signal and immediately adjacent soft tissue edema with irregularity within the substance of the infraspinatus musculature, to the degree that partial-thickness tear is present. Additionally, there is destruction of the supraspinatus tendon, chronicity uncertain, with 2.8 cm medial retraction of the tendon itself.. Sagittal images demonstrate no definite muscle atrophy. Bones and bursae: No bone marrow contusions or fractures. There is moderate acromioclavicular joint degeneration of fibrous and osseous hypertrophy impinging inferiorly against the normal course of the proximal supraspinatus tendon. The acromion demonstrates conventional anatomy, without an os acromiale. No pathologic subacromial-subdeltoid or subcoracoid bursal fluid is present. Capsule and soft tissues: In the absence of intra-articular contrast, the labrum and glenohumeral ligaments appear intact. The long head of the biceps tendon demonstrates normal location and morphology. The rotator interval appears normal, without fibrosis. The coracohumeral ligament is normal in thickness. IMPRESSION: Full-thickness retracted supraspinatus rotator cuff tear with a 2.8 cm retraction deficit above the humeral head which is subluxed superiorly near the undersurface of the acromium. Additionally, there is partial-thickness tear involving the middle third substance of the infraspinatus musculature in this setting of trauma. The infraspinatus tendon more laterally, however, is not disrupted. Dictated by: Nico Vo M.D. on 02/11/2019 at 15:01 Approved by: Nico Vo M.D. on 02/11/2019 at 15:08
== END ==
PROVIDERS: Family Provider Family Medicine; PCP Family Medicine; Visit Provider Family Medicine
DX: M25.511 Pain in right shoulder (principal); S46.011A Strain of muscle(s) and tendon(s) of the rotator cuff of right shoulder, initial encounter; W19.XXXA Unspecified fall, initial encounter
CPT/HCPCS: 73221

== ENCOUNTER → 2019-05-28 13:49 | Outpatient (CLI) | payer OTHER, SELFPAY ==
[2017-09-07 10:16] VITALS: BMI 27.6
[2018-03-06 07:59] VITALS: BP 108/64
--- NOTE | 2019-05-28 13:51 | DI.CT.S_ITS ---
PROCEDURE: CT CHEST HIGH RESOLUTION INDICATIONS: Sarcoidosis TECHNIQUE: Noncontrast 1.0 and 5.0 mm thick contiguous axial sections from the pulmonary apex to the posterior costophrenic angles, with 7 mm thick coronal and sagittal MIP reformats. 1 mm thick dynamic expiratory images acquired through the upper, mid, and lower lungs. 1.0 mm thick axial sections acquired from the tiffany to the posterior costophrenic angles in the prone end-inspiration position. For radiation dose reduction, the following was used: automated exposure control, adjustment of mA and/or kV according to patient size. COMPARISON: [facility], CT, THORAX WITHOUT CONTRAST, 10/25/2016, 11:05. Outside Facility, RG, CT PET CT CARDIAC INFLAMMATION-SARCOID, 08/27/2018, 11:44. FINDINGS: Image quality: Excellent. Lungs: Multiple scattered pulmonary nodules bilaterally. The majority of which demonstrate central calcification. Many of these nodules are peripherally located or along the fissures. For example: -Left lower lobe nodule measuring 1.9 x 1.3 cm, (3/to 24), previously 1.9 x 1.7 cm on 10/25/2016. -Right upper lobe nodule measuring 1 x 0.9 cm, (3/90), new. Minimal groundglass opacity in the posterior right upper lobe and right middle lobe. Streaky opacity in the lingula. Mild scarring at the lung bases. This persists on the prone sequences. No air trapping. No honeycombing. Central airways are clear. Pleura: No pleural effusions or pneumothorax. Mediastinum: Extensive calcified mediastinal and bilateral hilar and paraesophageal adenopathy similar to multiple prior exams. Heart size is normal. No pericardial effusion. Thoracic aorta and central pulmonary arteries are normal in size. Esophagus is normal in caliber. Bones and chest wall: No suspicious bony lesions. No vertebral body compression fractures. Thoracic spine kyphosis. Abdomen: Visualized upper abdominal solid organs and bowel loops appear normal. IMPRESSION: 1. Numerous pulmonary nodules similar to the prior exams. Many of these nodules are in a perilymphatic distribution with central calcification. At least one new nodule in the right upper lobe. These findings are in keeping with sarcoidosis. 2. Minimal ground was opacity in the right upper lobe and right middle lobe. 3. Calcified mediastinal and hilar adenopathy. Dictated by: Robert Hope M.D. on 05/28/2019 at 17:55 Approved by: Robert Hope M.D. on 05/28/2019 at 18:09
== END ==
PROVIDERS: Family Provider Family Medicine; PCP Family Medicine; Referring Provider Family Medicine; Visit Provider Family Medicine
DX: D86.9 Sarcoidosis, unspecified (principal); R59.0 Localized enlarged lymph nodes
CPT/HCPCS: 71250

== ENCOUNTER → 2019-09-15 09:46 | Outpatient (CLI) | payer OTHER, SELFPAY ==
[2017-09-07 10:16] VITALS: BMI 27.6
[2018-03-06 07:59] VITALS: BP 108/64
--- NOTE | 2019-09-15 | DI.MRI.S_ITS ---
PROCEDURE: MR SHOULDER RT WO CON INDICATIONS: Strain of muscle and tendon of right rotator cuff TECHNIQUE: Noncontrast oblique coronal T2 fast spin echo with fat saturation, oblique sagittal T1 spin echo and T2 fast spin echo with fat saturation, axial T1 spin echo and T2 fast spin echo with fat saturation through the shoulder. COMPARISON: [facility], MR, MR SHOULDER RT WO CON, 02/10/2019, 17:55. FINDINGS: Image quality: Excellent. Rotator cuff: Patient is status post prior repair of rotator cuff tendons with postsurgical changes. Most anterior fibers of the distal supraspinatus show moderate grade articular surface partial thickness tear. There is full-thickness rupture involving rest of supraspinatus tendon and infraspinatus tendon at their insertion humeral head with medial retraction of torn tendon fibers to the level of the glenoid. Distal subscapularis tendinosis and low to moderate grade partial-thickness tear is seen. Sagittal images demonstrate mild to moderate supraspinatus and infraspinatus muscle atrophy. Bones and bursae: Postsurgical changes are noted in right femoral head. No gross acute fracture or dislocation. Expected postsurgical widening of acromioclavicular joint is seen. Moderate to large amount of joint effusion a subacromial subdeltoid bursal fluid is noted. Capsule and soft tissues: In the absence of intra-articular contrast, the labrum and glenohumeral ligaments appear intact. The long head of the biceps tendinosis and low to moderate grade partial-thickness tear is seen. The rotator interval appears normal, without fibrosis. The coracohumeral ligament is normal in thickness. IMPRESSION: 1. Post surgical changes from prior rotator cuff tendon repair. No gross acute fracture or dislocation. Expected post surgical widening of acromioclavicular joint. Moderate to large amount of joint fluid in subacromial subdeltoid bursal fluid. No gross intra-articular loose body. 2. Recurrent full-thickness rupture involving distal supraspinatus and infraspinatus at their insertions on humeral head with medially retracted torn tendon fibers to the level of the glenoid. Most anterior fibers of distal supraspinatus show moderate grade articular surface partial thickness tear. Mild to moderate supraspinatus and infraspinatus muscle atrophy. Distal subscapularis tendinosis and low-grade intrasubstance partial-thickness tear. 3. No definite focal labral tear. 4. Tendinosis and moderate grade partial-thickness tear involving proximal intra-articular portion of long head biceps. Dictated by: Bradford Vazquez M.D. on 09/15/2019 at 11:03 Approved by: Bradford Vazquez M.D. on 09/15/2019 at 11:14
== END ==
PROVIDERS: PCP Family Medicine; Referring Provider Orthopaedic Surgery; Visit Provider Orthopaedic Surgery
DX: S46.011A Strain of muscle(s) and tendon(s) of the rotator cuff of right shoulder, initial encounter (principal); S46.111A Strain of muscle, fascia and tendon of long head of biceps, right arm, initial encounter
CPT/HCPCS: 73221

== ENCOUNTER → 2019-09-29 15:22 | Outpatient (CLI) | payer OTHER, SELFPAY ==
[2017-09-07 10:16] VITALS: BMI 27.6
[2018-03-06 07:59] VITALS: BP 108/64
[2019-09-30 08:18] LABS: COVID19 Sendout Not Detected (Not Detect)
== END ==
PROVIDERS: PCP Family Medicine; Visit Provider Physician Assistant
DX: Z01.812 Encounter for preprocedural laboratory examination (principal)
CPT/HCPCS: 87635

== ENCOUNTER 2019-12-07 11:15 | Outpatient (RCR) | payer OTHER, SELFPAY ==
[2017-09-07 10:16] VITALS: BMI 27.6
[2018-03-06 07:59] VITALS: BP 108/64
--- NOTE | 2019-09-14 12:17 | PT.OIE ---
Current Diagnoses Strain of muscle(s) and tendon(s) of the rotator cuff of right shoulder, initial encounter (09/14/19) Past Medical History (Last Reviewed 01/29/19 @ 12:41 by Fabian Osman DO) Abnormal CXR (chest x-ray) (Resolved 2002) Afib (Chronic) Allergy to mold (Chronic ~2011) Cardiac arrhythmia (Resolved 2004) Cardiomyopathy (Chronic) Chicken pox (Resolved) Chronic systolic heart failure (Chronic) CTS (carpal tunnel syndrome) (Resolved 1999) Essential hypertension (Chronic 09/26/10) Fibromyalgia (Chronic 2009) GERD (gastroesophageal reflux disease) (Chronic) Hayfever (Chronic 2011) Hyperlipidemia (Chronic 09/26/10) Hypothyroidism (Chronic 01/20/14) Measles (Resolved) Morphea (Chronic) Mumps (Resolved) Osteoarthritis (Chronic) Sarcoidosis (Chronic) Shoulder pain (Chronic) Sleep apnea (Chronic 2002) Trigger finger (Chronic 2014) Vitiligo (Chronic ~1994) Past Surgical History (Last Reviewed 08/28/18 @ 20:16 by Iker Jimenez DO) Anesthesia (Resolved) History of cardiac radiofrequency ablation (RFA) (Resolved 2004) History of carpal tunnel repair (Resolved 1979) History of carpal tunnel repair (Resolved 2011) History of nasal surgery (Resolved ~2012) History of orthopedic surgery (Resolved ~1959) History of thoracic surgery (Resolved 2004) Status post appendectomy (Resolved 1977) Status post eye surgery (Resolved) Visit Care Team Role Provider Type Adenike Rowe MD Primary Care Provider Physician Specialty: Family Practice Address: [address] [place] [address], [facility] [place], [address] Email: [email or web address] Fabian Escobar MD Attending Provider Non-Staff Referring Provider Specialty: Orthopedic Surgery Address: [address] [place] [address], [address], [place], [address] Email: Physical Therapy Initial Evaluation PT-OP-A Visit Information Start: 09/14/19 11:31 Freq: Status: Active Protocol: Document 09/14/19 11:31 (Rec: 09/14/19 12:17 [email or web address]) Out-Patient Physical Therapy Visit Information Visit Information Visit Type Initial Evaluation Visit Start Time 08:15 Visit Stop Time 09:00 Total Visit Minutes 45 Visit Number / Number of PARTS SALES REPRESENTATIVE Visits 0 Evaluation Information Evaluation Date 09/14/19 Precautions Precautions fibromyalgia A recent echocardiogram demonstrates an ejection fraction of greater than 60%, his atrial fibrillation has been ablated and recent monitoring demonstrates few episodes of fibrillation SOB for long walks. PT-OP-B Current Condition Start: 09/14/19 11:31 Freq: Status: Active Protocol: Document 09/14/19 11:31 (Rec: 09/14/19 12:17 [email or web address]) Current Condition History of Current Condition Onset Date Jan, 2019 Current Complaints R shoulder pain and limited ROM s/p RTC repair History of Current Condition This is a 63-year-old male here for evaluation of right shoulder pain and limited ROM. Patient states approximately he tripped on the sidewalk and landing forward with both arms outstretched in Jan, 2019 . MRI showed retracted supraspinatus RTC tear and partial thickness tear of infraspinatus. Pt received RTC repair surgery in March this year but has not had any physical therapy since then d/ t COVID -19 pandemic. Pt had a follow up 2 weeks ago with surgeon and his surgeon is not satisfied with his progress. Patient travis is unable to abduct/ flex his arm >90 degrees actively, but able to reach further with L arm assistance. External rotation is very limited with pain compared to internal rotation. He is able to reach behind his back but slowly. Pt was required to lift heavy objects up to 40lbs in a daily basis for his previous job but he was forced to retired early since the accident and surgery . Pt has been doing some home exercises by learning through online rehab program but he thinks he hits plateau at this point. Per EMR, pt also on prednisone chronically for sarcoidosis. He and his are also caring for his mother , who is deteriorating, which has been very hard on him. He feels that many days he is able to cope with his health issues, but others it feels overwhelming to him. He is frequently frustrated that he is not feeling better. He knows he is doing better now, but remains frustrated by his limitation Prior Treatments and Tests Full-thickness retracted supraspinatus rotator cuff tear with a 2.8 cm retraction deficit above the humeral head which is subluxed superiorly near the undersurface of the acromium. Additionally, there is partial -thickness tear involving the middle third substance of the infraspinatus musculature in this setting of trauma. The infraspinatus tendon more laterally, however, is not disrupted. Future Testing and Treatments Planned 2nd MRI on 09/15/19 Treatment Goals Patient/Caregiver Goals 1. To regain R shoulder ROM and strength Prior Functional Status Baseline Function- ADL's Independent Baseline Function- Mobility Independent Current Functional Impairments (Reported) Functional Limitations- ADL's unable to wash his back while showering Functional Limitations- Work/School unable to lift any objects >5 lbs d/t pain with R shoulder Personal Factors Other Personal Factors That May Effect fibromyalgia Therapy/Recovery depression sarcoidosis PT-OP-C Subjective Start: 09/14/19 11:31 Freq: Status: Active Protocol: Document 09/14/19 11:31 (Rec: 09/14/19 12:17 [email or web address]) OP-PT Subjective Patient Comments Patient Comments I want to get my R shoulder better Patient Questionnaires Quick Dash- Upper Extremity Quick Dash UE Score 38.6 Quick Dash UE Impairment 20 to 39% Impaired (Score 20- 39) OP-PT Pain Assessment Location R shoulder Pain Location Details generalized shoulder pain Intensity 6 Scale Used Numeric (0 - 10) Description Aching Frequency Frequent Pain Aggravating Factors Position,Changing Position,ADL 's,Activity,Exercise,Lifting Pain Alleviating Factors Inactivity PT-OP-F Manual Assessment Start: 09/14/19 11:31 Freq: Status: Active Protocol: Document 09/14/19 11:31 HH (Rec: 09/14/19 12:17 [email or web address]) Manual Assessments Soft Tissue Assessment Soft Tissue Mobility Assessment tenderness to pressure at R infraspinatus belly, R pec minor, major and latissimus dorsi PT-OP-J Posture/Palpation/Skin Start: 09/14/19 11:31 Freq: Status: Active Protocol: Document 09/14/19 11:31 HH (Rec: 09/14/19 12:17 [email or web address]) Posture Evaluation Position Standing Shoulder Posture (R) Rounded Shoulder Subluxation Degree (R) 1 Finger wide Scapula Posture (R) Protracted,(R) Tipped Palpation Assessment Location R RTC Palpation Location R infraspinatus, teres major, minor Palpation Findings Tenderness Palpation Details noticeable R RTC atrophy compared to L PT-OP-K Range of Motion Start: 09/14/19 11:31 Freq: Status: Active Protocol: Document 09/14/19 11:31 HH (Rec: 09/14/19 12:17 [email or web address]) Shoulder Goniometric Range of Motion Shoulder Left Active Shoulder ROM WFL Yes Flexion 175 Extension 65 Abduction 175 External Rotation at 90 degrees 85 Abduction Internal Rotation 90 Right Passive Shoulder ROM WFL Yes Testing Position Supine Flexion 170 Abduction 160 External Rotation at 90 degrees 45 Abduction Internal Rotation 73 Right Active Shoulder ROM WFL No Testing Position Standing Flexion 160 Extension 68 Abduction 75 External Rotation at 90 degrees 40 Abduction Internal Rotation 70 Shoulder ROM Limitations Shoulder ROM Limitations Muscle Weakness,Pain Comments pain worst with active shoulder abd at 70 degrees and flexion at 90 degrees and end range ER PT-OP-M Strength Start: 09/14/19 11:31 Freq: Status: Active Protocol: Document 09/14/19 11:31 HH (Rec: 09/14/19 12:17 [email or web address]) Shoulder Strength Shoulder Manual Muscle Testing Right Flexion 4- Good- Extension 4 Good Abduction (C5) 3+ Fair+ Adduction 4 Good External Rotation 3+ Fair+ Internal Rotation 4 Good Reason Not Measured Pain Left Flexion 5 Normal Extension 5 Normal Abduction (C5) 5 Normal Adduction 5 Normal External Rotation 5 Normal Internal Rotation 5 Normal Elbow/Forearm Strength Elbow and Forearm Manual Muscle Testing Right Flexion (C6) 4+ Good+ Extension (C7) 5 Normal Left Flexion (C6) 5 Normal Extension (C7) 5 Normal PT-OP-Q Treatments Start: 09/14/19 11:31 Freq: Status: Active Protocol: Document 09/14/19 11:31 (Rec: 09/14/19 12:17 [email or web address]) Therapeutic Exercises Sitting Exercises joint approximation Sitting Exercise Name elbow on armrest Side right Equipment Used armrest from chair Reps/Minutes 8 x2 Comments weight shift to R side to facilitate GH approximation Standing Exercises tennis ball release Standing Exercise Name against wall for RTC and pecs Side right Reps/Minutes 4 mins Comments for hEP PT-OP-T Assessment and Plan Start: 09/14/19 11:31 Freq: Status: Active Protocol: Document 09/14/19 11:31 HH (Rec: 09/14/19 12:17 [email or web address]) Physical Therapy Assessment Rehab Potential Rehabilitation Potential Good Evaluation Complexity Number of Personal Factors/Comorbidities 3 or More Number of Body Systems Impaired 3 Clinical Presentation at Evaluation Stable Impairments Impairments Activity Tolerance,Functional Activities,Functional Mobility ,Pain,Posture,ROM,Soft Tissue Mobility,Strength Goals Strength Impairment significant strength loss Short Term Goal (STG) Pt will show 1/2 MMT grade to improve his R shoulder strength STG Duration 4 weeks Cylinder Grinder Goal (LTG) Pt will show 1 full MMT grade to improve his R shoulder strength so he can start providing care for his mom LTG Duration 8 weeks ROM Impairment significant AROM loss Short Term Goal (STG) pt will gain 15 degrees or more for R shoulder AROM STG Duration 4 weeks Mcc Goal (LTG) Pt will gain 25 degrees or more for R shoulder AROM so he can reach overhead for objects on the shelf and wash his back without discomfort. LTG Duration 8 weeks Quickdash Impairment pt scores 38.6 on quickdash Short Term Goal (STG) Pt will score 30 or lower on quickdash STG Duration 4 weeks Cylinder Grinder Goal (LTG) pt will score 25 or lower on quickdash to improve his functional mobility and strength for R shoulder. LTG Duration 8 weeks Assessment Summary Assessment This is a high complexity evaluation for this 64yo male here for R shoulder pain with very limited strength and ROM s/p RTC repair surgery from March,. Pt had a fall last year who had a full supraspinatus tear and partial thickness tear of infrapinatus. Pt is going to have another MRI tomorrow 09/14 . Upon assessment, pt's PROM is WFL with minimal pain but AROM is worst with abduction > ER> flexion. There's noticeable 1 finger wide of subluxation from acromion, along with significant anterior translated humeral head with RTC muscle atrophy. Educated pt to use tennis ball release on RTC and pecs followed by seated approximation of GHJ. Pt will benefit from skilled therapy to strengthen his RTC and improve GHJ congruency and stability in order to for him to be functional mobile for activities like reaching overhead and behind his back. Physical Therapy Plan Frequency and Duration Frequency of Treatment 2x/Week Duration of Treatment 8 weeks Plan of Care Start Date 09/14/19 Plan of Care End Date 11/13/19 Therapeutic Interventions Therapeutic Interventions Home Exercise Program,Joint Mobilizations,Manual Therapy, Neuromuscular Re-education, Patient/Caregiver Education, Self-Care/Home Management,Soft Tissue Mobilization,Taping, Therapeutic Activities, Therapeutic Exercises Modalities Cold Pack/Ice Massage,Electric Stimulation,Hot Packs, Infrared Therapy,Ultrasound Next Visit Focus/Plan Next Note Type Treatment Note Next Visit Plan check new MRI result start with manual therapy on Rtc release, pecs stretch followed by GHj approximation, add band for HEp review his self educated HEP ghJ stability, rtc strength gravity limited ROM ex.
--- NOTE | 2019-09-14 12:17 | PT.OPPOC ---
Physical, Occupational & Speech Therapy At [facility] Current Diagnoses Strain of muscle(s) and tendon(s) of the rotator cuff of right shoulder, initial encounter (09/14/19) Visit Care Team Role Provider Type Adenike Rowe MD Primary Care Provider Physician Specialty: Family Practice Address: [address] [place] [address], [place], [address] Email: [email or web address] Fabian Escobar MD Attending Provider Non-Staff Referring Provider Specialty: Orthopedic Surgery Address: [address] [place] [address], [address], [place], [address] Email: Plan Of Care PT-OP-T Assessment and Plan Start: 09/14/19 11:31 Freq: Status: Active Protocol: Document 09/14/19 11:31 (Rec: 09/14/19 12:17 [email or web address]) Physical Therapy Assessment Rehab Potential Rehabilitation Potential Good Evaluation Complexity Number of Personal Factors/Comorbidities 3 or More Number of Body Systems Impaired 3 Clinical Presentation at Evaluation Stable Impairments Impairments Activity Tolerance,Functional Activities,Functional Mobility ,Pain,Posture,ROM,Soft Tissue Mobility,Strength Goals Strength Impairment significant strength loss Short Term Goal (STG) Pt will show 1/2 MMT grade to improve his R shoulder strength STG Duration 4 weeks Retirement Goal (LTG) Pt will show 1 full MMT grade to improve his R shoulder strength so he can start providing care for his mom LTG Duration 8 weeks ROM Impairment significant AROM loss Short Term Goal (STG) pt will gain 15 degrees or more for R shoulder AROM STG Duration 4 weeks Tank Maker Wood Goal (LTG) Pt will gain 25 degrees or more for R shoulder AROM so he can reach overhead for objects on the shelf and wash his back without discomfort. LTG Duration 8 weeks Quickdash Impairment pt scores 38.6 on quickdash Short Term Goal (STG) Pt will score 30 or lower on quickdash STG Duration 4 weeks Tank Maker [employer] Goal (LTG) pt will score 25 or lower on quickdash to improve his functional mobility and strength for R shoulder. LTG Duration 8 weeks Assessment Summary Assessment This is a high complexity evaluation for this 64yo male here for R shoulder pain with very limited strength and ROM s/p RTC repair surgery from March,. Pt had a fall last year who had a full supraspinatus tear and partial thickness tear of infrapinatus. Pt is going to have another MRI tomorrow 09/14 . Upon assessment, pt's PROM is WFL with minimal pain but AROM is worst with abduction > ER> flexion. There's noticeable 1 finger wide of subluxation from acromion, along with significant anterior translated humeral head with RTC muscle atrophy. Educated pt to use tennis ball release on RTC and pecs followed by seated approximation of GHJ. Pt will benefit from skilled therapy to strengthen his RTC and improve GHJ congruency and stability in order to for him to be functional mobile for activities like reaching overhead and behind his back. Physical Therapy Plan Frequency and Duration Frequency of Treatment 2x/Week Duration of Treatment 8 weeks Plan of Care Start Date 09/14/19 Plan of Care End Date 11/13/19 Therapeutic Interventions Therapeutic Interventions Home Exercise Program,Joint Mobilizations,Manual Therapy, Neuromuscular Re-education, Patient/Caregiver Education, Self-Care/Home Management,Soft Tissue Mobilization,Taping, Therapeutic Activities, Therapeutic Exercises Modalities Cold Pack/Ice Massage,Electric Stimulation,Hot Packs, Infrared Therapy,Ultrasound Next Visit Focus/Plan Next Note Type Treatment Note Next Visit Plan check new MRI result start with manual therapy on Rtc release, pecs stretch followed by GHj approximation, add band for HEp review his self educated HEP ghJ stability, rtc strength gravity limited ROM ex. Plan of Care Dates Plan of Care Start Date 09/14/19 Plan of Care End Date 11/13/19 Electronically Signed by: West Christian PT 09/14/19 [id number] Please Sign and Return: I have reviewed this Plan of Care and certify that the skilled therapy services above are required to meet the patient?s needs. Physician Signature Date Printed Name and Credentials Clinical Instructor Signature Printed Name and Credentials
--- NOTE | 2019-09-17 08:59 | PT.OTN ---
Current Diagnoses Strain of muscle(s) and tendon(s) of the rotator cuff of right shoulder, initial encounter (09/17/19) Physical Therapy Treatment Note PT-OP-A Visit Information Start: 09/14/19 11:31 Freq: Status: Active Protocol: Document 09/17/19 07:28 LR (Rec: 09/17/19 08:35 [facility] [id number]) Out-Patient Physical Therapy Visit Information Visit Information Visit Type Treatment Note Visit Start Time 07:31 Visit Stop Time 08:16 Total Visit Minutes 45 Visit Number 2/12 Number of ELECTRICAL SUBCONTRACTOR Visits 0 PT-OP-B Current Condition Start: 09/14/19 11:31 Freq: Status: Active Protocol: Document 09/14/19 11:31 HH (Rec: 09/14/19 12:17 HH [email or web address]) Current Condition History of Current Condition Onset Date Jan, 2019 Current Complaints R shoulder pain and limited ROM s/p RTC repair History of Current Condition This is a 63-year-old male here for evaluation of right shoulder pain and limited ROM. Patient states approximately he tripped on the sidewalk and landing forward with both arms outstretched in Jan, 2019 . MRI showed retracted supraspinatus RTC tear and partial thickness tear of infraspinatus. Pt received RTC repair surgery in March this year but has not had any physical therapy since then d/ t COVID -19 pandemic. Pt had a follow up 2 weeks ago with surgeon and his surgeon is not satisfied with his progress. Patient travis is unable to abduct/ flex his arm >90 degrees actively, but able to reach further with L arm assistance. External rotation is very limited with pain compared to internal rotation. He is able to reach behind his back but slowly. Pt was required to lift heavy objects up to 40lbs in a daily basis for his previous job but he was forced to retired early since the accident and surgery . Pt has been doing some home exercises by learning through online rehab program but he thinks he hits plateau at this point. Per EMR, pt also on prednisone chronically for sarcoidosis. He and his are also caring for his mother , who is deteriorating, which has been very hard on him. He feels that many days he is able to cope with his health issues, but others it feels overwhelming to him. He is frequently frustrated that he is not feeling better. He knows he is doing better now, but remains frustrated by his limitation Prior Treatments and Tests Full-thickness retracted supraspinatus rotator cuff tear with a 2.8 cm retraction deficit above the humeral head which is subluxed superiorly near the undersurface of the acromium. Additionally, there is partial -thickness tear involving the middle third substance of the infraspinatus musculature in this setting of trauma. The infraspinatus tendon more laterally, however, is not disrupted. Future Testing and Treatments Planned 2nd MRI on 09/15/19 Treatment Goals Patient/Caregiver Goals 1. To regain R shoulder ROM and strength Prior Functional Status Baseline Function- ADL's Independent Baseline Function- Mobility Independent Current Functional Impairments (Reported) Functional Limitations- ADL's unable to wash his back while showering Functional Limitations- Work/School unable to lift any objects >5 lbs d/t pain with R shoulder Personal Factors Other Personal Factors That May Effect fibromyalgia Therapy/Recovery depression sarcoidosis PT-OP-C Subjective Start: 09/14/19 11:31 Freq: Status: Active Protocol: Document 09/17/19 07:28 [facility] (Rec: 09/17/19 08:35 [facility] [id number]) OP-PT Subjective Patient Comments Patient Comments reports he got bad news last night that he completely retore. PT-OP-F Manual Assessment Start: 09/14/19 11:31 Freq: Status: Active Protocol: Document 09/14/19 11:31 (Rec: 09/14/19 12:17 [email or web address]) Manual Assessments Soft Tissue Assessment Soft Tissue Mobility Assessment tenderness to pressure at R infraspinatus belly, R pec minor, major and latissimus dorsi PT-OP-J Posture/Palpation/Skin Start: 09/14/19 11:31 Freq: Status: Active Protocol: Document 09/14/19 11:31 HH (Rec: 09/14/19 12:17 HH [email or web address]) Posture Evaluation Position Standing Shoulder Posture (R) Rounded Shoulder Subluxation Degree (R) 1 Finger wide Scapula Posture (R) Protracted,(R) Tipped Palpation Assessment Location R RTC Palpation Location R infraspinatus, teres major, minor Palpation Findings Tenderness Palpation Details noticeable R RTC atrophy compared to L PT-OP-K Range of Motion Start: 09/14/19 11:31 Freq: Status: Active Protocol: Document 09/14/19 11:31 (Rec: 09/14/19 12:17 [email or web address]) Shoulder Goniometric Range of Motion Shoulder Left Active Shoulder ROM WFL Yes Flexion 175 Extension 65 Abduction 175 External Rotation at 90 degrees 85 Abduction Internal Rotation 90 Right Passive Shoulder ROM WFL Yes Testing Position Supine Flexion 170 Abduction 160 External Rotation at 90 degrees 45 Abduction Internal Rotation 73 Right Active Shoulder ROM WFL No Testing Position Standing Flexion 160 Extension 68 Abduction 75 External Rotation at 90 degrees 40 Abduction Internal Rotation 70 Shoulder ROM Limitations Shoulder ROM Limitations Muscle Weakness,Pain Comments pain worst with active shoulder abd at 70 degrees and flexion at 90 degrees and end range ER PT-OP-M Strength Start: 09/14/19 11:31 Freq: Status: Active Protocol: Document 09/14/19 11:31 (Rec: 09/14/19 12:17 [email or web address]) Shoulder Strength Shoulder Manual Muscle Testing Right Flexion 4- Good- Extension 4 Good Abduction (C5) 3+ Fair+ Adduction 4 Good External Rotation 3+ Fair+ Internal Rotation 4 Good Reason Not Measured Pain Left Flexion 5 Normal Extension 5 Normal Abduction (C5) 5 Normal Adduction 5 Normal External Rotation 5 Normal Internal Rotation 5 Normal Elbow/Forearm Strength Elbow and Forearm Manual Muscle Testing Right Flexion (C6) 4+ Good+ Extension (C7) 5 Normal Left Flexion (C6) 5 Normal Extension (C7) 5 Normal PT-OP-Q Treatments Start: 09/14/19 11:31 Freq: Status: Active Protocol: Document 09/17/19 07:28 [facility] (Rec: 09/17/19 08:35 [facility] [id number]) Therapeutic Exercises Supine Exercises ER Supine Exercise Name AAROm at 0 and 90 deg Side right Equipment Used bar Reps/Minutes 15 flex Supine Exercise Name AAROM Side right Equipment Used bar Reps/Minutes 20 Standing Exercises ext Side bilateral Equipment Used L1 Reps/Minutes 10x2 Comments focus on scap movement Other Exercises serratus punch Other Exercise Name in hip hinge onto mat table Side bilateral Reps/Minutes 5 Manual Therapy Treatment Soft Tissue Mobilization post Body Location infraspinatus, [place], teres Mobilization Type Rolling Intensity/Depth Moderate Neuro Re-Education Treatment Other Activities plank Details forearms on counter w/traction facilitation PNF Details post depression Comments 1. rhythmic initiation 2. sustained isometric at end range 3.combo of isotonics Self-Care/Home Management Treatment Education Other Education edu on anatomy and importance of posture PT-OP-T Assessment and Plan Start: 09/14/19 11:31 Freq: Status: Active Protocol: Document 09/17/19 07:28 [facility] (Rec: 09/17/19 08:35 [facility] [id number]) Physical Therapy Assessment Goals Strength Impairment significant strength loss Short Term Goal (STG) Pt will show 1/2 MMT grade to improve his R shoulder strength STG Duration 4 weeks Forest And Conservation Worker Goal (LTG) Pt will show 1 full MMT grade to improve his R shoulder strength so he can start providing care for his mom LTG Duration 8 weeks ROM Impairment significant AROM loss Short Term Goal (STG) pt will gain 15 degrees or more for R shoulder AROM STG Duration 4 weeks Forest And Conservation Worker Goal (LTG) Pt will gain 25 degrees or more for R shoulder AROM so he can reach overhead for objects on the shelf and wash his back without discomfort. LTG Duration 8 weeks Quickdash Impairment pt scores 38.6 on quickdash Short Term Goal (STG) Pt will score 30 or lower on quickdash STG Duration 4 weeks Residential Goal (LTG) pt will score 25 or lower on quickdash to improve his functional mobility and strength for R shoulder. LTG Duration 8 weeks Assessment Summary Assessment Pt had difficulty maintaining good scapular movement throughout exercises. Cued throughout the relax shoulders down. He had difficulty with PNF exercises, but got imrpoved facilitation after neuro re-edu. Physical Therapy Plan Frequency and Duration Frequency of Treatment 2x/Week Duration of Treatment 8 weeks Plan of Care Start Date 09/14/19 Plan of Care End Date 11/13/19 Next Visit Focus/Plan Next Note Type Treatment Note Next Visit Plan review HEP and cont to work on GHJ approximation
--- NOTE | 2019-09-21 09:03 | PT.OTN ---
Current Diagnoses Strain of muscle(s) and tendon(s) of the rotator cuff of right shoulder, initial encounter (09/21/19) Physical Therapy Treatment Note PT-OP-A Visit Information Start: 09/14/19 11:31 Freq: Status: Active Protocol: Document 09/21/19 08:13 HH (Rec: 09/21/19 09:03 [id number]) Out-Patient Physical Therapy Visit Information Visit Information Visit Type Treatment Note Visit Start Time 08:16 Visit Stop Time 09:00 Total Visit Minutes 44 Visit Number 3/12 Number of CHIEF EXECUTIVE Visits 0 PT-OP-B Current Condition Start: 09/14/19 11:31 Freq: Status: Active Protocol: Document 09/14/19 11:31 HH (Rec: 09/14/19 12:17 [email or web address]) Current Condition History of Current Condition Onset Date Jan, 2019 Current Complaints R shoulder pain and limited ROM s/p RTC repair History of Current Condition This is a 63-year-old male here for evaluation of right shoulder pain and limited ROM. Patient states approximately he tripped on the sidewalk and landing forward with both arms outstretched in Jan, 2019 . MRI showed retracted supraspinatus RTC tear and partial thickness tear of infraspinatus. Pt received RTC repair surgery in March this year but has not had any physical therapy since then d/ t COVID -19 pandemic. Pt had a follow up 2 weeks ago with surgeon and his surgeon is not satisfied with his progress. Patient travis is unable to abduct/ flex his arm >90 degrees actively, but able to reach further with L arm assistance. External rotation is very limited with pain compared to internal rotation. He is able to reach behind his back but slowly. Pt was required to lift heavy objects up to 40lbs in a daily basis for his previous job but he was forced to retired early since the accident and surgery . Pt has been doing some home exercises by learning through online rehab program but he thinks he hits plateau at this point. Per EMR, pt also on prednisone chronically for sarcoidosis. He and his are also caring for his mother , who is deteriorating, which has been very hard on him. He feels that many days he is able to cope with his health issues, but others it feels overwhelming to him. He is frequently frustrated that he is not feeling better. He knows he is doing better now, but remains frustrated by his limitation Prior Treatments and Tests Full-thickness retracted supraspinatus rotator cuff tear with a 2.8 cm retraction deficit above the humeral head which is subluxed superiorly near the undersurface of the acromium. Additionally, there is partial -thickness tear involving the middle third substance of the infraspinatus musculature in this setting of trauma. The infraspinatus tendon more laterally, however, is not disrupted. Future Testing and Treatments Planned 2nd MRI on 09/15/19 Treatment Goals Patient/Caregiver Goals 1. To regain R shoulder ROM and strength Prior Functional Status Baseline Function- ADL's Independent Baseline Function- Mobility Independent Current Functional Impairments (Reported) Functional Limitations- ADL's unable to wash his back while showering Functional Limitations- Work/School unable to lift any objects >5 lbs d/t pain with R shoulder Personal Factors Other Personal Factors That May Effect fibromyalgia Therapy/Recovery depression sarcoidosis PT-OP-C Subjective Start: 09/14/19 11:31 Freq: Status: Active Protocol: Document 09/21/19 08:13 HH (Rec: 09/21/19 09:03 [id number]) OP-PT Subjective Patient Comments Patient Comments I dont want to do an immediate surgery and want to try therapy and see where it takes. PT-OP-F Manual Assessment Start: 09/14/19 11:31 Freq: Status: Active Protocol: Document 09/14/19 11:31 HH (Rec: 09/14/19 12:17 [email or web address]) Manual Assessments Soft Tissue Assessment Soft Tissue Mobility Assessment tenderness to pressure at R infraspinatus belly, R pec minor, major and latissimus dorsi PT-OP-J Posture/Palpation/Skin Start: 09/14/19 11:31 Freq: Status: Active Protocol: Document 09/14/19 11:31 HH (Rec: 09/14/19 12:17 [email or web address]) Posture Evaluation Position Standing Shoulder Posture (R) Rounded Shoulder Subluxation Degree (R) 1 Finger wide Scapula Posture (R) Protracted,(R) Tipped Palpation Assessment Location R RTC Palpation Location R infraspinatus, teres major, minor Palpation Findings Tenderness Palpation Details noticeable R RTC atrophy compared to L PT-OP-K Range of Motion Start: 06/29/20 11:31 Freq: Status: Active Protocol: Document 09/14/19 11:31 (Rec: 09/14/19 12:17 [email or web address]) Shoulder Goniometric Range of Motion Shoulder Left Active Shoulder ROM WFL Yes Flexion 175 Extension 65 Abduction 175 External Rotation at 90 degrees 85 Abduction Internal Rotation 90 Right Passive Shoulder ROM WFL Yes Testing Position Supine Flexion 170 Abduction 160 External Rotation at 90 degrees 45 Abduction Internal Rotation 73 Right Active Shoulder ROM WFL No Testing Position Standing Flexion 160 Extension 68 Abduction 75 External Rotation at 90 degrees 40 Abduction Internal Rotation 70 Shoulder ROM Limitations Shoulder ROM Limitations Muscle Weakness,Pain Comments pain worst with active shoulder abd at 70 degrees and flexion at 90 degrees and end range ER PT-OP-M Strength Start: 09/14/19 11:31 Freq: Status: Active Protocol: Document 09/14/19 11:31 (Rec: 09/14/19 12:17 [email or web address]) Shoulder Strength Shoulder Manual Muscle Testing Right Flexion 4- Good- Extension 4 Good Abduction (C5) 3+ Fair+ Adduction 4 Good External Rotation 3+ Fair+ Internal Rotation 4 Good Reason Not Measured Pain Left Flexion 5 Normal Extension 5 Normal Abduction (C5) 5 Normal Adduction 5 Normal External Rotation 5 Normal Internal Rotation 5 Normal Elbow/Forearm Strength Elbow and Forearm Manual Muscle Testing Right Flexion (C6) 4+ Good+ Extension (C7) 5 Normal Left Flexion (C6) 5 Normal Extension (C7) 5 Normal PT-OP-Q Treatments Start: 09/14/19 11:31 Freq: Status: Active Protocol: Document 09/21/19 08:13 (Rec: 09/21/19 09:03 [id number]) Therapeutic Exercises Supine Exercises ER Supine Exercise Name AAROm at 0 and 90 deg Side right Equipment Used bar Reps/Minutes 15 flex Supine Exercise Name AAROM, followed by AROM Side right Equipment Used bar Reps/Minutes 20 Prone Exercises scap squeeze Prone Exercise Name with shoulder extension Side bilateral Reps/Minutes 3 sec hold at top, 10 x2 Comments cues on scap retraction, for HEP Sidelying Exercises SL ER Side right Reps/Minutes 5x1 Comments pain noted. shd abd Side right Reps/Minutes 8 x1 Comments for HEP hor scap abduction Side right Reps/Minutes 10 x 2 Comments cues scap squeeze Manual Therapy Treatment Soft Tissue Mobilization pecs Mobilization Type Sustained Pressure,Trigger Point Release Intensity/Depth Moderate Body Position Supine RTC Body Location infraspinatus, kaleb minor Mobilization Type Sustained Pressure,Trigger Point Release Intensity/Depth Moderate Body Position Prone Comments pain noted Joint Mobilizations PA mob Joint T1-T8 Direction PA mob Grade III Body Position Prone Reps/Duration 2 mins PT-OP-T Assessment and Plan Start: 09/14/19 11:31 Freq: Status: Active Protocol: Document 09/21/19 08:13 (Rec: 09/21/19 09:03 [id number]) Physical Therapy Assessment Goals Strength Impairment significant strength loss Short Term Goal (STG) Pt will show 1/2 MMT grade to improve his R shoulder strength STG Duration 4 weeks Penitentiary Goal (LTG) Pt will show 1 full MMT grade to improve his R shoulder strength so he can start providing care for his mom LTG Duration 8 weeks ROM Impairment significant AROM loss Short Term Goal (STG) pt will gain 15 degrees or more for R shoulder AROM STG Duration 4 weeks Penitentiary Goal (LTG) Pt will gain 25 degrees or more for R shoulder AROM so he can reach overhead for objects on the shelf and wash his back without discomfort. LTG Duration 8 weeks Quickdash Impairment pt scores 38.6 on quickdash Short Term Goal (STG) Pt will score 30 or lower on quickdash STG Duration 4 weeks Telemarketing Manager Goal (LTG) pt will score 25 or lower on quickdash to improve his functional mobility and strength for R shoulder. LTG Duration 8 weeks Assessment Summary Assessment Pt stephanie session well with scap stabilization ex: hor abd, prone scap squeeze. pain noted with active ER, SL abd. POC will cont to focus on AAROM followed AROM in pain free range. Physical Therapy Plan Next Visit Focus/Plan Next Note Type Treatment Note Next Visit Plan review HEP and cont to work on GHJ approximation
--- NOTE | 2019-09-24 15:18 | PT.OTN ---
Current Diagnoses Strain of muscle(s) and tendon(s) of the rotator cuff of right shoulder, initial encounter (09/24/19) Physical Therapy Treatment Note PT-OP-A Visit Information Start: 09/14/19 11:31 Freq: Status: Active Protocol: Document 09/24/19 14:35 HH (Rec: 09/24/19 15:18 HH [id number]) Out-Patient Physical Therapy Visit Information Visit Information Visit Type Treatment Note Visit Start Time 14:35 Visit Stop Time 15:15 Total Visit Minutes 40 Visit Number 4/12 Number of HAND BULLDOZER Visits 0 PT-OP-B Current Condition Start: 09/14/19 11:31 Freq: Status: Active Protocol: Document 09/14/19 11:31 HH (Rec: 09/14/19 12:17 HH [email or web address]) Current Condition History of Current Condition Onset Date Jan, 2019 Current Complaints R shoulder pain and limited ROM s/p RTC repair History of Current Condition This is a 63-year-old male here for evaluation of right shoulder pain and limited ROM. Patient states approximately he tripped on the sidewalk and landing forward with both arms outstretched in Jan, 2019 . MRI showed retracted supraspinatus RTC tear and partial thickness tear of infraspinatus. Pt received RTC repair surgery in March this year but has not had any physical therapy since then d/ t COVID -19 pandemic. Pt had a follow up 2 weeks ago with surgeon and his surgeon is not satisfied with his progress. Patient travis is unable to abduct/ flex his arm >90 degrees actively, but able to reach further with L arm assistance. External rotation is very limited with pain compared to internal rotation. He is able to reach behind his back but slowly. Pt was required to lift heavy objects up to 40lbs in a daily basis for his previous job but he was forced to retired early since the accident and surgery . Pt has been doing some home exercises by learning through online rehab program but he thinks he hits plateau at this point. Per EMR, pt also on prednisone chronically for sarcoidosis. He and his are also caring for his mother , who is deteriorating, which has been very hard on him. He feels that many days he is able to cope with his health issues, but others it feels overwhelming to him. He is frequently frustrated that he is not feeling better. He knows he is doing better now, but remains frustrated by his limitation Prior Treatments and Tests Full-thickness retracted supraspinatus rotator cuff tear with a 2.8 cm retraction deficit above the humeral head which is subluxed superiorly near the undersurface of the acromium. Additionally, there is partial -thickness tear involving the middle third substance of the infraspinatus musculature in this setting of trauma. The infraspinatus tendon more laterally, however, is not disrupted. Future Testing and Treatments Planned 2nd MRI on 09/15/19 Treatment Goals Patient/Caregiver Goals 1. To regain R shoulder ROM and strength Prior Functional Status Baseline Function- ADL's Independent Baseline Function- Mobility Independent Current Functional Impairments (Reported) Functional Limitations- ADL's unable to wash his back while showering Functional Limitations- Work/School unable to lift any objects >5 lbs d/t pain with R shoulder Personal Factors Other Personal Factors That May Effect fibromyalgia Therapy/Recovery depression sarcoidosis PT-OP-C Subjective Start: 09/14/19 11:31 Freq: Status: Active Protocol: Document 09/24/19 14:35 HH (Rec: 09/24/19 15:18 [id number]) OP-PT Subjective Patient Comments Patient Comments Im doing okay and my exercises as well. I schedule my shoulder surgery in November but i want to see where PT takes me in terms of progress PT-OP-F Manual Assessment Start: 09/14/19 11:31 Freq: Status: Active Protocol: Document 09/14/19 11:31 HH (Rec: 09/14/19 12:17 [email or web address]) Manual Assessments Soft Tissue Assessment Soft Tissue Mobility Assessment tenderness to pressure at R infraspinatus belly, R pec minor, major and latissimus dorsi PT-OP-J Posture/Palpation/Skin Start: 09/14/19 11:31 Freq: Status: Active Protocol: Document 09/14/19 11:31 HH (Rec: 09/14/19 12:17 [email or web address]) Posture Evaluation Position Standing Shoulder Posture (R) Rounded Shoulder Subluxation Degree (R) 1 Finger wide Scapula Posture (R) Protracted,(R) Tipped Palpation Assessment Location R RTC Palpation Location R infraspinatus, teres major, minor Palpation Findings Tenderness Palpation Details noticeable R RTC atrophy compared to L PT-OP-K Range of Motion Start: 09/14/19 11:31 Freq: Status: Active Protocol: Document 09/14/19 11:31 (Rec: 09/14/19 12:17 [email or web address]) Shoulder Goniometric Range of Motion Shoulder Left Active Shoulder ROM WFL Yes Flexion 175 Extension 65 Abduction 175 External Rotation at 90 degrees 85 Abduction Internal Rotation 90 Right Passive Shoulder ROM WFL Yes Testing Position Supine Flexion 170 Abduction 160 External Rotation at 90 degrees 45 Abduction Internal Rotation 73 Right Active Shoulder ROM WFL No Testing Position Standing Flexion 160 Extension 68 Abduction 75 External Rotation at 90 degrees 40 Abduction Internal Rotation 70 Shoulder ROM Limitations Shoulder ROM Limitations Muscle Weakness,Pain Comments pain worst with active shoulder abd at 70 degrees and flexion at 90 degrees and end range ER PT-OP-M Strength Start: 09/14/19 11:31 Freq: Status: Active Protocol: Document 09/14/19 11:31 (Rec: 09/14/19 12:17 [email or web address]) Shoulder Strength Shoulder Manual Muscle Testing Right Flexion 4- Good- Extension 4 Good Abduction (C5) 3+ Fair+ Adduction 4 Good External Rotation 3+ Fair+ Internal Rotation 4 Good Reason Not Measured Pain Left Flexion 5 Normal Extension 5 Normal Abduction (C5) 5 Normal Adduction 5 Normal External Rotation 5 Normal Internal Rotation 5 Normal Elbow/Forearm Strength Elbow and Forearm Manual Muscle Testing Right Flexion (C6) 4+ Good+ Extension (C7) 5 Normal Left Flexion (C6) 5 Normal Extension (C7) 5 Normal PT-OP-Q Treatments Start: 09/14/19 11:31 Freq: Status: Active Protocol: Document 09/24/19 14:35 (Rec: 09/24/19 15:18 [id number]) Therapeutic Exercises Supine Exercises ER Supine Exercise Name AAROM at shoulder 90degrees abducted Side right Equipment Used with PT assistance Reps/Minutes 8 x 2 Sidelying Exercises SL ER Side right Reps/Minutes 6 x 1 Comments no pain noted. weakness noted. shd abd Side right Reps/Minutes 8 x1 Comments for HEP hor scap abduction Sidelying Exercise Name at shoulder 90 degrees. Side right Reps/Minutes 10 x 2 Comments cues scap squeeze Sitting Exercises OH chris Sitting Exercise Name AAROM Side bilateral Reps/Minutes 4 mins Comments pain noted with less assistance given scap row Sitting Exercise Name with elbow extension Side bilateral Equipment Used level 1 Reps/Minutes 8 x 2 Manual Therapy Treatment Soft Tissue Mobilization pecs Mobilization Type Sustained Pressure,Trigger Point Release Intensity/Depth Moderate Body Position Supine RTC Body Location infraspinatus, kaleb minor Mobilization Type Sustained Pressure,Trigger Point Release Intensity/Depth Moderate Body Position Prone Comments pain noted PT-OP-T Assessment and Plan Start: 09/14/19 11:31 Freq: Status: Active Protocol: Document 09/24/19 14:35 HH (Rec: 09/24/19 15:18 HH [id number]) Physical Therapy Assessment Goals Strength Impairment significant strength loss Short Term Goal (STG) Pt will show 1/2 MMT grade to improve his R shoulder strength STG Duration 4 weeks Fci Goal (LTG) Pt will show 1 full MMT grade to improve his R shoulder strength so he can start providing care for his mom LTG Duration 8 weeks ROM Impairment significant AROM loss Short Term Goal (STG) pt will gain 15 degrees or more for R shoulder AROM STG Duration 4 weeks Fci Goal (LTG) Pt will gain 25 degrees or more for R shoulder AROM so he can reach overhead for objects on the shelf and wash his back without discomfort. LTG Duration 8 weeks Quickdash Impairment pt scores 38.6 on quickdash Short Term Goal (STG) Pt will score 30 or lower on quickdash STG Duration 4 weeks Swabber Goal (LTG) pt will score 25 or lower on quickdash to improve his functional mobility and strength for R shoulder. LTG Duration 8 weeks Assessment Summary Assessment Tx focused on AAROM in gravilty eliminated position. Added OH chris today. Pt was also able to do supine ER with shoulder at 90 degrees abduction in pain free with close to full range. Physical Therapy Plan Next Visit Focus/Plan Next Note Type Treatment Note Next Visit Plan review HEP and cont to work on GHJ approximation scap stabilization in pain free range and gravity eliminated position. Pt reports slight fatigue at the end of session
--- NOTE | 2019-09-28 09:06 | PT.OTN ---
Current Diagnoses Strain of muscle(s) and tendon(s) of the rotator cuff of right shoulder, initial encounter (09/28/19) Physical Therapy Treatment Note PT-OP-A Visit Information Start: 09/14/19 11:31 Freq: Status: Active Protocol: Document 09/28/19 08:12 HH (Rec: 09/28/19 09:06 [id number]) Out-Patient Physical Therapy Visit Information Visit Information Visit Type Treatment Note Visit Start Time 08:14 Visit Stop Time 08:59 Total Visit Minutes 45 Visit Number 5/12 Number of BEHAVIORAL ANALYST Visits 0 PT-OP-B Current Condition Start: 09/14/19 11:31 Freq: Status: Active Protocol: Document 09/14/19 11:31 HH (Rec: 09/14/19 12:17 [email or web address]) Current Condition History of Current Condition Onset Date Jan, 2019 Current Complaints R shoulder pain and limited ROM s/p RTC repair History of Current Condition This is a 63-year-old male here for evaluation of right shoulder pain and limited ROM. Patient states approximately he tripped on the sidewalk and landing forward with both arms outstretched in Jan, 2019 . MRI showed retracted supraspinatus RTC tear and partial thickness tear of infraspinatus. Pt received RTC repair surgery in March this year but has not had any physical therapy since then d/ t COVID -19 pandemic. Pt had a follow up 2 weeks ago with surgeon and his surgeon is not satisfied with his progress. Patient travis is unable to abduct/ flex his arm >90 degrees actively, but able to reach further with L arm assistance. External rotation is very limited with pain compared to internal rotation. He is able to reach behind his back but slowly. Pt was required to lift heavy objects up to 40lbs in a daily basis for his previous job but he was forced to retired early since the accident and surgery . Pt has been doing some home exercises by learning through online rehab program but he thinks he hits plateau at this point. Per EMR, pt also on prednisone chronically for sarcoidosis. He and his are also caring for his mother , who is deteriorating, which has been very hard on him. He feels that many days he is able to cope with his health issues, but others it feels overwhelming to him. He is frequently frustrated that he is not feeling better. He knows he is doing better now, but remains frustrated by his limitation Prior Treatments and Tests Full-thickness retracted supraspinatus rotator cuff tear with a 2.8 cm retraction deficit above the humeral head which is subluxed superiorly near the undersurface of the acromium. Additionally, there is partial -thickness tear involving the middle third substance of the infraspinatus musculature in this setting of trauma. The infraspinatus tendon more laterally, however, is not disrupted. Future Testing and Treatments Planned 2nd MRI on 09/15/19 Treatment Goals Patient/Caregiver Goals 1. To regain R shoulder ROM and strength Prior Functional Status Baseline Function- ADL's Independent Baseline Function- Mobility Independent Current Functional Impairments (Reported) Functional Limitations- ADL's unable to wash his back while showering Functional Limitations- Work/School unable to lift any objects >5 lbs d/t pain with R shoulder Personal Factors Other Personal Factors That May Effect fibromyalgia Therapy/Recovery depression sarcoidosis PT-OP-C Subjective Start: 09/14/19 11:31 Freq: Status: Active Protocol: Document 09/28/19 08:12 (Rec: 09/28/19 09:06 [id number]) OP-PT Subjective Patient Comments Patient Comments I think i slept in a wrong position two nights and i can hardly move but once i recovered quite fast. I do feel that my exercises are getting easier to complete. PT-OP-F Manual Assessment Start: 09/14/19 11:31 Freq: Status: Active Protocol: Document 09/14/19 11:31 HH (Rec: 09/14/19 12:17 [email or web address]) Manual Assessments Soft Tissue Assessment Soft Tissue Mobility Assessment tenderness to pressure at R infraspinatus belly, R pec minor, major and latissimus dorsi PT-OP-J Posture/Palpation/Skin Start: 09/14/19 11:31 Freq: Status: Active Protocol: Document 09/14/19 11:31 HH (Rec: 09/14/19 12:17 [email or web address]) Posture Evaluation Position Standing Shoulder Posture (R) Rounded Shoulder Subluxation Degree (R) 1 Finger wide Scapula Posture (R) Protracted,(R) Tipped Palpation Assessment Location R RTC Palpation Location R infraspinatus, teres major, minor Palpation Findings Tenderness Palpation Details noticeable R RTC atrophy compared to L PT-OP-K Range of Motion Start: 09/14/19 11:31 Freq: Status: Active Protocol: Document 09/14/19 11:31 (Rec: 09/14/19 12:17 [email or web address]) Shoulder Goniometric Range of Motion Shoulder Left Active Shoulder ROM WFL Yes Flexion 175 Extension 65 Abduction 175 External Rotation at 90 degrees 85 Abduction Internal Rotation 90 Right Passive Shoulder ROM WFL Yes Testing Position Supine Flexion 170 Abduction 160 External Rotation at 90 degrees 45 Abduction Internal Rotation 73 Right Active Shoulder ROM WFL No Testing Position Standing Flexion 160 Extension 68 Abduction 75 External Rotation at 90 degrees 40 Abduction Internal Rotation 70 Shoulder ROM Limitations Shoulder ROM Limitations Muscle Weakness,Pain Comments pain worst with active shoulder abd at 70 degrees and flexion at 90 degrees and end range ER PT-OP-M Strength Start: 09/14/19 11:31 Freq: Status: Active Protocol: Document 09/14/19 11:31 (Rec: 09/14/19 12:17 [email or web address]) Shoulder Strength Shoulder Manual Muscle Testing Right Flexion 2 Poor Extension 4 Good Abduction (C5) 2 Poor Adduction 4 Good External Rotation 2+ Poor+ Internal Rotation 4 Good Reason Not Measured Pain Left Flexion 5 Normal Extension 5 Normal Abduction (C5) 5 Normal Adduction 5 Normal External Rotation 5 Normal Internal Rotation 5 Normal Elbow/Forearm Strength Elbow and Forearm Manual Muscle Testing Right Flexion (C6) 4+ Good+ Extension (C7) 5 Normal Left Flexion (C6) 5 Normal Extension (C7) 5 Normal PT-OP-Q Treatments Start: 09/14/19 11:31 Freq: Status: Active Protocol: Document 09/28/19 08:12 (Rec: 09/28/19 09:06 [id number]) Therapeutic Exercises Supine Exercises SA punch Side right Reps/Minutes 8 x 2 Comments for HEP, slight pain noted at end range (top) ER Supine Exercise Name AAROM at shoulder 90degrees abducted Side right Reps/Minutes 8 x 2 Comments for HEP, no pain noted with cues on scap retraction Prone Exercises prone horizontal abd Side right Reps/Minutes 8x2 Comments for HEP, shoulder extension Prone Exercise Name with scap retraction Side right Reps/Minutes 8 x2 Comments for HEP, no pain noted Sitting Exercises OH chris Sitting Exercise Name AAROM Side bilateral Reps/Minutes 4 mins Comments no pain noted Manual Therapy Treatment Soft Tissue Mobilization pecs Mobilization Type Sustained Pressure,Trigger Point Release Intensity/Depth Moderate Body Position Supine Joint Mobilizations approximation Joint R GHJ Grade III Body Position Supine Comments open pack position and axial approximation post glide Joint R GHJ Grade III Body Position Supine Comments improved shoulder stability and no pain noted during active ER with shoulder at 90 abd Neuro Re-Education Treatment Movement Re-Education Movement Re-education Activities PNF scap stabilization upward downward, retraction and protraction. PT-OP-T Assessment and Plan Start: 09/14/19 11:31 Freq: Status: Active Protocol: Document 09/28/19 08:12 (Rec: 09/28/19 09:06 [id number]) Physical Therapy Assessment Goals Strength Impairment significant strength loss Short Term Goal (STG) Pt will show 1/2 MMT grade to improve his R shoulder strength STG Duration 4 weeks Halfway Goal (LTG) Pt will show 1 full MMT grade to improve his R shoulder strength so he can start providing care for his mom LTG Duration 8 weeks ROM Impairment significant AROM loss Short Term Goal (STG) pt will gain 15 degrees or more for R shoulder AROM STG Duration 4 weeks Halfway Goal (LTG) Pt will gain 25 degrees or more for R shoulder AROM so he can reach overhead for objects on the shelf and wash his back without discomfort. LTG Duration 8 weeks Quickdash Impairment pt scores 38.6 on quickdash Short Term Goal (STG) Pt will score 30 or lower on quickdash STG Duration 4 weeks Electronics Utility Worker Goal (LTG) pt will score 25 or lower on quickdash to improve his functional mobility and strength for R shoulder. LTG Duration 8 weeks Assessment Summary Assessment Pt stated his ex is getting easier to complete. Recommended him to acquire HI chris for AAROM. Pt stephanie very well with new set of scap stabilization HEP, This session primarily focus on scapular and GHJ coordination and stability. Physical Therapy Plan Next Visit Focus/Plan Next Note Type Treatment Note Next Visit Plan review HEP and cont to work on GHJ approximation scap stabilization in pain free range and gravity eliminated position. scap stabilizatoin focused
--- NOTE | 2019-10-01 12:03 | PT.OTN ---
Current Diagnoses Strain of muscle(s) and tendon(s) of the rotator cuff of right shoulder, initial encounter (10/01/19) Physical Therapy Treatment Note PT-OP-A Visit Information Start: 09/14/19 11:31 Freq: Status: Active Protocol: Document 10/01/19 10:28 LR (Rec: 10/01/19 12:03 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 Patient states approximately he tripped on the sidewalk and landing forward with both arms outstretched in Jan, 2019 . MRI showed retracted supraspinatus RTC tear and partial thickness tear of infraspinatus. Pt received RTC repair surgery in March this year but has not had any physical therapy since then d/ t COVID -19 pandemic. Pt had a follow up 2 weeks ago with surgeon and his surgeon is not satisfied with his progress. Patient travis is unable to abduct/ flex his arm >90 degrees actively, but able to reach further with L arm assistance. External rotation is very limited with pain compared to internal rotation. He is able to reach behind his back but slowly. Pt was required to lift heavy objects up to 40lbs in a daily basis for his previous job but he was forced to retired early since the accident and surgery . Pt has been doing some home exercises by learning through online rehab program but he thinks he hits plateau at this point. Per EMR, pt also on prednisone chronically for sarcoidosis. He and his are also caring for his mother , who is deteriorating, which has been very hard on him. He feels that many days he is able to cope with his health issues, but others it feels overwhelming to him. He is frequently frustrated that he is not feeling better. He knows he is doing better now, but remains frustrated by his limitation Prior Treatments and Tests Full-thickness retracted supraspinatus rotator cuff tear with a 2.8 cm retraction deficit above the humeral head which is subluxed superiorly near the undersurface of the acromium. Additionally, there is partial -thickness tear involving the middle third substance of the infraspinatus musculature in this setting of trauma. The infraspinatus tendon more laterally, however, is not disrupted. Future Testing and Treatments Planned 2nd MRI on 09/15/19 Treatment Goals Patient/Caregiver Goals 1. To regain R shoulder ROM and strength Prior Functional Status Baseline Function- ADL's Independent Baseline Function- Mobility Independent Current Functional Impairments (Reported) Functional Limitations- ADL's unable to wash his back while showering Functional Limitations- Work/School unable to lift any objects >5 lbs d/t pain with R shoulder Personal Factors Other Personal Factors That May Effect fibromyalgia Therapy/Recovery depression sarcoidosis PT-OP-C Subjective Start: 09/14/19 11:31 Freq: Status: Active Protocol: Document 10/01/19 10:28 [facility] (Rec: 10/01/19 12:03 [facility] [id number]) OP-PT Subjective Patient Comments Patient Comments Pt reports he has been more sore recently. Unsure if that is due to exercises or inc activity. PT-OP-F Manual Assessment Start: 09/14/19 11:31 Freq: Status: Active Protocol: Document 09/14/19 11:31 (Rec: 09/14/19 12:17 [email or web address]) Manual Assessments Soft Tissue Assessment Soft Tissue Mobility Assessment tenderness to pressure at R infraspinatus belly, R pec minor, major and latissimus dorsi PT-OP-J Posture/Palpation/Skin Start: 09/14/19 11:31 Freq: Status: Active Protocol: Document 09/14/19 11:31 HH (Rec: 09/14/19 12:17 HH [email or web address]) Posture Evaluation Position Standing Shoulder Posture (R) Rounded Shoulder Subluxation Degree (R) 1 Finger wide Scapula Posture (R) Protracted,(R) Tipped Palpation Assessment Location R RTC Palpation Location R infraspinatus, teres major, minor Palpation Findings Tenderness Palpation Details noticeable R RTC atrophy compared to L PT-OP-K Range of Motion Start: 09/14/19 11:31 Freq: Status: Active Protocol: Document 09/14/19 11:31 (Rec: 09/14/19 12:17 [email or web address]) Shoulder Goniometric Range of Motion Shoulder Left Active Shoulder ROM WFL Yes Flexion 175 Extension 65 Abduction 175 External Rotation at 90 degrees 85 Abduction Internal Rotation 90 Right Passive Shoulder ROM WFL Yes Testing Position Supine Flexion 170 Abduction 160 External Rotation at 90 degrees 45 Abduction Internal Rotation 73 Right Active Shoulder ROM WFL No Testing Position Standing Flexion 160 Extension 68 Abduction 75 External Rotation at 90 degrees 40 Abduction Internal Rotation 70 Shoulder ROM Limitations Shoulder ROM Limitations Muscle Weakness,Pain Comments pain worst with active shoulder abd at 70 degrees and flexion at 90 degrees and end range ER PT-OP-M Strength Start: 09/14/19 11:31 Freq: Status: Active Protocol: Document 09/14/19 11:31 (Rec: 09/14/19 12:17 [email or web address]) Shoulder Strength Shoulder Manual Muscle Testing Right Flexion 2 Poor Extension 4 Good Abduction (C5) 2 Poor Adduction 4 Good External Rotation 2+ Poor+ Internal Rotation 4 Good Reason Not Measured Pain Left Flexion 5 Normal Extension 5 Normal Abduction (C5) 5 Normal Adduction 5 Normal External Rotation 5 Normal Internal Rotation 5 Normal Elbow/Forearm Strength Elbow and Forearm Manual Muscle Testing Right Flexion (C6) 4+ Good+ Extension (C7) 5 Normal Left Flexion (C6) 5 Normal Extension (C7) 5 Normal PT-OP-Q Treatments Start: 09/14/19 11:31 Freq: Status: Active Protocol: Document 10/01/19 10:28 [facility] (Rec: 10/01/19 12:03 [facility] [id number]) Therapeutic Exercises Supine Exercises SA punch Side right Reps/Minutes 8 x 2 Comments for HEP, slight pain noted at end range (top) Prone Exercises prone horizontal abd Side right Reps/Minutes 8x2 Comments for HEP, shoulder extension Prone Exercise Name with scap retraction Side right Reps/Minutes 8 x2 Comments for HEP, no pain noted Sidelying Exercises SL ER Side right Reps/Minutes 10 Comments no pain noted. weakness noted. shd abd Side right Reps/Minutes 10 Comments for HEP Sitting Exercises OH chris Sitting Exercise Name AAROM Side bilateral Reps/Minutes 4 mins Comments no pain noted Standing Exercises flex Standing Exercise Name AAROM flex then eccentric lowering Side right Equipment Used bar Reps/Minutes 8 Manual Therapy Treatment Soft Tissue Mobilization pecs Mobilization Type Sustained Pressure,Trigger Point Release Intensity/Depth Moderate Body Position Supine Joint Mobilizations AC Direction ventral FM post glide Joint R GHJ Grade III Body Position Supine Neuro Re-Education Treatment Other Activities rhythmic initiaiton Details at 120 deg, 140 deg nd 160 deg PNF Details post depression Comments 1. rhythmic initiation 2. sustained isometric at end range 3.combo of isotonics PT-OP-T Assessment and Plan Start: 09/14/19 11:31 Freq: Status: Active Protocol: Document 10/01/19 10:28 [facility] (Rec: 10/01/19 12:03 [facility] [id number]) Physical Therapy Assessment Goals Strength Impairment significant strength loss Short Term Goal (STG) Pt will show 1/2 MMT grade to improve his R shoulder strength STG Duration 4 weeks Fdc Goal (LTG) Pt will show 1 full MMT grade to improve his R shoulder strength so he can start providing care for his mom LTG Duration 8 weeks ROM Impairment significant AROM loss Short Term Goal (STG) pt will gain 15 degrees or more for R shoulder AROM STG Duration 4 weeks Fdc Goal (LTG) Pt will gain 25 degrees or more for R shoulder AROM so he can reach overhead for objects on the shelf and wash his back without discomfort. LTG Duration 8 weeks Quickdash Impairment pt scores 38.6 on quickdash Short Term Goal (STG) Pt will score 30 or lower on quickdash STG Duration 4 weeks Fdc Goal (LTG) pt will score 25 or lower on quickdash to improve his functional mobility and strength for R shoulder. LTG Duration 8 weeks Assessment Summary Assessment Pt did well with exercises today but required cueing throughout for scap position. He was able to do eccentric lowering without pain so given as exercise Physical Therapy Plan Frequency and Duration Frequency of Treatment 2x/Week Duration of Treatment 8 weeks Plan of Care Start Date 09/14/19 Plan of Care End Date 11/13/19 Next Visit Focus/Plan Next Note Type Treatment Note Next Visit Plan review HEP and cont to work on GHJ approximation scap stabilization in pain free range and gravity eliminated position. scap stabilizatoin focused
--- NOTE | 2019-10-05 12:16 | PT.OTN ---
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 Patient states approximately he tripped on the sidewalk and landing forward with both arms outstretched in Jan, 2019 . MRI showed retracted supraspinatus RTC tear and partial thickness tear of infraspinatus. Pt received RTC repair surgery in March this year but has not had any physical therapy since then d/ t COVID -19 pandemic. Pt had a follow up 2 weeks ago with surgeon and his surgeon is not satisfied with his progress. Patient travis is unable to abduct/ flex his arm >90 degrees actively, but able to reach further with L arm assistance. External rotation is very limited with pain compared to internal rotation. He is able to reach behind his back but slowly. Pt was required to lift heavy objects up to 40lbs in a daily basis for his previous job but he was forced to retired early since the accident and surgery . Pt has been doing some home exercises by learning through online rehab program but he thinks he hits plateau at this point. Per EMR, pt also on prednisone chronically for sarcoidosis. He and his are also caring for his mother , who is deteriorating, which has been very hard on him. He feels that many days he is able to cope with his health issues, but others it feels overwhelming to him. He is frequently frustrated that he is not feeling better. He knows he is doing better now, but remains frustrated by his limitation Prior Treatments and Tests Full-thickness retracted supraspinatus rotator cuff tear with a 2.8 cm retraction deficit above the humeral head which is subluxed superiorly near the undersurface of the acromium. Additionally, there is partial -thickness tear involving the middle third substance of the infraspinatus musculature in this setting of trauma. The infraspinatus tendon more laterally, however, is not disrupted. Future Testing and Treatments Planned 2nd MRI on 09/15/19 Treatment Goals Patient/Caregiver Goals 1. To regain R shoulder ROM and strength Prior Functional Status Baseline Function- ADL's Independent Baseline Function- Mobility Independent Current Functional Impairments (Reported) Functional Limitations- ADL's unable to wash his back while showering Functional Limitations- Work/School unable to lift any objects >5 lbs d/t pain with R shoulder Personal Factors Other Personal Factors That May Effect fibromyalgia Therapy/Recovery depression sarcoidosis PT-OP-C Subjective Start: 09/14/19 11:31 Freq: Status: Active Protocol: Document 10/05/19 09:03 HH (Rec: 10/05/19 12:16 [id number]) OP-PT Subjective Patient Comments Patient Comments My shoulder still feels sore probably because i overwork myself sometimes plus my low back has been acting up. PT-OP-F Manual Assessment Start: 09/14/19 11:31 Freq: Status: Active Protocol: Document 09/14/19 11:31 HH (Rec: 09/14/19 12:17 [email or web address]) Manual Assessments Soft Tissue Assessment Soft Tissue Mobility Assessment tenderness to pressure at R infraspinatus belly, R pec minor, major and latissimus dorsi PT-OP-J Posture/Palpation/Skin Start: 09/14/19 11:31 Freq: Status: Active Protocol: Document 09/14/19 11:31 HH (Rec: 09/14/19 12:17 [email or web address]) Posture Evaluation Position Standing Shoulder Posture (R) Rounded Shoulder Subluxation Degree (R) 1 Finger wide Scapula Posture (R) Protracted,(R) Tipped Palpation Assessment Location R RTC Palpation Location R infraspinatus, teres major, minor Palpation Findings Tenderness Palpation Details noticeable R RTC atrophy compared to L PT-OP-K Range of Motion Start: 09/14/19 11:31 Freq: Status: Active Protocol: Document 09/14/19 11:31 (Rec: 09/14/19 12:17 [email or web address]) Shoulder Goniometric Range of Motion Shoulder Left Active Shoulder ROM WFL Yes Flexion 175 Extension 65 Abduction 175 External Rotation at 90 degrees 85 Abduction Internal Rotation 90 Right Passive Shoulder ROM WFL Yes Testing Position Supine Flexion 170 Abduction 160 External Rotation at 90 degrees 45 Abduction Internal Rotation 73 Right Active Shoulder ROM WFL No Testing Position Standing Flexion 160 Extension 68 Abduction 75 External Rotation at 90 degrees 40 Abduction Internal Rotation 70 Shoulder ROM Limitations Shoulder ROM Limitations Muscle Weakness,Pain Comments pain worst with active shoulder abd at 70 degrees and flexion at 90 degrees and end range ER PT-OP-M Strength Start: 09/14/19 11:31 Freq: Status: Active Protocol: Document 09/14/19 11:31 (Rec: 09/14/19 12:17 [email or web address]) Shoulder Strength Shoulder Manual Muscle Testing Right Flexion 2 Poor Extension 4 Good Abduction (C5) 2 Poor Adduction 4 Good External Rotation 2+ Poor+ Internal Rotation 4 Good Reason Not Measured Pain Left Flexion 5 Normal Extension 5 Normal Abduction (C5) 5 Normal Adduction 5 Normal External Rotation 5 Normal Internal Rotation 5 Normal Elbow/Forearm Strength Elbow and Forearm Manual Muscle Testing Right Flexion (C6) 4+ Good+ Extension (C7) 5 Normal Left Flexion (C6) 5 Normal Extension (C7) 5 Normal PT-OP-Q Treatments Start: 09/14/19 11:31 Freq: Status: Active Protocol: Document 10/05/19 09:03 (Rec: 10/05/19 12:16 [id number]) Therapeutic Exercises Supine Exercises SA punch Side right Reps/Minutes 8 x 2 Comments for HEP, no pain noted for full range Prone Exercises unilateral Y Prone Exercise Name to mid range Side right Reps/Minutes 5 x2 Comments cues on lower trap engagement prone horizontal abd Side right Reps/Minutes 5x 2 Comments slight pain noted at top shoulder extension Prone Exercise Name with scap retraction Side right Reps/Minutes 8 x2 Comments no pain noted Sidelying Exercises hor scap abduction Sidelying Exercise Name no pain noted Side right Reps/Minutes 8 x2 Comments improved scap retraction noted . Sitting Exercises OH chris Sitting Exercise Name AAROM Side bilateral Reps/Minutes 4 mins Comments no pain noted Manual Therapy Treatment Soft Tissue Mobilization pecs Mobilization Type Sustained Pressure,Trigger Point Release Intensity/Depth Moderate Body Position Supine Joint Mobilizations AC Direction ventral FM post glide Joint R GHJ Grade III Body Position Supine Comments improved shoulder stability and no pain noted during active ER with shoulder at 90 abd Neuro Re-Education Treatment Other Activities PNF Details depression, elevation, retraction Comments for scapular only 1. rhythmic initiation 2. sustained isometric at end range 3.combo of isotonics PT-OP-T Assessment and Plan Start: 09/14/19 11:31 Freq: Status: Active Protocol: Document 10/05/19 09:03 (Rec: 10/05/19 12:16 [id number]) Physical Therapy Assessment Goals Strength Impairment significant strength loss Short Term Goal (STG) Pt will show 1/2 MMT grade to improve his R shoulder strength STG Duration 4 weeks Brake Drum Lathe Operator Goal (LTG) Pt will show 1 full MMT grade to improve his R shoulder strength so he can start providing care for his mom LTG Duration 8 weeks ROM Impairment significant AROM loss Short Term Goal (STG) pt will gain 15 degrees or more for R shoulder AROM STG Duration 4 weeks Brake Drum Lathe Operator Goal (LTG) Pt will gain 25 degrees or more for R shoulder AROM so he can reach overhead for objects on the shelf and wash his back without discomfort. LTG Duration 8 weeks Quickdash Impairment pt scores 38.6 on quickdash Short Term Goal (STG) Pt will score 30 or lower on quickdash STG Duration 4 weeks Brake Drum Lathe Operator Goal (LTG) pt will score 25 or lower on quickdash to improve his functional mobility and strength for R shoulder. LTG Duration 8 weeks Assessment Summary Assessment Pt has a good session today. Improved active scap movements and stability with his HEP. He was also able to complete scap punch, scap hor abd, prone Y (half range) without pain. Educated pt to engage scap retraction for all his HEP. Physical Therapy Plan Next Visit Focus/Plan Next Note Type Treatment Note Next Visit Plan review HEP and cont to scap stabilization in pain free range and gravity eliminated / gravity position. scap stabilizatoin focused add weight if stephanie prone flexion
--- NOTE | 2019-10-07 09:02 | PT.OTN ---
Current Diagnoses Strain of muscle(s) and tendon(s) of the rotator cuff of right shoulder, initial encounter (10/07/19) Physical Therapy Treatment Note PT-OP-A Visit Information Start: 09/14/19 11:31 Freq: Status: Active Protocol: Document 10/07/19 08:20 [facility] (Rec: 10/07/19 09:02 [facility] [id number]) Out-Patient Physical Therapy Visit Information Visit Information Visit Type Treatment Note Visit Start Time 08:19 Visit Stop Time 08:59 Total Visit Minutes 40 Visit Number 8/12 Number of SHOE CLERK Visits 0 PT-OP-B Current Condition Start: 09/14/19 11:31 Freq: Status: Active Protocol: Document 09/14/19 11:31 HH (Rec: 09/14/19 12:17 HH [email or web address]) Current Condition History of Current Condition Onset Date Jan, 2019 Current Complaints R shoulder pain and limited ROM s/p RTC repair History of Current Condition This is a 63-year-old male here for evaluation of right shoulder pain and limited ROM. Patient states approximately he tripped on the sidewalk and landing forward with both arms outstretched in Jan, 2019 . MRI showed retracted supraspinatus RTC tear and partial thickness tear of infraspinatus. Pt received RTC repair surgery in March this year but has not had any physical therapy since then d/ t COVID -19 pandemic. Pt had a follow up 2 weeks ago with surgeon and his surgeon is not satisfied with his progress. Patient travis is unable to abduct/ flex his arm >90 degrees actively, but able to reach further with L arm assistance. External rotation is very limited with pain compared to internal rotation. He is able to reach behind his back but slowly. Pt was required to lift heavy objects up to 40lbs in a daily basis for his previous job but he was forced to retired early since the accident and surgery . Pt has been doing some home exercises by learning through online rehab program but he thinks he hits plateau at this point. Per EMR, pt also on prednisone chronically for sarcoidosis. He and his are also caring for his mother , who is deteriorating, which has been very hard on him. He feels that many days he is able to cope with his health issues, but others it feels overwhelming to him. He is frequently frustrated that he is not feeling better. He knows he is doing better now, but remains frustrated by his limitation Prior Treatments and Tests Full-thickness retracted supraspinatus rotator cuff tear with a 2.8 cm retraction deficit above the humeral head which is subluxed superiorly near the undersurface of the acromium. Additionally, there is partial -thickness tear involving the middle third substance of the infraspinatus musculature in this setting of trauma. The infraspinatus tendon more laterally, however, is not disrupted. Future Testing and Treatments Planned 2nd MRI on 09/15/19 Treatment Goals Patient/Caregiver Goals 1. To regain R shoulder ROM and strength Prior Functional Status Baseline Function- ADL's Independent Baseline Function- Mobility Independent Current Functional Impairments (Reported) Functional Limitations- ADL's unable to wash his back while showering Functional Limitations- Work/School unable to lift any objects >5 lbs d/t pain with R shoulder Personal Factors Other Personal Factors That May Effect fibromyalgia Therapy/Recovery depression sarcoidosis PT-OP-C Subjective Start: 09/14/19 11:31 Freq: Status: Active Protocol: Document 10/07/19 08:20 [facility] (Rec: 10/07/19 09:02 [facility] [id number]) OP-PT Subjective Patient Comments Patient Comments Pt feels like he is making a little improvement. Pt reprots soreness is reasonable. PT-OP-F Manual Assessment Start: 09/14/19 11:31 Freq: Status: Active Protocol: Document 09/14/19 11:31 (Rec: 09/14/19 12:17 [email or web address]) Manual Assessments Soft Tissue Assessment Soft Tissue Mobility Assessment tenderness to pressure at R infraspinatus belly, R pec minor, major and latissimus dorsi PT-OP-J Posture/Palpation/Skin Start: 09/14/19 11:31 Freq: Status: Active Protocol: Document 09/14/19 11:31 HH (Rec: 09/14/19 12:17 HH [email or web address]) Posture Evaluation Position Standing Shoulder Posture (R) Rounded Shoulder Subluxation Degree (R) 1 Finger wide Scapula Posture (R) Protracted,(R) Tipped Palpation Assessment Location R RTC Palpation Location R infraspinatus, teres major, minor Palpation Findings Tenderness Palpation Details noticeable R RTC atrophy compared to L PT-OP-K Range of Motion Start: 09/14/19 11:31 Freq: Status: Active Protocol: Document 09/14/19 11:31 HH (Rec: 09/14/19 12:17 [email or web address]) Shoulder Goniometric Range of Motion Shoulder Left Active Shoulder ROM WFL Yes Flexion 175 Extension 65 Abduction 175 External Rotation at 90 degrees 85 Abduction Internal Rotation 90 Right Passive Shoulder ROM WFL Yes Testing Position Supine Flexion 170 Abduction 160 External Rotation at 90 degrees 45 Abduction Internal Rotation 73 Right Active Shoulder ROM WFL No Testing Position Standing Flexion 160 Extension 68 Abduction 75 External Rotation at 90 degrees 40 Abduction Internal Rotation 70 Shoulder ROM Limitations Shoulder ROM Limitations Muscle Weakness,Pain Comments pain worst with active shoulder abd at 70 degrees and flexion at 90 degrees and end range ER PT-OP-M Strength Start: 09/14/19 11:31 Freq: Status: Active Protocol: Document 09/14/19 11:31 (Rec: 09/14/19 12:17 [email or web address]) Shoulder Strength Shoulder Manual Muscle Testing Right Flexion 2 Poor Extension 4 Good Abduction (C5) 2 Poor Adduction 4 Good External Rotation 2+ Poor+ Internal Rotation 4 Good Reason Not Measured Pain Left Flexion 5 Normal Extension 5 Normal Abduction (C5) 5 Normal Adduction 5 Normal External Rotation 5 Normal Internal Rotation 5 Normal Elbow/Forearm Strength Elbow and Forearm Manual Muscle Testing Right Flexion (C6) 4+ Good+ Extension (C7) 5 Normal Left Flexion (C6) 5 Normal Extension (C7) 5 Normal PT-OP-Q Treatments Start: 09/14/19 11:31 Freq: Status: Active Protocol: Document 10/07/19 08:20 [facility] (Rec: 10/07/19 09:02 [facility] [id number]) Therapeutic Exercises Supine Exercises SA punch Side right Equipment Used 1# Reps/Minutes 10 x 2 Comments for HEP, no pain noted for full range Prone Exercises unilateral Y Prone Exercise Name to mid range Side right Reps/Minutes 8 x2 Comments cues on lower trap engagement prone horizontal abd Side right Reps/Minutes 8x 2 Comments slight pain noted at top shoulder extension Prone Exercise Name with scap retraction Side right Equipment Used 0#, 1# Reps/Minutes 10 x2 Comments no pain noted Sidelying Exercises hor scap abduction Sidelying Exercise Name no pain noted Side right Reps/Minutes 10 x2 Comments improved scap retraction noted . Sitting Exercises OH chris Sitting Exercise Name AAROM:scaption, flex, abd Side bilateral Reps/Minutes 5mins Comments no pain noted Manual Therapy Treatment Soft Tissue Mobilization pecs Mobilization Type Sustained Pressure,Trigger Point Release Intensity/Depth Moderate Body Position Supine Joint Mobilizations AC Direction ventral post glide Joint R GHJ Grade III Body Position Supine Comments improved shoulder stability and no pain noted during active ER with shoulder at 90 abd Neuro Re-Education Treatment Other Activities PNF Details post depression Comments for scapular only 1. rhythmic initiation 2. sustained isometric at end range 3.combo of isotonics PT-OP-T Assessment and Plan Start: 09/14/19 11:31 Freq: Status: Active Protocol: Document 10/07/19 08:20 [facility] (Rec: 10/07/19 09:02 [facility] [id number]) Physical Therapy Assessment Goals Strength Impairment significant strength loss Short Term Goal (STG) Pt will show 1/2 MMT grade to improve his R shoulder strength STG Duration 4 weeks Detention Goal (LTG) Pt will show 1 full MMT grade to improve his R shoulder strength so he can start providing care for his mom LTG Duration 8 weeks ROM Impairment significant AROM loss Short Term Goal (STG) pt will gain 15 degrees or more for R shoulder AROM STG Duration 4 weeks Detention Goal (LTG) Pt will gain 25 degrees or more for R shoulder AROM so he can reach overhead for objects on the shelf and wash his back without discomfort. LTG Duration 8 weeks Quickdash Impairment pt scores 38.6 on quickdash Short Term Goal (STG) Pt will score 30 or lower on quickdash STG Duration 4 weeks Rack Pusher Goal (LTG) pt will score 25 or lower on quickdash to improve his functional mobility and strength for R shoulder. LTG Duration 8 weeks Assessment Summary Assessment Pt demonstrated significantly improved performance with prone, s/l and supine exercise stoday. Very little cueing needing during exercises. He is able to complete almost full range in prone scaption now Physical Therapy Plan Frequency and Duration Frequency of Treatment 2x/Week Duration of Treatment 8 weeks Plan of Care Start Date 09/14/19 Plan of Care End Date 11/13/19 Next Visit Focus/Plan Next Note Type Treatment Note Next Visit Plan review HEP and cont to scap stabilization in pain free range and gravity eliminated / gravity position. scap stabilizatoin focused add weight if stephanie prone flexion
--- NOTE | 2019-10-12 11:41 | PT.OTN ---
Current Diagnoses Strain of muscle(s) and tendon(s) of the rotator cuff of right shoulder, initial encounter (10/12/19) Physical Therapy Treatment Note PT-OP-A Visit Information Start: 09/14/19 11:31 Freq: Status: Active Protocol: Document 10/12/19 08:16 HH (Rec: 10/12/19 11:41 HH [id number]) Out-Patient Physical Therapy Visit Information Visit Information Visit Type Treatment Note Visit Start Time 08:17 Visit Stop Time 09:00 Total Visit Minutes 43 Visit Number 11/27 Number of SCHOOL BUS DRIVER/CUSTODIAN Visits 0 PT-OP-B Current Condition Start: 09/14/19 11:31 Freq: Status: Active Protocol: Document 09/14/19 11:31 HH (Rec: 09/14/19 12:17 HH [email or web address]) Current Condition History of Current Condition Onset Date Jan, 2019 Current Complaints R shoulder pain and limited ROM s/p RTC repair History of Current Condition This is a 63-year-old male here for evaluation of right shoulder pain and limited ROM. Patient states approximately he tripped on the sidewalk and landing forward with both arms outstretched in Jan, 2019 . MRI showed retracted supraspinatus RTC tear and partial thickness tear of infraspinatus. Pt received RTC repair surgery in March this year but has not had any physical therapy since then d/ t COVID -19 pandemic. Pt had a follow up 2 weeks ago with surgeon and his surgeon is not satisfied with his progress. Patient travis is unable to abduct/ flex his arm >90 degrees actively, but able to reach further with L arm assistance. External rotation is very limited with pain compared to internal rotation. He is able to reach behind his back but slowly. Pt was required to lift heavy objects up to 40lbs in a daily basis for his previous job but he was forced to retired early since the accident and surgery . Pt has been doing some home exercises by learning through online rehab program but he thinks he hits plateau at this point. Per EMR, pt also on prednisone chronically for sarcoidosis. He and his are also caring for his mother , who is deteriorating, which has been very hard on him. He feels that many days he is able to cope with his health issues, but others it feels overwhelming to him. He is frequently frustrated that he is not feeling better. He knows he is doing better now, but remains frustrated by his limitation Prior Treatments and Tests Full-thickness retracted supraspinatus rotator cuff tear with a 2.8 cm retraction deficit above the humeral head which is subluxed superiorly near the undersurface of the acromium. Additionally, there is partial -thickness tear involving the middle third substance of the infraspinatus musculature in this setting of trauma. The infraspinatus tendon more laterally, however, is not disrupted. Future Testing and Treatments Planned 2nd MRI on 09/15/19 Treatment Goals Patient/Caregiver Goals 1. To regain R shoulder ROM and strength Prior Functional Status Baseline Function- ADL's Independent Baseline Function- Mobility Independent Current Functional Impairments (Reported) Functional Limitations- ADL's unable to wash his back while showering Functional Limitations- Work/School unable to lift any objects >5 lbs d/t pain with R shoulder Personal Factors Other Personal Factors That May Effect fibromyalgia Therapy/Recovery depression sarcoidosis PT-OP-C Subjective Start: 09/14/19 11:31 Freq: Status: Active Protocol: Document 10/12/19 08:16 HH (Rec: 10/12/19 11:41 [id number]) OP-PT Subjective Patient Comments Patient Comments Im pleased with the progress lately but it is still frustrating when i cant reach up for something, Patient Reported Progress Improving PT-OP-F Manual Assessment Start: 09/14/19 11:31 Freq: Status: Active Protocol: Document 09/14/19 11:31 HH (Rec: 09/14/19 12:17 [email or web address]) Manual Assessments Soft Tissue Assessment Soft Tissue Mobility Assessment tenderness to pressure at R infraspinatus belly, R pec minor, major and latissimus dorsi PT-OP-J Posture/Palpation/Skin Start: 09/14/19 11:31 Freq: Status: Active Protocol: Document 09/14/19 11:31 HH (Rec: 09/14/19 12:17 [email or web address]) Posture Evaluation Position Standing Shoulder Posture (R) Rounded Shoulder Subluxation Degree (R) 1 Finger wide Scapula Posture (R) Protracted,(R) Tipped Palpation Assessment Location R RTC Palpation Location R infraspinatus, teres major, minor Palpation Findings Tenderness Palpation Details noticeable R RTC atrophy compared to L PT-OP-K Range of Motion Start: 09/14/19 11:31 Freq: Status: Active Protocol: Document 09/14/19 11:31 (Rec: 09/14/19 12:17 [email or web address]) Shoulder Goniometric Range of Motion Shoulder Left Active Shoulder ROM WFL Yes Flexion 175 Extension 65 Abduction 175 External Rotation at 90 degrees 85 Abduction Internal Rotation 90 Right Passive Shoulder ROM WFL Yes Testing Position Supine Flexion 170 Abduction 160 External Rotation at 90 degrees 45 Abduction Internal Rotation 73 Right Active Shoulder ROM WFL No Testing Position Standing Flexion 160 Extension 68 Abduction 75 External Rotation at 90 degrees 40 Abduction Internal Rotation 70 Shoulder ROM Limitations Shoulder ROM Limitations Muscle Weakness,Pain Comments pain worst with active shoulder abd at 70 degrees and flexion at 90 degrees and end range ER PT-OP-M Strength Start: 09/14/19 11:31 Freq: Status: Active Protocol: Document 09/14/19 11:31 (Rec: 09/14/19 12:17 [email or web address]) Shoulder Strength Shoulder Manual Muscle Testing Right Flexion 2 Poor Extension 4 Good Abduction (C5) 2 Poor Adduction 4 Good External Rotation 2+ Poor+ Internal Rotation 4 Good Reason Not Measured Pain Left Flexion 5 Normal Extension 5 Normal Abduction (C5) 5 Normal Adduction 5 Normal External Rotation 5 Normal Internal Rotation 5 Normal Elbow/Forearm Strength Elbow and Forearm Manual Muscle Testing Right Flexion (C6) 4+ Good+ Extension (C7) 5 Normal Left Flexion (C6) 5 Normal Extension (C7) 5 Normal PT-OP-Q Treatments Start: 09/14/19 11:31 Freq: Status: Active Protocol: Document 10/12/19 08:16 (Rec: 10/12/19 11:41 [id number]) Therapeutic Exercises Supine Exercises scap stability Supine Exercise Name scap punch possition (90 flexoin) Side right Equipment Used 2 lb ball Reps/Minutes 20 secs x 4 Comments cues on stabilizing shoulder to go against PT perturbation SA punch Side right Equipment Used 2# Reps/Minutes 12x2 Comments for HEP, no pain noted for full range Prone Exercises unilateral Y Prone Exercise Name to OH Side right Reps/Minutes 8 x2 Comments cues on lower trap engagement prone horizontal abd Side right Reps/Minutes 8x 2 Comments no pain noted. shoulder extension Prone Exercise Name with scap retraction Side right Equipment Used 0#, 1# Reps/Minutes 10 x2 Comments no cues noted Sidelying Exercises scap dynamic stability Sidelying Exercise Name R shoulder at 90 abduction Side right Equipment Used holding a 2lb weighted ball Reps/Minutes 20 secs x 4 Comments cues on stabilizing shoulder to go against PT perturbation SL shoulder punch Sidelying Exercise Name shoulder at 90 abd Equipment Used 2# DB Reps/Minutes 12 x2 Sitting Exercises OH chris Sitting Exercise Name AAROM:scaption, flex, abd Side bilateral Reps/Minutes 5mins Comments no pain noted Standing Exercises foam roller wall climb Standing Exercise Name cues on SA engagement, shd at 90 to overhead position Side bilateral Equipment Used foam roller Reps/Minutes 8 x 2 Comments discomfort noted at R shoulder Manual Therapy Treatment Soft Tissue Mobilization pecs Mobilization Type Sustained Pressure,Trigger Point Release Intensity/Depth Moderate Body Position Supine Neuro Re-Education Treatment Other Activities rhythmic stabilization Details SL position, shoulder at 90 abd Comments with 2 lb ball, PT provided resistance. PT-OP-T Assessment and Plan Start: 09/14/19 11:31 Freq: Status: Active Protocol: Document 10/12/19 08:16 (Rec: 10/12/19 11:41 [id number]) Physical Therapy Assessment Goals Strength Impairment significant strength loss Short Term Goal (STG) Pt will show 1/2 MMT grade to improve his R shoulder strength STG Duration 4 weeks Longterm Goal (LTG) Pt will show 1 full MMT grade to improve his R shoulder strength so he can start providing care for his mom LTG Duration 8 weeks ROM Impairment significant AROM loss Short Term Goal (STG) pt will gain 15 degrees or more for R shoulder AROM STG Duration 4 weeks Longterm Goal (LTG) Pt will gain 25 degrees or more for R shoulder AROM so he can reach overhead for objects on the shelf and wash his back without discomfort. LTG Duration 8 weeks Quickdash Impairment pt scores 38.6 on quickdash Short Term Goal (STG) Pt will score 30 or lower on quickdash STG Duration 4 weeks Optician Goal (LTG) pt will score 25 or lower on quickdash to improve his functional mobility and strength for R shoulder. LTG Duration 8 weeks Assessment Summary Assessment At the beginning of the session, pt was able to close to full active range of flexion and abduction with minimal discomfort for the first time. Pt's R scap mobility and stability cont to improve. Added dynamic scap stability ex today and pt stephanie tx well. Will change POC to once a week starting from next week. Physical Therapy Plan Next Visit Focus/Plan Next Note Type Progress Note Next Visit Plan add new scap ex scap stabilization in pain free range and gravity eliminated / gravity position. scap stabilizatoin focused add weight if stephanie prone flexion
--- NOTE | 2019-10-15 09:05 | PT.OTN ---
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 Patient states approximately he tripped on the sidewalk and landing forward with both arms outstretched in Jan, 2019 . MRI showed retracted supraspinatus RTC tear and partial thickness tear of infraspinatus. Pt received RTC repair surgery in March this year but has not had any physical therapy since then d/ t COVID -19 pandemic. Pt had a follow up 2 weeks ago with surgeon and his surgeon is not satisfied with his progress. Patient travis is unable to abduct/ flex his arm >90 degrees actively, but able to reach further with L arm assistance. External rotation is very limited with pain compared to internal rotation. He is able to reach behind his back but slowly. Pt was required to lift heavy objects up to 40lbs in a daily basis for his previous job but he was forced to retired early since the accident and surgery . Pt has been doing some home exercises by learning through online rehab program but he thinks he hits plateau at this point. Per EMR, pt also on prednisone chronically for sarcoidosis. He and his are also caring for his mother , who is deteriorating, which has been very hard on him. He feels that many days he is able to cope with his health issues, but others it feels overwhelming to him. He is frequently frustrated that he is not feeling better. He knows he is doing better now, but remains frustrated by his limitation Prior Treatments and Tests Full-thickness retracted supraspinatus rotator cuff tear with a 2.8 cm retraction deficit above the humeral head which is subluxed superiorly near the undersurface of the acromium. Additionally, there is partial -thickness tear involving the middle third substance of the infraspinatus musculature in this setting of trauma. The infraspinatus tendon more laterally, however, is not disrupted. Future Testing and Treatments Planned 2nd MRI on 09/15/19 Treatment Goals Patient/Caregiver Goals 1. To regain R shoulder ROM and strength Prior Functional Status Baseline Function- ADL's Independent Baseline Function- Mobility Independent Current Functional Impairments (Reported) Functional Limitations- ADL's unable to wash his back while showering Functional Limitations- Work/School unable to lift any objects >5 lbs d/t pain with R shoulder Personal Factors Other Personal Factors That May Effect fibromyalgia Therapy/Recovery depression sarcoidosis PT-OP-C Subjective Start: 09/14/19 11:31 Freq: Status: Active Protocol: Document 10/15/19 08:25 SP (Rec: 10/15/19 09:23 SP [id number]) OP-PT Subjective Patient Comments Patient Comments Everytime I come seems like doing better, able to get more control over muscles. Still limited in forward and side movement with 4/10 pain and uses LUE for assistance. PT-OP-F Manual Assessment Start: 09/14/19 11:31 Freq: Status: Active Protocol: Document 09/14/19 11:31 HH (Rec: 09/14/19 12:17 HH [email or web address]) Manual Assessments Soft Tissue Assessment Soft Tissue Mobility Assessment tenderness to pressure at R infraspinatus belly, R pec minor, major and latissimus dorsi PT-OP-J Posture/Palpation/Skin Start: 09/14/19 11:31 Freq: Status: Active Protocol: Document 09/14/19 11:31 HH (Rec: 09/14/19 12:17 HH [email or web address]) Posture Evaluation Position Standing Shoulder Posture (R) Rounded Shoulder Subluxation Degree (R) 1 Finger wide Scapula Posture (R) Protracted,(R) Tipped Palpation Assessment Location R RTC Palpation Location R infraspinatus, teres major, minor Palpation Findings Tenderness Palpation Details noticeable R RTC atrophy compared to L PT-OP-K Range of Motion Start: 09/14/19 11:31 Freq: Status: Active Protocol: Document 09/14/19 11:31 HH (Rec: 09/14/19 12:17 HH [email or web address]) Shoulder Goniometric Range of Motion Shoulder Left Active Shoulder ROM WFL Yes Flexion 175 Extension 65 Abduction 175 External Rotation at 90 degrees 85 Abduction Internal Rotation 90 Right Passive Shoulder ROM WFL Yes Testing Position Supine Flexion 170 Abduction 160 External Rotation at 90 degrees 45 Abduction Internal Rotation 73 Right Active Shoulder ROM WFL No Testing Position Standing Flexion 160 Extension 68 Abduction 75 External Rotation at 90 degrees 40 Abduction Internal Rotation 70 Shoulder ROM Limitations Shoulder ROM Limitations Muscle Weakness,Pain Comments pain worst with active shoulder abd at 70 degrees and flexion at 90 degrees and end range ER PT-OP-M Strength Start: 09/14/19 11:31 Freq: Status: Active Protocol: Document 09/14/19 11:31 HH (Rec: 09/14/19 12:17 [email or web address]) Shoulder Strength Shoulder Manual Muscle Testing Right Flexion 2 Poor Extension 4 Good Abduction (C5) 2 Poor Adduction 4 Good External Rotation 2+ Poor+ Internal Rotation 4 Good Reason Not Measured Pain Left Flexion 5 Normal Extension 5 Normal Abduction (C5) 5 Normal Adduction 5 Normal External Rotation 5 Normal Internal Rotation 5 Normal Elbow/Forearm Strength Elbow and Forearm Manual Muscle Testing Right Flexion (C6) 4+ Good+ Extension (C7) 5 Normal Left Flexion (C6) 5 Normal Extension (C7) 5 Normal PT-OP-Q Treatments Start: 09/14/19 11:31 Freq: Status: Active Protocol: Document 10/15/19 08:25 SP (Rec: 10/15/19 09:23 SP [id number]) Therapeutic Exercises Supine Exercises SA punch Side right Equipment Used 3# Reps/Minutes 10reps Comments for HEP, no pain noted for full range flex Supine Exercise Name forward flexion Side right Equipment Used 1# weight Reps/Minutes 5 reps Comments for HEP, no pain noted, fatigue near 5 reps Sidelying Exercises open book Equipment Used AROM, 1# DB Reps/Minutes x3 Comments cued head with arm scapular and TS ROM pre HABD SL ER Side right Resistance AROM Equipment Used towel roll under arm Reps/Minutes 5 reps Comments Cues for facilitation in small range to neutral, relaxation of neck shd abd Side right Reps/Minutes 10reps Comments Cues for palm toward face/ thumbs up and GHJ depression hor scap abduction Sidelying Exercise Name focus on ecc use of scapular retractors Side right Comments Cued low trap and rhomboid facilitation Sitting Exercises scap row Sitting Exercise Name performed standing Side bilateral Resistance level 2 Equipment Used TB Reps/Minutes 10 Comments cues for scapular retraction Standing Exercises ext Standing Exercise Name performed alternating unilaterally with isometric hold Side bilateral Resistance level 2 Equipment Used TB Reps/Minutes 10 Comments education for scapular depression and avoiding hyperextension Manual Therapy Treatment Soft Tissue Mobilization RTC Body Location infraspinatus, supraspinatus, levator scapulae Mobilization Type Myofascial Release,Trigger Point Release Comments trigger point release to infra /supra and levator to improve scapular depression and stability Joint Mobilizations inferior glide Joint R GHJ Inferior and posterior Grade III Body Position Supine Comments no pain noted during mobilization with shoulder in 90 degrees of abduction Other Other Manual Treatments PROM R shld FF, abd, ER cued inferior glide humerous. PT-OP-T Assessment and Plan Start: 09/14/19 11:31 Freq: Status: Active Protocol: Document 10/15/19 08:25 SP (Rec: 10/15/19 09:23 SP [id number]) Physical Therapy Assessment Goals Strength Impairment significant strength loss Short Term Goal (STG) Pt will show 1/2 MMT grade to improve his R shoulder strength STG Duration 4 weeks Web Weaver Goal (LTG) Pt will show 1 full MMT grade to improve his R shoulder strength so he can start providing care for his mom LTG Duration 8 weeks ROM Impairment significant AROM loss Short Term Goal (STG) pt will gain 15 degrees or more for R shoulder AROM STG Duration 4 weeks Web Weaver Goal (LTG) Pt will gain 25 degrees or more for R shoulder AROM so he can reach overhead for objects on the shelf and wash his back without discomfort. LTG Duration 8 weeks Quickdash Impairment pt scores 38.6 on quickdash Short Term Goal (STG) Pt will score 30 or lower on quickdash 10/15/2019 = 31.81 STG Duration 4 weeks Correction Goal (LTG) pt will score 25 or lower on quickdash to improve his functional mobility and strength for R shoulder. LTG Duration 8 weeks Assessment Summary Assessment Pt strength improving in R RTC . HEP review. Initiated ER against gravity sidelying, 1# DB FF supine, shld ext resisted band with good feedback results no pain and nice challenge. See handouts. Cuing required for inferior humeral glide and rhomboid / LT facilitation to improve scapular stabilization and decrease GH jt noted. Physical Therapy Plan Frequency and Duration Frequency of Treatment 2x/Week Duration of Treatment 8 weeks Plan of Care Start Date 09/14/19 Plan of Care End Date 11/13/19 Therapeutic Interventions Therapeutic Interventions Home Exercise Program,Joint Mobilizations,Manual Therapy, Neuromuscular Re-education, Patient/Caregiver Education, Self-Care/Home Management,Soft Tissue Mobilization,Taping, Therapeutic Activities, Therapeutic Exercises Modalities Cold Pack/Ice Massage,Electric Stimulation,Hot Packs, Infrared Therapy,Ultrasound Next Visit Focus/Plan Next Note Type Treatment Note Next Visit Plan Assess response to last tx. See assessment added to HEP. continue per PT POC: add new scap ex scap stabilization in pain free range and gravity eliminated / gravity position. scap stabilizatoin focused add weight if stephanie prone flexion
--- NOTE | 2019-10-19 09:03 | PT.OTN ---
Current Diagnoses Strain of muscle(s) and tendon(s) of the rotator cuff of right shoulder, initial encounter (10/19/19) Physical Therapy Treatment Note PT-OP-A Visit Information Start: 09/14/19 11:31 Freq: Status: Active Protocol: Document 10/19/19 08:16 HH (Rec: 10/19/19 09:03 HH [id number]) Out-Patient Physical Therapy Visit Information Visit Information Visit Type Treatment Note Visit Start Time 08:16 Visit Stop Time 09:00 Total Visit Minutes 44 Visit Number 01/27 Number of ARTIST AND REPERTOIRE MANAGER Visits 0 PT-OP-B Current Condition Start: 09/14/19 11:31 Freq: Status: Active Protocol: Document 09/14/19 11:31 HH (Rec: 09/14/19 12:17 HH [email or web address]) Current Condition History of Current Condition Onset Date Jan, 2019 Current Complaints R shoulder pain and limited ROM s/p RTC repair History of Current Condition This is a 63-year-old male here for evaluation of right shoulder pain and limited ROM. Patient states approximately he tripped on the sidewalk and landing forward with both arms outstretched in Jan, 2019 . MRI showed retracted supraspinatus RTC tear and partial thickness tear of infraspinatus. Pt received RTC repair surgery in March this year but has not had any physical therapy since then d/ t COVID -19 pandemic. Pt had a follow up 2 weeks ago with surgeon and his surgeon is not satisfied with his progress. Patient travis is unable to abduct/ flex his arm >90 degrees actively, but able to reach further with L arm assistance. External rotation is very limited with pain compared to internal rotation. He is able to reach behind his back but slowly. Pt was required to lift heavy objects up to 40lbs in a daily basis for his previous job but he was forced to retired early since the accident and surgery . Pt has been doing some home exercises by learning through online rehab program but he thinks he hits plateau at this point. Per EMR, pt also on prednisone chronically for sarcoidosis. He and his are also caring for his mother , who is deteriorating, which has been very hard on him. He feels that many days he is able to cope with his health issues, but others it feels overwhelming to him. He is frequently frustrated that he is not feeling better. He knows he is doing better now, but remains frustrated by his limitation Prior Treatments and Tests Full-thickness retracted supraspinatus rotator cuff tear with a 2.8 cm retraction deficit above the humeral head which is subluxed superiorly near the undersurface of the acromium. Additionally, there is partial -thickness tear involving the middle third substance of the infraspinatus musculature in this setting of trauma. The infraspinatus tendon more laterally, however, is not disrupted. Future Testing and Treatments Planned 2nd MRI on 09/15/19 Treatment Goals Patient/Caregiver Goals 1. To regain R shoulder ROM and strength Prior Functional Status Baseline Function- ADL's Independent Baseline Function- Mobility Independent Current Functional Impairments (Reported) Functional Limitations- ADL's unable to wash his back while showering Functional Limitations- Work/School unable to lift any objects >5 lbs d/t pain with R shoulder Personal Factors Other Personal Factors That May Effect fibromyalgia Therapy/Recovery depression sarcoidosis PT-OP-C Subjective Start: 09/14/19 11:31 Freq: Status: Active Protocol: Document 10/19/19 08:16 HH (Rec: 10/19/19 09:03 [id number]) OP-PT Subjective Patient Comments Patient Comments Courtney been doing my exercises. Everything is doing pretty good. PT-OP-F Manual Assessment Start: 09/14/19 11:31 Freq: Status: Active Protocol: Document 09/14/19 11:31 HH (Rec: 09/14/19 12:17 [email or web address]) Manual Assessments Soft Tissue Assessment Soft Tissue Mobility Assessment tenderness to pressure at R infraspinatus belly, R pec minor, major and latissimus dorsi PT-OP-J Posture/Palpation/Skin Start: 09/14/19 11:31 Freq: Status: Active Protocol: Document 09/14/19 11:31 HH (Rec: 09/14/19 12:17 [email or web address]) Posture Evaluation Position Standing Shoulder Posture (R) Rounded Shoulder Subluxation Degree (R) 1 Finger wide Scapula Posture (R) Protracted,(R) Tipped Palpation Assessment Location R RTC Palpation Location R infraspinatus, teres major, minor Palpation Findings Tenderness Palpation Details noticeable R RTC atrophy compared to L PT-OP-K Range of Motion Start: 09/14/19 11:31 Freq: Status: Active Protocol: Document 09/14/19 11:31 HH (Rec: 09/14/19 12:17 [email or web address]) Shoulder Goniometric Range of Motion Shoulder Left Active Shoulder ROM WFL Yes Flexion 175 Extension 65 Abduction 175 External Rotation at 90 degrees 85 Abduction Internal Rotation 90 Right Passive Shoulder ROM WFL Yes Testing Position Supine Flexion 170 Abduction 160 External Rotation at 90 degrees 45 Abduction Internal Rotation 73 Right Active Shoulder ROM WFL No Testing Position Standing Flexion 160 Extension 68 Abduction 75 External Rotation at 90 degrees 40 Abduction Internal Rotation 70 Shoulder ROM Limitations Shoulder ROM Limitations Muscle Weakness,Pain Comments pain worst with active shoulder abd at 70 degrees and flexion at 90 degrees and end range ER PT-OP-M Strength Start: 09/14/19 11:31 Freq: Status: Active Protocol: Document 09/14/19 11:31 (Rec: 09/14/19 12:17 [email or web address]) Shoulder Strength Shoulder Manual Muscle Testing Right Flexion 2 Poor Extension 4 Good Abduction (C5) 2 Poor Adduction 4 Good External Rotation 2+ Poor+ Internal Rotation 4 Good Reason Not Measured Pain Left Flexion 5 Normal Extension 5 Normal Abduction (C5) 5 Normal Adduction 5 Normal External Rotation 5 Normal Internal Rotation 5 Normal Elbow/Forearm Strength Elbow and Forearm Manual Muscle Testing Right Flexion (C6) 4+ Good+ Extension (C7) 5 Normal Left Flexion (C6) 5 Normal Extension (C7) 5 Normal PT-OP-Q Treatments Start: 09/14/19 11:31 Freq: Status: Active Protocol: Document 10/19/19 08:16 (Rec: 10/19/19 09:03 [id number]) Cardio Equipment Upper Body Ergometer (UBE) Duration (Minutes) 5 RPM 50 Height 4 Other 30 sec forward then backward Gym Equipment Cable Column (Body Solid) scap row Resistance 40 lbs x 8 reps x 2 Reps/Time 8 reps x 2 Therapeutic Exercises Supine Exercises scap stability Supine Exercise Name scap punch possition (90 flexoin) Side right Equipment Used 2.2 lb ball Reps/Minutes 20 secs x 4 Comments cues on stabilizing shoulder to go against PT perturbation SA punch Side right Equipment Used 3.3# Reps/Minutes 8 x2 Comments for HEP, no pain noted for full range flex Supine Exercise Name forward flexion Side right Equipment Used 2.2# weighted ball Reps/Minutes 8 reps Comments for HEP, no pain noted, fatigue near 5 reps Sidelying Exercises SL shoulder punch Sidelying Exercise Name shoulder at 90 abd Equipment Used 3.3lb ball Reps/Minutes 8x2 shd abd Sidelying Exercise Name to abd 90 degrees Side right Reps/Minutes 10reps Comments Cues for palm toward face/ thumbs up and GHJ depression hor scap abduction Sidelying Exercise Name focus on ecc use of scapular retractors Side right Comments Cued low trap and rhomboid facilitation Sitting Exercises OH chris Sitting Exercise Name AAROM:scaption, flex, abd Side bilateral Reps/Minutes 5mins Comments no pain noted Neuro Re-Education Treatment Other Activities rhythmic stabilization Details SL position, shoulder at 90 abd Reps/Duration 8 mins Comments with 2 lb ball, PT provided resistance. Improved stability and muscle response noted L with 3.3 lbs ball PT-OP-T Assessment and Plan Start: 09/14/19 11:31 Freq: Status: Active Protocol: Document 10/19/19 08:16 (Rec: 10/19/19 09:03 [id number]) Physical Therapy Assessment Goals Strength Impairment significant strength loss Short Term Goal (STG) Pt will show 1/2 MMT grade to improve his R shoulder strength STG Duration 4 weeks Usp Goal (LTG) Pt will show 1 full MMT grade to improve his R shoulder strength so he can start providing care for his mom LTG Duration 8 weeks ROM Impairment significant AROM loss Short Term Goal (STG) pt will gain 15 degrees or more for R shoulder AROM STG Duration 4 weeks Usp Goal (LTG) Pt will gain 25 degrees or more for R shoulder AROM so he can reach overhead for objects on the shelf and wash his back without discomfort. LTG Duration 8 weeks Quickdash Impairment pt scores 38.6 on quickdash Short Term Goal (STG) Pt will score 30 or lower on quickdash 10/15/2019 = 31.81 STG Duration 4 weeks Usp Goal (LTG) pt will score 25 or lower on quickdash to improve his functional mobility and strength for R shoulder. LTG Duration 8 weeks Assessment Summary Assessment Pt has improved scap stability and quicker muscle response during rhythmic stabilization. Added seated scap row, and UBE today. Pt stephanie tx very well . Physical Therapy Plan Next Visit Focus/Plan Next Note Type Treatment Note Next Visit Plan Assess response to last tx. See assessment added to HEP. continue per PT POC: add new scap ex scap stabilization in pain free range and gravity eliminated / gravity position. scap stabilizatoin focused add weight if stephanie prone flexion
--- NOTE | 2019-10-22 09:01 | PT.OTN ---
Current Diagnoses Strain of muscle(s) and tendon(s) of the rotator cuff of right shoulder, initial encounter (10/22/19) Physical Therapy Treatment Note PT-OP-A Visit Information Start: 09/14/19 11:31 Freq: Status: Active Protocol: Document 10/22/19 08:17 HH (Rec: 10/22/19 09:01 [id number]) Out-Patient Physical Therapy Visit Information Visit Information Visit Type Treatment Note Visit Start Time 08:16 Visit Stop Time 09:00 Total Visit Minutes 44 Visit Number 1/5 Number of MEDICAL UNIT SECRETARY Visits 0 PT-OP-B Current Condition Start: 09/14/19 11:31 Freq: Status: Active Protocol: Document 09/14/19 11:31 HH (Rec: 09/14/19 12:17 [email or web address]) Current Condition History of Current Condition Onset Date Jan, 2019 Current Complaints R shoulder pain and limited ROM s/p RTC repair History of Current Condition This is a 63-year-old male here for evaluation of right shoulder pain and limited ROM. Patient states approximately he tripped on the sidewalk and landing forward with both arms outstretched in Jan, 2019 . MRI showed retracted supraspinatus RTC tear and partial thickness tear of infraspinatus. Pt received RTC repair surgery in March this year but has not had any physical therapy since then d/ t COVID -19 pandemic. Pt had a follow up 2 weeks ago with surgeon and his surgeon is not satisfied with his progress. Patient travis is unable to abduct/ flex his arm >90 degrees actively, but able to reach further with L arm assistance. External rotation is very limited with pain compared to internal rotation. He is able to reach behind his back but slowly. Pt was required to lift heavy objects up to 40lbs in a daily basis for his previous job but he was forced to retired early since the accident and surgery . Pt has been doing some home exercises by learning through online rehab program but he thinks he hits plateau at this point. Per EMR, pt also on prednisone chronically for sarcoidosis. He and his are also caring for his mother , who is deteriorating, which has been very hard on him. He feels that many days he is able to cope with his health issues, but others it feels overwhelming to him. He is frequently frustrated that he is not feeling better. He knows he is doing better now, but remains frustrated by his limitation Prior Treatments and Tests Full-thickness retracted supraspinatus rotator cuff tear with a 2.8 cm retraction deficit above the humeral head which is subluxed superiorly near the undersurface of the acromium. Additionally, there is partial -thickness tear involving the middle third substance of the infraspinatus musculature in this setting of trauma. The infraspinatus tendon more laterally, however, is not disrupted. Future Testing and Treatments Planned 2nd MRI on 09/15/19 Treatment Goals Patient/Caregiver Goals 1. To regain R shoulder ROM and strength Prior Functional Status Baseline Function- ADL's Independent Baseline Function- Mobility Independent Current Functional Impairments (Reported) Functional Limitations- ADL's unable to wash his back while showering Functional Limitations- Work/School unable to lift any objects >5 lbs d/t pain with R shoulder Personal Factors Other Personal Factors That May Effect fibromyalgia Therapy/Recovery depression sarcoidosis PT-OP-C Subjective Start: 09/14/19 11:31 Freq: Status: Active Protocol: Document 10/22/19 08:17 (Rec: 10/22/19 09:01 [id number]) OP-PT Subjective Patient Comments Patient Comments I did get sore from last visit and got achy at night since i did a lot on that day. I did feel better yesterday though Patient Reported Progress Improving PT-OP-F Manual Assessment Start: 09/14/19 11:31 Freq: Status: Active Protocol: Document 09/14/19 11:31 HH (Rec: 09/14/19 12:17 [email or web address]) Manual Assessments Soft Tissue Assessment Soft Tissue Mobility Assessment tenderness to pressure at R infraspinatus belly, R pec minor, major and latissimus dorsi PT-OP-J Posture/Palpation/Skin Start: 09/14/19 11:31 Freq: Status: Active Protocol: Document 09/14/19 11:31 HH (Rec: 09/14/19 12:17 [email or web address]) Posture Evaluation Position Standing Shoulder Posture (R) Rounded Shoulder Subluxation Degree (R) 1 Finger wide Scapula Posture (R) Protracted,(R) Tipped Palpation Assessment Location R RTC Palpation Location R infraspinatus, teres major, minor Palpation Findings Tenderness Palpation Details noticeable R RTC atrophy compared to L PT-OP-K Range of Motion Start: 09/14/19 11:31 Freq: Status: Active Protocol: Document 09/14/19 11:31 (Rec: 09/14/19 12:17 [email or web address]) Shoulder Goniometric Range of Motion Shoulder Left Active Shoulder ROM WFL Yes Flexion 175 Extension 65 Abduction 175 External Rotation at 90 degrees 85 Abduction Internal Rotation 90 Right Passive Shoulder ROM WFL Yes Testing Position Supine Flexion 170 Abduction 160 External Rotation at 90 degrees 45 Abduction Internal Rotation 73 Right Active Shoulder ROM WFL No Testing Position Standing Flexion 160 Extension 68 Abduction 75 External Rotation at 90 degrees 40 Abduction Internal Rotation 70 Shoulder ROM Limitations Shoulder ROM Limitations Muscle Weakness,Pain Comments pain worst with active shoulder abd at 70 degrees and flexion at 90 degrees and end range ER PT-OP-M Strength Start: 09/14/19 11:31 Freq: Status: Active Protocol: Document 09/14/19 11:31 (Rec: 09/14/19 12:17 [email or web address]) Shoulder Strength Shoulder Manual Muscle Testing Right Flexion 2 Poor Extension 4 Good Abduction (C5) 2 Poor Adduction 4 Good External Rotation 2+ Poor+ Internal Rotation 4 Good Reason Not Measured Pain Left Flexion 5 Normal Extension 5 Normal Abduction (C5) 5 Normal Adduction 5 Normal External Rotation 5 Normal Internal Rotation 5 Normal Elbow/Forearm Strength Elbow and Forearm Manual Muscle Testing Right Flexion (C6) 4+ Good+ Extension (C7) 5 Normal Left Flexion (C6) 5 Normal Extension (C7) 5 Normal PT-OP-Q Treatments Start: 09/14/19 11:31 Freq: Status: Active Protocol: Document 10/22/19 08:17 (Rec: 10/22/19 09:01 [id number]) Cardio Equipment Upper Body Ergometer (UBE) Duration (Minutes) 6 RPM 50 Height 4 Other 30 sec forward then backward Therapeutic Exercises Supine Exercises SA punch Side right Equipment Used 3.3# Reps/Minutes 8 x2 Comments for HEP, no pain noted for full range Prone Exercises scap push up Side bilateral Comments for HEP, bird dog I,Y,T Side bilateral Comments for HEP, cues on scap control Sidelying Exercises SL shoulder punch Sidelying Exercise Name shoulder at 90 abd Equipment Used 3.3lb ball Reps/Minutes 8x2 shd abd Sidelying Exercise Name to abd 90 degrees Side right Reps/Minutes 10reps Comments Cues for palm toward face/ thumbs up and GHJ depression hor scap abduction Sidelying Exercise Name focus on ecc use of scapular retractors Side right Comments Cued low trap and rhomboid facilitation Neuro Re-Education Treatment Other Activities rhythmic stabilization Details SL position, shoulder at 90 abd Reps/Duration 8 mins Comments with 2 lb ball, PT provided resistance. Improved stability and muscle response noted improved muscular response and stability for sagittal plane L with 3.3 lbs ball rhythmic initiaiton Details SL position Reps/Duration 4 mins Comments for scap elevation, depression , protraction and retraction PT-OP-T Assessment and Plan Start: 09/14/19 11:31 Freq: Status: Active Protocol: Document 10/22/19 08:17 (Rec: 10/22/19 09:01 [id number]) Physical Therapy Assessment Goals Strength Impairment significant strength loss Short Term Goal (STG) Pt will show 1/2 MMT grade to improve his R shoulder strength STG Duration 4 weeks Coal Chemist Goal (LTG) Pt will show 1 full MMT grade to improve his R shoulder strength so he can start providing care for his mom LTG Duration 8 weeks ROM Impairment significant AROM loss Short Term Goal (STG) pt will gain 15 degrees or more for R shoulder AROM STG Duration 4 weeks Coal Chemist Goal (LTG) Pt will gain 25 degrees or more for R shoulder AROM so he can reach overhead for objects on the shelf and wash his back without discomfort. LTG Duration 8 weeks Quickdash Impairment pt scores 38.6 on quickdash Short Term Goal (STG) Pt will score 30 or lower on quickdash 10/15/2019 = 31.81 STG Duration 4 weeks Coal Chemist Goal (LTG) pt will score 25 or lower on quickdash to improve his functional mobility and strength for R shoulder. LTG Duration 8 weeks Assessment Summary Assessment Pt reports some fatigue today especially after UBE. But pt cont to have good scap control for gravity eliminated position. Provided new HEP to pt and changed POC to once a week d/t his good progress. Physical Therapy Plan Next Visit Focus/Plan Next Note Type Treatment Note Next Visit Plan Assess response to last tx. See assessment added to HEP. continue per PT POC: add new scap ex scap stabilization in pain free range and gravity eliminated / gravity position. scap stabilizatoin focused add weight if stephanie prone flexion
--- NOTE | 2019-10-29 09:03 | PT.OTN ---
Current Diagnoses Strain of muscle(s) and tendon(s) of the rotator cuff of right shoulder, initial encounter (10/29/19) Physical Therapy Treatment Note PT-OP-A Visit Information Start: 09/14/19 11:31 Freq: Status: Active Protocol: Document 10/29/19 08:18 HH (Rec: 10/29/19 09:03 HH [id number]) Out-Patient Physical Therapy Visit Information Visit Information Visit Type Treatment Note Visit Start Time 08:17 Visit Stop Time 09:00 Total Visit Minutes 43 Visit Number 2/5 Number of HOSE INSPECTOR AND PATCHER Visits 0 PT-OP-B Current Condition Start: 09/14/19 11:31 Freq: Status: Active Protocol: Document 09/14/19 11:31 HH (Rec: 09/14/19 12:17 [email or web address]) Current Condition History of Current Condition Onset Date Jan, 2019 Current Complaints R shoulder pain and limited ROM s/p RTC repair History of Current Condition This is a 63-year-old male here for evaluation of right shoulder pain and limited ROM. Patient states approximately he tripped on the sidewalk and landing forward with both arms outstretched in Jan, 2019 . MRI showed retracted supraspinatus RTC tear and partial thickness tear of infraspinatus. Pt received RTC repair surgery in March this year but has not had any physical therapy since then d/ t COVID -19 pandemic. Pt had a follow up 2 weeks ago with surgeon and his surgeon is not satisfied with his progress. Patient travis is unable to abduct/ flex his arm >90 degrees actively, but able to reach further with L arm assistance. External rotation is very limited with pain compared to internal rotation. He is able to reach behind his back but slowly. Pt was required to lift heavy objects up to 40lbs in a daily basis for his previous job but he was forced to retired early since the accident and surgery . Pt has been doing some home exercises by learning through online rehab program but he thinks he hits plateau at this point. Per EMR, pt also on prednisone chronically for sarcoidosis. He and his are also caring for his mother , who is deteriorating, which has been very hard on him. He feels that many days he is able to cope with his health issues, but others it feels overwhelming to him. He is frequently frustrated that he is not feeling better. He knows he is doing better now, but remains frustrated by his limitation Prior Treatments and Tests Full-thickness retracted supraspinatus rotator cuff tear with a 2.8 cm retraction deficit above the humeral head which is subluxed superiorly near the undersurface of the acromium. Additionally, there is partial -thickness tear involving the middle third substance of the infraspinatus musculature in this setting of trauma. The infraspinatus tendon more laterally, however, is not disrupted. Future Testing and Treatments Planned 2nd MRI on 09/15/19 Treatment Goals Patient/Caregiver Goals 1. To regain R shoulder ROM and strength Prior Functional Status Baseline Function- ADL's Independent Baseline Function- Mobility Independent Current Functional Impairments (Reported) Functional Limitations- ADL's unable to wash his back while showering Functional Limitations- Work/School unable to lift any objects >5 lbs d/t pain with R shoulder Personal Factors Other Personal Factors That May Effect fibromyalgia Therapy/Recovery depression sarcoidosis PT-OP-C Subjective Start: 09/14/19 11:31 Freq: Status: Active Protocol: Document 10/29/19 08:18 HH (Rec: 10/29/19 09:03 [id number]) OP-PT Subjective Patient Comments Patient Comments Im doing pretty good but my shoulder get sore if i did lots of manual work the day before. But my morning is usually pretty good that i could move pretty well. Patient Reported Progress Same PT-OP-F Manual Assessment Start: 09/14/19 11:31 Freq: Status: Active Protocol: Document 09/14/19 11:31 HH (Rec: 09/14/19 12:17 [email or web address]) Manual Assessments Soft Tissue Assessment Soft Tissue Mobility Assessment tenderness to pressure at R infraspinatus belly, R pec minor, major and latissimus dorsi PT-OP-J Posture/Palpation/Skin Start: 09/14/19 11:31 Freq: Status: Active Protocol: Document 09/14/19 11:31 HH (Rec: 09/14/19 12:17 [email or web address]) Posture Evaluation Position Standing Shoulder Posture (R) Rounded Shoulder Subluxation Degree (R) 1 Finger wide Scapula Posture (R) Protracted,(R) Tipped Palpation Assessment Location R RTC Palpation Location R infraspinatus, teres major, minor Palpation Findings Tenderness Palpation Details noticeable R RTC atrophy compared to L PT-OP-K Range of Motion Start: 09/14/19 11:31 Freq: Status: Active Protocol: Document 09/14/19 11:31 (Rec: 09/14/19 12:17 [email or web address]) Shoulder Goniometric Range of Motion Shoulder Left Active Shoulder ROM WFL Yes Flexion 175 Extension 65 Abduction 175 External Rotation at 90 degrees 85 Abduction Internal Rotation 90 Right Passive Shoulder ROM WFL Yes Testing Position Supine Flexion 170 Abduction 160 External Rotation at 90 degrees 45 Abduction Internal Rotation 73 Right Active Shoulder ROM WFL No Testing Position Standing Flexion 160 Extension 68 Abduction 75 External Rotation at 90 degrees 40 Abduction Internal Rotation 70 Shoulder ROM Limitations Shoulder ROM Limitations Muscle Weakness,Pain Comments pain worst with active shoulder abd at 70 degrees and flexion at 90 degrees and end range ER PT-OP-M Strength Start: 09/14/19 11:31 Freq: Status: Active Protocol: Document 09/14/19 11:31 (Rec: 09/14/19 12:17 [email or web address]) Shoulder Strength Shoulder Manual Muscle Testing Right Flexion 2 Poor Extension 4 Good Abduction (C5) 2 Poor Adduction 4 Good External Rotation 2+ Poor+ Internal Rotation 4 Good Reason Not Measured Pain Left Flexion 5 Normal Extension 5 Normal Abduction (C5) 5 Normal Adduction 5 Normal External Rotation 5 Normal Internal Rotation 5 Normal Elbow/Forearm Strength Elbow and Forearm Manual Muscle Testing Right Flexion (C6) 4+ Good+ Extension (C7) 5 Normal Left Flexion (C6) 5 Normal Extension (C7) 5 Normal PT-OP-Q Treatments Start: 09/14/19 11:31 Freq: Status: Active Protocol: Document 10/29/19 08:18 (Rec: 10/29/19 09:03 [id number]) Therapeutic Exercises Supine Exercises shoulder flexion Supine Exercise Name with PVC and 5lbs ankle weight Side right Equipment Used 5 lbs Reps/Minutes 10 x2 scap stability Supine Exercise Name scap punch possition (90 flexoin) Side right Equipment Used 2.2 lb ball Reps/Minutes 20 secs x 4 Comments cues on stabilizing shoulder to go against PT perturbation flex Equipment Used 3.5lbs weighted ball Reps/Minutes 8 x2 Comments no discomfort noted Prone Exercises prone I , T ,Y Side bilateral Equipment Used on red therapy ball Reps/Minutes 8 x 2 Comments no pain noted Sidelying Exercises shd abd Sidelying Exercise Name to abd 90 degrees Side right Equipment Used 1 lbs DB Reps/Minutes 10reps Comments pain noted at 90 degrees abd hor scap abduction Sidelying Exercise Name focus on ecc use of scapular retractors Side right Equipment Used 2lb DB Comments minimal discomfort Neuro Re-Education Treatment Other Activities rhythmic stabilization Details SL position, shoulder at 90 abd Reps/Duration 4 mins Comments with 3.5 lb ball, PT provided resistance. Improved stability and muscle response noted for shoulder abduction improved muscular response and stability for sagittal plane L with 3.3 lbs ball PT-OP-T Assessment and Plan Start: 09/14/19 11:31 Freq: Status: Active Protocol: Document 10/29/19 08:18 (Rec: 10/29/19 09:03 [id number]) Physical Therapy Assessment Goals Strength Impairment significant strength loss Short Term Goal (STG) Pt will show 1/2 MMT grade to improve his R shoulder strength STG Duration 4 weeks Mental Hygiene Consultant Goal (LTG) Pt will show 1 full MMT grade to improve his R shoulder strength so he can start providing care for his mom LTG Duration 8 weeks ROM Impairment significant AROM loss Short Term Goal (STG) pt will gain 15 degrees or more for R shoulder AROM STG Duration 4 weeks Intermediate Goal (LTG) Pt will gain 25 degrees or more for R shoulder AROM so he can reach overhead for objects on the shelf and wash his back without discomfort. LTG Duration 8 weeks Quickdash Impairment pt scores 38.6 on quickdash Short Term Goal (STG) Pt will score 30 or lower on quickdash 10/15/2019 = 31.81 STG Duration 4 weeks Mental Hygiene Consultant Goal (LTG) pt will score 25 or lower on quickdash to improve his functional mobility and strength for R shoulder. LTG Duration 8 weeks Assessment Summary Assessment Pt has improved abduction strength and stability at 90 degrees. He is also able to perform prone Y, I , T on therapy without discomfort. Will cont POC to strengthen his shoulder in prone position . Physical Therapy Plan Next Visit Focus/Plan Next Note Type Treatment Note Next Visit Plan Assess response to last tx. See assessment added to HEP. continue per PT POC: add new scap ex scap stabilization in pain free range and gravity eliminated / gravity position. scap stabilizatoin focused add weight if stephanie prone flexion
--- NOTE | 2019-11-05 09:04 | PT.OTN ---
Current Diagnoses Strain of muscle(s) and tendon(s) of the rotator cuff of right shoulder, initial encounter (11/05/19) Physical Therapy Treatment Note PT-OP-A Visit Information Start: 09/14/19 11:31 Freq: Status: Active Protocol: Document 11/05/19 08:13 HH (Rec: 11/05/19 09:04 [id number]) Out-Patient Physical Therapy Visit Information Visit Information Visit Type Treatment Note Visit Start Time 08:16 Visit Stop Time 09:00 Total Visit Minutes 44 Visit Number 7/5 Number of DIRECTOR OF THE BIOPHYSICS FACILITY Visits 0 PT-OP-B Current Condition Start: 09/14/19 11:31 Freq: Status: Active Protocol: Document 09/14/19 11:31 HH (Rec: 09/14/19 12:17 [email or web address]) Current Condition History of Current Condition Onset Date Jan, 2019 Current Complaints R shoulder pain and limited ROM s/p RTC repair History of Current Condition This is a 63-year-old male here for evaluation of right shoulder pain and limited ROM. Patient states approximately he tripped on the sidewalk and landing forward with both arms outstretched in Jan, 2019 . MRI showed retracted supraspinatus RTC tear and partial thickness tear of infraspinatus. Pt received RTC repair surgery in March this year but has not had any physical therapy since then d/ t COVID -19 pandemic. Pt had a follow up 2 weeks ago with surgeon and his surgeon is not satisfied with his progress. Patient travis is unable to abduct/ flex his arm >90 degrees actively, but able to reach further with L arm assistance. External rotation is very limited with pain compared to internal rotation. He is able to reach behind his back but slowly. Pt was required to lift heavy objects up to 40lbs in a daily basis for his previous job but he was forced to retired early since the accident and surgery . Pt has been doing some home exercises by learning through online rehab program but he thinks he hits plateau at this point. Per EMR, pt also on prednisone chronically for sarcoidosis. He and his are also caring for his mother , who is deteriorating, which has been very hard on him. He feels that many days he is able to cope with his health issues, but others it feels overwhelming to him. He is frequently frustrated that he is not feeling better. He knows he is doing better now, but remains frustrated by his limitation Prior Treatments and Tests Full-thickness retracted supraspinatus rotator cuff tear with a 2.8 cm retraction deficit above the humeral head which is subluxed superiorly near the undersurface of the acromium. Additionally, there is partial -thickness tear involving the middle third substance of the infraspinatus musculature in this setting of trauma. The infraspinatus tendon more laterally, however, is not disrupted. Future Testing and Treatments Planned 2nd MRI on 09/15/19 Treatment Goals Patient/Caregiver Goals 1. To regain R shoulder ROM and strength Prior Functional Status Baseline Function- ADL's Independent Baseline Function- Mobility Independent Current Functional Impairments (Reported) Functional Limitations- ADL's unable to wash his back while showering Functional Limitations- Work/School unable to lift any objects >5 lbs d/t pain with R shoulder Personal Factors Other Personal Factors That May Effect fibromyalgia Therapy/Recovery depression sarcoidosis PT-OP-C Subjective Start: 09/14/19 11:31 Freq: Status: Active Protocol: Document 11/05/19 08:13 HH (Rec: 11/05/19 09:04 [id number]) OP-PT Subjective Patient Comments Patient Comments i am doing okay and i could lift my arm quite easy sometimes but it is still frustrating. Patient Reported Progress Improving PT-OP-F Manual Assessment Start: 09/14/19 11:31 Freq: Status: Active Protocol: Document 09/14/19 11:31 HH (Rec: 09/14/19 12:17 [email or web address]) Manual Assessments Soft Tissue Assessment Soft Tissue Mobility Assessment tenderness to pressure at R infraspinatus belly, R pec minor, major and latissimus dorsi PT-OP-J Posture/Palpation/Skin Start: 09/14/19 11:31 Freq: Status: Active Protocol: Document 09/14/19 11:31 HH (Rec: 09/14/19 12:17 [email or web address]) Posture Evaluation Position Standing Shoulder Posture (R) Rounded Shoulder Subluxation Degree (R) 1 Finger wide Scapula Posture (R) Protracted,(R) Tipped Palpation Assessment Location R RTC Palpation Location R infraspinatus, teres major, minor Palpation Findings Tenderness Palpation Details noticeable R RTC atrophy compared to L PT-OP-K Range of Motion Start: 09/14/19 11:31 Freq: Status: Active Protocol: Document 09/14/19 11:31 (Rec: 09/14/19 12:17 [email or web address]) Shoulder Goniometric Range of Motion Shoulder Left Active Shoulder ROM WFL Yes Flexion 175 Extension 65 Abduction 175 External Rotation at 90 degrees 85 Abduction Internal Rotation 90 Right Passive Shoulder ROM WFL Yes Testing Position Supine Flexion 170 Abduction 160 External Rotation at 90 degrees 45 Abduction Internal Rotation 73 Right Active Shoulder ROM WFL No Testing Position Standing Flexion 160 Extension 68 Abduction 75 External Rotation at 90 degrees 40 Abduction Internal Rotation 70 Shoulder ROM Limitations Shoulder ROM Limitations Muscle Weakness,Pain Comments pain worst with active shoulder abd at 70 degrees and flexion at 90 degrees and end range ER PT-OP-M Strength Start: 09/14/19 11:31 Freq: Status: Active Protocol: Document 09/14/19 11:31 (Rec: 09/14/19 12:17 [email or web address]) Shoulder Strength Shoulder Manual Muscle Testing Right Flexion 2 Poor Extension 4 Good Abduction (C5) 2 Poor Adduction 4 Good External Rotation 2+ Poor+ Internal Rotation 4 Good Reason Not Measured Pain Left Flexion 5 Normal Extension 5 Normal Abduction (C5) 5 Normal Adduction 5 Normal External Rotation 5 Normal Internal Rotation 5 Normal Elbow/Forearm Strength Elbow and Forearm Manual Muscle Testing Right Flexion (C6) 4+ Good+ Extension (C7) 5 Normal Left Flexion (C6) 5 Normal Extension (C7) 5 Normal PT-OP-Q Treatments Start: 09/14/19 11:31 Freq: Status: Active Protocol: Document 11/05/19 08:13 (Rec: 11/05/19 09:04 [id number]) Therapeutic Exercises Prone Exercises shoulder tap Side bilateral Reps/Minutes 15 Comments for warm up prone I , T ,Y Side bilateral Equipment Used on red therapy ball Reps/Minutes 8 x 2 Comments no pain noted scap push up Side bilateral Comments for HEP, bird dog I,Y,T Side bilateral Comments no discomfort noted Standing Exercises scap retraction Standing Exercise Name with arm extended Side bilateral Reps/Minutes 8 x2 Comments R shoulder shrug noted. ball toss Standing Exercise Name with PT Side right Reps/Minutes 4 mins Comments pt tends to shrug his R shoulder but improved after repetition abd Standing Exercise Name with ball against wall, Side bilateral Reps/Minutes 8 x 2 Comments no pain noted flex Standing Exercise Name with ball against wall, Side bilateral Reps/Minutes 8 x2 Comments no pain noted PT-OP-T Assessment and Plan Start: 09/14/19 11:31 Freq: Status: Active Protocol: Document 11/05/19 08:13 (Rec: 11/05/19 09:04 [id number]) Physical Therapy Assessment Goals ROM Impairment significant AROM loss Short Term Goal (STG) pt will gain 15 degrees or more for R shoulder AROM STG Duration 4 weeks Snf Goal (LTG) Pt will gain 25 degrees or more for R shoulder AROM so he can reach overhead for objects on the shelf and wash his back without discomfort. LTG Duration 8 weeks Quickdash Impairment pt scores 38.6 on quickdash Short Term Goal (STG) Pt will score 30 or lower on quickdash 10/15/2019 = 31.81 STG Duration 4 weeks Snf Goal (LTG) pt will score 25 or lower on quickdash to improve his functional mobility and strength for R shoulder. LTG Duration 8 weeks Assessment Summary Assessment Pt cont to show improvements who has good strength and stability R scapular, no pain for therex in prone and started shoulder ex in standing today. Pt stated minimal discomfort with flexion and abduction with ball agains tthe wall. will cont POC Physical Therapy Plan Next Visit Focus/Plan Next Note Type Treatment Note Next Visit Plan Assess response to last tx. See assessment added to HEP. continue per PT POC: add new scap ex scap stabilization in pain free range and gravity eliminated / gravity position. scap stabilizatoin focused add weight if stephanie prone flexion
--- NOTE | 2019-11-12 10:11 | PT.OTN ---
Current Diagnoses Strain of muscle(s) and tendon(s) of the rotator cuff of right shoulder, initial encounter (11/12/19) Physical Therapy Treatment Note PT-OP-A Visit Information Start: 09/14/19 11:31 Freq: Status: Active Protocol: Document 11/12/19 08:58 HH (Rec: 11/12/19 10:10 [id number]) Out-Patient Physical Therapy Visit Information Visit Information Visit Type Treatment Note Visit Start Time 08:17 Visit Stop Time 08:59 Total Visit Minutes 42 Visit Number 4/5 Number of DYE JIG OPERATOR Visits 0 PT-OP-B Current Condition Start: 09/14/19 11:31 Freq: Status: Active Protocol: Document 09/14/19 11:31 HH (Rec: 09/14/19 12:17 [email or web address]) Current Condition History of Current Condition Onset Date Jan, 2019 Current Complaints R shoulder pain and limited ROM s/p RTC repair History of Current Condition This is a 63-year-old male here for evaluation of right shoulder pain and limited ROM. Patient states approximately he tripped on the sidewalk and landing forward with both arms outstretched in Jan, 2019 . MRI showed retracted supraspinatus RTC tear and partial thickness tear of infraspinatus. Pt received RTC repair surgery in March this year but has not had any physical therapy since then d/ t COVID -19 pandemic. Pt had a follow up 2 weeks ago with surgeon and his surgeon is not satisfied with his progress. Patient travis is unable to abduct/ flex his arm >90 degrees actively, but able to reach further with L arm assistance. External rotation is very limited with pain compared to internal rotation. He is able to reach behind his back but slowly. Pt was required to lift heavy objects up to 40lbs in a daily basis for his previous job but he was forced to retired early since the accident and surgery . Pt has been doing some home exercises by learning through online rehab program but he thinks he hits plateau at this point. Per EMR, pt also on prednisone chronically for sarcoidosis. He and his are also caring for his mother , who is deteriorating, which has been very hard on him. He feels that many days he is able to cope with his health issues, but others it feels overwhelming to him. He is frequently frustrated that he is not feeling better. He knows he is doing better now, but remains frustrated by his limitation Prior Treatments and Tests Full-thickness retracted supraspinatus rotator cuff tear with a 2.8 cm retraction deficit above the humeral head which is subluxed superiorly near the undersurface of the acromium. Additionally, there is partial -thickness tear involving the middle third substance of the infraspinatus musculature in this setting of trauma. The infraspinatus tendon more laterally, however, is not disrupted. Future Testing and Treatments Planned 2nd MRI on 09/15/19 Treatment Goals Patient/Caregiver Goals 1. To regain R shoulder ROM and strength Prior Functional Status Baseline Function- ADL's Independent Baseline Function- Mobility Independent Current Functional Impairments (Reported) Functional Limitations- ADL's unable to wash his back while showering Functional Limitations- Work/School unable to lift any objects >5 lbs d/t pain with R shoulder Personal Factors Other Personal Factors That May Effect fibromyalgia Therapy/Recovery depression sarcoidosis PT-OP-C Subjective Start: 09/14/19 11:31 Freq: Status: Active Protocol: Document 11/12/19 08:58 HH (Rec: 11/12/19 10:10 [id number]) OP-PT Subjective Patient Comments Patient Comments Im doing pretty good and doing all my exercises Patient Reported Progress Improving PT-OP-F Manual Assessment Start: 09/14/19 11:31 Freq: Status: Active Protocol: Document 09/14/19 11:31 HH (Rec: 09/14/19 12:17 [email or web address]) Manual Assessments Soft Tissue Assessment Soft Tissue Mobility Assessment tenderness to pressure at R infraspinatus belly, R pec minor, major and latissimus dorsi PT-OP-J Posture/Palpation/Skin Start: 09/14/19 11:31 Freq: Status: Active Protocol: Document 09/14/19 11:31 HH (Rec: 09/14/19 12:17 [email or web address]) Posture Evaluation Position Standing Shoulder Posture (R) Rounded Shoulder Subluxation Degree (R) 1 Finger wide Scapula Posture (R) Protracted,(R) Tipped Palpation Assessment Location R RTC Palpation Location R infraspinatus, teres major, minor Palpation Findings Tenderness Palpation Details noticeable R RTC atrophy compared to L PT-OP-K Range of Motion Start: 09/14/19 11:31 Freq: Status: Active Protocol: Document 09/14/19 11:31 HH (Rec: 09/14/19 12:17 [email or web address]) Shoulder Goniometric Range of Motion Shoulder Left Active Shoulder ROM WFL Yes Flexion 175 Extension 65 Abduction 175 External Rotation at 90 degrees 85 Abduction Internal Rotation 90 Right Passive Shoulder ROM WFL Yes Testing Position Supine Flexion 170 Abduction 160 External Rotation at 90 degrees 45 Abduction Internal Rotation 73 Right Active Shoulder ROM WFL No Testing Position Standing Flexion 160 Extension 68 Abduction 75 External Rotation at 90 degrees 40 Abduction Internal Rotation 70 Shoulder ROM Limitations Shoulder ROM Limitations Muscle Weakness,Pain Comments pain worst with active shoulder abd at 70 degrees and flexion at 90 degrees and end range ER PT-OP-M Strength Start: 09/14/19 11:31 Freq: Status: Active Protocol: Document 09/14/19 11:31 (Rec: 09/14/19 12:17 [email or web address]) Shoulder Strength Shoulder Manual Muscle Testing Right Flexion 2 Poor Extension 4 Good Abduction (C5) 2 Poor Adduction 4 Good External Rotation 2+ Poor+ Internal Rotation 4 Good Reason Not Measured Pain Left Flexion 5 Normal Extension 5 Normal Abduction (C5) 5 Normal Adduction 5 Normal External Rotation 5 Normal Internal Rotation 5 Normal Elbow/Forearm Strength Elbow and Forearm Manual Muscle Testing Right Flexion (C6) 4+ Good+ Extension (C7) 5 Normal Left Flexion (C6) 5 Normal Extension (C7) 5 Normal PT-OP-Q Treatments Start: 09/14/19 11:31 Freq: Status: Active Protocol: Document 11/12/19 08:58 (Rec: 11/12/19 10:10 [id number]) Cardio Equipment Upper Body Ergometer (UBE) Duration (Minutes) 3 Other backward for cool down at the end of session Therapeutic Exercises Prone Exercises prone I , T ,Y Side bilateral Equipment Used on red therapy ball Reps/Minutes 8 x 2 Comments pt stated T is the hardest scap push up Prone Exercise Name up and down, then protract and retract Side bilateral Reps/Minutes 8 x2 Comments for HEP, Sidelying Exercises scap dynamic stability Sidelying Exercise Name PT provides resistance Side right Resistance 3 lbs ball shd abd Sidelying Exercise Name to abd 90 degrees Side right Equipment Used 1 lbs DB Reps/Minutes 10reps Comments pain noted at 45 degrees eccentric abduction Sitting Exercises OH chris Sitting Exercise Name flexion, abd, IR Side right Comments for home use Standing Exercises wall climb Standing Exercise Name with towel, flexion and abduction Side right Reps/Minutes 8 x 2 Comments pain noted <90 abduction. ball toss Standing Exercise Name with PT, under and upper hand Side right Reps/Minutes 3 mins each Comments improved coordination this time PT-OP-T Assessment and Plan Start: 09/14/19 11:31 Freq: Status: Active Protocol: Document 11/12/19 08:58 HH (Rec: 11/12/19 10:10 HH [id number]) Physical Therapy Assessment Goals Strength Impairment significant strength loss Short Term Goal (STG) Pt will show 1/2 MMT grade to improve his R shoulder strength STG Duration 4 weeks Long-Term Goal (LTG) Pt will show 1 full MMT grade to improve his R shoulder strength so he can start providing care for his mom LTG Duration 8 weeks ROM Impairment significant AROM loss Short Term Goal (STG) pt will gain 15 degrees or more for R shoulder AROM STG Duration 4 weeks Lobby Attendant Goal (LTG) Pt will gain 25 degrees or more for R shoulder AROM so he can reach overhead for objects on the shelf and wash his back without discomfort. LTG Duration 8 weeks Quickdash Impairment pt scores 38.6 on quickdash Short Term Goal (STG) Pt will score 30 or lower on quickdash 10/15/2019 = 31.81 STG Duration 4 weeks Long-Term Goal (LTG) pt will score 25 or lower on quickdash to improve his functional mobility and strength for R shoulder. LTG Duration 8 weeks Assessment Summary Assessment Pt cont to improve AROM with improved scap control. Pt can now abduct and flex fully with minimal discomfort but still has poor endurance to do it multiple times. He also has improved gross and fine motor control for ball toss today but tossing with balloon caused some pain at his R shoulder. Pt will consult with his surgeon to reassess his progress. Will reevaluate rehab goals next time. Physical Therapy Plan Next Visit Focus/Plan Next Note Type Progress Note Next Visit Plan check rehab goals cont prone ex, and progress standing ex.
--- NOTE | 2019-11-18 09:18 | PT.OPPOC ---
Physical, Occupational & Speech Therapy At [facility] Current Diagnoses Strain of muscle(s) and tendon(s) of the rotator cuff of right shoulder, initial encounter (11/18/19) Visit Care Team Role Provider Type Adenike Rowe MD Primary Care Provider Physician Specialty: Family Practice Address: [address] [place] [address], [place], [address] Email: [email or web address] Fabian Escobar MD Attending Provider Non-Staff Referring Provider Specialty: Orthopedic Surgery Address: [address], [address], [place], [address] Email: Plan Of Care PT-OP-T Assessment and Plan Start: 09/14/19 11:31 Freq: Status: Active Protocol: Document 11/18/19 09:01 (Rec: 11/18/19 09:17 [email or web address]) Physical Therapy Assessment Goals pain Impairment pt has consistent pain at 4 during activities. Penitentiary Goal (LTG) Pt will have pain no more than 2/10 for any shoulder related movements. LTG Duration 8 weeks Strength Impairment significant strength loss Short Term Goal (STG) 92 goal met pt shows improved overall R shoulder strength in gravity position STG Duration 4 weeks Sales And Marketing Analyst Goal (LTG) Pt will show 4/5 MMT grade to improve his R shoulder strength so he can start providing care for his mom LTG Duration 8 weeks ROM Impairment significant AROM loss Short Term Goal (STG) 92 goal met pt reached full ROM for flexion, abd in standing position, with pain noted during abduction @90 degrees. LTG Duration 8 weeks Quickdash Impairment pt scores 38.6 on quickdash Short Term Goal (STG) 10/15/2019 = 31.81 STG Duration 4 weeks Penitentiary Goal (LTG) 92 goal pt scores 25 on quickdash today. Pt will be able to sore 20 or lower on Quickdash so he can complete parlor chaperone with minimal discomfort LTG Duration 8 weeks Progress Towards Goals Progress Towards Goals Progressing Toward Goals,Slow Progress due to Medical Issues Assessment Summary Assessment Pt possibly strained his pecs and and lower trap while doing active flexion and abduction with weight at home. Educated pt to be cautious with open chain ex with weight and should focus on CKC and gravity eliminated position ex . However, pt has shown very good progress since IE with close to WNL shoulder ROM but his shoulder strength is still limited d/t the fact that 2 torn RTC muscles. Expect pt to cont progress from skilled therapy so he can optimize his functional mobility and strength to avoid further surgery. Physical Therapy Plan Frequency and Duration Frequency of Treatment 1x/Week Duration of Treatment 8 weeks Plan of Care Start Date 11/18/19 Plan of Care End Date 01/17/20 Next Visit Focus/Plan Next Note Type Progress Note Next Visit Plan check rehab goals cont prone ex, and progress standing ex. Plan of Care Dates Plan of Care Start Date 11/18/19 Plan of Care End Date 01/17/20 Electronically Signed by: [place] [facility] PT 11/18/19 09 Please Sign and Return: I have reviewed this Plan of Care and certify that the skilled therapy services above are required to meet the patient?s needs. Physician Signature Date Printed Name and Credentials Clinical Instructor Signature Printed Name and Credentials
--- NOTE | 2019-11-18 09:19 | PT.OTN ---
Current Diagnoses Strain of muscle(s) and tendon(s) of the rotator cuff of right shoulder, initial encounter (11/18/19) Physical Therapy Treatment Note PT-OP-A Visit Information Start: 09/14/19 11:31 Freq: Status: Active Protocol: Document 11/18/19 09:01 HH (Rec: 11/18/19 09:17 HH [email or web address]) Out-Patient Physical Therapy Visit Information Visit Information Visit Type Re-Evaluation Visit Start Time 08:15 Visit Stop Time 09:00 Total Visit Minutes 45 Visit Number 6/6 Number of SHIELD INSTALLER Visits 0 PT-OP-B Current Condition Start: 09/14/19 11:31 Freq: Status: Active Protocol: Document 09/14/19 11:31 HH (Rec: 09/14/19 12:17 HH [email or web address]) Current Condition History of Current Condition Onset Date Jan, 2019 Current Complaints R shoulder pain and limited ROM s/p RTC repair History of Current Condition This is a 63-year-old male here for evaluation of right shoulder pain and limited ROM. Patient states approximately he tripped on the sidewalk and landing forward with both arms outstretched in Jan, 2019 . MRI showed retracted supraspinatus RTC tear and partial thickness tear of infraspinatus. Pt received RTC repair surgery in March this year but has not had any physical therapy since then d/ t COVID -19 pandemic. Pt had a follow up 2 weeks ago with surgeon and his surgeon is not satisfied with his progress. Patient travis is unable to abduct/ flex his arm >90 degrees actively, but able to reach further with L arm assistance. External rotation is very limited with pain compared to internal rotation. He is able to reach behind his back but slowly. Pt was required to lift heavy objects up to 40lbs in a daily basis for his previous job but he was forced to retired early since the accident and surgery . Pt has been doing some home exercises by learning through online rehab program but he thinks he hits plateau at this point. Per EMR, pt also on prednisone chronically for sarcoidosis. He and his are also caring for his mother , who is deteriorating, which has been very hard on him. He feels that many days he is able to cope with his health issues, but others it feels overwhelming to him. He is frequently frustrated that he is not feeling better. He knows he is doing better now, but remains frustrated by his limitation Prior Treatments and Tests Full-thickness retracted supraspinatus rotator cuff tear with a 2.8 cm retraction deficit above the humeral head which is subluxed superiorly near the undersurface of the acromium. Additionally, there is partial -thickness tear involving the middle third substance of the infraspinatus musculature in this setting of trauma. The infraspinatus tendon more laterally, however, is not disrupted. Future Testing and Treatments Planned 2nd MRI on 09/15/19 Treatment Goals Patient/Caregiver Goals 1. To regain R shoulder ROM and strength Prior Functional Status Baseline Function- ADL's Independent Baseline Function- Mobility Independent Current Functional Impairments (Reported) Functional Limitations- ADL's unable to wash his back while showering Functional Limitations- Work/School unable to lift any objects >5 lbs d/t pain with R shoulder Personal Factors Other Personal Factors That May Effect fibromyalgia Therapy/Recovery depression sarcoidosis PT-OP-C Subjective Start: 09/14/19 11:31 Freq: Status: Active Protocol: Document 11/18/19 09:01 (Rec: 11/18/19 09:17 [email or web address]) OP-PT Subjective Patient Comments Patient Comments I think i strained my chest and back when i was doing my flexion and abduction ex with weight at home. Patient Reported Progress Same Patient Questionnaires Quick Dash- Upper Extremity Quick Dash UE Score 25 Quick Dash UE Impairment 20 to 39% Impaired (Score 20- 39) OP-PT Pain Assessment Location R shoulder Intensity 4 Scale Used Numeric (0 - 10) Description Aching Frequency Frequent Pain Aggravating Factors Activity,Exercise Pain Alleviating Factors Inactivity PT-OP-F Manual Assessment Start: 09/14/19 11:31 Freq: Status: Active Protocol: Document 09/14/19 11:31 HH (Rec: 09/14/19 12:17 [email or web address]) Manual Assessments Soft Tissue Assessment Soft Tissue Mobility Assessment tenderness to pressure at R infraspinatus belly, R pec minor, major and latissimus dorsi PT-OP-J Posture/Palpation/Skin Start: 09/14/19 11:31 Freq: Status: Active Protocol: Document 09/14/19 11:31 (Rec: 09/14/19 12:17 [email or web address]) Posture Evaluation Position Standing Shoulder Posture (R) Rounded Shoulder Subluxation Degree (R) 1 Finger wide Scapula Posture (R) Protracted,(R) Tipped Palpation Assessment Location R RTC Palpation Location R infraspinatus, teres major, minor Palpation Findings Tenderness Palpation Details noticeable R RTC atrophy compared to L PT-OP-K Range of Motion Start: 09/14/19 11:31 Freq: Status: Active Protocol: Document 11/18/19 09:01 (Rec: 11/18/19 09:17 [email or web address]) Shoulder Goniometric Range of Motion Shoulder Right Active Shoulder ROM WFL Yes Testing Position Standing Flexion 170 Extension 68 Abduction 165 External Rotation at 90 degrees 68 Abduction Internal Rotation 70 Shoulder ROM Limitations Shoulder ROM Limitations Pain PT-OP-M Strength Start: 09/14/19 11:31 Freq: Status: Active Protocol: Document 11/18/19 09:01 (Rec: 11/18/19 09:17 [email or web address]) Shoulder Strength Shoulder Manual Muscle Testing Right Flexion 4- Good- Extension 4+ Good+ Abduction (C5) 3+ Fair+ Adduction 4+ Good+ External Rotation 3+ Fair+ PT-OP-Q Treatments Start: 09/14/19 11:31 Freq: Status: Active Protocol: Document 11/18/19 09:01 (Rec: 11/18/19 09:17 [email or web address]) Cardio Equipment Upper Body Ergometer (UBE) Duration (Minutes) 5 Other soreness noted at the 4 th min Manual Therapy Treatment Soft Tissue Mobilization lower trap Mobilization Type Sustained Pressure,Trigger Point Release Intensity/Depth Moderate Body Position Sidelying Comments tender to pressure noted at lower trap pecs Mobilization Type Sustained Pressure,Trigger Point Release Intensity/Depth Moderate Body Position Supine Comments tender to pressure noted at R mid pecs PT-OP-T Assessment and Plan Start: 09/14/19 11:31 Freq: Status: Active Protocol: Document 11/18/19 09:01 (Rec: 11/18/19 09:17 [email or web address]) Physical Therapy Assessment Goals pain Impairment pt has consistent pain at 4 during activities. Product Representative Goal (LTG) Pt will have pain no more than 2/10 for any shoulder related movements. LTG Duration 8 weeks Strength Impairment significant strength loss Short Term Goal (STG) 9/2 goal met pt shows improved overall R shoulder strength in gravity position STG Duration 4 weeks Product Representative Goal (LTG) Pt will show 4/5 MMT grade to improve his R shoulder strength so he can start providing care for his mom LTG Duration 8 weeks ROM Impairment significant AROM loss Short Term Goal (STG) 9 goal met pt reached full ROM for flexion, abd in standing position, with pain noted during abduction @90 degrees. LTG Duration 8 weeks Quickdash Impairment pt scores 38.6 on quickdash Short Term Goal (STG) 10/15/2019 = 31.81 STG Duration 4 weeks Nursing Home Goal (LTG) 9 goal pt scores 25 on quickdash today. 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 Educated pt to be cautious with open chain ex with weight and should focus on CKC and gravity eliminated position ex . However, pt has shown very good progress since IE with close to WNL shoulder ROM but his shoulder strength is still limited d/t the fact that 2 torn RTC muscles. Expect pt to cont progress from skilled therapy so he can optimize his functional mobility and strength to avoid further surgery. Physical Therapy Plan Frequency and Duration Frequency of Treatment 1x/Week Duration of Treatment 8 weeks Plan of Care Start Date 11/18/19 Plan of Care End Date 01/17/20 Next Visit Focus/Plan Next Note Type Progress Note Next Visit Plan check rehab goals cont prone ex, and progress standing ex.
--- NOTE | 2019-11-26 09:02 | PT.OTN ---
Current Diagnoses Strain of muscle(s) and tendon(s) of the rotator cuff of right shoulder, initial encounter (11/26/19) Physical Therapy Treatment Note PT-OP-A Visit Information Start: 09/14/19 11:31 Freq: Status: Active Protocol: Document 11/26/19 08:18 HH (Rec: 11/26/19 09:02 [id number]) Out-Patient Physical Therapy Visit Information Visit Information Visit Type Treatment Note Visit Start Time 08:19 Visit Stop Time 09:00 Total Visit Minutes 41 Visit Number 1/4 Number of WHEEL WORKER Visits 0 PT-OP-B Current Condition Start: 09/14/19 11:31 Freq: Status: Active Protocol: Document 09/14/19 11:31 HH (Rec: 09/14/19 12:17 [email or web address]) Current Condition History of Current Condition Onset Date Jan, 2019 Current Complaints R shoulder pain and limited ROM s/p RTC repair History of Current Condition This is a 63-year-old male here for evaluation of right shoulder pain and limited ROM. Patient states approximately he tripped on the sidewalk and landing forward with both arms outstretched in Jan, 2019 . MRI showed retracted supraspinatus RTC tear and partial thickness tear of infraspinatus. Pt received RTC repair surgery in March this year but has not had any physical therapy since then d/ t COVID -19 pandemic. Pt had a follow up 2 weeks ago with surgeon and his surgeon is not satisfied with his progress. Patient travis is unable to abduct/ flex his arm >90 degrees actively, but able to reach further with L arm assistance. External rotation is very limited with pain compared to internal rotation. He is able to reach behind his back but slowly. Pt was required to lift heavy objects up to 40lbs in a daily basis for his previous job but he was forced to retired early since the accident and surgery . Pt has been doing some home exercises by learning through online rehab program but he thinks he hits plateau at this point. Per EMR, pt also on prednisone chronically for sarcoidosis. He and his are also caring for his mother , who is deteriorating, which has been very hard on him. He feels that many days he is able to cope with his health issues, but others it feels overwhelming to him. He is frequently frustrated that he is not feeling better. He knows he is doing better now, but remains frustrated by his limitation Prior Treatments and Tests Full-thickness retracted supraspinatus rotator cuff tear with a 2.8 cm retraction deficit above the humeral head which is subluxed superiorly near the undersurface of the acromium. Additionally, there is partial -thickness tear involving the middle third substance of the infraspinatus musculature in this setting of trauma. The infraspinatus tendon more laterally, however, is not disrupted. Future Testing and Treatments Planned 2nd MRI on 09/15/19 Treatment Goals Patient/Caregiver Goals 1. To regain R shoulder ROM and strength Prior Functional Status Baseline Function- ADL's Independent Baseline Function- Mobility Independent Current Functional Impairments (Reported) Functional Limitations- ADL's unable to wash his back while showering Functional Limitations- Work/School unable to lift any objects >5 lbs d/t pain with R shoulder Personal Factors Other Personal Factors That May Effect fibromyalgia Therapy/Recovery depression sarcoidosis PT-OP-C Subjective Start: 09/14/19 11:31 Freq: Status: Active Protocol: Document 11/26/19 08:18 HH (Rec: 11/26/19 09:02 [id number]) OP-PT Subjective Patient Comments Patient Comments My chest still feels sore and i had a chiropractic treatment. It felt great for a day but thats it. My arm feels easier to bring up now. Patient Reported Progress Improving PT-OP-F Manual Assessment Start: 09/14/19 11:31 Freq: Status: Active Protocol: Document 09/14/19 11:31 HH (Rec: 09/14/19 12:17 [email or web address]) Manual Assessments Soft Tissue Assessment Soft Tissue Mobility Assessment tenderness to pressure at R infraspinatus belly, R pec minor, major and latissimus dorsi PT-OP-J Posture/Palpation/Skin Start: 09/14/19 11:31 Freq: Status: Active Protocol: Document 09/14/19 11:31 HH (Rec: 09/14/19 12:17 [email or web address]) Posture Evaluation Position Standing Shoulder Posture (R) Rounded Shoulder Subluxation Degree (R) 1 Finger wide Scapula Posture (R) Protracted,(R) Tipped Palpation Assessment Location R RTC Palpation Location R infraspinatus, teres major, minor Palpation Findings Tenderness Palpation Details noticeable R RTC atrophy compared to L PT-OP-K Range of Motion Start: 09/14/19 11:31 Freq: Status: Active Protocol: Document 11/18/19 09:01 (Rec: 11/18/19 09:17 [email or web address]) Shoulder Goniometric Range of Motion Shoulder Right Active Shoulder ROM WFL Yes Testing Position Standing Flexion 170 Extension 68 Abduction 165 External Rotation at 90 degrees 68 Abduction Internal Rotation 70 Shoulder ROM Limitations Shoulder ROM Limitations Pain PT-OP-M Strength Start: 09/14/19 11:31 Freq: Status: Active Protocol: Document 11/18/19 09:01 (Rec: 11/18/19 09:17 [email or web address]) Shoulder Strength Shoulder Manual Muscle Testing Right Flexion 4- Good- Extension 4+ Good+ Abduction (C5) 3+ Fair+ Adduction 4+ Good+ External Rotation 3+ Fair+ PT-OP-Q Treatments Start: 09/14/19 11:31 Freq: Status: Active Protocol: Document 11/26/19 08:18 (Rec: 11/26/19 09:02 [id number]) Therapeutic Exercises Prone Exercises breast stroke Side bilateral Reps/Minutes 4 x 2 Comments fatigue with shoulder at 90 abd and ER overhead press Side bilateral Equipment Used PVC pipe Reps/Minutes 8 x 3 Comments with PT assistance shoulder lift off Prone Exercise Name cone at 140, 120 and 90 degrees Reps/Minutes 5 rounds x 3 Comments lift off to go over cones. prone I , T ,Y Side bilateral Equipment Used on table Reps/Minutes 8 x 2 Comments pt stated T is the hardest scap push up Prone Exercise Name up and down, then protract and retract Side bilateral Reps/Minutes 8 x2 Comments for HEP, Sidelying Exercises open book Sidelying Exercise Name for pec stretch Side right Reps/Minutes 12 x 2 scap dynamic stability Sidelying Exercise Name PT provides resistance Side right Resistance 3 lbs ball Standing Exercises wall climb Standing Exercise Name with towel, flexion and abduction Side right Reps/Minutes 8 x 2 Comments pain noted <90 abduction. Manual Therapy Treatment Soft Tissue Mobilization pecs Mobilization Type Sustained Pressure,Trigger Point Release Intensity/Depth Moderate Body Position Supine Comments tender to pressure noted at R mid pecs PT-OP-T Assessment and Plan Start: 09/14/19 11:31 Freq: Status: Active Protocol: Document 11/26/19 08:18 (Rec: 11/26/19 09:02 [id number]) Physical Therapy Assessment Goals pain Impairment pt has consistent pain at 4 during activities. Halfway Goal (LTG) Pt will have pain no more than 2/10 for any shoulder related movements. LTG Duration 8 weeks Strength Impairment significant strength loss Short Term Goal (STG) 9/2 goal met pt shows improved overall R shoulder strength in gravity position STG Duration 4 weeks Halfway Goal (LTG) Pt will show 4/5 MMT grade to improve his R shoulder strength so he can start providing care for his mom LTG Duration 8 weeks ROM Impairment significant AROM loss Short Term Goal (STG) 9/2 goal met pt reached full ROM for flexion, abd in standing position, with pain noted during abduction @90 degrees. LTG Duration 8 weeks Quickdash Impairment pt scores 38.6 on quickdash Short Term Goal (STG) 10/15/2019 = 31.81 STG Duration 4 weeks Halfway Goal (LTG) 9 goal pt scores 25 on quickdash today. 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 Today cont focused on scap stabilization and strengthening therex in prone position. Pt stephanie session well. Physical Therapy Plan Next Visit Focus/Plan Next Note Type Treatment Note Next Visit Plan check rehab goals cont prone ex, and progress standing ex.
--- NOTE | 2019-12-07 12:27 | PT.OTN ---
Current Diagnoses Strain of muscle(s) and tendon(s) of the rotator cuff of right shoulder, initial encounter (12/07/19) Physical Therapy Treatment Note PT-OP-A Visit Information Start: 09/14/19 11:31 Freq: Status: Active Protocol: Document 12/07/19 12:18 HH (Rec: 12/07/19 12:27 HH [email or web address]) Out-Patient Physical Therapy Visit Information Visit Information Visit Type Treatment Note Visit Note pt is going to f/u surgeon today Visit Start Time 11:16 Visit Stop Time 12:00 Total Visit Minutes 44 Visit Number 2/4 Number of CONSERVATION TECHNICIAN Visits 0 PT-OP-B Current Condition Start: 09/14/19 11:31 Freq: Status: Active Protocol: Document 09/14/19 11:31 HH (Rec: 09/14/19 12:17 HH [email or web address]) Current Condition History of Current Condition Onset Date Jan, 2019 Current Complaints R shoulder pain and limited ROM s/p RTC repair History of Current Condition This is a 63-year-old male here for evaluation of right shoulder pain and limited ROM. Patient states approximately he tripped on the sidewalk and landing forward with both arms outstretched in Jan, 2019 . MRI showed retracted supraspinatus RTC tear and partial thickness tear of infraspinatus. Pt received RTC repair surgery in March this year but has not had any physical therapy since then d/ t COVID -19 pandemic. Pt had a follow up 2 weeks ago with surgeon and his surgeon is not satisfied with his progress. Patient cassidyerntly is unable to abduct/ flex his arm >90 degrees actively, but able to reach further with L arm assistance. External rotation is very limited with pain compared to internal rotation. He is able to reach behind his back but slowly. Pt was required to lift heavy objects up to 40lbs in a daily basis for his previous job but he was forced to retired early since the accident and surgery . Pt has been doing some home exercises by learning through online rehab program but he thinks he hits plateau at this point. Per EMR, pt also on prednisone chronically for sarcoidosis. He and his are also caring for his mother , who is deteriorating, which has been very hard on him. He feels that many days he is able to cope with his health issues, but others it feels overwhelming to him. He is frequently frustrated that he is not feeling better. He knows he is doing better now, but remains frustrated by his limitation Prior Treatments and Tests Full-thickness retracted supraspinatus rotator cuff tear with a 2.8 cm retraction deficit above the humeral head which is subluxed superiorly near the undersurface of the acromium. Additionally, there is partial -thickness tear involving the middle third substance of the infraspinatus musculature in this setting of trauma. The infraspinatus tendon more laterally, however, is not disrupted. Future Testing and Treatments Planned 2nd MRI on 09/15/19 Treatment Goals Patient/Caregiver Goals 1. To regain R shoulder ROM and strength Prior Functional Status Baseline Function- ADL's Independent Baseline Function- Mobility Independent Current Functional Impairments (Reported) Functional Limitations- ADL's unable to wash his back while showering Functional Limitations- Work/School unable to lift any objects >5 lbs d/t pain with R shoulder Personal Factors Other Personal Factors That May Effect fibromyalgia Therapy/Recovery depression sarcoidosis PT-OP-C Subjective Start: 09/14/19 11:31 Freq: Status: Active Protocol: Document 12/07/19 12:18 HH (Rec: 12/07/19 12:27 [email or web address]) OP-PT Subjective Patient Comments Patient Comments Pretty much tthe same. Ex in prone with full shoulder flexion is the hardest and i think i somehow overdid in on last saturday so my shoulder is sore today. Patient Reported Progress Same PT-OP-F Manual Assessment Start: 09/14/19 11:31 Freq: Status: Active Protocol: Document 09/14/19 11:31 HH (Rec: 09/14/19 12:17 [email or web address]) Manual Assessments Soft Tissue Assessment Soft Tissue Mobility Assessment tenderness to pressure at R infraspinatus belly, R pec minor, major and latissimus dorsi PT-OP-J Posture/Palpation/Skin Start: 09/14/19 11:31 Freq: Status: Active Protocol: Document 09/14/19 11:31 HH (Rec: 09/14/19 12:17 [email or web address]) Posture Evaluation Position Standing Shoulder Posture (R) Rounded Shoulder Subluxation Degree (R) 1 Finger wide Scapula Posture (R) Protracted,(R) Tipped Palpation Assessment Location R RTC Palpation Location R infraspinatus, teres major, minor Palpation Findings Tenderness Palpation Details noticeable R RTC atrophy compared to L PT-OP-K Range of Motion Start: 09/14/19 11:31 Freq: Status: Active Protocol: Document 11/18/19 09:01 (Rec: 11/18/19 09:17 [email or web address]) Shoulder Goniometric Range of Motion Shoulder Right Active Shoulder ROM WFL Yes Testing Position Standing Flexion 170 Extension 68 Abduction 165 External Rotation at 90 degrees 68 Abduction Internal Rotation 70 Shoulder ROM Limitations Shoulder ROM Limitations Pain PT-OP-M Strength Start: 09/14/19 11:31 Freq: Status: Active Protocol: Document 11/18/19 09:01 (Rec: 11/18/19 09:17 [email or web address]) Shoulder Strength Shoulder Manual Muscle Testing Right Flexion 4- Good- Extension 4+ Good+ Abduction (C5) 3+ Fair+ Adduction 4+ Good+ External Rotation 3+ Fair+ PT-OP-Q Treatments Start: 09/14/19 11:31 Freq: Status: Active Protocol: Document 12/07/19 12:18 (Rec: 12/07/19 12:27 [email or web address]) Gym Equipment Cable Column (Body Solid) pull down Details no discomfort Resistance 40 lbs Reps/Time 10 x2 Therapeutic Exercises Supine Exercises chest rpess Side bilateral Equipment Used 4 lbs DB Reps/Minutes 10 x2 Comments no discomfort, for HEP shoulder flexion Supine Exercise Name with PVC and 4 lbs weight Side bilateral Equipment Used 4 lbs ankle weight on bar Reps/Minutes 12 x 2 Comments cues on preventing ribcage elevation SA punch Equipment Used 3 lb ball Reps/Minutes 10 x2 Prone Exercises shoulder lift off Prone Exercise Name cone at 140, 120 and 90 degrees Reps/Minutes 5 rounds x 3 Comments lift off to go over weighted balls. Sidelying Exercises SL shoulder punch Equipment Used 3 lbs ball Reps/Minutes 10 x2 Sitting Exercises shoulder press Equipment Used PVC bar Reps/Minutes 6 x 3 Comments minimal discomfort at 4-6th reps Manual Therapy Treatment Soft Tissue Mobilization pecs Mobilization Type Sustained Pressure,Trigger Point Release Intensity/Depth Moderate Body Position Supine Comments no discomfort ntoed. PT-OP-T Assessment and Plan Start: 09/14/19 11:31 Freq: Status: Active Protocol: Document 12/07/19 12:18 (Rec: 12/07/19 12:27 HH [email or web address]) Physical Therapy Assessment Goals pain Impairment pt has consistent pain at 4 during activities. Cloth Laminating Supervisor Goal (LTG) Pt will have pain no more than 2/10 for any shoulder related movements. LTG Duration 8 weeks Strength Impairment significant strength loss Short Term Goal (STG) 9/2 goal met pt shows improved overall R shoulder strength in gravity position STG Duration 4 weeks Long-Term Goal (LTG) Pt will show 4/5 MMT grade to improve his R shoulder strength so he can start providing care for his mom and hold a 1 -2 lb weight of water bottle LTG Duration 8 weeks ROM Impairment significant AROM loss Short Term Goal (STG) 9/2 goal met pt reached full ROM for flexion, abd in standing position, with pain noted during abduction @90 degrees. LTG Duration 8 weeks Quickdash Impairment pt scores 38.6 on quickdash Short Term Goal (STG) 10/15/2019 = 31.81 STG Duration 4 weeks Long-Term Goal (LTG) 9 goal met pt scores 25 on quickdash today. 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 Tx focused on strengthening today . Added chest press, OH press, pull down and prone ex. Pt stephanie session well. He will consult his surgeon today at [facility] to see if further surgery is needed Physical Therapy Plan Next Visit Focus/Plan Next Note Type Treatment Note Next Visit Plan check rehab goals cont prone ex, and progress standing ex.
--- NOTE | 2019-12-29 10:02 | PT.OPDS ---
Current Diagnoses Strain of muscle(s) and tendon(s) of the rotator cuff of right shoulder, initial encounter (12/07/19) Visit Care Team Role Provider Type Adenike Rowe MD Primary Care Provider Physician Specialty: Family Practice Address: [address] [place] [address], [facility], [address] Email: [email or web address] Fabian Escobar MD Attending Provider Non-Staff Referring Provider Specialty: Orthopedic Surgery Address: [address] [place] [address], [address], [place], [address] Email: Visit Number Visit Number 04/21 Discharge Summary PT-OP-T Assessment and Plan Start: 09/14/19 11:31 Freq: Status: Active Protocol: Document 12/29/19 10:00 (Rec: 12/29/19 10:02 [email or web address]) Physical Therapy Assessment Assessment Summary Assessment Pt consulted with his surgeon again 2 weeks and decided to proceed with a 2nd repair surgery d/t his strength loss. Pt requested to d/c from PT first and will restart new course of PT post surgically. Physical Therapy Plan Discharge Physical Therapy Discharge Reasons Patient Request Discharge Comments Pt consulted with his surgeon again 2 weeks and decided to proceed with a 2nd repair surgery d/t his strength loss. Pt requested to d/c from PT first and will restart new course of PT post surgically.
== END 2020-03-25 12:14 | disposition home or self-care (01) ==
LOC: PHYS 11:15
PROVIDERS: PCP Family Medicine; Referring Provider Orthopaedic Surgery; Visit Provider Orthopaedic Surgery
DX: S46.011A Strain of muscle(s) and tendon(s) of the rotator cuff of right shoulder, initial encounter (principal)
CPT/HCPCS: 95851; 97110; 97112; 97140; 97163; 97535

== ENCOUNTER → 2020-01-09 14:31 | Outpatient (CLI) | payer OTHER, SELFPAY ==
[2017-09-07 10:16] VITALS: BMI 27.6
[2018-03-06 07:59] VITALS: BP 108/64
[2020-01-11 02:06] LABS: COVID19 Sendout Not Detected (Not Detect)
== END ==
PROVIDERS: PCP Family Medicine; Visit Provider Student in an Organized Health Care Education/Training Program
DX: Z11.59 Encounter for screening for other viral diseases (principal)
CPT/HCPCS: 87635

== ENCOUNTER → 2020-06-15 16:21 | Outpatient (CLI) | payer OTHER, SELFPAY ==
[2020-02-17 10:59] VITALS: BP 108/64; BMI 27.6
[2020-06-15] MEDS: COVID-19 VACC #1, MRNA(MOD) 100 MCG/0.5 ML VIAL IM (16:35)
== END ==
PROVIDERS: PCP Family Medicine; Visit Provider Internal Medicine
DX: Z23 Encounter for immunization (principal)
CPT/HCPCS: 0011A; 91301

== ENCOUNTER 2020-06-17 14:15 | Outpatient (RCR) | payer OTHER, SELFPAY ==
[2017-09-07 10:16] VITALS: BMI 27.6
[2018-03-06 07:59] VITALS: BP 108/64
[2020-02-17 10:59] VITALS: BP 108/64; BMI 27.6
--- NOTE | 2020-02-23 13:57 | PT.OIE ---
Current Diagnoses Complete rotator cuff tear or rupture of right shoulder, not specified as traumatic (02/23/20) Strain of muscle(s) and tendon(s) of the rotator cuff of right shoulder, initial encounter (02/23/20) Past Medical History (Last Reviewed 01/29/19 @ 12:41 by Fabian Osman DO) Abnormal CXR (chest x-ray) (2002) Afib Allergy to mold (~2011) Cardiac arrhythmia (2004) Cardiomyopathy Chicken pox Chronic systolic heart failure CTS (carpal tunnel syndrome) (1999) Essential hypertension (09/26/10) Fibromyalgia (2009) GERD (gastroesophageal reflux disease) Hayfever (2011) Hyperlipidemia (09/26/10) Hypothyroidism (01/20/14) Measles Morphea Mumps Osteoarthritis Sarcoidosis Shoulder pain Sleep apnea (2002) Trigger finger (2014) Vitiligo (~1994) Past Surgical History (Last Reviewed 08/28/18 @ 20:16 by Iker Jimenez DO) Anesthesia History of cardiac radiofrequency ablation (RFA) (2004) History of carpal tunnel repair (1979) History of carpal tunnel repair (2011) History of nasal surgery (~2012) History of orthopedic surgery (~1959) History of thoracic surgery (2004) Status post appendectomy (1977) Status post eye surgery Visit Care Team Role Provider Type Adenike Rowe MD Primary Care Provider Physician Specialty: Family Practice Address: [address] [place] [address] [place], [facility] Email: [email or web address] Fabian Escobar MD Attending Provider Non-Staff Referring Provider Specialty: Orthopedic Surgery Address: [address] [place] [address], [address], [place], [address] Email: Physical Therapy Initial Evaluation PT-OP-A Visit Information Start: 02/23/20 09:21 Freq: Status: Active Protocol: Document 02/23/20 10:15 AMB (Rec: 02/23/20 13:56 AMB [email or web address]) Out-Patient Physical Therapy Visit Information Visit Information Visit Type Initial Evaluation Visit Start Time 10:15 Visit Stop Time 11:00 Total Visit Minutes 45 Visit Number 1 Precautions Precautions 6 weeks- 3 months post op: A/ AAROM flexion, abd, IR, ER. Max 5# lift/carry close to body, 1# away from body, no rotator cuff strengthening until 3 months PT-OP-B Current Condition Start: 02/23/20 09:21 Freq: Status: Active Protocol: Document 02/23/20 10:15 AMB (Rec: 02/23/20 13:56 AMB [email or web address]) Current Condition History of Current Condition Onset Date 01/12/20 Current Complaints R rotator cuff repair ( revision) History of Current Condition Yelitza attends PT after his second R rotator cuff repair. He is 6 weeks post op, and has d/urszula his sling during the day but sleeps better with it on. 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 He states that he has not been moving the arm away from his body as he is concerned about worsening the surgery like he did the first time by weightbearing too much through the arm too soon during bed mobility. Prior Treatments and Tests MRI: 09/04 full thickness supra and infraspinatus tear, incomplete subscap tear Prior Functional Status Baseline Function- ADL's Independent Baseline Function- Mobility Independent Current Functional Impairments (Reported) Functional Limitations- ADL's Pt reports able to dress himself and cook, but must do these activites with left hand Personal Factors Other Personal Factors That May Effect Fibromyalgia, CHF Therapy/Recovery PT-OP-C Subjective Start: 02/23/20 09:21 Freq: Status: Active Protocol: Document 02/23/20 10:15 AMB (Rec: 02/23/20 13:56 AMB [email or web address]) Patient Questionnaires Quick Dash- Upper Extremity Quick Dash UE Score 64 Quick Dash UE Impairment 60 to 79% Impaired (Score 60- 79) OP-PT Pain Assessment Location R shoulder Pain Location Details generalized shoulder pain Intensity 6 PT-OP-J Posture/Palpation/Skin Start: 02/23/20 09:21 Freq: Status: Active Protocol: Document 02/23/20 10:15 AMB (Rec: 02/23/20 13:56 AMB [email or web address]) Palpation Assessment Location R RTC Palpation Details Tenderness along scapula and anterior shoulder PT-OP-K Range of Motion Start: 02/23/20 09:21 Freq: Status: Active Protocol: Document 02/23/20 10:15 AMB (Rec: 02/23/20 13:56 AMB [email or web address]) Shoulder Goniometric Range of Motion Shoulder Right Passive Shoulder ROM WFL Yes Flexion 125 Abduction 108 External Rotation at 0 degrees Abduction 50 Internal Rotation 50 PT-OP-Q Treatments Start: 02/23/20 09:21 Freq: Status: Active Protocol: Document 02/23/20 10:15 AMB (Rec: 02/23/20 13:56 AMB [email or web address]) Therapeutic Exercises Supine Exercises shoulder flexion Supine Exercise Name AAROM ER Supine Exercise Name with cane flex Supine Exercise Name table slide PT-OP-T Assessment and Plan Start: 02/23/20 09:21 Freq: Status: Active Protocol: Document 02/23/20 10:15 AMB (Rec: 02/23/20 13:56 AMB [email or web address]) Physical Therapy Assessment Rehab Potential Rehabilitation Potential Good Evaluation Complexity Number of Personal Factors/Comorbidities 1-2 Number of Body Systems Impaired 4 or More Clinical Presentation at Evaluation Evolving Impairments Impairments Functional Activities,Pain,ROM ,Strength Goals pain Impairment pt has consistent pain at 6 during activities. Gas Dispatcher Goal (LTG) Pt will have pain no more than 2/10 for any shoulder related movements. LTG Duration 12 weeks Strength Impairment significant strength loss Snf Goal (LTG) Pt will show 4/5 MMT grade to improve his R shoulder strength so he can start providing care for his mom and hold a 1 -2 lb weight of water bottle LTG Duration 12 weeks ROM Impairment significant AROM loss Short Term Goal (STG) Yelitza will improve his ROM to 170 degreees flexion. STG Duration 6 weeks Gas Dispatcher Goal (LTG) Yelitza will improve his ROM to 160 degrees of abduction LTG Duration 12 weeks Assessment Summary Assessment Yelitza attends physical therapy s/p R rotator cuff revision. We will be deliberate and fairly conservative with his rehab considering that this is his second surgery. We will not start rotator cuff strengthening until 3 months s /p surgery per surgery protocol, so he will require an extended period of time for physical therapy. Physical Therapy Plan Frequency and Duration Frequency of Treatment 2x/Week Duration of Treatment 12 weeks Plan of Care Start Date 02/23/20 Plan of Care End Date 05/17/20 Therapeutic Interventions Therapeutic Interventions Home Exercise Program,Manual Therapy,Neuromuscular Re- education,Self-Care/Home Management,Soft Tissue Mobilization,Therapeutic Activities,Therapeutic Exercises Modalities Cold Pack/Ice Massage,Electric Stimulation,Ultrasound Next Visit Focus/Plan Next Note Type Treatment Note Next Visit Plan Review HEP- can add ER/IR AROM stretching if pt tolerated current HEP well
--- NOTE | 2020-02-23 13:57 | PT.OPPOC ---
Physical, Occupational & Speech Therapy At [facility] Current Diagnoses Complete rotator cuff tear or rupture of right shoulder, not specified as traumatic (02/23/20) Strain of muscle(s) and tendon(s) of the rotator cuff of right shoulder, initial encounter (02/23/20) Visit Care Team Role Provider Type Adenike Rowe MD Primary Care Provider Physician Specialty: Family Practice Address: [facility], [address], [place], [address] Email: [email or web address] Fabian Escobar MD Attending Provider Non-Staff Referring Provider Specialty: Orthopedic Surgery Address: [address] [place] [address], [address], [place], [address] Email: Plan Of Care PT-OP-T Assessment and Plan Start: 02/23/20 09:21 Freq: Status: Active Protocol: Document 02/23/20 10:15 AMB (Rec: 02/23/20 13:56 AMB [email or web address]) Physical Therapy Assessment Rehab Potential Rehabilitation Potential Good Evaluation Complexity Number of Personal Factors/Comorbidities 1-2 Number of Body Systems Impaired 4 or More Clinical Presentation at Evaluation Evolving Impairments Impairments Functional Activities,Pain,ROM ,Strength Goals pain Impairment pt has consistent pain at 6 during activities. Production Recovery Operator Goal (LTG) Pt will have pain no more than 2/10 for any shoulder related movements. LTG Duration 12 weeks Strength Impairment significant strength loss Production Recovery Operator Goal (LTG) Pt will show 4/5 MMT grade to improve his R shoulder strength so he can start providing care for his mom and hold a 1 -2 lb weight of water bottle LTG Duration 12 weeks ROM Impairment significant AROM loss Short Term Goal (STG) Yelitza will improve his ROM to 170 degreees flexion. STG Duration 6 weeks Residential Goal (LTG) Yelitza will improve his ROM to 160 degrees of abduction LTG Duration 12 weeks Assessment Summary Assessment Yelitza attends physical therapy s/p R rotator cuff revision. We will be deliberate and fairly conservative with his rehab considering that this is his second surgery. We will not start rotator cuff strengthening until 3 months s /p surgery per surgery protocol, so he will require an extended period of time for physical therapy. Physical Therapy Plan Frequency and Duration Frequency of Treatment 2x/Week Duration of Treatment 12 weeks Plan of Care Start Date 02/23/20 Plan of Care End Date 05/17/20 Therapeutic Interventions Therapeutic Interventions Home Exercise Program,Manual Therapy,Neuromuscular Re- education,Self-Care/Home Management,Soft Tissue Mobilization,Therapeutic Activities,Therapeutic Exercises Modalities Cold Pack/Ice Massage,Electric Stimulation,Ultrasound Next Visit Focus/Plan Next Note Type Treatment Note Next Visit Plan Review HEP- can add ER/IR AROM stretching if pt tolerated current HEP well Plan of Care Dates Plan of Care Start Date 02/23/20 Plan of Care End Date 05/17/20 Electronically Signed by: Katie Mendoza, PT 02/23/20 2844 Please Sign and Return: I have reviewed this Plan of Care and certify that the skilled therapy services above are required to meet the patient?s needs. Physician Signature Date Printed Name and Credentials Clinical Instructor Signature Printed Name and Credentials
--- NOTE | 2020-02-25 15:13 | PT.OTN ---
Current Diagnoses Complete rotator cuff tear or rupture of right shoulder, not specified as traumatic (02/25/20) Strain of muscle(s) and tendon(s) of the rotator cuff of right shoulder, initial encounter (02/25/20) Physical Therapy Treatment Note PT-OP-A Visit Information Start: 02/23/20 09:21 Freq: Status: Active Protocol: Document 02/25/20 14:17 AMB (Rec: 02/25/20 15:13 AMB [id number]) Out-Patient Physical Therapy Visit Information Visit Information Visit Type Treatment Note Visit Start Time 14:15 Visit Stop Time 15:00 Total Visit Minutes 45 Visit Number 2 PT-OP-B Current Condition Start: 02/23/20 09:21 Freq: Status: Active Protocol: Document 02/23/20 10:15 AMB (Rec: 02/23/20 13:56 AMB [email or web address]) Current Condition History of Current Condition Onset Date 01/12/20 Current Complaints R rotator cuff repair ( revision) History of Current Condition Yelitza attends PT after his second R rotator cuff repair. He is 6 weeks post op, and has d/urszula his sling during the day but sleeps better with it on. 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 He states that he has not been moving the arm away from his body as he is concerned about worsening the surgery like he did the first time by weightbearing too much through the arm too soon during bed mobility. Prior Treatments and Tests MRI: 09/04 full thickness supra and infraspinatus tear, incomplete subscap tear Prior Functional Status Baseline Function- ADL's Independent Baseline Function- Mobility Independent Current Functional Impairments (Reported) Functional Limitations- ADL's Pt reports able to dress himself and cook, but must do these activites with left hand Personal Factors Other Personal Factors That May Effect Fibromyalgia, CHF Therapy/Recovery PT-OP-C Subjective Start: 02/23/20 09:21 Freq: Status: Active Protocol: Document 02/25/20 14:17 AMB (Rec: 02/25/20 15:13 AMB [id number]) OP-PT Subjective Patient Comments Patient Comments Yelitza was a little sore after his new exercises, but nothing too bad, the shoulder likes to be stretched and he is noticing ROM is improving. PT-OP-J Posture/Palpation/Skin Start: 02/23/20 09:21 Freq: Status: Active Protocol: Document 02/23/20 10:15 AMB (Rec: 02/23/20 13:56 AMB [email or web address]) Palpation Assessment Location R RTC Palpation Details Tenderness along scapula and anterior shoulder PT-OP-K Range of Motion Start: 02/23/20 09:21 Freq: Status: Active Protocol: Document 02/23/20 10:15 AMB (Rec: 02/23/20 13:56 AMB [email or web address]) Shoulder Goniometric Range of Motion Shoulder Right Passive Shoulder ROM WFL Yes Flexion 125 Abduction 108 External Rotation at 0 degrees Abduction 50 Internal Rotation 50 PT-OP-Q Treatments Start: 02/23/20 09:21 Freq: Status: Active Protocol: Document 02/25/20 14:17 AMB (Rec: 02/25/20 15:13 AMB [id number]) Therapeutic Exercises Supine Exercises shoulder flexion Supine Exercise Name AAROM Comments with other arm ER Supine Exercise Name with cane Comments also against wall- 2 min ea flex Supine Exercise Name table slide Prone Exercises scap squeeze Prone Exercise Name with shoulder extension Side bilateral Reps/Minutes 3 sec hold at top, 10 x2 Comments cues on scap retraction, for HEP Sitting Exercises 1 Sitting Exercise Name UT stretch Reps/Minutes 30x4 scap row Sitting Exercise Name seated AROM Comments cues for scapular retraction Manual Therapy Treatment Soft Tissue Mobilization lower trap Mobilization Type Sustained Pressure,Trigger Point Release Intensity/Depth Moderate Body Position Sidelying Comments tender to pressure noted at lower trap pecs Mobilization Type Sustained Pressure,Trigger Point Release Intensity/Depth Moderate Body Position Supine Comments no discomfort ntoed. PT-OP-T Assessment and Plan Start: 02/23/20 09:21 Freq: Status: Active Protocol: Document 02/25/20 14:17 AMB (Rec: 02/25/20 15:13 AMB [id number]) Physical Therapy Assessment Assessment Summary Assessment Yelitza is doing well with his HEP so far. Further educated in continued conservative progression due to this being his second rotator cuff repair . Physical Therapy Plan Next Visit Focus/Plan Next Note Type Treatment Note Next Visit Plan added ER stretching can consider IR stretching next visit if still doing well.
--- NOTE | 2020-03-01 11:46 | PT.OTN ---
Current Diagnoses Complete rotator cuff tear or rupture of right shoulder, not specified as traumatic (03/01/20) Strain of muscle(s) and tendon(s) of the rotator cuff of right shoulder, initial encounter (03/01/20) Physical Therapy Treatment Note PT-OP-A Visit Information Start: 02/23/20 09:21 Freq: Status: Active Protocol: Document 03/01/20 09:05 SAK (Rec: 03/01/20 09:21 SAK [id number]) Out-Patient Physical Therapy Visit Information Visit Information Visit Type Treatment Note Visit Start Time 09:05 Visit Stop Time 09:55 Total Visit Minutes 50 Visit Number 3 PT-OP-B Current Condition Start: 02/23/20 09:21 Freq: Status: Active Protocol: Document 02/23/20 10:15 AMB (Rec: 02/23/20 13:56 AMB [email or web address]) Current Condition History of Current Condition Onset Date 01/12/20 Current Complaints R rotator cuff repair ( revision) History of Current Condition Yelitza attends PT after his second R rotator cuff repair. He is 6 weeks post op, and has d/urszula his sling during the day but sleeps better with it on. 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 He states that he has not been moving the arm away from his body as he is concerned about worsening the surgery like he did the first time by weightbearing too much through the arm too soon during bed mobility. Prior Treatments and Tests MRI: 09/04 full thickness supra and infraspinatus tear, incomplete subscap tear Prior Functional Status Baseline Function- ADL's Independent Baseline Function- Mobility Independent Current Functional Impairments (Reported) Functional Limitations- ADL's Pt reports able to dress himself and cook, but must do these activites with left hand Personal Factors Other Personal Factors That May Effect Fibromyalgia, CHF Therapy/Recovery PT-OP-C Subjective Start: 02/23/20 09:21 Freq: Status: Active Protocol: Document 03/01/20 09:05 SAK (Rec: 03/01/20 09:21 SAK [id number]) OP-PT Subjective Patient Comments Patient Comments A little sore due laying on shoulder during the night. Compliant to his HEP. Has been able to play his guitar some. Only lifting very light grocery bags. PT-OP-J Posture/Palpation/Skin Start: 02/23/20 09:21 Freq: Status: Active Protocol: Document 02/23/20 10:15 AMB (Rec: 02/23/20 13:56 AMB [email or web address]) Palpation Assessment Location R RTC Palpation Details Tenderness along scapula and anterior shoulder PT-OP-K Range of Motion Start: 02/23/20 09:21 Freq: Status: Active Protocol: Document 02/23/20 10:15 AMB (Rec: 02/23/20 13:56 AMB [email or web address]) Shoulder Goniometric Range of Motion Shoulder Right Passive Shoulder ROM WFL Yes Flexion 125 Abduction 108 External Rotation at 0 degrees Abduction 50 Internal Rotation 50 PT-OP-Q Treatments Start: 02/23/20 09:21 Freq: Status: Active Protocol: Document 03/01/20 09:05 SAK (Rec: 03/01/20 09:21 SAK [id number]) Therapeutic Exercises Supine Exercises shoulder flexion Supine Exercise Name AAROM Comments with other arm ER Supine Exercise Name with cane Comments also against wall- 2 min ea flex Supine Exercise Name table slide Prone Exercises scap squeeze Prone Exercise Name with shoulder extension Side bilateral Reps/Minutes 3 sec hold at top, 10 x2 Comments cues on scap retraction, for HEP Sitting Exercises 1 Sitting Exercise Name UT stretch Reps/Minutes 30x4 scap row Sitting Exercise Name seated AROM Comments verbal and manual cues for scapular retraction, depression Standing Exercises IR Equipment Used towel Reps/Minutes 5x5 Manual Therapy Treatment Soft Tissue Mobilization deltoid Body Location insertion Mobilization Type Myofascial Release,Strumming Intensity/Depth Moderate Body Position Supine biceps Body Location mid,lat Mobilization Type Myofascial Release,Strumming Intensity/Depth Moderate Body Position Supine lower trap Mobilization Type Sustained Pressure,Trigger Point Release Intensity/Depth Moderate Body Position Sidelying Comments tender to pressure noted at lower trap pecs Mobilization Type Sustained Pressure,Trigger Point Release Intensity/Depth Moderate Body Position Supine Comments no discomfort ntoed. Self-Care/Home Management Treatment Education Patient Education Joint Protection,Pain Management,Posture PT-OP-R Modalities Start: 02/23/20 09:21 Freq: Status: Active Protocol: Document 03/01/20 09:05 SAK (Rec: 03/01/20 11:46 SAK [id number]) Hot Pack/Cold Pack Treatment Cold Pack Location right shoulder Patient Position Hooklying Treatment Duration (minutes) 10 Patient Tolerance Good PT-OP-T Assessment and Plan Start: 02/23/20 09:21 Freq: Status: Active Protocol: Document 03/01/20 09:05 YOLANDA (Rec: 03/01/20 11:46 [email or web address] [id number]) Physical Therapy Assessment Goals pain Impairment pt has consistent pain at 6 during activities. Stone Spreader Operator Goal (LTG) Pt will have pain no more than 2/10 for any shoulder related movements. LTG Duration 12 weeks Strength Impairment significant strength loss Stone Spreader Operator Goal (LTG) Pt will show 4/5 MMT grade to improve his R shoulder strength so he can start providing care for his mom and hold a 1 -2 lb weight of water bottle LTG Duration 12 weeks ROM Impairment significant AROM loss Short Term Goal (STG) Yelitza will improve his ROM to 170 degreees flexion. STG Duration 6 weeks Stone Spreader Operator Goal (LTG) Yelitza will improve his ROM to 160 degrees of abduction LTG Duration 12 weeks Assessment Summary Assessment Good tolerance for ther ex, stating the internal rotation ROM easier than with last surgery; cautioned to do gently. Verbal and manual cues for postural alignment, scapular repositioning and stabilization. Ice at end of session as patient reporting not taking the time to do very often at home. Physical Therapy Plan Frequency and Duration Frequency of Treatment 2x/Week Duration of Treatment 12 weeks Plan of Care Start Date 02/23/20 Plan of Care End Date 05/17/20 Therapeutic Interventions Therapeutic Interventions Home Exercise Program,Manual Therapy,Neuromuscular Re- education,Self-Care/Home Management,Soft Tissue Mobilization,Therapeutic Activities,Therapeutic Exercises Modalities Cold Pack/Ice Massage,Electric Stimulation,Ultrasound Next Visit Focus/Plan Next Note Type Treatment Note Next Visit Plan Continue PT per RCR protocol.
--- NOTE | 2020-03-03 15:28 | PT.OTN ---
Current Diagnoses Complete rotator cuff tear or rupture of right shoulder, not specified as traumatic (03/03/20) Strain of muscle(s) and tendon(s) of the rotator cuff of right shoulder, initial encounter (03/03/20) Physical Therapy Treatment Note PT-OP-A Visit Information Start: 02/23/20 09:21 Freq: Status: Active Protocol: Document 03/03/20 14:30 AMB (Rec: 03/03/20 15:27 AMB [id number]) Out-Patient Physical Therapy Visit Information Visit Information Visit Start Time 14:30 Visit Stop Time 15:15 Total Visit Minutes 45 Visit Number 4 PT-OP-B Current Condition Start: 02/23/20 09:21 Freq: Status: Active Protocol: Document 02/23/20 10:15 AMB (Rec: 02/23/20 13:56 AMB [email or web address]) Current Condition History of Current Condition Onset Date 01/12/20 Current Complaints R rotator cuff repair ( revision) History of Current Condition Yelitza attends PT after his second R rotator cuff repair. He is 6 weeks post op, and has d/urszula his sling during the day but sleeps better with it on. 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 He states that he has not been moving the arm away from his body as he is concerned about worsening the surgery like he did the first time by weightbearing too much through the arm too soon during bed mobility. Prior Treatments and Tests MRI: 09/04 full thickness supra and infraspinatus tear, incomplete subscap tear Prior Functional Status Baseline Function- ADL's Independent Baseline Function- Mobility Independent Current Functional Impairments (Reported) Functional Limitations- ADL's Pt reports able to dress himself and cook, but must do these activites with left hand Personal Factors Other Personal Factors That May Effect Fibromyalgia, CHF Therapy/Recovery PT-OP-C Subjective Start: 02/23/20 09:21 Freq: Status: Active Protocol: Document 03/03/20 14:30 AMB (Rec: 03/03/20 15:27 AMB [id number]) OP-PT Subjective Patient Comments Patient Comments Yelitza was a bit sore when waking this morning. PT-OP-J Posture/Palpation/Skin Start: 02/23/20 09:21 Freq: Status: Active Protocol: Document 02/23/20 10:15 AMB (Rec: 02/23/20 13:56 AMB [email or web address]) Palpation Assessment Location R RTC Palpation Details Tenderness along scapula and anterior shoulder PT-OP-K Range of Motion Start: 02/23/20 09:21 Freq: Status: Active Protocol: Document 02/23/20 10:15 AMB (Rec: 02/23/20 13:56 AMB [email or web address]) Shoulder Goniometric Range of Motion Shoulder Right Passive Shoulder ROM WFL Yes Flexion 125 Abduction 108 External Rotation at 0 degrees Abduction 50 Internal Rotation 50 PT-OP-Q Treatments Start: 02/23/20 09:21 Freq: Status: Active Protocol: Document 03/03/20 14:30 AMB (Rec: 03/03/20 15:27 AMB [id number]) Therapeutic Exercises Supine Exercises shoulder flexion Supine Exercise Name AAROM Reps/Minutes 10 Comments with other arm SA punch Equipment Used AROM only Reps/Minutes 10 x2 Sitting Exercises 3 Sitting Exercise Name elbow AROM Comments 3-way bicep 2 Sitting Exercise Name AAROM Reps/Minutes 10 Comments abduction [place] chris Sitting Exercise Name flexion, scaption Side right Standing Exercises scap retraction Standing Exercise Name with arm extended Side bilateral Reps/Minutes 8 x2 Manual Therapy Treatment Soft Tissue Mobilization deltoid Body Location insertion Mobilization Type Myofascial Release,Strumming Intensity/Depth Moderate Body Position Supine biceps Body Location mid,lat Mobilization Type Myofascial Release,Strumming Intensity/Depth Moderate Body Position Supine pecs Mobilization Type Sustained Pressure,Trigger Point Release Intensity/Depth Moderate Body Position Supine Comments no discomfort noted PT-OP-R Modalities Start: 02/23/20 09:21 Freq: Status: Active Protocol: Document 03/01/20 09:05 SAK (Rec: 03/01/20 11:46 SAK [id number]) Hot Pack/Cold Pack Treatment Cold Pack Location right shoulder Patient Position Hooklying Treatment Duration (minutes) 10 Patient Tolerance Good PT-OP-T Assessment and Plan Start: 02/23/20 09:21 Freq: Status: Active Protocol: Document 03/03/20 14:30 AMB (Rec: 03/03/20 15:27 AMB [id number]) Physical Therapy Assessment Assessment Summary Assessment A little sore with IR today, encouraged in elbow AROM as pt is feeling weak there. Physical Therapy Plan Next Visit Focus/Plan Next Note Type Treatment Note Next Visit Plan Continue PT per RCR protocol.
--- NOTE | 2020-03-09 14:25 | PT.OTN ---
Current Diagnoses Complete rotator cuff tear or rupture of right shoulder, not specified as traumatic (03/09/20) Strain of muscle(s) and tendon(s) of the rotator cuff of right shoulder, initial encounter (03/09/20) Physical Therapy Treatment Note PT-OP-A Visit Information Start: 02/23/20 09:21 Freq: Status: Active Protocol: Document 03/09/20 10:40 SAK (Rec: 03/09/20 11:14 SAK [id number]) Out-Patient Physical Therapy Visit Information Visit Information Visit Type Treatment Note Visit Start Time 10:39 Visit Stop Time 10:25 Total Visit Minutes 46 Visit Number 5 PT-OP-B Current Condition Start: 02/23/20 09:21 Freq: Status: Active Protocol: Document 02/23/20 10:15 AMB (Rec: 02/23/20 13:56 AMB [email or web address]) Current Condition History of Current Condition Onset Date 01/12/20 Current Complaints R rotator cuff repair ( revision) History of Current Condition Yelitza attends PT after his second R rotator cuff repair. He is 6 weeks post op, and has d/urszula his sling during the day but sleeps better with it on. 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 He states that he has not been moving the arm away from his body as he is concerned about worsening the surgery like he did the first time by weightbearing too much through the arm too soon during bed mobility. Prior Treatments and Tests MRI: 09/04 full thickness supra and infraspinatus tear, incomplete subscap tear Prior Functional Status Baseline Function- ADL's Independent Baseline Function- Mobility Independent Current Functional Impairments (Reported) Functional Limitations- ADL's Pt reports able to dress himself and cook, but must do these activites with left hand Personal Factors Other Personal Factors That May Effect Fibromyalgia, CHF Therapy/Recovery PT-OP-C Subjective Start: 02/23/20 09:21 Freq: Status: Active Protocol: Document 03/09/20 10:40 SAK (Rec: 03/09/20 11:14 SAK [id number]) OP-PT Subjective Patient Comments Patient Comments Sore after PT last session, and day after when did 2 rounds of exercises at home. PT-OP-J Posture/Palpation/Skin Start: 02/23/20 09:21 Freq: Status: Active Protocol: Document 02/23/20 10:15 AMB (Rec: 02/23/20 13:56 AMB [email or web address]) Palpation Assessment Location R RTC Palpation Details Tenderness along scapula and anterior shoulder PT-OP-K Range of Motion Start: 02/23/20 09:21 Freq: Status: Active Protocol: Document 02/23/20 10:15 AMB (Rec: 02/23/20 13:56 AMB [email or web address]) Shoulder Goniometric Range of Motion Shoulder Right Passive Shoulder ROM WFL Yes Flexion 125 Abduction 108 External Rotation at 0 degrees Abduction 50 Internal Rotation 50 PT-OP-Q Treatments Start: 02/23/20 09:21 Freq: Status: Active Protocol: Document 03/09/20 10:40 SAK (Rec: 03/09/20 11:17 SAK [id number]) Therapeutic Exercises Supine Exercises shoulder flexion Supine Exercise Name AAROM Reps/Minutes 10 Comments with other arm SA punch Equipment Used AROM only Reps/Minutes 10 x2 Sitting Exercises scapular clocks Reps/Minutes 10x2 Comments manual cues 3 Sitting Exercise Name elbow AROM Comments 3-way bicep 2 Sitting Exercise Name AAROM Reps/Minutes 10 Comments abduction [place] chris Sitting Exercise Name flexion, scaption Side right scap row Sitting Exercise Name seated AROM Comments verbal and manual cues for scapular retraction, depression Standing Exercises scap retraction Standing Exercise Name with arm extended Side bilateral Reps/Minutes 8 x2 Manual Therapy Treatment Soft Tissue Mobilization deltoid Body Location insertion Mobilization Type Myofascial Release,Strumming Intensity/Depth Moderate Body Position Supine biceps Body Location mid,lat Mobilization Type Myofascial Release,Strumming Intensity/Depth Moderate Body Position Supine lower trap Mobilization Type Sustained Pressure,Trigger Point Release Intensity/Depth Moderate Body Position Sidelying Comments tender to pressure noted at lower trap pecs Mobilization Type Sustained Pressure,Trigger Point Release Intensity/Depth Moderate Body Position Supine Comments no discomfort noted PT-OP-R Modalities Start: 02/23/20 09:21 Freq: Status: Active Protocol: Document 03/09/20 10:40 SAK (Rec: 03/09/20 14:25 SAK [id number]) Hot Pack/Cold Pack Treatment Cold Pack Location right shoulder Patient Position Hooklying Treatment Duration (minutes) 10 Patient Tolerance Good PT-OP-T Assessment and Plan Start: 12/08/20 09:21 Freq: Status: Active Protocol: Document 03/09/20 10:40 YOLANDA (Rec: 03/09/20 11:14 [facility] [id number]) Physical Therapy Assessment Assessment Summary Assessment No adverse effect of fall on right arm with fall. Increased soreness with HEP 2x /day so has backed off to 1x/ day at this time. Physical Therapy Plan Frequency and Duration Frequency of Treatment 2x/Week Duration of Treatment 12 weeks Plan of Care Start Date 02/23/20 Plan of Care End Date 05/17/20 Therapeutic Interventions Therapeutic Interventions Home Exercise Program,Manual Therapy,Neuromuscular Re- education,Self-Care/Home Management,Soft Tissue Mobilization,Therapeutic Activities,Therapeutic Exercises Modalities Cold Pack/Ice Massage,Electric Stimulation,Ultrasound Next Visit Focus/Plan Next Note Type Treatment Note Next Visit Plan Continue PT per RCR protocol.
--- NOTE | 2020-03-14 16:09 | PT.OTN ---
Current Diagnoses Complete rotator cuff tear or rupture of right shoulder, not specified as traumatic (03/14/20) Strain of muscle(s) and tendon(s) of the rotator cuff of right shoulder, initial encounter (03/14/20) Physical Therapy Treatment Note PT-OP-A Visit Information Start: 02/23/20 09:21 Freq: Status: Active Protocol: Document 03/14/20 15:18 SAK (Rec: 03/14/20 16:09 SAK [id number]) Out-Patient Physical Therapy Visit Information Visit Information Visit Type Treatment Note Visit Note 8 weeks post-op RCR Visit Start Time 15:18 Visit Stop Time 16:06 Total Visit Minutes 48 Visit Number 6 PT-OP-B Current Condition Start: 02/23/20 09:21 Freq: Status: Active Protocol: Document 02/23/20 10:15 AMB (Rec: 02/23/20 13:56 AMB [email or web address]) Current Condition History of Current Condition Onset Date 01/12/20 Current Complaints R rotator cuff repair ( revision) History of Current Condition Yelitza attends PT after his second R rotator cuff repair. He is 6 weeks post op, and has d/urszula his sling during the day but sleeps better with it on. 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 He states that he has not been moving the arm away from his body as he is concerned about worsening the surgery like he did the first time by weightbearing too much through the arm too soon during bed mobility. Prior Treatments and Tests MRI: 09/04 full thickness supra and infraspinatus tear, incomplete subscap tear Prior Functional Status Baseline Function- ADL's Independent Baseline Function- Mobility Independent Current Functional Impairments (Reported) Functional Limitations- ADL's Pt reports able to dress himself and cook, but must do these activites with left hand Personal Factors Other Personal Factors That May Effect Fibromyalgia, CHF Therapy/Recovery PT-OP-C Subjective Start: 02/23/20 09:21 Freq: Status: Active Protocol: Document 03/14/20 15:18 SAK (Rec: 03/14/20 16:09 SAK [id number]) OP-PT Subjective Patient Comments Patient Comments Seeing improvement, able to reach behind back easier. Better understanding of 5# weight limit. Continues HEP 1x/day. Had massage this week PT-OP-J Posture/Palpation/Skin Start: 02/23/20 09:21 Freq: Status: Active Protocol: Document 02/23/20 10:15 AMB (Rec: 02/23/20 13:56 AMB [email or web address]) Palpation Assessment Location R RTC Palpation Details Tenderness along scapula and anterior shoulder PT-OP-K Range of Motion Start: 02/23/20 09:21 Freq: Status: Active Protocol: Document 02/23/20 10:15 AMB (Rec: 02/23/20 13:56 AMB [email or web address]) Shoulder Goniometric Range of Motion Shoulder Right Passive Shoulder ROM WFL Yes Flexion 125 Abduction 108 External Rotation at 0 degrees Abduction 50 Internal Rotation 50 PT-OP-Q Treatments Start: 02/23/20 09:21 Freq: Status: Active Protocol: Document 03/14/20 15:18 SAK (Rec: 03/14/20 16:09 SAK [id number]) Therapeutic Exercises Supine Exercises shoulder flexion Supine Exercise Name AAROM Reps/Minutes 10 Comments with other arm SA punch Equipment Used AROM only Reps/Minutes 10 x2 ER Supine Exercise Name with cane Comments also against wall- 2 min ea Sitting Exercises scapular clocks Reps/Minutes 10x2 Comments manual cues 3 Comments HEP [place] chris Sitting Exercise Name flexion, scaption Side right Reps/Minutes 5 min scap row Sitting Exercise Name seated AROM Reps/Minutes 12x Comments verbal and manual cues for scapular retraction, depression Manual Therapy Treatment Soft Tissue Mobilization deltoid Body Location insertion Mobilization Type Myofascial Release,Strumming Intensity/Depth Moderate Body Position Supine biceps Body Location mid,lat Mobilization Type Myofascial Release,Strumming Intensity/Depth Moderate Body Position Supine lower trap Mobilization Type Sustained Pressure,Trigger Point Release Intensity/Depth Moderate Body Position Sidelying Comments tender to pressure noted at lower trap RTC Body Location infraspinatus, supraspinatus, levator scapulae Mobilization Type Myofascial Release,Trigger Point Release Comments trigger point release to infra /supra and levator to improve scapular depression and stability PT-OP-R Modalities Start: 02/23/20 09:21 Freq: Status: Active Protocol: Document 03/14/20 15:18 SAK (Rec: 03/14/20 16:09 SAK [id number]) Hot Pack/Cold Pack Treatment Cold Pack Location right shoulder Patient Position Sitting Treatment Duration (minutes) 10 Patient Tolerance Good PT-OP-T Assessment and Plan Start: 02/23/20 09:21 Freq: Status: Active Protocol: Document 03/14/20 15:18 [facility] (Rec: 03/14/20 16:09 [facility] [id number]) Physical Therapy Assessment Goals pain Impairment pt has consistent pain at 6 during activities. Dispensing Lead Goal (LTG) Pt will have pain no more than 2/10 for any shoulder related movements. LTG Duration 12 weeks Strength Impairment significant strength loss Dispensing Lead Goal (LTG) Pt will show 4/5 MMT grade to improve his R shoulder strength so he can start providing care for his mom and hold a 1 -2 lb weight of water bottle LTG Duration 12 weeks ROM Impairment significant AROM loss Short Term Goal (STG) Yelitza will improve his ROM to 170 degreees flexion. 03/14/20: 167 degrees flexion, 161 scaption STG Duration 6 weeks Dispensing Lead Goal (LTG) Yelitza will improve his ROM to 160 degrees of abduction 03/14/20: 161 degrees scaption LTG Duration 12 weeks Assessment Summary Assessment right shoulder ER 61 deg, flexion 167, scaption 161 deg. Good progress with right shoulder ROM, improving function. Physical Therapy Plan Frequency and Duration Frequency of Treatment 2x/Week Duration of Treatment 12 weeks Plan of Care Start Date 02/23/20 Plan of Care End Date 05/17/20 Therapeutic Interventions Therapeutic Interventions Home Exercise Program,Manual Therapy,Neuromuscular Re- education,Self-Care/Home Management,Soft Tissue Mobilization,Therapeutic Activities,Therapeutic Exercises Modalities Cold Pack/Ice Massage,Electric Stimulation,Ultrasound Next Visit Focus/Plan Next Note Type Treatment Note Next Visit Plan Continue PT per RCR protocol.
--- NOTE | 2020-03-14 16:25 | PT.OTN ---
Current Diagnoses Complete rotator cuff tear or rupture of right shoulder, not specified as traumatic (03/14/20) Strain of muscle(s) and tendon(s) of the rotator cuff of right shoulder, initial encounter (03/14/20) Physical Therapy Treatment Note PT-OP-A Visit Information Start: 02/23/20 09:21 Freq: Status: Active Protocol: Document 03/14/20 15:18 SAK (Rec: 03/14/20 16:09 SAK [id number]) Out-Patient Physical Therapy Visit Information Visit Information Visit Type Treatment Note Visit Note 8 weeks post-op RCR Visit Start Time 15:18 Visit Stop Time 16:06 Total Visit Minutes 48 Visit Number 6 PT-OP-B Current Condition Start: 02/23/20 09:21 Freq: Status: Active Protocol: Document 02/23/20 10:15 AMB (Rec: 02/23/20 13:56 AMB [email or web address]) Current Condition History of Current Condition Onset Date 01/12/20 Current Complaints R rotator cuff repair ( revision) History of Current Condition Yelitza attends PT after his second R rotator cuff repair. He is 6 weeks post op, and has d/urszula his sling during the day but sleeps better with it on. 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 He states that he has not been moving the arm away from his body as he is concerned about worsening the surgery like he did the first time by weightbearing too much through the arm too soon during bed mobility. Prior Treatments and Tests MRI: 09/04 full thickness supra and infraspinatus tear, incomplete subscap tear Prior Functional Status Baseline Function- ADL's Independent Baseline Function- Mobility Independent Current Functional Impairments (Reported) Functional Limitations- ADL's Pt reports able to dress himself and cook, but must do these activites with left hand Personal Factors Other Personal Factors That May Effect Fibromyalgia, CHF Therapy/Recovery PT-OP-C Subjective Start: 02/23/20 09:21 Freq: Status: Active Protocol: Document 03/14/20 15:18 SAK (Rec: 03/14/20 16:09 SAK [id number]) OP-PT Subjective Patient Comments Patient Comments Seeing improvement, able to reach behind back easier. Better understanding of 5# weight limit. Continues HEP 1x/day. Had massage this week PT-OP-J Posture/Palpation/Skin Start: 02/23/20 09:21 Freq: Status: Active Protocol: Document 02/23/20 10:15 AMB (Rec: 02/23/20 13:56 AMB [email or web address]) Palpation Assessment Location R RTC Palpation Details Tenderness along scapula and anterior shoulder PT-OP-K Range of Motion Start: 02/23/20 09:21 Freq: Status: Active Protocol: Document 02/23/20 10:15 AMB (Rec: 02/23/20 13:56 AMB [email or web address]) Shoulder Goniometric Range of Motion Shoulder Right Passive Shoulder ROM WFL Yes Flexion 125 Abduction 108 External Rotation at 0 degrees Abduction 50 Internal Rotation 50 PT-OP-Q Treatments Start: 02/23/20 09:21 Freq: Status: Active Protocol: Document 03/14/20 15:18 SAK (Rec: 03/14/20 16:09 SAK [id number]) Therapeutic Exercises Supine Exercises shoulder flexion Supine Exercise Name AAROM Reps/Minutes 10 Comments with other arm SA punch Equipment Used AROM only Reps/Minutes 10 x2 ER Supine Exercise Name with cane Comments also against wall- 2 min ea Sitting Exercises scapular clocks Reps/Minutes 10x2 Comments manual cues 3 Comments HEP [place] chris Sitting Exercise Name flexion, scaption Side right Reps/Minutes 5 min scap row Sitting Exercise Name seated AROM Reps/Minutes 12x Comments verbal and manual cues for scapular retraction, depression Manual Therapy Treatment Soft Tissue Mobilization deltoid Body Location insertion Mobilization Type Myofascial Release,Strumming Intensity/Depth Moderate Body Position Supine biceps Body Location mid,lat Mobilization Type Myofascial Release,Strumming Intensity/Depth Moderate Body Position Supine lower trap Mobilization Type Sustained Pressure,Trigger Point Release Intensity/Depth Moderate Body Position Sidelying Comments tender to pressure noted at lower trap RTC Body Location infraspinatus, supraspinatus, levator scapulae Mobilization Type Myofascial Release,Trigger Point Release Comments trigger point release to infra /supra and levator to improve scapular depression and stability PT-OP-R Modalities Start: 02/23/20 09:21 Freq: Status: Active Protocol: Document 03/14/20 15:18 SAK (Rec: 03/14/20 16:09 SAK [id number]) Hot Pack/Cold Pack Treatment Cold Pack Location right shoulder Patient Position Sitting Treatment Duration (minutes) 10 Patient Tolerance Good PT-OP-T Assessment and Plan Start: 02/23/20 09:21 Freq: Status: Active Protocol: Document 03/14/20 15:18 [facility] (Rec: 03/14/20 16:09 [facility] [id number]) Physical Therapy Assessment Goals pain Impairment pt has consistent pain at 6 during activities. Javascript Application Developer Goal (LTG) Pt will have pain no more than 2/10 for any shoulder related movements. LTG Duration 12 weeks Strength Impairment significant strength loss Javascript Application Developer Goal (LTG) Pt will show 4/5 MMT grade to improve his R shoulder strength so he can start providing care for his mom and hold a 1 -2 lb weight of water bottle LTG Duration 12 weeks ROM Impairment significant AROM loss Short Term Goal (STG) Yelitza will improve his ROM to 170 degreees flexion. 03/14/20: 167 degrees flexion, 161 scaption STG Duration 6 weeks Javascript Application Developer Goal (LTG) Yelitza will improve his ROM to 160 degrees of abduction 03/14/20: 161 degrees scaption LTG Duration 12 weeks Assessment Summary Assessment right shoulder ER 61 deg, flexion 167, scaption 161 deg. Good progress with right shoulder ROM, improving function. Physical Therapy Plan Frequency and Duration Frequency of Treatment 2x/Week Duration of Treatment 12 weeks Plan of Care Start Date 02/23/20 Plan of Care End Date 05/17/20 Therapeutic Interventions Therapeutic Interventions Home Exercise Program,Manual Therapy,Neuromuscular Re- education,Self-Care/Home Management,Soft Tissue Mobilization,Therapeutic Activities,Therapeutic Exercises Modalities Cold Pack/Ice Massage,Electric Stimulation,Ultrasound Next Visit Focus/Plan Next Note Type Treatment Note Next Visit Plan Continue PT per RCR protocol.
--- NOTE | 2020-03-21 13:20 | PT.OTN ---
Current Diagnoses Complete rotator cuff tear or rupture of right shoulder, not specified as traumatic (03/21/20) Strain of muscle(s) and tendon(s) of the rotator cuff of right shoulder, initial encounter (03/21/20) Physical Therapy Treatment Note PT-OP-A Visit Information Start: 02/23/20 09:21 Freq: Status: Active Protocol: Document 03/21/20 09:00 AMB (Rec: 03/21/20 12:50 AMB [email or web address]) Out-Patient Physical Therapy Visit Information Visit Information Visit Type Treatment Note Visit Start Time 09:00 Visit Stop Time 09:45 Total Visit Minutes 45 Visit Number 7 PT-OP-B Current Condition Start: 02/23/20 09:21 Freq: Status: Active Protocol: Document 02/23/20 10:15 AMB (Rec: 02/23/20 13:56 AMB [email or web address]) Current Condition History of Current Condition Onset Date 01/12/20 Current Complaints R rotator cuff repair ( revision) History of Current Condition Yelitza attends PT after his second R rotator cuff repair. He is 6 weeks post op, and has d/urszula his sling during the day but sleeps better with it on. 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 He states that he has not been moving the arm away from his body as he is concerned about worsening the surgery like he did the first time by weightbearing too much through the arm too soon during bed mobility. Prior Treatments and Tests MRI: 09/04 full thickness supra and infraspinatus tear, incomplete subscap tear Prior Functional Status Baseline Function- ADL's Independent Baseline Function- Mobility Independent Current Functional Impairments (Reported) Functional Limitations- ADL's Pt reports able to dress himself and cook, but must do these activites with left hand Personal Factors Other Personal Factors That May Effect Fibromyalgia, CHF Therapy/Recovery PT-OP-C Subjective Start: 02/23/20 09:21 Freq: Status: Active Protocol: Document 03/21/20 09:00 AMB (Rec: 03/21/20 13:02 AMB [id number]) OP-PT Subjective Patient Comments Patient Comments Pt is doing well, doing stretches at least 1x/day. PT-OP-J Posture/Palpation/Skin Start: 02/23/20 09:21 Freq: Status: Active Protocol: Document 02/23/20 10:15 AMB (Rec: 02/23/20 13:56 AMB [email or web address]) Palpation Assessment Location R RTC Palpation Details Tenderness along scapula and anterior shoulder PT-OP-K Range of Motion Start: 02/23/20 09:21 Freq: Status: Active Protocol: Document 02/23/20 10:15 AMB (Rec: 02/23/20 13:56 AMB [email or web address]) Shoulder Goniometric Range of Motion Shoulder Right Passive Shoulder ROM WFL Yes Flexion 125 Abduction 108 External Rotation at 0 degrees Abduction 50 Internal Rotation 50 PT-OP-Q Treatments Start: 02/23/20 09:21 Freq: Status: Active Protocol: Document 03/21/20 09:00 AMB (Rec: 03/21/20 13:02 AMB [id number]) Therapeutic Exercises Supine Exercises 1 Supine Exercise Name scaption AROM Reps/Minutes 10 Comments with therapist assist- to 45 degrees only shoulder flexion Supine Exercise Name AAROM Reps/Minutes 10 Comments with other arm SA punch Equipment Used AROM only Reps/Minutes 10 x2 Sidelying Exercises SL ER Side right Resistance AROM Equipment Used towel roll under arm Reps/Minutes 5 reps Comments Cues for facilitation in small range to neutral, Standing Exercises 1 Standing Exercise Name ER stretch at neutral abd against wall Reps/Minutes 30x2 scap retraction Standing Exercise Name with arm extended Side bilateral Reps/Minutes 8 x2 Manual Therapy Treatment Soft Tissue Mobilization deltoid Body Location insertion Mobilization Type Myofascial Release,Strumming Intensity/Depth Moderate Body Position Supine biceps Body Location mid,lat Mobilization Type Myofascial Release,Strumming Intensity/Depth Moderate Body Position Supine PT-OP-R Modalities Start: 02/23/20 09:21 Freq: Status: Active Protocol: Document 03/14/20 15:18 SAK (Rec: 03/14/20 16:09 SAK [id number]) Hot Pack/Cold Pack Treatment Cold Pack Location right shoulder Patient Position Sitting Treatment Duration (minutes) 10 Patient Tolerance Good PT-OP-T Assessment and Plan Start: 02/23/20 09:21 Freq: Status: Active Protocol: Document 03/21/20 09:00 AMB (Rec: 03/21/20 13:02 AMB [id number]) Physical Therapy Assessment Goals pain Impairment pt has consistent pain at 6 during activities. Senior Living Goal (LTG) Pt will have pain no more than 2/10 for any shoulder related movements. LTG Duration 12 weeks Strength Impairment significant strength loss Automated Equipment Engineer Technician Goal (LTG) Pt will show 4/5 MMT grade to improve his R shoulder strength so he can start providing care for his mom and hold a 1 -2 lb weight of water bottle LTG Duration 12 weeks ROM Impairment significant AROM loss Short Term Goal (STG) Yelitza will improve his ROM to 170 degreees flexion. 03/14/20: 167 degrees flexion, 161 scaption STG Duration 6 weeks Senior Living Goal (LTG) Yelitza will improve his ROM to 160 degrees of abduction 03/14/20: 161 degrees scaption LTG Duration 12 weeks Assessment Summary Assessment AROM in flexion and ER was sore- had to be gentle and keep reps low for now, see how pt is doing next visit before giving as HEP. Physical Therapy Plan Frequency and Duration Frequency of Treatment 2x/Week Duration of Treatment 12 weeks Plan of Care Start Date 02/23/20 Plan of Care End Date 05/17/20 Therapeutic Interventions Therapeutic Interventions Home Exercise Program,Manual Therapy,Neuromuscular Re- education,Self-Care/Home Management,Soft Tissue Mobilization,Therapeutic Activities,Therapeutic Exercises Modalities Cold Pack/Ice Massage,Electric Stimulation,Ultrasound Next Visit Focus/Plan Next Note Type Treatment Note Next Visit Plan Continue PT per RCR protocol- trying to work into gentle AROM, no resistance at shoulder until end march.
--- NOTE | 2020-03-25 14:36 | PT.OTN ---
Current Diagnoses Complete rotator cuff tear or rupture of right shoulder, not specified as traumatic (03/25/20) Strain of muscle(s) and tendon(s) of the rotator cuff of right shoulder, initial encounter (03/25/20) Physical Therapy Treatment Note PT-OP-A Visit Information Start: 02/23/20 09:21 Freq: Status: Active Protocol: Document 03/25/20 09:00 AMB (Rec: 03/25/20 14:36 AMB [email or web address]) Out-Patient Physical Therapy Visit Information Visit Information Visit Type Treatment Note Visit Note Therapist running late Visit Start Time 09:10 Visit Stop Time 09:50 Total Visit Minutes 40 Visit Number 8 PT-OP-B Current Condition Start: 02/23/20 09:21 Freq: Status: Active Protocol: Document 02/23/20 10:15 AMB (Rec: 02/23/20 13:56 AMB [email or web address]) Current Condition History of Current Condition Onset Date 01/12/20 Current Complaints R rotator cuff repair ( revision) History of Current Condition Yelitza attends PT after his second R rotator cuff repair. He is 6 weeks post op, and has d/urszula his sling during the day but sleeps better with it on. 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 He states that he has not been moving the arm away from his body as he is concerned about worsening the surgery like he did the first time by weightbearing too much through the arm too soon during bed mobility. Prior Treatments and Tests MRI: 09/04 full thickness supra and infraspinatus tear, incomplete subscap tear Prior Functional Status Baseline Function- ADL's Independent Baseline Function- Mobility Independent Current Functional Impairments (Reported) Functional Limitations- ADL's Pt reports able to dress himself and cook, but must do these activites with left hand Personal Factors Other Personal Factors That May Effect Fibromyalgia, CHF Therapy/Recovery PT-OP-C Subjective Start: 02/23/20 09:21 Freq: Status: Active Protocol: Document 03/25/20 09:00 AMB (Rec: 03/25/20 14:36 AMB [email or web address]) OP-PT Subjective Patient Comments Patient Comments Pt has been trying to do stretches 2x/day. Active movement is still hard. PT-OP-J Posture/Palpation/Skin Start: 02/23/20 09:21 Freq: Status: Active Protocol: Document 02/23/20 10:15 AMB (Rec: 02/23/20 13:56 AMB [email or web address]) Palpation Assessment Location R RTC Palpation Details Tenderness along scapula and anterior shoulder PT-OP-K Range of Motion Start: 02/23/20 09:21 Freq: Status: Active Protocol: Document 02/23/20 10:15 AMB (Rec: 02/23/20 13:56 AMB [email or web address]) Shoulder Goniometric Range of Motion Shoulder Right Passive Shoulder ROM WFL Yes Flexion 125 Abduction 108 External Rotation at 0 degrees Abduction 50 Internal Rotation 50 PT-OP-Q Treatments Start: 02/23/20 09:21 Freq: Status: Active Protocol: Document 03/25/20 09:00 AMB (Rec: 03/25/20 14:36 AMB [email or web address]) Therapeutic Exercises Supine Exercises shoulder flexion Supine Exercise Name AAROM Reps/Minutes 10 Comments with other arm SA punch Equipment Used AROM only Reps/Minutes 10 x2 Sidelying Exercises SL ER Side right Resistance AROM Equipment Used towel roll under arm Reps/Minutes 5 reps Comments Cues for facilitation in small range to neutral, Sitting Exercises scapular clocks Reps/Minutes 10x2 Comments manual cues scap row Sitting Exercise Name seated AROM Reps/Minutes 12x Comments verbal and manual cues for scapular retraction, depression Manual Therapy Treatment Soft Tissue Mobilization deltoid Body Location insertion Mobilization Type Myofascial Release,Strumming Intensity/Depth Moderate Body Position Supine biceps Body Location mid,lat Mobilization Type Myofascial Release,Strumming Intensity/Depth Moderate Body Position Supine PT-OP-R Modalities Start: 02/23/20 09:21 Freq: Status: Active Protocol: Document 03/14/20 15:18 SAK (Rec: 03/14/20 16:09 SAK [id number]) Hot Pack/Cold Pack Treatment Cold Pack Location right shoulder Patient Position Sitting Treatment Duration (minutes) 10 Patient Tolerance Good PT-OP-T Assessment and Plan Start: 02/23/20 09:21 Freq: Status: Active Protocol: Document 03/25/20 09:00 AMB (Rec: 03/25/20 14:36 AMB [email or web address]) Physical Therapy Assessment Assessment Summary Assessment AAROM is improving, but AROM remains challenging. Physical Therapy Plan Next Visit Focus/Plan Next Note Type Treatment Note Next Visit Plan Continue PT per RCR protocol- trying to work into gentle AROM, no resistance at shoulder until end march.
--- NOTE | 2020-03-28 11:05 | PT.OTN ---
Current Diagnoses Complete rotator cuff tear or rupture of right shoulder, not specified as traumatic (03/28/20) Strain of muscle(s) and tendon(s) of the rotator cuff of right shoulder, initial encounter (03/28/20) Physical Therapy Treatment Note PT-OP-A Visit Information Start: 02/23/20 09:21 Freq: Status: Active Protocol: Document 03/28/20 09:04 AMB (Rec: 03/28/20 09:41 AMB [id number]) Out-Patient Physical Therapy Visit Information Visit Information Visit Type Treatment Note Visit Start Time 09:04 Visit Stop Time 09:45 Total Visit Minutes 41 Visit Number 9 PT-OP-B Current Condition Start: 02/23/20 09:21 Freq: Status: Active Protocol: Document 02/23/20 10:15 AMB (Rec: 02/23/20 13:56 AMB [email or web address]) Current Condition History of Current Condition Onset Date 01/12/20 Current Complaints R rotator cuff repair ( revision) History of Current Condition Yelitza attends PT after his second R rotator cuff repair. He is 6 weeks post op, and has d/urszula his sling during the day but sleeps better with it on. 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 He states that he has not been moving the arm away from his body as he is concerned about worsening the surgery like he did the first time by weightbearing too much through the arm too soon during bed mobility. Prior Treatments and Tests MRI: 09/04 full thickness supra and infraspinatus tear, incomplete subscap tear Prior Functional Status Baseline Function- ADL's Independent Baseline Function- Mobility Independent Current Functional Impairments (Reported) Functional Limitations- ADL's Pt reports able to dress himself and cook, but must do these activites with left hand Personal Factors Other Personal Factors That May Effect Fibromyalgia, CHF Therapy/Recovery PT-OP-C Subjective Start: 02/23/20 09:21 Freq: Status: Active Protocol: Document 03/28/20 09:04 AMB (Rec: 03/28/20 09:41 AMB [id number]) OP-PT Subjective Patient Comments Patient Comments Pt has been successful with doing stretches 2x/day. PT-OP-J Posture/Palpation/Skin Start: 02/23/20 09:21 Freq: Status: Active Protocol: Document 02/23/20 10:15 AMB (Rec: 02/23/20 13:56 AMB [email or web address]) Palpation Assessment Location R RTC Palpation Details Tenderness along scapula and anterior shoulder PT-OP-K Range of Motion Start: 02/23/20 09:21 Freq: Status: Active Protocol: Document 02/23/20 10:15 AMB (Rec: 02/23/20 13:56 AMB [email or web address]) Shoulder Goniometric Range of Motion Shoulder Right Passive Shoulder ROM WFL Yes Flexion 125 Abduction 108 External Rotation at 0 degrees Abduction 50 Internal Rotation 50 PT-OP-Q Treatments Start: 02/23/20 09:21 Freq: Status: Active Protocol: Document 03/28/20 09:04 AMB (Rec: 03/28/20 11:05 AMB [email or web address]) Therapeutic Exercises Supine Exercises 1 Supine Exercise Name scaption AROM Reps/Minutes 10 Comments with therapist assist- to 45 degrees only chest rpess Side bilateral Equipment Used AROM Reps/Minutes 10 x2 Comments no discomfort, for HEP shoulder flexion Supine Exercise Name AAROM Reps/Minutes 10 Comments with other arm SA punch Equipment Used AROM only Reps/Minutes 10 x2 ER Supine Exercise Name with cane Comments also against wall- 2 min ea flex Supine Exercise Name table slide Sitting Exercises scapular clocks Reps/Minutes 10x2 Comments manual cues 2 Sitting Exercise Name AAROM Reps/Minutes 10 Comments abduction 1 Sitting Exercise Name UT stretch Reps/Minutes 30x4 Standing Exercises scap retraction Standing Exercise Name with arm extended Side bilateral Reps/Minutes 8 x2 Manual Therapy Treatment Soft Tissue Mobilization RTC Body Location infraspinatus, supraspinatus, levator scapulae Mobilization Type Myofascial Release,Trigger Point Release Comments trigger point release to infra /supra and levator to improve scapular depression and stability Joint Mobilizations post glide Joint R GHJ Grade III Body Position Supine PT-OP-R Modalities Start: 02/23/20 09:21 Freq: Status: Active Protocol: Document 03/14/20 15:18 SAK (Rec: 03/14/20 16:09 SAK [id number]) Hot Pack/Cold Pack Treatment Cold Pack Location right shoulder Patient Position Sitting Treatment Duration (minutes) 10 Patient Tolerance Good PT-OP-T Assessment and Plan Start: 02/23/20 09:21 Freq: Status: Active Protocol: Document 03/28/20 09:04 BRIAN (Rec: 03/28/20 09:41 AMB [id number]) Physical Therapy Assessment Assessment Summary Assessment AAROM is improving, but pt does still have catching. At end of reps pt did well with improving ROM, but does catch at the beginning. Physical Therapy Plan Next Visit Focus/Plan Next Note Type Treatment Note Next Visit Plan Continue PT per RCR protocol- trying to work into gentle AROM, no resistance at shoulder until end of March.
--- NOTE | 2020-04-01 13:32 | PT.OTN ---
Current Diagnoses Complete rotator cuff tear or rupture of right shoulder, not specified as traumatic (04/01/20) Strain of muscle(s) and tendon(s) of the rotator cuff of right shoulder, initial encounter (04/01/20) Physical Therapy Treatment Note PT-OP-A Visit Information Start: 02/23/20 09:21 Freq: Status: Active Protocol: Document 04/01/20 09:00 AMB (Rec: 04/01/20 10:19 AMB [id number]) Out-Patient Physical Therapy Visit Information Visit Information Visit Type Treatment Note Visit Start Time 09:00 Visit Stop Time 09:45 Total Visit Minutes 45 Visit Number 10 PT-OP-B Current Condition Start: 02/23/20 09:21 Freq: Status: Active Protocol: Document 02/23/20 10:15 AMB (Rec: 02/23/20 13:56 AMB [email or web address]) Current Condition History of Current Condition Onset Date 01/12/20 Current Complaints R rotator cuff repair ( revision) History of Current Condition Yelitza attends PT after his second R rotator cuff repair. He is 6 weeks post op, and has d/urszula his sling during the day but sleeps better with it on. 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 He states that he has not been moving the arm away from his body as he is concerned about worsening the surgery like he did the first time by weightbearing too much through the arm too soon during bed mobility. Prior Treatments and Tests MRI: 09/04 full thickness supra and infraspinatus tear, incomplete subscap tear Prior Functional Status Baseline Function- ADL's Independent Baseline Function- Mobility Independent Current Functional Impairments (Reported) Functional Limitations- ADL's Pt reports able to dress himself and cook, but must do these activites with left hand Personal Factors Other Personal Factors That May Effect Fibromyalgia, CHF Therapy/Recovery PT-OP-C Subjective Start: 02/23/20 09:21 Freq: Status: Active Protocol: Document 04/01/20 09:00 AMB (Rec: 04/01/20 10:19 AMB [id number]) OP-PT Subjective Patient Comments Patient Comments Pt is feeling better overall , a little more energy. PT-OP-J Posture/Palpation/Skin Start: 02/23/20 09:21 Freq: Status: Active Protocol: Document 02/23/20 10:15 AMB (Rec: 02/23/20 13:56 AMB [email or web address]) Palpation Assessment Location R RTC Palpation Details Tenderness along scapula and anterior shoulder PT-OP-K Range of Motion Start: 02/23/20 09:21 Freq: Status: Active Protocol: Document 04/01/20 09:00 AMB (Rec: 04/01/20 13:29 AMB [email or web address]) Shoulder Goniometric Range of Motion Shoulder Right Passive Testing Position Supine Flexion 160 Abduction 140 External Rotation at 90 degrees 70 Abduction Internal Rotation 70 PT-OP-Q Treatments Start: 02/23/20 09:21 Freq: Status: Active Protocol: Document 04/01/20 09:00 AMB (Rec: 04/01/20 13:27 AMB [email or web address]) Therapeutic Exercises Supine Exercises 2 Supine Exercise Name ER/IR AROM with shoulder abducted to 90 deg Reps/Minutes 2x10 chest rpess Side bilateral Equipment Used AROM Reps/Minutes 10 x2 Comments no discomfort, for HEP shoulder flexion Supine Exercise Name AAROM Reps/Minutes 10 Comments with other arm flex Supine Exercise Name table slide Sitting Exercises 2 Sitting Exercise Name AAROM Reps/Minutes 10 Comments abduction scap row Sitting Exercise Name seated AROM Reps/Minutes 12x Comments verbal and manual cues for scapular retraction, depression Standing Exercises scap retraction Standing Exercise Name with arm extended Side bilateral Reps/Minutes 8 x2 Manual Therapy Treatment Soft Tissue Mobilization biceps Body Location mid,lat Mobilization Type Myofascial Release,Strumming Intensity/Depth Moderate Body Position Supine RTC Body Location infraspinatus, supraspinatus, levator scapulae Mobilization Type Myofascial Release,Trigger Point Release Comments trigger point release to infra /supra and levator to improve scapular depression and stability PT-OP-R Modalities Start: 02/23/20 09:21 Freq: Status: Active Protocol: Document 03/14/20 15:18 SAK (Rec: 03/14/20 16:09 SAK [id number]) Hot Pack/Cold Pack Treatment Cold Pack Location right shoulder Patient Position Sitting Treatment Duration (minutes) 10 Patient Tolerance Good PT-OP-T Assessment and Plan Start: 02/23/20 09:21 Freq: Status: Active Protocol: Document 04/01/20 09:00 AMB (Rec: 04/01/20 10:19 AMB [id number]) Physical Therapy Assessment Assessment Summary Assessment Pt could not tolerate wall slides, but could tolerate table slides. Overall his PROM is progresing well, strength is still limited, but we are not doing true strengthening for another 2 weeks, so considering the conservative nature of his rehab protocol he is doing well. He can tolerate exercises 2x/day now. Physical Therapy Plan Next Visit Focus/Plan Next Note Type Treatment Note Next Visit Plan Continue PT per [facility]CR protocol- trying to work into gentle AROM, no resistance at shoulder until end of March.
--- NOTE | 2020-04-04 10:31 | PT.OTN ---
Current Diagnoses Complete rotator cuff tear or rupture of right shoulder, not specified as traumatic (04/04/20) Strain of muscle(s) and tendon(s) of the rotator cuff of right shoulder, initial encounter (04/04/20) Physical Therapy Treatment Note PT-OP-A Visit Information Start: 02/23/20 09:21 Freq: Status: Active Protocol: Document 04/04/20 09:00 AMB (Rec: 04/04/20 10:20 AMB [id number]) Out-Patient Physical Therapy Visit Information Visit Information Visit Type Treatment Note Visit Start Time 09:00 Visit Stop Time 09:40 Total Visit Minutes 40 Visit Number 11 PT-OP-B Current Condition Start: 02/23/20 09:21 Freq: Status: Active Protocol: Document 02/23/20 10:15 AMB (Rec: 02/23/20 13:56 AMB [email or web address]) Current Condition History of Current Condition Onset Date 01/12/20 Current Complaints R rotator cuff repair ( revision) History of Current Condition Yelitza attends PT after his second R rotator cuff repair. He is 6 weeks post op, and has d/urszula his sling during the day but sleeps better with it on. 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 He states that he has not been moving the arm away from his body as he is concerned about worsening the surgery like he did the first time by weightbearing too much through the arm too soon during bed mobility. Prior Treatments and Tests MRI: 09/04 full thickness supra and infraspinatus tear, incomplete subscap tear Prior Functional Status Baseline Function- ADL's Independent Baseline Function- Mobility Independent Current Functional Impairments (Reported) Functional Limitations- ADL's Pt reports able to dress himself and cook, but must do these activites with left hand Personal Factors Other Personal Factors That May Effect Fibromyalgia, CHF Therapy/Recovery PT-OP-C Subjective Start: 02/23/20 09:21 Freq: Status: Active Protocol: Document 04/04/20 09:00 AMB (Rec: 04/04/20 10:20 AMB [id number]) OP-PT Subjective Patient Comments Patient Comments Yelitza felt the shoulder yesterday after trying to do more exercises PT-OP-J Posture/Palpation/Skin Start: 12/08/20 09:21 Freq: Status: Active Protocol: Document 02/23/20 10:15 AMB (Rec: 02/23/20 13:56 AMB [email or web address]) Palpation Assessment Location R RTC Palpation Details Tenderness along scapula and anterior shoulder PT-OP-K Range of Motion Start: 02/23/20 09:21 Freq: Status: Active Protocol: Document 04/01/20 09:00 AMB (Rec: 04/01/20 13:29 AMB [email or web address]) Shoulder Goniometric Range of Motion Shoulder Right Passive Testing Position Supine Flexion 160 Abduction 140 External Rotation at 90 degrees 70 Abduction Internal Rotation 70 PT-OP-Q Treatments Start: 02/23/20 09:21 Freq: Status: Active Protocol: Document 04/04/20 09:00 AMB (Rec: 04/04/20 10:31 AMB [email or web address]) Therapeutic Exercises Supine Exercises 2 Supine Exercise Name ER/IR AROM with shoulder abducted to 90 deg Reps/Minutes 2x10 shoulder flexion Supine Exercise Name AAROM Reps/Minutes 10 Comments with other arm SA punch Equipment Used AROM only Reps/Minutes 10 x2 Sidelying Exercises SL ER Sidelying Exercise Name AROM Reps/Minutes 2x5 Sitting Exercises 2 Sitting Exercise Name AAROM Reps/Minutes 10 Comments abduction PT-OP-R Modalities Start: 02/23/20 09:21 Freq: Status: Active Protocol: Document 03/14/20 15:18 SAK (Rec: 03/14/20 16:09 SAK [id number]) Hot Pack/Cold Pack Treatment Cold Pack Location right shoulder Patient Position Sitting Treatment Duration (minutes) 10 Patient Tolerance Good PT-OP-T Assessment and Plan Start: 02/23/20 09:21 Freq: Status: Active Protocol: Document 04/04/20 09:00 AMB (Rec: 04/04/20 10:31 AMB [email or web address]) Physical Therapy Assessment Assessment Summary Assessment Pt tolerated ER AROM but fatigued quickly. Can start resistance training in a week and a half. Physical Therapy Plan Next Visit Focus/Plan Next Note Type Treatment Note Next Visit Plan Continue PT per [facility]CR protocol- trying to work into gentle AROM, no resistance at shoulder until end march.
--- NOTE | 2020-04-08 09:02 | PT.OTN ---
Current Diagnoses Complete rotator cuff tear or rupture of right shoulder, not specified as traumatic (04/08/20) Strain of muscle(s) and tendon(s) of the rotator cuff of right shoulder, initial encounter (04/08/20) Physical Therapy Treatment Note PT-OP-A Visit Information Start: 02/23/20 09:21 Freq: Status: Active Protocol: Document 04/08/20 08:16 MB (Rec: 04/08/20 09:01 MB [id number]) Out-Patient Physical Therapy Visit Information Visit Information Visit Type Treatment Note Visit Start Time 08:16 Visit Stop Time 09:00 Total Visit Minutes 44 Visit Number 12 PT-OP-B Current Condition Start: 02/23/20 09:21 Freq: Status: Active Protocol: Document 02/23/20 10:15 AMB (Rec: 02/23/20 13:56 AMB [email or web address]) Current Condition History of Current Condition Onset Date 01/12/20 Current Complaints R rotator cuff repair ( revision) History of Current Condition Yelitza attends PT after his second R rotator cuff repair. He is 6 weeks post op, and has d/urszula his sling during the day but sleeps better with it on. 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 He states that he has not been moving the arm away from his body as he is concerned about worsening the surgery like he did the first time by weightbearing too much through the arm too soon during bed mobility. Prior Treatments and Tests MRI: 09/04 full thickness supra and infraspinatus tear, incomplete subscap tear Prior Functional Status Baseline Function- ADL's Independent Baseline Function- Mobility Independent Current Functional Impairments (Reported) Functional Limitations- ADL's Pt reports able to dress himself and cook, but must do these activites with left hand Personal Factors Other Personal Factors That May Effect Fibromyalgia, CHF Therapy/Recovery PT-OP-C Subjective Start: 02/23/20 09:21 Freq: Status: Active Protocol: Document 04/08/20 08:16 MB (Rec: 04/08/20 09:01 MB [id number]) OP-PT Subjective Patient Comments Patient Comments I've been doing the protocol at home. I've been doing the scapular exercises at home. I' m starting to feel a little strength again. PT-OP-J Posture/Palpation/Skin Start: 02/23/20 09:21 Freq: Status: Active Protocol: Document 02/23/20 10:15 AMB (Rec: 02/23/20 13:56 AMB [email or web address]) Palpation Assessment Location R RTC Palpation Details Tenderness along scapula and anterior shoulder PT-OP-K Range of Motion Start: 02/23/20 09:21 Freq: Status: Active Protocol: Document 04/01/20 09:00 AMB (Rec: 04/01/20 13:29 AMB [email or web address]) Shoulder Goniometric Range of Motion Shoulder Right Passive Testing Position Supine Flexion 160 Abduction 140 External Rotation at 90 degrees 70 Abduction Internal Rotation 70 PT-OP-Q Treatments Start: 02/23/20 09:21 Freq: Status: Active Protocol: Document 04/08/20 08:16 MB (Rec: 04/08/20 09:01 MB [id number]) Manual Therapy Treatment Other Other Manual Treatments Pt prone: pt with significant lower thoracic kyphosis and rib tubercle tension greater on the left. Scapular mobs B, grade III PA mobs right shoulder, thoracic mobilizations grade III-IV with coordinated breathing for rib recoil, gentle PROM ER and IR right shoulder, pt right arm in passive IR and PA mobs Pt supine: 1st rib isometric mob right shoulder, MWM right infraspinatus with pt performing active ER and IR with arm supported and PT providing TrP pressure and pt has a lot of tension in rotators near sacapular border . SC mobs with pt performing breathing with PT pressure, coordinated. PT-OP-R Modalities Start: 02/23/20 09:21 Freq: Status: Active Protocol: Document 03/14/20 15:18 SAK (Rec: 03/14/20 16:09 SAK [id number]) Hot Pack/Cold Pack Treatment Cold Pack Location right shoulder Patient Position Sitting Treatment Duration (minutes) 10 Patient Tolerance Good PT-OP-T Assessment and Plan Start: 02/23/20 09:21 Freq: Status: Active Protocol: Document 04/08/20 08:16 MB (Rec: 04/08/20 09:01 MB [id number]) Physical Therapy Assessment Assessment Summary Assessment Manual work today to promote thoracic mobility and scapular mobility in order to help shoulder range in a safe manner. Pt responds well. Pt with a lot of tension in right shoulder rotators near scapular border and may benefit from more work in this area. Con't per POC. Physical Therapy Plan Next Visit Focus/Plan Next Note Type Treatment Note Next Visit Plan Consider more manual and self- manual work right shouldr rotators near scapular border. Continue PT per primary therapist's plan: RCR protocol - trying to work into gentle AROM, no resistance at shoulder until end of March.
--- NOTE | 2020-04-11 15:00 | PT.OTN ---
Current Diagnoses Complete rotator cuff tear or rupture of right shoulder, not specified as traumatic (04/11/20) Strain of muscle(s) and tendon(s) of the rotator cuff of right shoulder, initial encounter (04/11/20) Physical Therapy Treatment Note PT-OP-A Visit Information Start: 02/23/20 09:21 Freq: Status: Active Protocol: Document 04/11/20 09:00 AMB (Rec: 04/11/20 15:42 AMB [email or web address]) Out-Patient Physical Therapy Visit Information Visit Information Visit Type Treatment Note Visit Start Time 09:00 Visit Stop Time 09:45 Total Visit Minutes 45 Visit Number 13 PT-OP-B Current Condition Start: 02/23/20 09:21 Freq: Status: Active Protocol: Document 02/23/20 10:15 AMB (Rec: 02/23/20 13:56 AMB [email or web address]) Current Condition History of Current Condition Onset Date 01/12/20 Current Complaints R rotator cuff repair ( revision) History of Current Condition Yelitza attends PT after his second R rotator cuff repair. He is 6 weeks post op, and has d/urszula his sling during the day but sleeps better with it on. 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 He states that he has not been moving the arm away from his body as he is concerned about worsening the surgery like he did the first time by weightbearing too much through the arm too soon during bed mobility. Prior Treatments and Tests MRI: 09/04 full thickness supra and infraspinatus tear, incomplete subscap tear Prior Functional Status Baseline Function- ADL's Independent Baseline Function- Mobility Independent Current Functional Impairments (Reported) Functional Limitations- ADL's Pt reports able to dress himself and cook, but must do these activites with left hand Personal Factors Other Personal Factors That May Effect Fibromyalgia, CHF Therapy/Recovery PT-OP-C Subjective Start: 02/23/20 09:21 Freq: Status: Active Protocol: Document 04/11/20 09:00 AMB (Rec: 04/11/20 15:42 AMB [email or web address]) OP-PT Subjective Patient Comments Patient Comments Pt is doing well, was sore after last treatment but that lasted for about a day and now doing ok. PT-OP-J Posture/Palpation/Skin Start: 02/23/20 09:21 Freq: Status: Active Protocol: Document 02/23/20 10:15 AMB (Rec: 02/23/20 13:56 AMB [email or web address]) Palpation Assessment Location R RTC Palpation Details Tenderness along scapula and anterior shoulder PT-OP-K Range of Motion Start: 02/23/20 09:21 Freq: Status: Active Protocol: Document 04/01/20 09:00 AMB (Rec: 04/01/20 13:29 AMB [email or web address]) Shoulder Goniometric Range of Motion Shoulder Right Passive Testing Position Supine Flexion 160 Abduction 140 External Rotation at 90 degrees 70 Abduction Internal Rotation 70 PT-OP-Q Treatments Start: 02/23/20 09:21 Freq: Status: Active Protocol: Document 04/11/20 09:00 AMB (Rec: 04/11/20 15:42 AMB [email or web address]) Therapeutic Exercises Supine Exercises SA punch Resistance R Equipment Used AROM only Reps/Minutes 10 x2 Sidelying Exercises SL ER Sidelying Exercise Name AROM Side right Reps/Minutes 2x5 shd abd Sidelying Exercise Name to abd 90 degrees Side right Equipment Used AROM Reps/Minutes 10reps Sitting Exercises 2 Sitting Exercise Name AAROM Reps/Minutes 10 Comments abduction Standing Exercises 1 Standing Exercise Name pec stretch Side right Reps/Minutes 30x3 Comments at 0 and 90 degrees abd against wall flex Standing Exercise Name AAROM Side bilateral Reps/Minutes 8 x2 Comments no pain noted Manual Therapy Treatment Soft Tissue Mobilization post Body Location infraspinatus, UT, teres Mobilization Type Rolling Intensity/Depth Moderate Joint Mobilizations inferior glide Joint R GHJ Inferior and posterior Grade III Body Position Supine Comments no pain noted during mobilization with shoulder in 90 degrees of abduction PT-OP-R Modalities Start: 02/23/20 09:21 Freq: Status: Active Protocol: Document 03/14/20 15:18 SAK (Rec: 03/14/20 16:09 SAK [id number]) Hot Pack/Cold Pack Treatment Cold Pack Location right shoulder Patient Position Sitting Treatment Duration (minutes) 10 Patient Tolerance Good PT-OP-T Assessment and Plan Start: 02/23/20 09:21 Freq: Status: Active Protocol: Document 04/11/20 09:00 AMB (Rec: 04/11/20 15:42 AMB [email or web address]) Physical Therapy Assessment Assessment Summary Assessment Pt ant deltoid better but continues to be weak with shoulder flexion. Can start strengthening later this week. Physical Therapy Plan Next Visit Focus/Plan Next Note Type Treatment Note Next Visit Plan Begin with isometrics
--- NOTE | 2020-04-15 11:55 | PT.OTN ---
Current Diagnoses Complete rotator cuff tear or rupture of right shoulder, not specified as traumatic (04/15/20) Strain of muscle(s) and tendon(s) of the rotator cuff of right shoulder, initial encounter (04/15/20) Physical Therapy Treatment Note PT-OP-A Visit Information Start: 02/23/20 09:21 Freq: Status: Active Protocol: Document 04/15/20 09:00 AMB (Rec: 04/15/20 10:20 AMB [id number]) Out-Patient Physical Therapy Visit Information Visit Information Visit Type Treatment Note Visit Start Time 09:00 Visit Stop Time 09:45 Total Visit Minutes 45 Visit Number 14 PT-OP-B Current Condition Start: 02/23/20 09:21 Freq: Status: Active Protocol: Document 02/23/20 10:15 AMB (Rec: 02/23/20 13:56 AMB [email or web address]) Current Condition History of Current Condition Onset Date 01/12/20 Current Complaints R rotator cuff repair ( revision) History of Current Condition Yelitza attends PT after his second R rotator cuff repair. He is 6 weeks post op, and has d/urszula his sling during the day but sleeps better with it on. 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 He states that he has not been moving the arm away from his body as he is concerned about worsening the surgery like he did the first time by weightbearing too much through the arm too soon during bed mobility. Prior Treatments and Tests MRI: 09/04 full thickness supra and infraspinatus tear, incomplete subscap tear Prior Functional Status Baseline Function- ADL's Independent Baseline Function- Mobility Independent Current Functional Impairments (Reported) Functional Limitations- ADL's Pt reports able to dress himself and cook, but must do these activites with left hand Personal Factors Other Personal Factors That May Effect Fibromyalgia, CHF Therapy/Recovery PT-OP-C Subjective Start: 02/23/20 09:21 Freq: Status: Active Protocol: Document 04/15/20 09:00 AMB (Rec: 04/15/20 10:20 AMB [id number]) OP-PT Subjective Patient Comments Patient Comments Pt reports he has started some gentle isometrics at home. PT-OP-J Posture/Palpation/Skin Start: 02/23/20 09:21 Freq: Status: Active Protocol: Document 02/23/20 10:15 AMB (Rec: 02/23/20 13:56 AMB [email or web address]) Palpation Assessment Location R RTC Palpation Details Tenderness along scapula and anterior shoulder PT-OP-K Range of Motion Start: 02/23/20 09:21 Freq: Status: Active Protocol: Document 04/01/20 09:00 AMB (Rec: 04/01/20 13:29 AMB [email or web address]) Shoulder Goniometric Range of Motion Shoulder Right Passive Testing Position Supine Flexion 160 Abduction 140 External Rotation at 90 degrees 70 Abduction Internal Rotation 70 PT-OP-Q Treatments Start: 02/23/20 09:21 Freq: Status: Active Protocol: Document 04/15/20 09:00 AMB (Rec: 04/15/20 11:55 AMB [email or web address]) Therapeutic Exercises Sidelying Exercises SL ER Sidelying Exercise Name 1# Side right Reps/Minutes 2x5 shd abd Sidelying Exercise Name to abd 90 degrees Side right Equipment Used 1# Reps/Minutes 10reps Sitting Exercises 3 Sitting Exercise Name pulleys Reps/Minutes 2 min ea Comments abd, scaption, flexion Standing Exercises 2 Standing Exercise Name rows Reps/Minutes 10 Comments t band #3 ER Standing Exercise Name isometrc Reps/Minutes x5 1 Standing Exercise Name pec stretch Side right Reps/Minutes 30x3 Comments at 0 and 90 degrees abd against wall IR Standing Exercise Name isometric Reps/Minutes x5 Other Exercises serratus punch Resistance 1# Reps/Minutes 15 PT-OP-R Modalities Start: 02/23/20 09:21 Freq: Status: Active Protocol: Document 03/14/20 15:18 SAK (Rec: 03/14/20 16:09 SAK [id number]) Hot Pack/Cold Pack Treatment Cold Pack Location right shoulder Patient Position Sitting Treatment Duration (minutes) 10 Patient Tolerance Good PT-OP-T Assessment and Plan Start: 02/23/20 09:21 Freq: Status: Active Protocol: Document 04/15/20 09:00 AMB (Rec: 04/15/20 10:20 AMB [id number]) Physical Therapy Assessment Assessment Summary Assessment Pt hopeful he can return to overhead work, difficulty moving arm through full flexion ROM actively, but tolerated isometrics and partial ROM activities well. Physical Therapy Plan Next Visit Focus/Plan Next Note Type Treatment Note Next Visit Plan Increase reps and increase ROM as tolerated.
--- NOTE | 2020-04-19 15:43 | PT.OTN ---
Current Diagnoses Complete rotator cuff tear or rupture of right shoulder, not specified as traumatic (04/19/20) Strain of muscle(s) and tendon(s) of the rotator cuff of right shoulder, initial encounter (04/19/20) Physical Therapy Treatment Note PT-OP-A Visit Information Start: 02/23/20 09:21 Freq: Status: Active Protocol: Document 04/19/20 13:30 AMB (Rec: 04/19/20 14:08 AMB [id number]) Out-Patient Physical Therapy Visit Information Visit Information Visit Type Treatment Note Visit Start Time 13:30 Visit Stop Time 14:15 Total Visit Minutes 45 Visit Number 15 PT-OP-B Current Condition Start: 02/23/20 09:21 Freq: Status: Active Protocol: Document 02/23/20 10:15 AMB (Rec: 02/23/20 13:56 AMB [email or web address]) Current Condition History of Current Condition Onset Date 01/12/20 Current Complaints R rotator cuff repair ( revision) History of Current Condition Yelitza attends PT after his second R rotator cuff repair. He is 6 weeks post op, and has d/urszula his sling during the day but sleeps better with it on. 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 He states that he has not been moving the arm away from his body as he is concerned about worsening the surgery like he did the first time by weightbearing too much through the arm too soon during bed mobility. Prior Treatments and Tests MRI: 09/04 full thickness supra and infraspinatus tear, incomplete subscap tear Prior Functional Status Baseline Function- ADL's Independent Baseline Function- Mobility Independent Current Functional Impairments (Reported) Functional Limitations- ADL's Pt reports able to dress himself and cook, but must do these activites with left hand Personal Factors Other Personal Factors That May Effect Fibromyalgia, CHF Therapy/Recovery PT-OP-C Subjective Start: 02/23/20 09:21 Freq: Status: Active Protocol: Document 04/19/20 13:30 AMB (Rec: 04/19/20 14:08 AMB [id number]) OP-PT Subjective Patient Comments Patient Comments Pt continues to be doing isometrics and t band rows as his HEP. PT-OP-J Posture/Palpation/Skin Start: 02/23/20 09:21 Freq: Status: Active Protocol: Document 02/23/20 10:15 AMB (Rec: 02/23/20 13:56 AMB [email or web address]) Palpation Assessment Location R RTC Palpation Details Tenderness along scapula and anterior shoulder PT-OP-K Range of Motion Start: 02/23/20 09:21 Freq: Status: Active Protocol: Document 04/01/20 09:00 AMB (Rec: 04/01/20 13:29 AMB [email or web address]) Shoulder Goniometric Range of Motion Shoulder Right Passive Testing Position Supine Flexion 160 Abduction 140 External Rotation at 90 degrees 70 Abduction Internal Rotation 70 PT-OP-Q Treatments Start: 02/23/20 09:21 Freq: Status: Active Protocol: Document 04/19/20 15:15 AMB (Rec: 04/19/20 15:22 AMB [id number]) Therapeutic Exercises Supine Exercises flex Supine Exercise Name AROM Comments full Sidelying Exercises SL ER Sidelying Exercise Name 1# Side right Reps/Minutes 2x5 shd abd Sidelying Exercise Name to abd 90 degrees Side right Equipment Used 1# Reps/Minutes 10reps Sitting Exercises 3 Sitting Exercise Name pulleys Reps/Minutes 2 min ea Comments abd, scaption, flexion Standing Exercises 2 Standing Exercise Name rows Reps/Minutes 10 Comments t band #3 ER Standing Exercise Name isometrc Reps/Minutes x5 IR Standing Exercise Name isometric Reps/Minutes x5 PT-OP-R Modalities Start: 02/23/20 09:21 Freq: Status: Active Protocol: Document 03/14/20 15:18 SAK (Rec: 03/14/20 16:09 SAK [id number]) Hot Pack/Cold Pack Treatment Cold Pack Location right shoulder Patient Position Sitting Treatment Duration (minutes) 10 Patient Tolerance Good PT-OP-T Assessment and Plan Start: 02/23/20 09:21 Freq: Status: Active Protocol: Document 04/19/20 13:30 AMB (Rec: 04/19/20 14:08 AMB [id number]) Physical Therapy Assessment Assessment Summary Assessment Weakness with ER, but improving with flexion and abduction. Physical Therapy Plan Next Visit Focus/Plan Next Note Type Treatment Note Next Visit Plan Increase reps and increase ROM as tolerated.
--- NOTE | 2020-04-22 14:00 | PT.OTN ---
Current Diagnoses Complete rotator cuff tear or rupture of right shoulder, not specified as traumatic (04/22/20) Strain of muscle(s) and tendon(s) of the rotator cuff of right shoulder, initial encounter (04/22/20) Physical Therapy Treatment Note PT-OP-A Visit Information Start: 02/23/20 09:21 Freq: Status: Active Protocol: Document 04/22/20 12:45 AMB (Rec: 04/22/20 13:25 AMB [id number]) Out-Patient Physical Therapy Visit Information Visit Information Visit Type Treatment Note Visit Start Time 12:45 Visit Stop Time 13:30 Total Visit Minutes 45 Visit Number 16 PT-OP-B Current Condition Start: 02/23/20 09:21 Freq: Status: Active Protocol: Document 02/23/20 10:15 AMB (Rec: 02/23/20 13:56 AMB [email or web address]) Current Condition History of Current Condition Onset Date 01/12/20 Current Complaints R rotator cuff repair ( revision) History of Current Condition Yelitza attends PT after his second R rotator cuff repair. He is 6 weeks post op, and has d/urszula his sling during the day but sleeps better with it on. 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 He states that he has not been moving the arm away from his body as he is concerned about worsening the surgery like he did the first time by weightbearing too much through the arm too soon during bed mobility. Prior Treatments and Tests MRI: 09/04 full thickness supra and infraspinatus tear, incomplete subscap tear Prior Functional Status Baseline Function- ADL's Independent Baseline Function- Mobility Independent Current Functional Impairments (Reported) Functional Limitations- ADL's Pt reports able to dress himself and cook, but must do these activites with left hand Personal Factors Other Personal Factors That May Effect Fibromyalgia, CHF Therapy/Recovery PT-OP-C Subjective Start: 02/23/20 09:21 Freq: Status: Active Protocol: Document 04/22/20 12:45 AMB (Rec: 04/22/20 13:25 AMB [id number]) OP-PT Subjective Patient Comments Patient Comments Pt continues to do his HEP 2x/ day. PT-OP-J Posture/Palpation/Skin Start: 02/23/20 09:21 Freq: Status: Active Protocol: Document 02/23/20 10:15 AMB (Rec: 02/23/20 13:56 AMB [email or web address]) Palpation Assessment Location R RTC Palpation Details Tenderness along scapula and anterior shoulder PT-OP-K Range of Motion Start: 02/23/20 09:21 Freq: Status: Active Protocol: Document 04/01/20 09:00 AMB (Rec: 04/01/20 13:29 AMB [email or web address]) Shoulder Goniometric Range of Motion Shoulder Right Passive Testing Position Supine Flexion 160 Abduction 140 External Rotation at 90 degrees 70 Abduction Internal Rotation 70 PT-OP-Q Treatments Start: 02/23/20 09:21 Freq: Status: Active Protocol: Document 04/22/20 12:45 AMB (Rec: 04/23/20 11:17 AMB [email or web address]) Cardio Equipment Upper Body Ergometer (UBE) Duration (Minutes) 5 RPM 50 Height 4 Therapeutic Exercises Supine Exercises shoulder flexion Supine Exercise Name AROM Reps/Minutes 2x10 SA punch Resistance R Equipment Used 3# Reps/Minutes 10 x2 Sidelying Exercises SL ER Sidelying Exercise Name 1# Side right Reps/Minutes 2x5 Sitting Exercises OH chris Sitting Exercise Name flexion, scaption Side right Reps/Minutes 5 min Standing Exercises flex Standing Exercise Name eccentric control Reps/Minutes 10 Comments AAROM up, AROM down PT-OP-R Modalities Start: 02/23/20 09:21 Freq: Status: Active Protocol: Document 03/14/20 15:18 SAK (Rec: 03/14/20 16:09 SAK [id number]) Hot Pack/Cold Pack Treatment Cold Pack Location right shoulder Patient Position Sitting Treatment Duration (minutes) 10 Patient Tolerance Good PT-OP-T Assessment and Plan Start: 02/23/20 09:21 Freq: Status: Active Protocol: Document 04/22/20 12:45 AMB (Rec: 04/22/20 13:25 AMB [id number]) Physical Therapy Assessment Assessment Summary Assessment Yelitza tolerated exercises well today, supine flexion is going well, but seated/ standing continues to be weak and cause impingement. Physical Therapy Plan Next Visit Focus/Plan Next Note Type Treatment Note Next Visit Plan Increase reps and increase ROM as tolerated.
--- NOTE | 2020-04-23 11:18 | PT.OTN ---
Current Diagnoses Complete rotator cuff tear or rupture of right shoulder, not specified as traumatic (04/22/20) Strain of muscle(s) and tendon(s) of the rotator cuff of right shoulder, initial encounter (04/22/20) Physical Therapy Treatment Note PT-OP-A Visit Information Start: 02/23/20 09:21 Freq: Status: Active Protocol: Document 04/22/20 12:45 AMB (Rec: 04/22/20 13:25 AMB [id number]) Out-Patient Physical Therapy Visit Information Visit Information Visit Type Treatment Note Visit Start Time 12:45 Visit Stop Time 13:30 Total Visit Minutes 45 Visit Number 16 PT-OP-B Current Condition Start: 02/23/20 09:21 Freq: Status: Active Protocol: Document 02/23/20 10:15 AMB (Rec: 02/23/20 13:56 AMB [email or web address]) Current Condition History of Current Condition Onset Date 01/12/20 Current Complaints R rotator cuff repair ( revision) History of Current Condition Yelitza attends PT after his second R rotator cuff repair. He is 6 weeks post op, and has d/urszula his sling during the day but sleeps better with it on. 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 He states that he has not been moving the arm away from his body as he is concerned about worsening the surgery like he did the first time by weightbearing too much through the arm too soon during bed mobility. Prior Treatments and Tests MRI: 09/04 full thickness supra and infraspinatus tear, incomplete subscap tear Prior Functional Status Baseline Function- ADL's Independent Baseline Function- Mobility Independent Current Functional Impairments (Reported) Functional Limitations- ADL's Pt reports able to dress himself and cook, but must do these activites with left hand Personal Factors Other Personal Factors That May Effect Fibromyalgia, CHF Therapy/Recovery PT-OP-C Subjective Start: 02/23/20 09:21 Freq: Status: Active Protocol: Document 04/22/20 12:45 AMB (Rec: 04/22/20 13:25 AMB [id number]) OP-PT Subjective Patient Comments Patient Comments Pt continues to do his HEP 2x/ day. PT-OP-J Posture/Palpation/Skin Start: 02/23/20 09:21 Freq: Status: Active Protocol: Document 02/23/20 10:15 AMB (Rec: 02/23/20 13:56 AMB [email or web address]) Palpation Assessment Location R RTC Palpation Details Tenderness along scapula and anterior shoulder PT-OP-K Range of Motion Start: 02/23/20 09:21 Freq: Status: Active Protocol: Document 04/01/20 09:00 AMB (Rec: 04/01/20 13:29 AMB [email or web address]) Shoulder Goniometric Range of Motion Shoulder Right Passive Testing Position Supine Flexion 160 Abduction 140 External Rotation at 90 degrees 70 Abduction Internal Rotation 70 PT-OP-Q Treatments Start: 02/23/20 09:21 Freq: Status: Active Protocol: Document 04/22/20 12:45 AMB (Rec: 04/23/20 11:17 AMB [email or web address]) Cardio Equipment Upper Body Ergometer (UBE) Duration (Minutes) 5 RPM 50 Height 4 Therapeutic Exercises Supine Exercises shoulder flexion Supine Exercise Name AROM Reps/Minutes 2x10 SA punch Resistance R Equipment Used 3# Reps/Minutes 10 x2 Sidelying Exercises SL ER Sidelying Exercise Name 1# Side right Reps/Minutes 2x5 Sitting Exercises OH chris Sitting Exercise Name flexion, scaption Side right Reps/Minutes 5 min Standing Exercises flex Standing Exercise Name eccentric control Reps/Minutes 10 Comments AAROM up, AROM down PT-OP-R Modalities Start: 02/23/20 09:21 Freq: Status: Active Protocol: Document 03/14/20 15:18 SAK (Rec: 03/14/20 16:09 SAK [id number]) Hot Pack/Cold Pack Treatment Cold Pack Location right shoulder Patient Position Sitting Treatment Duration (minutes) 10 Patient Tolerance Good PT-OP-T Assessment and Plan Start: 02/23/20 09:21 Freq: Status: Active Protocol: Document 04/22/20 12:45 AMB (Rec: 04/22/20 13:25 AMB [id number]) Physical Therapy Assessment Assessment Summary Assessment Yelitza tolerated exercises well today, supine flexion is going well, but seated/ standing continues to be weak and cause impingement. Physical Therapy Plan Next Visit Focus/Plan Next Note Type Treatment Note Next Visit Plan Increase reps and increase ROM as tolerated.
--- NOTE | 2020-04-26 16:01 | PT.OTN ---
Current Diagnoses Complete rotator cuff tear or rupture of right shoulder, not specified as traumatic (04/26/20) Strain of muscle(s) and tendon(s) of the rotator cuff of right shoulder, initial encounter (04/26/20) Physical Therapy Treatment Note PT-OP-A Visit Information Start: 02/23/20 09:21 Freq: Status: Active Protocol: Document 04/26/20 13:30 AMB (Rec: 04/26/20 14:06 AMB [id number]) Out-Patient Physical Therapy Visit Information Visit Information Visit Type Treatment Note Visit Start Time 13:30 Visit Stop Time 14:15 Total Visit Minutes 45 Visit Number 17 PT-OP-B Current Condition Start: 02/23/20 09:21 Freq: Status: Active Protocol: Document 02/23/20 10:15 AMB (Rec: 02/23/20 13:56 AMB [email or web address]) Current Condition History of Current Condition Onset Date 01/12/20 Current Complaints R rotator cuff repair ( revision) History of Current Condition Yelitza attends PT after his second R rotator cuff repair. He is 6 weeks post op, and has d/urszula his sling during the day but sleeps better with it on. 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 He states that he has not been moving the arm away from his body as he is concerned about worsening the surgery like he did the first time by weightbearing too much through the arm too soon during bed mobility. Prior Treatments and Tests MRI: 09/04 full thickness supra and infraspinatus tear, incomplete subscap tear Prior Functional Status Baseline Function- ADL's Independent Baseline Function- Mobility Independent Current Functional Impairments (Reported) Functional Limitations- ADL's Pt reports able to dress himself and cook, but must do these activites with left hand Personal Factors Other Personal Factors That May Effect Fibromyalgia, CHF Therapy/Recovery PT-OP-C Subjective Start: 02/23/20 09:21 Freq: Status: Active Protocol: Document 04/26/20 13:30 AMB (Rec: 04/26/20 14:06 AMB [id number]) OP-PT Subjective Patient Comments Patient Comments Continuing to do exercises 2x/ day. Using 3#. PT-OP-J Posture/Palpation/Skin Start: 02/23/20 09:21 Freq: Status: Active Protocol: Document 02/23/20 10:15 AMB (Rec: 02/23/20 13:56 AMB [email or web address]) Palpation Assessment Location R RTC Palpation Details Tenderness along scapula and anterior shoulder PT-OP-K Range of Motion Start: 02/23/20 09:21 Freq: Status: Active Protocol: Document 04/01/20 09:00 AMB (Rec: 04/01/20 13:29 AMB [email or web address]) Shoulder Goniometric Range of Motion Shoulder Right Passive Testing Position Supine Flexion 160 Abduction 140 External Rotation at 90 degrees 70 Abduction Internal Rotation 70 PT-OP-Q Treatments Start: 02/23/20 09:21 Freq: Status: Active Protocol: Document 04/26/20 13:30 AMB (Rec: 04/26/20 16:01 AMB [id number]) Therapeutic Exercises Prone Exercises prone I , T ,Y Side right Resistance 2# Reps/Minutes 8 x 2 Comments modified to kneeling on table Sidelying Exercises SL ER Sidelying Exercise Name AROM only Side right Reps/Minutes 2x5 shd abd Sidelying Exercise Name to abd 90 degrees Side right Equipment Used 1# Reps/Minutes 10reps Standing Exercises ER Standing Exercise Name T band #2 Reps/Minutes 3x5 IR Standing Exercise Name t band #2 Reps/Minutes 3x5 wall climb Standing Exercise Name flexion Side right Reps/Minutes 10x3 flex Standing Exercise Name eccentric control Reps/Minutes 10 Comments AAROM up, AROM down ext Side right Resistance level 2 Equipment Used TB Reps/Minutes 10 Comments education for scapular depression and avoiding hyperextension PT-OP-R Modalities Start: 02/23/20 09:21 Freq: Status: Active Protocol: Document 03/14/20 15:18 SAK (Rec: 03/14/20 16:09 SAK [id number]) Hot Pack/Cold Pack Treatment Cold Pack Location right shoulder Patient Position Sitting Treatment Duration (minutes) 10 Patient Tolerance Good PT-OP-T Assessment and Plan Start: 02/23/20 09:21 Freq: Status: Active Protocol: Document 04/26/20 13:30 AMB (Rec: 04/26/20 14:06 AMB [id number]) Physical Therapy Assessment Assessment Summary Assessment Yelitza continues to be quite weak into ER, but is improving with flexion. Physical Therapy Plan Next Visit Focus/Plan Next Note Type Treatment Note Next Visit Plan Increase reps and increase ROM as tolerated.
--- NOTE | 2020-04-29 14:25 | PT.OTN ---
Current Diagnoses Complete rotator cuff tear or rupture of right shoulder, not specified as traumatic (04/29/20) Strain of muscle(s) and tendon(s) of the rotator cuff of right shoulder, initial encounter (04/29/20) Physical Therapy Treatment Note PT-OP-A Visit Information Start: 02/23/20 09:21 Freq: Status: Active Protocol: Document 04/29/20 13:30 AMB (Rec: 04/29/20 13:49 AMB [id number]) Out-Patient Physical Therapy Visit Information Visit Information Visit Type Treatment Note Visit Start Time 13:30 Visit Stop Time 14:15 Total Visit Minutes 45 Visit Number 18 PT-OP-B Current Condition Start: 02/23/20 09:21 Freq: Status: Active Protocol: Document 02/23/20 10:15 AMB (Rec: 02/23/20 13:56 AMB [email or web address]) Current Condition History of Current Condition Onset Date 01/12/20 Current Complaints R rotator cuff repair ( revision) History of Current Condition Yelitza attends PT after his second R rotator cuff repair. He is 6 weeks post op, and has d/urszula his sling during the day but sleeps better with it on. 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 He states that he has not been moving the arm away from his body as he is concerned about worsening the surgery like he did the first time by weightbearing too much through the arm too soon during bed mobility. Prior Treatments and Tests MRI: 09/04 full thickness supra and infraspinatus tear, incomplete subscap tear Prior Functional Status Baseline Function- ADL's Independent Baseline Function- Mobility Independent Current Functional Impairments (Reported) Functional Limitations- ADL's Pt reports able to dress himself and cook, but must do these activites with left hand Personal Factors Other Personal Factors That May Effect Fibromyalgia, CHF Therapy/Recovery PT-OP-C Subjective Start: 02/23/20 09:21 Freq: Status: Active Protocol: Document 04/29/20 13:30 AMB (Rec: 04/29/20 13:49 AMB [id number]) OP-PT Subjective Patient Comments Patient Comments A little sore in ant delt with new exercises. PT-OP-J Posture/Palpation/Skin Start: 02/23/20 09:21 Freq: Status: Active Protocol: Document 02/23/20 10:15 AMB (Rec: 02/23/20 13:56 AMB [email or web address]) Palpation Assessment Location R RTC Palpation Details Tenderness along scapula and anterior shoulder PT-OP-K Range of Motion Start: 02/23/20 09:21 Freq: Status: Active Protocol: Document 04/01/20 09:00 AMB (Rec: 04/01/20 13:29 AMB [email or web address]) Shoulder Goniometric Range of Motion Shoulder Right Passive Testing Position Supine Flexion 160 Abduction 140 External Rotation at 90 degrees 70 Abduction Internal Rotation 70 PT-OP-Q Treatments Start: 02/23/20 09:21 Freq: Status: Active Protocol: Document 04/29/20 13:30 AMB (Rec: 04/29/20 14:21 AMB [id number]) Cardio Equipment Upper Body Ergometer (UBE) Duration (Minutes) 5 Therapeutic Exercises Supine Exercises SA punch Resistance R Equipment Used 3# Reps/Minutes 10 x2 Sidelying Exercises SL ER Sidelying Exercise Name 1# Side right Reps/Minutes 2x8 shd abd Sidelying Exercise Name Full ROM Side right Equipment Used 1# Reps/Minutes 10reps Standing Exercises ER Standing Exercise Name T band #2 Reps/Minutes 3x5 IR Standing Exercise Name t band #2 Reps/Minutes 3x5 wall climb Standing Exercise Name flexion Side right Reps/Minutes 10x3 ext Side right Resistance level 2 Equipment Used TB Reps/Minutes 10 Comments education for scapular depression and avoiding hyperextension PT-OP-R Modalities Start: 02/23/20 09:21 Freq: Status: Active Protocol: Document 03/14/20 15:18 SAK (Rec: 03/14/20 16:09 SAK [id number]) Hot Pack/Cold Pack Treatment Cold Pack Location right shoulder Patient Position Sitting Treatment Duration (minutes) 10 Patient Tolerance Good PT-OP-T Assessment and Plan Start: 02/23/20 09:21 Freq: Status: Active Protocol: Document 04/29/20 13:30 AMB (Rec: 04/29/20 13:49 AMB [id number]) Physical Therapy Assessment Assessment Summary Assessment Flexion continues to improve, can actively get up to close to 90 degrees. ER fatigues quickly, stopping at neutral at this point. Physical Therapy Plan Next Visit Focus/Plan Next Note Type Treatment Note Next Visit Plan Increase reps and increase ROM as tolerated.
--- NOTE | 2020-05-03 15:52 | PT.OTN ---
Current Diagnoses Complete rotator cuff tear or rupture of right shoulder, not specified as traumatic (05/03/20) Strain of muscle(s) and tendon(s) of the rotator cuff of right shoulder, initial encounter (05/03/20) Physical Therapy Treatment Note PT-OP-A Visit Information Start: 02/23/20 09:21 Freq: Status: Active Protocol: Document 05/03/20 13:45 AMB (Rec: 05/03/20 14:07 AMB [id number]) Out-Patient Physical Therapy Visit Information Visit Information Visit Type Treatment Note Visit Start Time 13:30 Visit Stop Time 14:15 Total Visit Minutes 45 Visit Number 19 PT-OP-B Current Condition Start: 02/23/20 09:21 Freq: Status: Active Protocol: Document 02/23/20 10:15 AMB (Rec: 02/23/20 13:56 AMB [email or web address]) Current Condition History of Current Condition Onset Date 01/12/20 Current Complaints R rotator cuff repair ( revision) History of Current Condition Yelitza attends PT after his second R rotator cuff repair. He is 6 weeks post op, and has d/urszula his sling during the day but sleeps better with it on. 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 He states that he has not been moving the arm away from his body as he is concerned about worsening the surgery like he did the first time by weightbearing too much through the arm too soon during bed mobility. Prior Treatments and Tests MRI: 09/04 full thickness supra and infraspinatus tear, incomplete subscap tear Prior Functional Status Baseline Function- ADL's Independent Baseline Function- Mobility Independent Current Functional Impairments (Reported) Functional Limitations- ADL's Pt reports able to dress himself and cook, but must do these activites with left hand Personal Factors Other Personal Factors That May Effect Fibromyalgia, CHF Therapy/Recovery PT-OP-C Subjective Start: 02/23/20 09:21 Freq: Status: Active Protocol: Document 05/03/20 13:45 AMB (Rec: 05/03/20 14:07 AMB [id number]) OP-PT Subjective Patient Comments Patient Comments Was able to shovel driveway very carefully without pain. PT-OP-J Posture/Palpation/Skin Start: 02/23/20 09:21 Freq: Status: Active Protocol: Document 02/23/20 10:15 AMB (Rec: 02/23/20 13:56 AMB [email or web address]) Palpation Assessment Location R RTC Palpation Details Tenderness along scapula and anterior shoulder PT-OP-K Range of Motion Start: 02/23/20 09:21 Freq: Status: Active Protocol: Document 04/01/20 09:00 AMB (Rec: 04/01/20 13:29 AMB [email or web address]) Shoulder Goniometric Range of Motion Shoulder Right Passive Testing Position Supine Flexion 160 Abduction 140 External Rotation at 90 degrees 70 Abduction Internal Rotation 70 PT-OP-Q Treatments Start: 02/23/20 09:21 Freq: Status: Active Protocol: Document 05/03/20 13:30 AMB (Rec: 05/03/20 15:52 AMB [id number]) Cardio Equipment Upper Body Ergometer (UBE) Duration (Minutes) 5 Therapeutic Exercises Supine Exercises shoulder flexion Supine Exercise Name 1# full range Reps/Minutes 2x10 Sidelying Exercises SL shoulder punch Equipment Used 3 lbs ball Reps/Minutes 10 x2 SL ER Sidelying Exercise Name 1# Side right Reps/Minutes 2x8 shd abd Sidelying Exercise Name Full ROM Side right Equipment Used 1# Reps/Minutes 10reps Comments 2# (2 reps) Standing Exercises 3 Standing Exercise Name ball circles on wall (45 de flexion) Comments clockwise/counterclockwise ER Standing Exercise Name T band #1 Reps/Minutes 3x5 IR Standing Exercise Name t band #3 Reps/Minutes 3x5 flex Standing Exercise Name eccentric control Reps/Minutes 10 Comments AAROM up, AROM down ext Side right Resistance level 2 Equipment Used TB Reps/Minutes 10 Comments education for scapular depression and avoiding hyperextension PT-OP-R Modalities Start: 02/23/20 09:21 Freq: Status: Active Protocol: Document 03/14/20 15:18 SAK (Rec: 03/14/20 16:09 SAK [id number]) Hot Pack/Cold Pack Treatment Cold Pack Location right shoulder Patient Position Sitting Treatment Duration (minutes) 10 Patient Tolerance Good PT-OP-T Assessment and Plan Start: 02/23/20 09:21 Freq: Status: Active Protocol: Document 05/03/20 13:45 AMB (Rec: 05/03/20 14:07 AMB [id number]) Physical Therapy Assessment Assessment Summary Assessment Pt fatigued in shoulder today with shoveling snow and massage therapy right before PT session. No impingement sx , during tx. Physical Therapy Plan Next Visit Focus/Plan Next Note Type Treatment Note Next Visit Plan Increase reps and increase ROM as tolerated.
--- NOTE | 2020-05-10 15:55 | PT.OTN ---
Current Diagnoses Complete rotator cuff tear or rupture of right shoulder, not specified as traumatic (05/10/20) Strain of muscle(s) and tendon(s) of the rotator cuff of right shoulder, initial encounter (05/10/20) Physical Therapy Treatment Note PT-OP-A Visit Information Start: 02/23/20 09:21 Freq: Status: Active Protocol: Document 05/10/20 13:30 AMB (Rec: 05/10/20 15:38 AMB [id number]) Out-Patient Physical Therapy Visit Information Visit Information Visit Type Treatment Note Visit Note Visit Start Time 13:30 Visit Stop Time 14:15 Total Visit Minutes 45 Visit Number 20 PT-OP-B Current Condition Start: 02/23/20 09:21 Freq: Status: Active Protocol: Document 02/23/20 10:15 AMB (Rec: 02/23/20 13:56 AMB [email or web address]) Current Condition History of Current Condition Onset Date 01/12/20 Current Complaints R rotator cuff repair ( revision) History of Current Condition Yelitza attends PT after his second R rotator cuff repair. He is 6 weeks post op, and has d/urszula his sling during the day but sleeps better with it on. 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 He states that he has not been moving the arm away from his body as he is concerned about worsening the surgery like he did the first time by weightbearing too much through the arm too soon during bed mobility. Prior Treatments and Tests MRI: 09/04 full thickness supra and infraspinatus tear, incomplete subscap tear Prior Functional Status Baseline Function- ADL's Independent Baseline Function- Mobility Independent Current Functional Impairments (Reported) Functional Limitations- ADL's Pt reports able to dress himself and cook, but must do these activites with left hand Personal Factors Other Personal Factors That May Effect Fibromyalgia, CHF Therapy/Recovery PT-OP-C Subjective Start: 02/23/20 09:21 Freq: Status: Active Protocol: Document 05/10/20 13:30 AMB (Rec: 05/10/20 15:38 AMB [id number]) OP-PT Subjective Patient Comments Patient Comments Tired after shoveling, maybe over did it last week. PT-OP-J Posture/Palpation/Skin Start: 02/23/20 09:21 Freq: Status: Active Protocol: Document 02/23/20 10:15 AMB (Rec: 02/23/20 13:56 AMB [email or web address]) Palpation Assessment Location R RTC Palpation Details Tenderness along scapula and anterior shoulder PT-OP-K Range of Motion Start: 02/23/20 09:21 Freq: Status: Active Protocol: Document 04/01/20 09:00 AMB (Rec: 04/01/20 13:29 AMB [email or web address]) Shoulder Goniometric Range of Motion Shoulder Right Passive Testing Position Supine Flexion 160 Abduction 140 External Rotation at 90 degrees 70 Abduction Internal Rotation 70 PT-OP-Q Treatments Start: 02/23/20 09:21 Freq: Status: Active Protocol: Document 05/10/20 13:30 AMB (Rec: 05/10/20 15:54 AMB [id number]) Cardio Equipment Upper Body Ergometer (UBE) Duration (Minutes) 7 Other fwd backward Therapeutic Exercises Supine Exercises shoulder flexion Supine Exercise Name 1# full range Side right Reps/Minutes 2x10 SA punch Resistance R Equipment Used 5# Reps/Minutes 10 x2 ER Supine Exercise Name at 90 deg abd Resistance 1# Reps/Minutes 3x10 Sidelying Exercises SL ER Sidelying Exercise Name 1# Side right Reps/Minutes 2x8 shd abd Sidelying Exercise Name Full ROM Side right Equipment Used 1# Reps/Minutes [id number] Standing Exercises 4 Standing Exercise Name ball roll at 45 deg flex on wall Reps/Minutes 1 minute Comments flex, abduction difficult flex Standing Exercise Name eccentric control Reps/Minutes 10 Comments AAROM up, AROM down Other Exercises 1 Other Exercise Name quadruped shoulder flexion Resistance 1# Reps/Minutes 2x10 PT-OP-R Modalities Start: 02/23/20 09:21 Freq: Status: Active Protocol: Document 03/14/20 15:18 SAK (Rec: 03/14/20 16:09 SAK [id number]) Hot Pack/Cold Pack Treatment Cold Pack Location right shoulder Patient Position Sitting Treatment Duration (minutes) 10 Patient Tolerance Good PT-OP-T Assessment and Plan Start: 02/23/20 09:21 Freq: Status: Active Protocol: Document 05/10/20 13:30 AMB (Rec: 05/10/20 15:38 AMB [id number]) Physical Therapy Assessment Assessment Summary Assessment Pt can actively flex to 90 degrees in seated, in supine can flex to 180. Would recommend continued work on flexion, ER continues to be weak as well, but pt is improving with feeling when he is elevating shoulder. Physical Therapy Plan Next Visit Focus/Plan Next Note Type Treatment Note Next Visit Plan Progress resistance- flexion- scaption is still hard in standing/seated.
--- NOTE | 2020-05-13 16:11 | PT.OTN ---
Current Diagnoses Complete rotator cuff tear or rupture of right shoulder, not specified as traumatic (05/13/20) Strain of muscle(s) and tendon(s) of the rotator cuff of right shoulder, initial encounter (05/13/20) Physical Therapy Treatment Note PT-OP-A Visit Information Start: 02/23/20 09:21 Freq: Status: Active Protocol: Document 05/13/20 13:30 AMB (Rec: 05/13/20 14:06 AMB [id number]) Out-Patient Physical Therapy Visit Information Visit Information Visit Type Treatment Note Visit Note Visit Start Time 13:30 Visit Stop Time 14:15 Total Visit Minutes 45 Visit Number 21 PT-OP-B Current Condition Start: 02/23/20 09:21 Freq: Status: Active Protocol: Document 02/23/20 10:15 AMB (Rec: 02/23/20 13:56 AMB [email or web address]) Current Condition History of Current Condition Onset Date 01/12/20 Current Complaints R rotator cuff repair ( revision) History of Current Condition Yelitza attends PT after his second R rotator cuff repair. He is 6 weeks post op, and has d/urszula his sling during the day but sleeps better with it on. 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 He states that he has not been moving the arm away from his body as he is concerned about worsening the surgery like he did the first time by weightbearing too much through the arm too soon during bed mobility. Prior Treatments and Tests MRI: 09/04 full thickness supra and infraspinatus tear, incomplete subscap tear Prior Functional Status Baseline Function- ADL's Independent Baseline Function- Mobility Independent Current Functional Impairments (Reported) Functional Limitations- ADL's Pt reports able to dress himself and cook, but must do these activites with left hand Personal Factors Other Personal Factors That May Effect Fibromyalgia, CHF Therapy/Recovery PT-OP-C Subjective Start: 02/23/20 09:21 Freq: Status: Active Protocol: Document 05/13/20 13:30 AMB (Rec: 05/13/20 14:06 AMB [id number]) OP-PT Subjective Patient Comments Patient Comments Pt doing well, hasn't started with yardwork too much. PT-OP-J Posture/Palpation/Skin Start: 02/23/20 09:21 Freq: Status: Active Protocol: Document 02/23/20 10:15 AMB (Rec: 02/23/20 13:56 AMB [email or web address]) Palpation Assessment Location R RTC Palpation Details Tenderness along scapula and anterior shoulder PT-OP-K Range of Motion Start: 02/23/20 09:21 Freq: Status: Active Protocol: Document 04/01/20 09:00 AMB (Rec: 04/01/20 13:29 AMB [email or web address]) Shoulder Goniometric Range of Motion Shoulder Right Passive Testing Position Supine Flexion 160 Abduction 140 External Rotation at 90 degrees 70 Abduction Internal Rotation 70 PT-OP-Q Treatments Start: 02/23/20 09:21 Freq: Status: Active Protocol: Document 05/13/20 13:30 AMB (Rec: 05/13/20 14:06 AMB [id number]) Therapeutic Exercises Supine Exercises shoulder flexion Supine Exercise Name 2# full range Side right Reps/Minutes 2x10 SA punch Resistance R Equipment Used 5# Reps/Minutes 10 x2 Sidelying Exercises open book Sidelying Exercise Name for pec stretch Side right Reps/Minutes 12 x 2 SL ER Sidelying Exercise Name 1# Side right Reps/Minutes 2x10 shd abd Sidelying Exercise Name Full ROM Side right Equipment Used 1# Reps/Minutes 0x46beut Standing Exercises 2 Standing Exercise Name rows Reps/Minutes 10 Comments t band #3 ER Standing Exercise Name T band #1 Reps/Minutes 3x5 1 Standing Exercise Name walking up the wall Reps/Minutes 10 Comments flexion IR Standing Exercise Name t band #3 Reps/Minutes 3x5 Other Exercises 1 Other Exercise Name quadruped shoulder flexion Resistance 1# Reps/Minutes 2x10 PT-OP-R Modalities Start: 02/23/20 09:21 Freq: Status: Active Protocol: Document 03/14/20 15:18 SAK (Rec: 03/14/20 16:09 SAK [id number]) Hot Pack/Cold Pack Treatment Cold Pack Location right shoulder Patient Position Sitting Treatment Duration (minutes) 10 Patient Tolerance Good PT-OP-T Assessment and Plan Start: 02/23/20 09:21 Freq: Status: Active Protocol: Document 05/13/20 13:30 AMB (Rec: 05/13/20 14:06 AMB [id number]) Physical Therapy Assessment Assessment Summary Assessment Pt did well today, ER is still weak, but pt very compliant with exercises and is walking Physical Therapy Plan Next Visit Focus/Plan Next Note Type Treatment Note Next Visit Plan Progress resistance- flexion- scaption is still hard in standing/seated.
--- NOTE | 2020-05-17 15:57 | PT.OTN ---
Current Diagnoses Complete rotator cuff tear or rupture of right shoulder, not specified as traumatic (05/17/20) Strain of muscle(s) and tendon(s) of the rotator cuff of right shoulder, initial encounter (05/17/20) Physical Therapy Treatment Note PT-OP-A Visit Information Start: 02/23/20 09:21 Freq: Status: Active Protocol: Document 05/17/20 13:30 AMB (Rec: 05/17/20 13:43 AMB [id number]) Out-Patient Physical Therapy Visit Information Visit Information Visit Type Treatment Note Visit Note Visit Start Time 13:30 Visit Stop Time 14:15 Total Visit Minutes 45 Visit Number 22 PT-OP-B Current Condition Start: 02/23/20 09:21 Freq: Status: Active Protocol: Document 02/23/20 10:15 AMB (Rec: 02/23/20 13:56 AMB [email or web address]) Current Condition History of Current Condition Onset Date 01/12/20 Current Complaints R rotator cuff repair ( revision) History of Current Condition Yelitza attends PT after his second R rotator cuff repair. He is 6 weeks post op, and has d/urszula his sling during the day but sleeps better with it on. 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 He states that he has not been moving the arm away from his body as he is concerned about worsening the surgery like he did the first time by weightbearing too much through the arm too soon during bed mobility. Prior Treatments and Tests MRI: 09/04 full thickness supra and infraspinatus tear, incomplete subscap tear Prior Functional Status Baseline Function- ADL's Independent Baseline Function- Mobility Independent Current Functional Impairments (Reported) Functional Limitations- ADL's Pt reports able to dress himself and cook, but must do these activites with left hand Personal Factors Other Personal Factors That May Effect Fibromyalgia, CHF Therapy/Recovery PT-OP-C Subjective Start: 02/23/20 09:21 Freq: Status: Active Protocol: Document 05/17/20 13:30 AMB (Rec: 05/17/20 13:43 AMB [id number]) OP-PT Subjective Patient Comments Patient Comments Pt is a bit sore in his back, shoulder is doing ok, but does feel like it can catch myra with flexion, abduction. PT-OP-J Posture/Palpation/Skin Start: 02/23/20 09:21 Freq: Status: Active Protocol: Document 02/23/20 10:15 AMB (Rec: 02/23/20 13:56 AMB [email or web address]) Palpation Assessment Location R RTC Palpation Details Tenderness along scapula and anterior shoulder PT-OP-K Range of Motion Start: 02/23/20 09:21 Freq: Status: Active Protocol: Document 05/17/20 13:30 AMB (Rec: 05/17/20 13:53 AMB [id number]) Shoulder Goniometric Range of Motion Shoulder Right Passive Flexion 160 Abduction 150 Right Active Testing Position Sitting Flexion 87 Abduction 55 PT-OP-Q Treatments Start: 02/23/20 09:21 Freq: Status: Active Protocol: Document 05/17/20 13:30 AMB (Rec: 05/17/20 15:47 AMB [email or web address]) Cardio Equipment Upper Body Ergometer (UBE) Duration (Minutes) 7 Other fwd backward Therapeutic Exercises Supine Exercises shoulder flexion Supine Exercise Name 2# full range Side right Reps/Minutes 2x10 SA punch Resistance R Equipment Used 5# Reps/Minutes 10 x2 Sidelying Exercises SL ER Sidelying Exercise Name 1# Side right Reps/Minutes 2x10 shd abd Sidelying Exercise Name Full ROM Side right Equipment Used 1# Reps/Minutes 6x56lalj Other Exercises 2 Other Exercise Name bent over rows Resistance 2# Reps/Minutes 2x10 1 Other Exercise Name quadruped shoulder flexion Resistance 1# Reps/Minutes 2x10 PT-OP-R Modalities Start: 02/23/20 09:21 Freq: Status: Active Protocol: Document 03/14/20 15:18 SAK (Rec: 03/14/20 16:09 SAK [id number]) Hot Pack/Cold Pack Treatment Cold Pack Location right shoulder Patient Position Sitting Treatment Duration (minutes) 10 Patient Tolerance Good PT-OP-T Assessment and Plan Start: 02/23/20 09:21 Freq: Status: Active Protocol: Document 05/17/20 13:30 AMB (Rec: 05/17/20 13:43 AMB [id number]) Physical Therapy Assessment Goals pain Impairment pt has consistent pain at 6 during activities. Concert Singer Goal (LTG) Pt will have pain no more than 2/10 for any shoulder related movements. outside of reaching activities. LTG Duration 12 weeks Strength Impairment significant strength loss Mcfp Goal (LTG) Pt will show 4/5 MMT grade to improve his R shoulder strength so he can start providing care for his mom and hold a 1 -2 lb weight of water bottle. NOT MET External rotation remains quite weak. LTG Duration 12 weeks ROM Impairment significant AROM loss Short Term Goal (STG) Yelitza will improve his ROM to 170 degreees flexion. NOT MET , getting close passively, limited to 87 degrees when seated for AROM, almost normal ROM when assessed in supine. STG Duration 6 weeks Mcfp Goal (LTG) Yelitza will improve his ROM to 160 degrees of abduction NOT MET limited to 55 degrees actively in seated, good passive range. LTG Duration 12 weeks Assessment Summary Assessment Yelitza has shown good progress overall, however today was quite fatigued. He is limited in AROM when seated/standing due to continued feeling of a catch in his shoulder, no catch with PROM or when supine . This is his biggest alla at this time. He was sore today due to increasing his weights at home. He is still using 1-2 pounds for most exercises, can do more for scapular stabilization exercises. Pt would benefit from continued physical therapy to progress strengthening and reduce impingement sx especially with flexion and abduction in seated/standing. Physical Therapy Plan Frequency and Duration Frequency of Treatment 2x/Week Duration of Treatment 6 weeks Plan of Care Start Date 05/17/20 Plan of Care End Date 06/28/20 Therapeutic Interventions Therapeutic Interventions Home Exercise Program,Joint Mobilizations,Manual Therapy, Neuromuscular Re-education, Self-Care/Home Management, Therapeutic Activities, Therapeutic Exercises Modalities Cold Pack/Ice Massage,Electric Stimulation Next Visit Focus/Plan Next Note Type Treatment Note Next Visit Plan Progress resistance- flexion- scaption is still hard in standing/seated.
--- NOTE | 2020-05-17 15:58 | PT.OPPOC ---
Physical, Occupational & Speech Therapy At [facility] Current Diagnoses Complete rotator cuff tear or rupture of right shoulder, not specified as traumatic (05/17/20) Strain of muscle(s) and tendon(s) of the rotator cuff of right shoulder, initial encounter (05/17/20) Visit Care Team Role Provider Type Adenike Rowe MD Primary Care Provider Physician Specialty: Family Practice Address: [facility], [address], [place], [address] Email: [email or web address] Fabian Escobar MD Attending Provider Non-Staff Referring Provider Specialty: Orthopedic Surgery Address: [address] [place] [address], [address], [place], [address] Email: Plan Of Care PT-OP-T Assessment and Plan Start: 02/23/20 09:21 Freq: Status: Active Protocol: Document 05/17/20 13:30 AMB (Rec: 05/17/20 13:43 AMB [id number]) Physical Therapy Assessment Goals pain Impairment pt has consistent pain at 6 during activities. Barrel Assembly Inspector Goal (LTG) Pt will have pain no more than 2/10 for any shoulder related movements. outside of reaching activities. LTG Duration 12 weeks Strength Impairment significant strength loss Barrel Assembly Inspector Goal (LTG) Pt will show 4/5 MMT grade to improve his R shoulder strength so he can start providing care for his mom and hold a 1 -2 lb weight of water bottle. NOT MET External rotation remains quite weak. LTG Duration 12 weeks ROM Impairment significant AROM loss Short Term Goal (STG) Yelitza will improve his ROM to 170 degreees flexion. NOT MET , getting close passively, limited to 87 degrees when seated for AROM, almost normal ROM when assessed in supine. STG Duration 6 weeks Barrel Assembly Inspector Goal (LTG) Yelitza will improve his ROM to 160 degrees of abduction NOT MET limited to 55 degrees actively in seated, good passive range. LTG Duration 12 weeks Assessment Summary Assessment Yelitza has shown good progress overall, however today was quite fatigued. He is limited in AROM when seated/standing due to continued feeling of a catch in his shoulder, no catch with PROM or when supine . This is his biggest alla at this time. He was sore today due to increasing his weights at home. He is still using 1-2 pounds for most exercises, can do more for scapular stabilization exercises. Pt would benefit from continued physical therapy to progress strengthening and reduce impingement sx especially with flexion and abduction in seated/standing. Physical Therapy Plan Frequency and Duration Frequency of Treatment 2x/Week Duration of Treatment 6 weeks Plan of Care Start Date 05/17/20 Plan of Care End Date 06/28/20 Therapeutic Interventions Therapeutic Interventions Home Exercise Program,Joint Mobilizations,Manual Therapy, Neuromuscular Re-education, Self-Care/Home Management, Therapeutic Activities, Therapeutic Exercises Modalities Cold Pack/Ice Massage,Electric Stimulation Next Visit Focus/Plan Next Note Type Treatment Note Next Visit Plan Progress resistance- flexion- scaption is still hard in standing/seated. Plan of Care Dates Plan of Care Start Date 05/17/20 Plan of Care End Date 06/28/20 Electronically Signed by: Katie Mendoza, PT 05/17/20 1394 Please Sign and Return: I have reviewed this Plan of Care and certify that the skilled therapy services above are required to meet the patient?s needs. Physician Signature Date Printed Name and Credentials Clinical Instructor Signature Printed Name and Credentials
--- NOTE | 2020-05-20 15:41 | PT.OTN ---
Current Diagnoses Complete rotator cuff tear or rupture of right shoulder, not specified as traumatic (05/20/20) Strain of muscle(s) and tendon(s) of the rotator cuff of right shoulder, initial encounter (05/20/20) Physical Therapy Treatment Note PT-OP-A Visit Information Start: 02/23/20 09:21 Freq: Status: Active Protocol: Document 05/20/20 13:30 AMB (Rec: 05/20/20 14:17 AMB [id number]) Out-Patient Physical Therapy Visit Information Visit Information Visit Type Treatment Note Visit Start Time 13:30 Visit Stop Time 14:15 Total Visit Minutes 45 Visit Number 23 PT-OP-B Current Condition Start: 02/23/20 09:21 Freq: Status: Active Protocol: Document 02/23/20 10:15 AMB (Rec: 02/23/20 13:56 AMB [email or web address]) Current Condition History of Current Condition Onset Date 01/12/20 Current Complaints R rotator cuff repair ( revision) History of Current Condition Yelitza attends PT after his second R rotator cuff repair. He is 6 weeks post op, and has d/urszula his sling during the day but sleeps better with it on. 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 He states that he has not been moving the arm away from his body as he is concerned about worsening the surgery like he did the first time by weightbearing too much through the arm too soon during bed mobility. Prior Treatments and Tests MRI: 09/04 full thickness supra and infraspinatus tear, incomplete subscap tear Prior Functional Status Baseline Function- ADL's Independent Baseline Function- Mobility Independent Current Functional Impairments (Reported) Functional Limitations- ADL's Pt reports able to dress himself and cook, but must do these activites with left hand Personal Factors Other Personal Factors That May Effect Fibromyalgia, CHF Therapy/Recovery PT-OP-C Subjective Start: 02/23/20 09:21 Freq: Status: Active Protocol: Document 05/20/20 13:30 AMB (Rec: 05/20/20 14:17 AMB [id number]) OP-PT Subjective Patient Comments Patient Comments Pt was having a bit of a fibroflare at last visit, but is feeling better now. PT-OP-J Posture/Palpation/Skin Start: 02/23/20 09:21 Freq: Status: Active Protocol: Document 02/23/20 10:15 AMB (Rec: 02/23/20 13:56 AMB [email or web address]) Palpation Assessment Location R RTC Palpation Details Tenderness along scapula and anterior shoulder PT-OP-K Range of Motion Start: 02/23/20 09:21 Freq: Status: Active Protocol: Document 05/17/20 13:30 AMB (Rec: 05/17/20 13:53 AMB [id number]) Shoulder Goniometric Range of Motion Shoulder Right Passive Flexion 160 Abduction 150 Right Active Testing Position Sitting Flexion 87 Abduction 55 PT-OP-Q Treatments Start: 02/23/20 09:21 Freq: Status: Active Protocol: Document 05/20/20 13:30 AMB (Rec: 05/20/20 14:17 AMB [id number]) Cardio Equipment Upper Body Ergometer (UBE) Duration (Minutes) 7 Other fwd backward Therapeutic Exercises Supine Exercises 3 Supine Exercise Name D2 flexion Reps/Minutes AROM only 2x10 SA punch Resistance 4# ER Supine Exercise Name T band #1 Reps/Minutes 3x10 Prone Exercises 1 Prone Exercise Name ER/IR Reps/Minutes 10 Comments at 45 deg abd shoulder extension Prone Exercise Name with scap retraction Side right Equipment Used 0#, 1# Reps/Minutes 10 x2 Comments no cues noted Sidelying Exercises SL ER Sidelying Exercise Name 1# Side right Reps/Minutes 2x10 shd abd Sidelying Exercise Name Full ROM Side right Equipment Used 1# Reps/Minutes [id number] Standing Exercises 2 Standing Exercise Name rows Reps/Minutes 10 Comments t band #3 1 Standing Exercise Name walking up the wall Reps/Minutes 10 Comments flexion PT-OP-R Modalities Start: 02/23/20 09:21 Freq: Status: Active Protocol: Document 03/14/20 15:18 SAK (Rec: 03/14/20 16:09 SAK [id number]) Hot Pack/Cold Pack Treatment Cold Pack Location right shoulder Patient Position Sitting Treatment Duration (minutes) 10 Patient Tolerance Good PT-OP-T Assessment and Plan Start: 02/23/20 09:21 Freq: Status: Active Protocol: Document 05/20/20 13:30 AMB (Rec: 05/20/20 14:17 AMB [id number]) Physical Therapy Assessment Assessment Summary Assessment Pt tolerated exercises well, does get some popping, but not painful popping. Physical Therapy Plan Next Visit Focus/Plan Next Note Type Treatment Note Next Visit Plan Progress resistance- flexion- scaption is still hard in standing/seated.
--- NOTE | 2020-05-27 15:28 | PT.OTN ---
Current Diagnoses Complete rotator cuff tear or rupture of right shoulder, not specified as traumatic (05/27/20) Strain of muscle(s) and tendon(s) of the rotator cuff of right shoulder, initial encounter (05/27/20) Physical Therapy Treatment Note PT-OP-A Visit Information Start: 02/23/20 09:21 Freq: Status: Active Protocol: Document 05/27/20 14:15 AMB (Rec: 05/27/20 15:28 AMB [id number]) Out-Patient Physical Therapy Visit Information Visit Information Visit Type Treatment Note Visit Start Time 14:15 Visit Stop Time 15:00 Total Visit Minutes 45 Visit Number 24 PT-OP-B Current Condition Start: 02/23/20 09:21 Freq: Status: Active Protocol: Document 02/23/20 10:15 AMB (Rec: 02/23/20 13:56 AMB [email or web address]) Current Condition History of Current Condition Onset Date 01/12/20 Current Complaints R rotator cuff repair ( revision) History of Current Condition Yelitza attends PT after his second R rotator cuff repair. He is 6 weeks post op, and has d/urszula his sling during the day but sleeps better with it on. 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 He states that he has not been moving the arm away from his body as he is concerned about worsening the surgery like he did the first time by weightbearing too much through the arm too soon during bed mobility. Prior Treatments and Tests MRI: 09/04 full thickness supra and infraspinatus tear, incomplete subscap tear Prior Functional Status Baseline Function- ADL's Independent Baseline Function- Mobility Independent Current Functional Impairments (Reported) Functional Limitations- ADL's Pt reports able to dress himself and cook, but must do these activites with left hand Personal Factors Other Personal Factors That May Effect Fibromyalgia, CHF Therapy/Recovery PT-OP-C Subjective Start: 02/23/20 09:21 Freq: Status: Active Protocol: Document 05/27/20 14:15 AMB (Rec: 05/27/20 15:28 AMB [id number]) OP-PT Subjective Patient Comments Patient Comments Pt noticed increased pain after doing some yardwork. PT-OP-J Posture/Palpation/Skin Start: 02/23/20 09:21 Freq: Status: Active Protocol: Document 02/23/20 10:15 AMB (Rec: 02/23/20 13:56 AMB [email or web address]) Palpation Assessment Location R RTC Palpation Details Tenderness along scapula and anterior shoulder PT-OP-K Range of Motion Start: 02/23/20 09:21 Freq: Status: Active Protocol: Document 05/17/20 13:30 AMB (Rec: 05/17/20 13:53 AMB [id number]) Shoulder Goniometric Range of Motion Shoulder Right Passive Flexion 160 Abduction 150 Right Active Testing Position Sitting Flexion 87 Abduction 55 PT-OP-Q Treatments Start: 02/23/20 09:21 Freq: Status: Active Protocol: Document 05/27/20 14:15 AMB (Rec: 05/27/20 15:28 AMB [id number]) Cardio Equipment Upper Body Ergometer (UBE) Duration (Minutes) 7 Other fwd backward Therapeutic Exercises Supine Exercises 1 Supine Exercise Name D1/D2 flexion Resistance #1 t band Reps/Minutes 3x10 shoulder flexion Supine Exercise Name 2# full range Side right Reps/Minutes 2x10 ER Supine Exercise Name T band #1 Reps/Minutes 3x10 Sidelying Exercises SL ER Sidelying Exercise Name 1# Side right Reps/Minutes 2x10 Manual Therapy Treatment Soft Tissue Mobilization RTC Body Location infraspinatus, supraspinatus, levator scapulae Mobilization Type Myofascial Release,Trigger Point Release Comments trigger point release to infra /supra and levator to improve scapular depression and stability Joint Mobilizations post glide Joint R GHJ Grade III Body Position Supine PA mob Joint GH Direction PA mob Grade III Body Position Prone Reps/Duration 2 mins PT-OP-R Modalities Start: 02/23/20 09:21 Freq: Status: Active Protocol: Document 03/14/20 15:18 SAK (Rec: 03/14/20 16:09 SAK [id number]) Hot Pack/Cold Pack Treatment Cold Pack Location right shoulder Patient Position Sitting Treatment Duration (minutes) 10 Patient Tolerance Good PT-OP-T Assessment and Plan Start: 02/23/20 09:21 Freq: Status: Active Protocol: Document 05/27/20 14:15 AMB (Rec: 05/27/20 15:28 AMB [id number]) Physical Therapy Assessment Assessment Summary Assessment Pt continues to have pain with flexion, limited in AROM in seated standing into both flexion and abduction. Limited in ER strength. Physical Therapy Plan Next Visit Focus/Plan Next Note Type Treatment Note Next Visit Plan Progress resistance- flexion- scaption is still hard in standing/seated.
--- NOTE | 2020-06-03 15:33 | PT.OTN ---
Current Diagnoses Complete rotator cuff tear or rupture of right shoulder, not specified as traumatic (06/03/20) Strain of muscle(s) and tendon(s) of the rotator cuff of right shoulder, initial encounter (06/03/20) Physical Therapy Treatment Note PT-OP-A Visit Information Start: 02/23/20 09:21 Freq: Status: Active Protocol: Document 06/03/20 14:15 AMB (Rec: 06/03/20 15:32 AMB [id number]) Out-Patient Physical Therapy Visit Information Visit Information Visit Type Treatment Note Visit Start Time 14:15 Visit Stop Time 15:00 Total Visit Minutes 45 Visit Number 25 PT-OP-B Current Condition Start: 02/23/20 09:21 Freq: Status: Active Protocol: Document 02/23/20 10:15 AMB (Rec: 02/23/20 13:56 AMB [email or web address]) Current Condition History of Current Condition Onset Date 01/12/20 Current Complaints R rotator cuff repair ( revision) History of Current Condition Yelitza attends PT after his second R rotator cuff repair. He is 6 weeks post op, and has d/urszula his sling during the day but sleeps better with it on. 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 He states that he has not been moving the arm away from his body as he is concerned about worsening the surgery like he did the first time by weightbearing too much through the arm too soon during bed mobility. Prior Treatments and Tests MRI: 09/04 full thickness supra and infraspinatus tear, incomplete subscap tear Prior Functional Status Baseline Function- ADL's Independent Baseline Function- Mobility Independent Current Functional Impairments (Reported) Functional Limitations- ADL's Pt reports able to dress himself and cook, but must do these activites with left hand Personal Factors Other Personal Factors That May Effect Fibromyalgia, CHF Therapy/Recovery PT-OP-C Subjective Start: 02/23/20 09:21 Freq: Status: Active Protocol: Document 06/03/20 14:15 AMB (Rec: 06/03/20 15:32 AMB [id number]) OP-PT Subjective Patient Comments Patient Comments Pt has been doing more yardwork and his back has been bothering him, shoulder is doing ok. PT-OP-J Posture/Palpation/Skin Start: 02/23/20 09:21 Freq: Status: Active Protocol: Document 02/23/20 10:15 AMB (Rec: 02/23/20 13:56 AMB [email or web address]) Palpation Assessment Location R RTC Palpation Details Tenderness along scapula and anterior shoulder PT-OP-K Range of Motion Start: 02/23/20 09:21 Freq: Status: Active Protocol: Document 05/17/20 13:30 AMB (Rec: 05/17/20 13:53 AMB [id number]) Shoulder Goniometric Range of Motion Shoulder Right Passive Flexion 160 Abduction 150 Right Active Testing Position Sitting Flexion 87 Abduction 55 PT-OP-Q Treatments Start: 02/23/20 09:21 Freq: Status: Active Protocol: Document 06/03/20 14:15 AMB (Rec: 06/03/20 15:32 AMB [id number]) Cardio Equipment Upper Body Ergometer (UBE) Duration (Minutes) 7 Other fwd backward Therapeutic Exercises Supine Exercises 2 Supine Exercise Name shoulder flexion Reps/Minutes 2x10 shoulder flexion Supine Exercise Name 2# full range Side right Reps/Minutes 2x10 ER Supine Exercise Name T band #1 Reps/Minutes 3x10 Prone Exercises prone I , T ,Y Side right Resistance 2# Reps/Minutes 8 x 2 Comments modified to kneeling on table Sidelying Exercises SL ER Sidelying Exercise Name 2# Side right Reps/Minutes 2x10 shd abd Sidelying Exercise Name Full ROM Side right Equipment Used 2# Reps/Minutes [id number] Manual Therapy Treatment Soft Tissue Mobilization RTC Body Location infraspinatus, supraspinatus, levator scapulae Mobilization Type Myofascial Release,Trigger Point Release Comments trigger point release to infra /supra and levator to improve scapular depression and stability PT-OP-R Modalities Start: 02/23/20 09:21 Freq: Status: Active Protocol: Document 03/14/20 15:18 SAK (Rec: 03/14/20 16:09 SAK [id number]) Hot Pack/Cold Pack Treatment Cold Pack Location right shoulder Patient Position Sitting Treatment Duration (minutes) 10 Patient Tolerance Good PT-OP-T Assessment and Plan Start: 02/23/20 09:21 Freq: Status: Active Protocol: Document 06/03/20 14:15 AMB (Rec: 06/03/20 15:32 AMB [id number]) Physical Therapy Assessment Assessment Summary Assessment Yelitza continues to be weak into ER, but continues to be very motivated and should be able to improve his strength with time. He does feel like the shoulder is overal feeling better. Physical Therapy Plan Next Visit Focus/Plan Next Note Type Treatment Note Next Visit Plan Progress resistance- flexion- scaption is still hard in standing/seated. Progress ER.
--- NOTE | 2020-06-10 15:47 | PT.OTN ---
Current Diagnoses Complete rotator cuff tear or rupture of right shoulder, not specified as traumatic (06/10/20) Strain of muscle(s) and tendon(s) of the rotator cuff of right shoulder, initial encounter (06/10/20) Physical Therapy Treatment Note PT-OP-A Visit Information Start: 02/23/20 09:21 Freq: Status: Active Protocol: Document 06/10/20 14:15 AMB (Rec: 06/10/20 14:33 AMB [id number]) Out-Patient Physical Therapy Visit Information Visit Information Visit Type Treatment Note Visit Start Time 14:15 Visit Stop Time 15:00 Total Visit Minutes 45 Visit Number 26 PT-OP-B Current Condition Start: 02/23/20 09:21 Freq: Status: Active Protocol: Document 02/23/20 10:15 AMB (Rec: 02/23/20 13:56 AMB [email or web address]) Current Condition History of Current Condition Onset Date 01/12/20 Current Complaints R rotator cuff repair ( revision) History of Current Condition Yelitza attends PT after his second R rotator cuff repair. He is 6 weeks post op, and has d/urszula his sling during the day but sleeps better with it on. 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 He states that he has not been moving the arm away from his body as he is concerned about worsening the surgery like he did the first time by weightbearing too much through the arm too soon during bed mobility. Prior Treatments and Tests MRI: 09/04 full thickness supra and infraspinatus tear, incomplete subscap tear Prior Functional Status Baseline Function- ADL's Independent Baseline Function- Mobility Independent Current Functional Impairments (Reported) Functional Limitations- ADL's Pt reports able to dress himself and cook, but must do these activites with left hand Personal Factors Other Personal Factors That May Effect Fibromyalgia, CHF Therapy/Recovery PT-OP-C Subjective Start: 02/23/20 09:21 Freq: Status: Active Protocol: Document 06/10/20 14:15 AMB (Rec: 06/10/20 14:33 AMB [id number]) OP-PT Subjective Patient Comments Patient Comments No shoulder pain with yardwork . Back has been bothersome. PT-OP-J Posture/Palpation/Skin Start: 02/23/20 09:21 Freq: Status: Active Protocol: Document 02/23/20 10:15 AMB (Rec: 02/23/20 13:56 AMB [email or web address]) Palpation Assessment Location R RTC Palpation Details Tenderness along scapula and anterior shoulder PT-OP-K Range of Motion Start: 02/23/20 09:21 Freq: Status: Active Protocol: Document 05/17/20 13:30 AMB (Rec: 05/17/20 13:53 AMB [id number]) Shoulder Goniometric Range of Motion Shoulder Right Passive Flexion 160 Abduction 150 Right Active Testing Position Sitting Flexion 87 Abduction 55 PT-OP-Q Treatments Start: 02/23/20 09:21 Freq: Status: Active Protocol: Document 06/10/20 14:15 AMB (Rec: 06/10/20 15:47 AMB [email or web address]) Therapeutic Exercises Supine Exercises 4 Supine Exercise Name alternating isometrics Comments flex/ext/ abd/add Sidelying Exercises SL ER Sidelying Exercise Name 2# Side right Reps/Minutes 2x10 shd abd Sidelying Exercise Name Full ROM Side right Equipment Used 2# Reps/Minutes [id number] Standing Exercises ER Standing Exercise Name T band #1 Reps/Minutes 3x5 IR Standing Exercise Name t band #3 Reps/Minutes 3x5 flex Standing Exercise Name eccentric control Reps/Minutes 10 Comments AAROM up, AROM down ext Side right Resistance level 2 Equipment Used TB Reps/Minutes 10 Comments education for scapular depression and avoiding hyperextension Manual Therapy Treatment Joint Mobilizations inferior glide Joint R GHJ Inferior and posterior Grade III Body Position Supine Comments no pain noted during mobilization with shoulder in 90 degrees of abduction post glide Joint R GHJ Grade III Body Position Supine PT-OP-R Modalities Start: 02/23/20 09:21 Freq: Status: Active Protocol: Document 03/14/20 15:18 SAK (Rec: 03/14/20 16:09 SAK [id number]) Hot Pack/Cold Pack Treatment Cold Pack Location right shoulder Patient Position Sitting Treatment Duration (minutes) 10 Patient Tolerance Good PT-OP-T Assessment and Plan Start: 02/23/20 09:21 Freq: Status: Active Protocol: Document 06/10/20 14:15 AMB (Rec: 06/10/20 15:47 AMB [email or web address]) Physical Therapy Assessment Assessment Summary Assessment Yelitza continues to have external rotation weakness but his active flexion is coming along nicely. Physical Therapy Plan Next Visit Focus/Plan Next Note Type Treatment Note Next Visit Plan Progress resistance- flexion- scaption is still hard in standing/seated. Progress ER.
--- NOTE | 2020-06-17 16:00 | PT.OTN ---
Current Diagnoses Complete rotator cuff tear or rupture of right shoulder, not specified as traumatic (06/17/20) Strain of muscle(s) and tendon(s) of the rotator cuff of right shoulder, initial encounter (06/17/20) Physical Therapy Treatment Note PT-OP-A Visit Information Start: 02/23/20 09:21 Freq: Status: Active Protocol: Document 06/17/20 14:15 AMB (Rec: 06/17/20 14:24 AMB [id number]) Out-Patient Physical Therapy Visit Information Visit Information Visit Type Treatment Note Visit Start Time 14:15 Visit Stop Time 15:00 Total Visit Minutes 45 Visit Number 27 PT-OP-B Current Condition Start: 02/23/20 09:21 Freq: Status: Active Protocol: Document 02/23/20 10:15 AMB (Rec: 02/23/20 13:56 AMB [email or web address]) Current Condition History of Current Condition Onset Date 01/12/20 Current Complaints R rotator cuff repair ( revision) History of Current Condition Yelitza attends PT after his second R rotator cuff repair. He is 6 weeks post op, and has d/urszula his sling during the day but sleeps better with it on. 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 He states that he has not been moving the arm away from his body as he is concerned about worsening the surgery like he did the first time by weightbearing too much through the arm too soon during bed mobility. Prior Treatments and Tests MRI: 09/04 full thickness supra and infraspinatus tear, incomplete subscap tear Prior Functional Status Baseline Function- ADL's Independent Baseline Function- Mobility Independent Current Functional Impairments (Reported) Functional Limitations- ADL's Pt reports able to dress himself and cook, but must do these activites with left hand Personal Factors Other Personal Factors That May Effect Fibromyalgia, CHF Therapy/Recovery PT-OP-C Subjective Start: 02/23/20 09:21 Freq: Status: Active Protocol: Document 06/17/20 14:15 AMB (Rec: 07/09/20 09:07 AMB [email or web address]) OP-PT Subjective Patient Comments Patient Comments Yelitza feels ready to be discharged, he is independent with his HEP and while his arm function is in no way equal to the other, he feels prepared to continue exercising on his own. PT-OP-J Posture/Palpation/Skin Start: 02/23/20 09:21 Freq: Status: Active Protocol: Document 02/23/20 10:15 AMB (Rec: 02/23/20 13:56 AMB [email or web address]) Palpation Assessment Location R RTC Palpation Details Tenderness along scapula and anterior shoulder PT-OP-K Range of Motion Start: 02/23/20 09:21 Freq: Status: Active Protocol: Document 05/17/20 13:30 AMB (Rec: 05/17/20 13:53 AMB [id number]) Shoulder Goniometric Range of Motion Shoulder Right Passive Flexion 160 Abduction 150 Right Active Testing Position Sitting Flexion 87 Abduction 55 PT-OP-Q Treatments Start: 02/23/20 09:21 Freq: Status: Active Protocol: Document 06/17/20 14:15 AMB (Rec: 07/09/20 09:07 AMB [email or web address]) Cardio Equipment Upper Body Ergometer (UBE) Duration (Minutes) 7 Other fwd backward Therapeutic Exercises Supine Exercises 4 Supine Exercise Name alternating isometrics Comments flex/ext/ abd/add 2 Supine Exercise Name shoulder flexion Reps/Minutes 2x10 Comments 2# ER Supine Exercise Name T band #1 Reps/Minutes 3x10 Prone Exercises prone I , T ,Y Side right Resistance 2# Reps/Minutes 8 x 2 Comments modified to kneeling on table Sidelying Exercises SL ER Sidelying Exercise Name 2# Side right Reps/Minutes 2x10 shd abd Sidelying Exercise Name Full ROM Side right Equipment Used 2# Reps/Minutes [id number] Standing Exercises ext Side right Resistance level 2 Equipment Used TB Reps/Minutes 10 Comments education for scapular depression and avoiding hyperextension Manual Therapy Treatment Soft Tissue Mobilization RTC Body Location infraspinatus, supraspinatus, levator scapulae Mobilization Type Myofascial Release,Trigger Point Release Comments trigger point release to infra /supra and levator to improve scapular depression and stability Joint Mobilizations inferior glide Joint R GHJ Inferior and posterior Grade III Body Position Supine Comments no pain noted during mobilization with shoulder in 90 degrees of abduction PT-OP-R Modalities Start: 02/23/20 09:21 Freq: Status: Active Protocol: Document 03/14/20 15:18 SAK (Rec: 03/14/20 16:09 SAK [id number]) Hot Pack/Cold Pack Treatment Cold Pack Location right shoulder Patient Position Sitting Treatment Duration (minutes) 10 Patient Tolerance Good PT-OP-T Assessment and Plan Start: 02/23/20 09:21 Freq: Status: Active Protocol: Document 06/17/20 14:37 AMB (Rec: 06/17/20 15:03 AMB [id number]) Physical Therapy Assessment Goals pain Impairment pt has consistent pain at 6 during activities. Dinkey Dispatcher Goal (LTG) Pt will have pain no more than 2/10 for any shoulder related movements. outside of reaching activities. LTG Duration MET Strength Impairment significant strength loss Dinkey Dispatcher Goal (LTG) Pt will show 4/5 MMT grade to improve his R shoulder strength so he can start providing care for his mom and hold a 1 -2 lb weight of water bottle. NOT MET External rotation remains quite weak. LTG Duration 12 weeks ROM Impairment significant AROM loss Short Term Goal (STG) Yelitza will improve his ROM to 170 degreees flexion. NOT MET , getting close passively, limited to 120 degrees when seated for AROM, almost normal ROM when assessed in supine. STG Duration 6 weeks Retirement Goal (LTG) Yelitza will improve his ROM to 160 degrees of abduction NOT MET limited to 80 degrees actively in seated, good passive range. LTG Duration 12 weeks Assessment Summary Assessment Yelitza has not met all of his strength or ROM goals, but feels like he will be able to improve independently with time. Would suggest that, if he does not feel like he is improving appropriately, he return to physical therapyin 3 -6 months for further assessment, but he is quite motivated and consistent with his HEP so he should be able to improve at this point. He has shown good progress in PT, but continues to be limited with above shoulder flexion and abduction and continues to be weak in ER against gravity . Physical Therapy Plan Discharge Physical Therapy Discharge Reasons Plateau in Progress
== END 2020-07-12 14:42 | disposition home or self-care (01) ==
LOC: PHYS 14:15
PROVIDERS: PCP Family Medicine; Referring Provider Orthopaedic Surgery; Visit Provider Orthopaedic Surgery
DX: S46.011A Strain of muscle(s) and tendon(s) of the rotator cuff of right shoulder, initial encounter (principal); M75.121 Complete rotator cuff tear or rupture of right shoulder, not specified as traumatic
CPT/HCPCS: 97110; 97140; 97162

== ENCOUNTER → 2020-07-13 13:33 | Outpatient (CLI) | payer OTHER, SELFPAY ==
[2020-02-17 10:59] VITALS: BP 108/64; BMI 27.6
[2020-07-13] MEDS: COVID-19 VACC #2, MRNA(MOD) 100 MCG/0.5 ML VIAL IM (13:52)
== END ==
PROVIDERS: PCP Family Medicine; Visit Provider Internal Medicine
DX: Z23 Encounter for immunization (principal)
CPT/HCPCS: 0012A; 91301

== ENCOUNTER → 2020-11-09 09:18 | Outpatient (CLI) | payer OTHER, SELFPAY ==
[2020-02-17 10:59] VITALS: BP 108/64; BMI 27.6
[2020-11-09 12:15] LABS: COVID-19 CEPHEID PCR (VTM/NP) Negative (Negative)
== END ==
PROVIDERS: PCP Family Medicine; Visit Provider Physician Assistant
DX: Z20.822 Contact with and (suspected) exposure to COVID-19 (principal)
CPT/HCPCS: U0003

== ENCOUNTER → 2021-01-30 11:33 | Outpatient (CLI) | payer OTHER, SELFPAY ==
[2020-02-17 10:59] VITALS: BP 108/64; BMI 27.6
--- NOTE | 2021-01-30 | DI.RAD.S_ITS ---
PROCEDURE: XR LUMBAR SPINE 2-3V INDICATIONS: LOW BACK PAIN TECHNIQUE: 3 views of the lumbar spine were acquired. COMPARISON: None. FINDINGS: Bones: 5 [id number] vertebrae are present. There is normal bony alignment. No vertebral body compression fractures. No suspicious bony lesions. Extensive multilevel degenerative disc disease and facet arthropathy. Suspect canal stenosis. Soft tissues: Overlying bowel gas pattern is normal. No suspicious soft tissue calcifications. IMPRESSION: Extensive degenerative change. Suspect canal stenosis. No evidence acute bony abnormality of the lumbar spine. If clinical suspicion and/or symptoms persist, further assessment with repeat plain films, or advanced imaging (e.g., CT, MRI, or bone scan) may be helpful for further assessment. Dictated by: Sabas Barrera M.D. on 01/30/2021 at 17:27 Approved by: Sabas Barrera M.D. on 01/30/2021 at 17:28
== END ==
PROVIDERS: PCP Family Medicine; Referring Provider Chiropractor; Visit Provider Chiropractor
DX: M47.816 Spondylosis without myelopathy or radiculopathy, lumbar region; M51.36 Other intervertebral disc degeneration, lumbar region
CPT/HCPCS: 72100

== ENCOUNTER → 2021-02-24 10:21 | Outpatient (CLI) | payer OTHER, MEDICARE, SELFPAY ==
[2021-02-01 14:24] VITALS: BP 108/64; BMI 27.6
[2021-02-24 12:34] LABS: Thyroid Stimulating Hormone 6.08 uIU/mL (0.47-4.68)
== END ==
PROVIDERS: PCP Family Medicine; Referring Provider Family Medicine; Visit Provider Family Medicine
DX: E03.9 Hypothyroidism, unspecified (principal)
CPT/HCPCS: 36415; 84443

== ENCOUNTER → 2021-05-03 08:37 | Outpatient (CLI) | payer MEDICARE, SELFPAY ==
[2021-02-01 14:24] VITALS: BP 108/64; BMI 27.6
[2021-05-03 10:12] LABS: Thyroid Stimulating Hormone 7.03 uIU/mL (0.47-4.68)
== END ==
PROVIDERS: PCP Family Medicine; Referring Provider Family Medicine; Visit Provider Family Medicine
DX: E03.9 Hypothyroidism, unspecified (principal)
CPT/HCPCS: 36415; 84443

== ENCOUNTER → 2021-07-19 09:08 | Outpatient (CLI) | payer MEDICARE, OTHER, SELFPAY ==
[2021-07-12 12:35] VITALS: BP 108/64; BMI 27.6
[2021-07-19 13:49] LABS: COVID-19 CEPHEID PCR (VTM/NP) Negative (Negative)
== END ==
PROVIDERS: PCP Family Medicine; Visit Provider Family Medicine Sleep Medicine
DX: Z20.822 Contact with and (suspected) exposure to COVID-19 (principal)
CPT/HCPCS: C9803; U0003; U0005

== ENCOUNTER → 2021-07-26 09:53 | Outpatient (CLI) | payer MEDICARE, OTHER, SELFPAY ==
[2021-07-12 12:35] VITALS: BP 108/64; BMI 27.6
[2021-07-26 11:38] LABS: Prostate Specific Antigen 10.9 ng/mL (0.10-4.00)
[2021-07-26 11:40] LABS: Thyroid Stimulating Hormone 26.2 uIU/mL (0.47-4.68)
[2021-07-26 12:07] LABS: Free T4, Direct Thyroxine 0.86 ng/dL (0.78-2.19)
== END ==
PROVIDERS: PCP Family Medicine; Referring Provider Specialist; Visit Provider Family Medicine
DX: E03.9 Hypothyroidism, unspecified (principal); R97.20 Elevated prostate specific antigen [PSA]
CPT/HCPCS: 36415; 84153; 84439; 84443

== ENCOUNTER → 2021-08-08 09:12 | Outpatient (CLI) | payer MEDICARE, OTHER, SELFPAY ==
[2021-07-12 12:35] VITALS: BP 108/64; BMI 27.6
[2021-08-08 10:43] LABS: Prostate Specific Antigen 10.5 ng/mL (0.10-4.00)
== END ==
PROVIDERS: PCP Family Medicine; Referring Provider Specialist; Visit Provider Specialist
DX: N40.1 Benign prostatic hyperplasia with lower urinary tract symptoms (principal); R97.20 Elevated prostate specific antigen [PSA]; N13.8 Other obstructive and reflux uropathy; R68.89 Other general symptoms and signs
CPT/HCPCS: 36415; 51798; 81002; 84153; 99215

== ENCOUNTER → 2021-08-16 11:33 | Outpatient (CLI) | payer MEDICARE, OTHER, SELFPAY ==
[2021-07-12 12:35] VITALS: BP 108/64; BMI 27.6
--- NOTE | 2021-08-16 11:34 | DI.MRI.S_ITS ---
PROCEDURE: MR PELIS WO/W CON INDICATIONS: elevated psa and abnormal digital rectal exam TECHNIQUE: Coronal HASTE, axial T1 FSE with fat saturation, 3-plane nonbreath-hold T2 FSE. After the administration of contrast, dynamic axial, delayed axial and coronal VIBE or 2-D FLASH with fat saturation through the pelvis. Optional diffusion weighted imaging and ADC may be performed. COMPARISON: None. FINDINGS: Image quality: Diffusion weighted and dynamic contrast enhanced images are diagnostic. Prostate: Gland size is 5.3 x 3.6 by 4.4 cm; ellipsoid gland volume is 43.7 mL. Lesion size(s): Lesion 1: 2.0 x 1.6 x 2.4 cm Lesion location(s) (sector): Lesion 1: Left apex involving the anterior transition and anterior peripheral zones as well as anterior fibromuscular stroma. It extends across the midline to involve the right anterior transition zone. Lesion description: Lesion 1: Lobulated two irregular shape with indistinct margins abutting the capsule probably causing anterior bulge. T2 weighted imaging (T2WI) morphology score: Lesion 1: Five Diffusion weighted imaging (DWI) morphology score: Lesion 1: Five Dynamic contrast enhancement (DCE): Lesion 1: Present Lesion PI-RADS score: Lesion 1: PI-RADS five Genitourinary system: Bladder wall thickness is normal. Distal ureters are non distended. Bowel and peritoneum: No pathologic free pelvic fluid. Inferior colon and small bowel loops are normal in caliber. Nodes and vessels: No pelvic or inguinal adenopathy by size criteria. Iliac vessels are normal in caliber. Soft tissues: No inguinal hernias. Bones: Marrow demonstrates normal overall signal, without lesions to suggest metastases. IMPRESSION: 1. 2.0 cm PI-RADS five lesion in the left anterior apex of the gland. There are findings concerning for extraprostatic extension. 2. No pelvic adenopathy. Dictated by: Ramya Palomino M.D. on 08/16/2021 at 14:43 Approved by: Ramya Palomino M.D. on 08/16/2021 at 15:00
== END ==
PROVIDERS: PCP Family Medicine; Referring Provider Specialist; Visit Provider Specialist
DX: R97.20 Elevated prostate specific antigen [PSA] (principal)
CPT/HCPCS: 72197; A9579

== ENCOUNTER → 2021-10-30 11:43 | Outpatient (CLI) | payer MEDICARE, OTHER, SELFPAY ==
[2021-07-12 12:35] VITALS: BP 108/64; BMI 27.6
[2021-10-30 14:06] LABS: Thyroid Stimulating Hormone 3.67 uIU/mL (0.47-4.68)
== END ==
PROVIDERS: PCP Family Medicine; Referring Provider Family Medicine; Visit Provider Family Medicine
DX: E03.9 Hypothyroidism, unspecified (principal)
CPT/HCPCS: 36415; 84443

== ENCOUNTER → 2021-11-30 10:01 | Outpatient (CLI) | payer MEDICARE, OTHER, SELFPAY ==
[2021-07-12 12:35] VITALS: BP 108/64; BMI 27.6
--- NOTE | 2021-11-30 10:03 | DI.NM.S_ITS ---
PROCEDURE: NM BONE SCAN WHOLE BODY RADIOPHARMACEUTICAL: 21.9 mCi Tc-99m MDP IV. INDICATIONS: PROSTATE CANCER TECHNIQUE: Delayed whole-body scintigrams were obtained approximately 3-4 hours after intravenous injection of radiotracer. Anterior and posterior views were acquired from vertex to feet. Additional oblique views of the pelvis were obtained. COMPARISON: [facility], MR, MR PELVIS WO/W CON, 08/16/2021, 12:06. FINDINGS: No lesions are identified in skull, sternum, clavicles, scapulae, ribs, bony pelvis, and visualized shafts of the long bones. Scoliosis in thoracolumbar spine. There is low level increased uptake in cervical, thoracic and lumbar spine with distribution indistinguishable from degenerative disc and facet disease; early metastasis to spine could be obscured by degenerative changes. There are foci of increased periarticular activity involving, compatible with degenerative/arthritic changes. IMPRESSION: No definitive scintigraphic findings to suggest osseous metastases. Dictated by: Stephan Fierro M.D. on 11/30/2021 at 16:56 Approved by: Stephan Fierro M.D. on 11/30/2021 at 17:29
== END ==
PROVIDERS: PCP Family Medicine; Referring Provider Urology; Visit Provider Urology
DX: C61 Malignant neoplasm of prostate (principal)
CPT/HCPCS: 78306; A9503

== ENCOUNTER → 2022-08-09 14:49 | Outpatient (CLI) | payer MEDICARE, OTHER, SELFPAY ==
[2021-07-12 12:35] VITALS: BP 108/64; BMI 27.6
[2022-08-09 17:09] LABS: Prostate Specific Antigen < 0.064 ng/mL (0.10-4.00)
== END ==
PROVIDERS: PCP Family Medicine; Referring Provider Urology; Visit Provider Urology
DX: C61 Malignant neoplasm of prostate (principal)
CPT/HCPCS: 36415; 84153

== ENCOUNTER 2022-09-28 18:38 | Emergency (ER) | payer MEDICARE, OTHER, SELFPAY ==
[2021-07-12 12:35] VITALS: BP 108/64; BMI 27.6
[2022-09-28] VITALS (8 sets, daily range): BP systolic 124–157; BP diastolic 77–90; PULSE 58–70; RESP 13–18; TEMP 36.9; O2SAT 93–98; BMI 27.8
[2022-09-28 19:16] LABS: Add Manual Diff / Slide Review NO; Basophils Absolute Auto 0 /uL (0-100); Basophils Percent Auto 0.5 % (0-2); Eosinophils Absolute Auto 100 /uL (0-450); Eosinophils Percent Auto 1.6 % (2-4); Hematocrit 44.2 % (41-53); Hemoglobin 15.2 g/dL (13.5-17.5); Lymphocytes Absolute Auto 900 /uL (1100-4500); Lymphocytes Percent Auto 11.8 % (25-40); Mean Corpuscular HGB Conc 34.5 % (30-36); Mean Corpuscular Hemoglobin 30.3 PG (26-34); Mean Corpuscular Volume 87.7 fL (80-100); Monocytes Absolute Auto 700 /uL (0-900); Monocytes Percent Auto 9.7 % (3-14); Neutrophils Absolute Auto 5900 /uL (1500-7000); Neutrophils Percent Auto 76.4 % (50-75); Platelet Count 218 X10^3/uL (150-400); Red Blood Cell Count 5.03 X10^6/uL (4.5-5.9); Red Cell Distribution Width 13.4 % (11.6-14.8); White Blood Cell Count 7.7 X10^3/uL (4.5-11.0)
[2022-09-28 19:28] LABS: Alanine Aminotransferase 24 IU/L (<50); Albumin 4.4 g/dL (3.5-5.0); Albumin Globulin Ratio 1.4 (1.0-2.8); Alkaline Phosphatase 71 U/L (38-126); Aspartate Aminotransferase 34 IU/L (17-59); BUN Creatinine Ratio 21.9 (6-22); Bilirubin Total 0.9 mg/dL (0.2-1.3); Blood Urea Nitrogen 23 mg/dL (9-20); Calcium 9.4 mg/dL (8.4-10.2); Carbon Dioxide 31 mmol/L (22-32); Chloride 101 mmol/L (98-107); Creatine Kinase 213 U/L (55-170); Estimated Glomerular Filt Rate > 60 mL/min (>60); Globulin 3.1 g/dL (1.7-4.1); Glucose 109 mg/dL (80-110); HEMOLYSIS < 15 (0-50); Lipase 66 U/L (23-300); Potassium 4.3 mmol/L (3.4-5.1); Sodium 139 mmol/L (137-145); Total Protein 7.5 g/dL (6.3-8.2)
[2022-09-28 19:40] LABS: Troponin I < 0.012 ng/mL (0.01-0.034)
--- NOTE | 2022-09-28 22:09 | ED_ITS ---
HPI - General Adult General Chief complaint: Abdominal Pain Stated complaint: back pain/stomach pain Time Seen by Provider: 09/28/22 21:33 Source: patient and family Mode of arrival: Ambulatory History of Present Illness HPI narrative: Patient is a 67-year-old male who is here for evaluation of stomach discomfort and also back pain. He states that it occurred earlier this afternoon. It was after he ate lunch. He states he went outside and was working outside for a period of time and his symptoms were not getting any better so he decided to come back in. He did take some omeprazole and also some Gaviscon without any improvement of symptoms. He denies chest pain. No shortness of breath. No change in bowel habits. No urinary symptoms. Describes the pain in his epigastric region going down the front of his abdomen. Back pain is not worse with palpation or movement. Has not had any symptoms like this in the past. He has had a prostatectomy secondary to prostate cancer. He is also had his appendix removed. Related Data Home Medications Medication Instructions Recorded Confirmed fluticasone propionate 50 1 spray intranasal QDAY ##0 02/17/16 06/11/22 mcg/actuation nasal spray,suspension (Flonase Allergy Relief) acetaminophen 325 mg capsule 650 mg PO Q4H PRN Pain, Mild 09/07/17 06/11/22 (Tylenol) cholecalciferol (vitamin D3) 125 5,000 unit PO DAILY 09/07/17 06/11/22 mcg (5,000 unit) tablet (Vitamin D3) multivitamin 1 tab PO DAILY 09/07/17 06/11/22 niacin 500 mg tablet 500 mg PO DAILY 09/07/17 06/11/22 omega 3 350 mg-dha 235 mg-epa 90 1 tab PO DAILY 09/07/17 06/11/22 mg-fish oil 597 mg capsule,delay rel ([place]-3) magnesium 200 mg tablet 400 mg PO BID 07/12/21 06/11/22 rivaroxaban [Xarelto] PO 09/19/21 06/11/22 amiodarone 100 mg tablet 50 mg PO .EVERYOTHERDAY 12/07/21 06/11/22 fluticasone propionate 50 1 inh inhalation BID 12/07/21 06/11/22 mcg/actuation blister powder for inhalation (Flovent Diskus) Previous Rx's Medication Instructions Recorded furosemide 20 mg tablet See Rx Instructions .Route 09/15/20 .COMPLEX #90 tabs fosfomycin tromethamine 3 gram 3 g PO ONCE #1 ea 09/07/21 oral packet (Monurol) pregabalin 75 mg capsule (Lyrica) 75 mg PO TID #270 caps 01/24/22 pregabalin 200 mg capsule See Rx Instructions PO .prn #90 02/13/22 caps metoprolol succinate 25 mg See Rx Instructions .Route 05/10/22 tablet,extended release 24 hr .COMPLEX #180 tabs tamsulosin 0.4 mg capsule (Flomax) 0.8 mg PO DAILY #180 caps 05/10/22 valsartan 40 mg tablet See Rx Instructions .Route 05/10/22 .COMPLEX #90 tabs bupropion HCl 150 mg tablet,12 hr 150 mg PO BID #180 tabs 06/06/22 sustained-release omeprazole 20 mg capsule,delayed 20 mg PO BID #180 caps 06/08/22 release thyroid (pork) 120 mg tablet (CHIROPRACTIC NEUROLOGIST 120 mg PO DAILY #90 tabs 07/19/22 Thyroid) tramadol 50 mg tablet See Rx Instructions .Route 08/15/22 .COMPLEX #60 tabs levothyroxine 175 mcg tablet 175 mcg PO DAILY #90 tabs 08/30/22 metoclopramide HCl 10 mg tablet 10 mg PO Q6H PRN nausea and 09/29/22 (Reglan) vomiting #14 tabs Allergies Allergy/AdvReac Type Severity Reaction Status Date / Time azithromycin Allergy Mild RASH Verified 09/28/22 18:41 Penicillins Allergy Mild RASH Verified 09/28/22 18:41 simvastatin Allergy Mild ACHES Verified 09/28/22 18:41 Sulfa (Sulfonamide Allergy Mild RASH Verified 09/28/22 18:41 Antibiotics) Calcium Channel Yunier Allergy Mild RASH Uncoded 06/11/22 10:35 Review of Systems Constitutional Constitutional: Reports system reviewed and no additional complaints, except as documented Gastrointestinal Gastrointestinal: Reports system reviewed and no additional complaints, except as documented Genitourinary Genitourinary: Reports system reviewed and no additional complaints, except as documented Integumentary/Breasts Skin/Breast: Reports system reviewed and no additional complaints, except as documented Hematologic/Lymphatic On Anticoagulants: Yes Patient History Medical History Abnormal CXR (chest x-ray) (2002) Abnormal digital rectal exam Afib Allergy to mold (~2011) BPH w urinary obs/LUTS Cardiac arrhythmia (2004) Cardiomyopathy Chicken pox Chronic systolic heart failure CTS (carpal tunnel syndrome) (1999) Essential hypertension (09/26/10) Fibromyalgia (2009) GERD (gastroesophageal reflux disease) Hayfever (2011) High prostate specific antigen (PSA) Hyperlipidemia (09/26/10) Hypothyroidism (01/20/14) Measles Morphea Mumps Osteoarthritis Prostate cancer Sarcoidosis Shoulder pain Sleep apnea (2002) Trigger finger (2014) Vitiligo (~1994) Surgical History Anesthesia History of cardiac radiofrequency ablation (RFA) (2004) History of carpal tunnel repair (1979) History of carpal tunnel repair (2011) History of nasal surgery (~2012) History of orthopedic surgery (~1959) History of thoracic surgery (2004) Status post appendectomy (1977) Status post eye surgery Family History Brother Overweight History of Coumadin therapy Father Psoriasis Mother Hypertension Depression Circulation disorder of lower extremity Social History marital status: number of children: 2 household members: spouse and family pets and animals: Yes education level: college [employer]/syn[employer]: [employer] seatbelt use: always water heater temp set < 120 deg: Yes working smoke detector in home: Yes fire extinguisher in home: Yes Smoking Status: Never smoker alcohol intake: never caffeine: Yes (1-2 per day) Smoking Status: Never smoker alcohol intake frequency: other Substance Use Type: does not use Exam Initial Vital Signs Initial Vital Signs: Vital Signs Temperature 98.4 F 09/28/22 18:41 Pulse Rate 63 09/28/22 18:41 Respiratory Rate 18 09/28/22 18:41 Blood Pressure 156/88 H 09/28/22 18:41 Pulse Oximetry 96 09/28/22 18:41 Oxygen Delivery Method Room Air 09/28/22 18:41 HENMT Head: normal to inspection Face and sinus: normal facial exam Resp Effort & Inspection: normal respiratory effort Auscultation: clear to auscultation bilaterally Cardio Rate: regular rate Rhythm: regular rhythm GI Inspection: normal to inspection and non-distended Palpation: soft, No firm and tender Back/Spine/Pelvis Back: No CVA tenderness Neuro General: patient alert and patient awake Extrem General: normal to inspection Course Orders Ordered: ED Orders 09/28/22 18:46 EKG-12 Lead Stat 09/28/22 19:00 Complete Blood Count AUTO DIFF Stat Comprehensive Metabolic Panel Stat Lipase Stat Troponin & CK Cardiac Panel Stat 09/28/22 22:09 CT abdomen pelvis w con Stat Discontinued Medications Sodium Chloride (Normal Saline 0.9%) 1,000 mls @ 1,000 mls/hr IV BOLUS ONE Stop: 09/28/22 23:08 Last Infusion: 09/28/22 23:26 Dose: 0 mls/hr Documented By: Admin: 09/28/22 22:42 Dose: 1,000 mls/hr Documented By: Metoclopramide HCl (Metoclopramide 10 Mg/2 Ml Inj) 10 mg IV NOW ONE Stop: 09/29/22 00:38 Last Admin: 09/29/22 00:41 Dose: 10 mg Documented By: Morphine Sulfate (Morphine 4 Mg/Ml Inj) 4 mg IV NOW ONE Stop: 09/28/22 23:29 Last Admin: 09/28/22 23:31 Dose: 4 mg Documented By: Ondansetron HCl (Ondansetron 4 Mg Odt) 4 mg PO NOW PRN PRN Reason: Nausea And Vomiting Ondansetron HCl (Ondansetron 4 Mg/2 Ml Inj) 4 mg IV NOW PRN PRN Reason: Nausea And Vomiting Last Admin: 09/28/22 23:35 Dose: 4 mg Documented By: Pantoprazole Sodium (Pantoprazole 40 Mg Vial) 40 mg IV NOW ONE Stop: 09/28/22 22:10 Last Admin: 09/28/22 22:42 Dose: 40 mg Documented By: Vital Signs Vital signs: Vital Signs - 8 hr 09/28/22 21:30 09/28/22 21:31 09/28/22 22:00 Pulse Rate 65 64 58 L Respiratory Rate 17 17 Blood Pressure 124/77 Pulse Oximetry 96 93 Oxygen Delivery Method 09/28/22 22:30 09/28/22 23:00 09/28/22 23:05 Pulse Rate 65 70 70 Respiratory Rate 13 17 Blood Pressure Pulse Oximetry 97 98 97 Oxygen Delivery Method 09/28/22 23:05 09/28/22 23:30 09/28/22 23:30 Pulse Rate 70 Respiratory Rate 14 Blood Pressure 157/90 H 154/79 H Pulse Oximetry 93 Oxygen Delivery Method 09/29/22 00:00 09/29/22 00:01 09/29/22 00:01 Pulse Rate 70 74 Respiratory Rate Blood Pressure 124/84 Pulse Oximetry Oxygen Delivery Method 09/29/22 00:30 09/29/22 00:30 09/29/22 01:00 Pulse Rate 66 Respiratory Rate 18 Blood Pressure 132/86 142/85 H Pulse Oximetry 94 Oxygen Delivery Method 09/29/22 01:00 Pulse Rate 70 Respiratory Rate 18 Blood Pressure Pulse Oximetry 97 Oxygen Delivery Method Room Air Medical Decision Making Medical Records Medical records reviewed: Yes I reviewed the patient's medical records. Lab Data Lab results reviewed: Yes I reviewed the patient's lab results. 09/28/22 19:00 09/28/22 19:00 Labs: Lab Results 09/28/22 09/28/22 09/28/22 Range/Units 19:00 19:00 19:00 WBC 7.7 (4.5-11.0) X10^3/uL RBC 5.03 (4.5-5.9) X10^6/uL Hgb 15.2 (13.5-17.5) g/dL Hct 44.2 (41-53) % MCV 87.7 (80-100) fL MCH 30.3 (26-34) PG MCHC 34.5 (30-36) % RDW 13.4 (11.6-14.8) % Plt Count 218 (150-400) X10^3/uL Neut % (Auto) 76.4 H (50-75) % Lymph % (Auto) 11.8 L (25-40) % [place] % (Auto) 9.7 (3-14) % Eos % (Auto) 1.6 L (2-4) % Baso % (Auto) 0.5 (0-2) % Neut # (Auto) 5900 (5329-8966) /uL Lymph # (Auto) 900 L (4980-5881) /uL [place] # (Auto) 700 (0-900) /uL Eos # (Auto) 100 (0-450) /uL Baso # (Auto) 0 (0-100) /uL Sodium 139 (137-145) mmol/L Potassium 4.3 (3.4-5.1) mmol/L Chloride 101 (98-107) mmol/L Carbon Dioxide 31 (22-32) mmol/L BUN 23 H (9-20) mg/dL Creatinine 1.05 (0.66-1.25) mg/dL Estimated GFR > 60 (>60) mL/min BUN/Creatinine Ratio 21.9 (6-22) Glucose 109 (80-110) mg/dL Calcium 9.4 (8.4-10.2) mg/dL Total Bilirubin 0.9 (0.2-1.3) mg/dL AST 34 (17-59) IU/L ALT 24 (<50) IU/L Alkaline Phosphatase 71 (38-126) U/L Total Creatine Kinase 213 H (55-170) U/L Troponin I < 0.012 (0.01-0.034) ng/mL Total Protein 7.5 (6.3-8.2) g/dL Albumin 4.4 (3.5-5.0) g/dL Globulin 3.1 (1.7-4.1) g/dL Albumin/Globulin Ratio 1.4 (1.0-2.8) Lipase 66 (23-300) U/L Imaging Data CT scan - abdomen/pelvis: Radiologist's Impression: PROCEDURE:? CT ABDOMEN PELVIS W CON ? INDICATIONS:? Generalized abdominal pain ? TECHNIQUE:? After the administration of IV contrast, axial sections were acquired from the lung bases to the pubic symphysis.? Coronal and sagittal reformats were performed.? For radiation dose reduction, the following was used:? automated exposure control, adjustment of mA and/or kV according to patient size. ? COMPARISON:? [facility], CT, ABDOMEN/PELVIS WITH CONTRAST, 09/09/2015, 8:04. ? FINDINGS:? Image quality:? Excellent.? ? Lung bases:? There are bilateral scattered nodules including the calcified nodules within the visualized lung bases redemonstrated compatible sequelae of old granulomatous disease.? ? Heart:? Heart is normal in size. ? ? ABDOMEN: Liver:? No mass lesion. Gallbladder:? Within normal limits without calcified gallstones.? ? Biliary ducts:? No biliary ductal dilatation.? ? Pancreas:? Unremarkable.? ? Spleen:? Normal in size.? ? Adrenal Glands:? No adrenal nodules.? ? Kidneys and Ureters:? No hydronephrosis.? ? ? Stomach and Bowel:? The stomach is prominently distended with mild wall thickening in the pylorus.? Small and large bowel loops are normal in caliber and wall thickness.? No pericecal inflammatory changes to suggest appendicitis.? There is colonic diverticulosis without acute diverticulitis. Peritoneum:? No abnormal intraperitoneal fluid.? No free air.? ? Ventral Wall: ? No hernia.? There is a hernia mesh along the ventral abdominal wall. Abdominal Nodes:? No retroperitoneal or mesenteric adenopathy by size criteria.? Vessels:? Aorta and inferior vena cava are normal in size.? ? PELVIS: Pelvic Organs:? Unremarkable.? ? Bladder:? Unremarkable.? ? Pelvic Nodes: No enlarged lymph nodes.? Miscellaneous: No inguinal hernias are seen. ? ? ? Bones:? Visualized osseous structures demonstrate no suspicious focal lesions. ? IMPRESSION:? ? 1. Prominent distention of the stomach with mild wall thickening in the pylorus of indeterminate clinical significance.? The findings are nonspecific and may reflect gastroparesis or a gastric outlet obstruction. ECG Data Attestation: I personally reviewed and interpreted this ECG as follows: Interpretation: Sinus rhythm Ventricular rate is 63 Right bundle-branch block Left anterior fascicular block Occasional PVCs No ST T wave changes MDM Narrative Medical decision making narrative: Patient reports improvement of symptoms after medications. CT scan shows no definitive signs of obstruction but does have distended stomach. I did discuss the case with Dr. Arriaga on-call with General surgery who evaluated the nohemy lopez's CT scan. She agreed that this was more consistent with a gastroenteritis. Again no definitive signs of obstruction. Patient is not vomiting but does have some nausea. Labs are unremarkable. Had a discussion with him and his at bedside. Plan to be is to discharged home with Reglan as this may help with gastric motility. I also advised that he most likely have diarrhea over the next couple days. We discussed return precautions specifically worsening discomfort and abdominal distention and vomiting. We also recommended a bland diet. Patient expressed understanding plan. Discharge Plan Departure Patient Disposition: Home Clinical Impression: Gastroenteritis, Abdominal pain Instructions: DI for Abdominal Pain-Adult Activity Restrictions/Additional Instructions: They do recommend a bland diet for the next couple days. I also would not be surprised if you start to have diarrhea. Use the Reglan as needed for any nausea. Return to the emergency department for new or worsening symptoms. Prescriptions: New metoclopramide HCl [Reglan] 10 mg tablet 10 mg PO Q6H PRN (Reason: nausea and vomiting) Qty: 14 0RF No Action amiodarone 100 mg tablet 50 mg PO .EVERYOTHERDAY Flovent Diskus 50 mcg/actuation blister with device 1 inh inhalation BID fluticasone propionate [Flonase Allergy Relief] 9.9 ML spray,suspension 1 spray Intranasal QDAY Qty: 0 furosemide 20 mg tablet See Rx Instructions .ROUTE .COMPLEX Qty: 90 0RF Dose Instruction: TAKE ONE TABLET BY MOUTH ONE TIME DAILY Rx Instructions: TAKE ONE TABLET BY MOUTH ONE TIME DAILY fosfomycin tromethamine [Monurol] 3 gram packet 3 g PO ONCE Qty: 1 0RF Rx Instructions: Take one day prior to procedure pregabalin [Lyrica] 75 mg capsule 75 mg PO TID Qty: 270 3RF Rx Instructions: Take one capsule 3 times a day along with one 200mg at bedtime pregabalin 200 mg capsule See Rx Instructions PO .prn Qty: 90 3RF Dose Instruction: TAKE ONE CAPSULE BY MOUTH AT BEDTIME Rx Instructions: TAKE ONE CAPSULE BY MOUTH AT BEDTIME PO .prn; valsartan 40 mg tablet See Rx Instructions .ROUTE .COMPLEX Qty: 90 3RF Dose Instruction: TAKE ONE TABLET BY MOUTH ONE TIME DAILY Rx Instructions: TAKE ONE TABLET BY MOUTH ONE TIME DAILY tamsulosin [Flomax] 0.4 mg capsule 0.8 mg PO DAILY Qty: 180 3RF metoprolol succinate 25 mg tablet extended release 24 hr See Rx Instructions .ROUTE .COMPLEX Qty: 180 3RF Dose Instruction: TAKE ONE TABLET BY MOUTH TWICE DAILY Rx Instructions: TAKE ONE TABLET BY MOUTH TWICE DAILY bupropion HCl 150 mg tablet sustained-release 12 hr 150 mg PO BID Qty: 180 3RF omeprazole 20 mg capsule,delayed release(DR/EC) 20 mg PO BID Qty: 180 1RF CHIROPRACTIC NEUROLOGIST Thyroid 120 mg tablet 120 mg PO DAILY Qty: 90 3RF tramadol 50 mg tablet See Rx Instructions .ROUTE .COMPLEX Qty: 60 0RF Dose Instruction: TAKE ONE TABLET BY MOUTH THREE TIMES NEEDED FOR MODERATE PAIN Rx Instructions: TAKE ONE TABLET BY MOUTH THREE TIMES NEEDED FOR MODERATE PAIN levothyroxine 175 mcg tablet 175 mcg PO DAILY Qty: 90 1RF multivitamin Tablet 1 tab PO DAILY niacin 500 mg Tablet 500 mg PO DAILY acetaminophen [Tylenol] 325 mg Capsule 650 mg PO Q4H PRN (Reason: Pain, Mild) cholecalciferol (vitamin D3) [Vitamin D3] 5,000 unit Tablet 5,000 unit PO DAILY omega 0-jqb-[id number]-fish oil [[place]-3] 350 mg-235 mg- 90 mg-597 mg Capsule,Delayed Release(Dr/Ec) 1 tab PO DAILY magnesium 200 mg tablet 400 mg PO BID rivaroxaban [Xarelto] PO Referrals: Adenike Rowe MD [Primary Care Provider] - Stand Alone Forms: Patient Portal/API
--- NOTE | 2022-09-28 22:09 | DI.CT.S_ITS ---
PROCEDURE: CT ABDOMEN PELVIS W CON INDICATIONS: Generalized abdominal pain TECHNIQUE: After the administration of IV contrast, axial sections were acquired from the lung bases to the pubic symphysis. Coronal and sagittal reformats were performed. For radiation dose reduction, the following was used: automated exposure control, adjustment of mA and/or kV according to patient size. COMPARISON: [facility], CT, ABDOMEN/PELVIS WITH CONTRAST, 09/09/2015, 8:04. FINDINGS: Image quality: Excellent. Lung bases: There are bilateral scattered nodules including the calcified nodules within the visualized lung bases redemonstrated compatible sequelae of old granulomatous disease. Heart: Heart is normal in size. ABDOMEN: Liver: No mass lesion. Gallbladder: Within normal limits without calcified gallstones. Biliary ducts: No biliary ductal dilatation. Pancreas: Unremarkable. Spleen: Normal in size. Adrenal Glands: No adrenal nodules. Kidneys and Ureters: No hydronephrosis. Stomach and Bowel: The stomach is prominently distended with mild wall thickening in the pylorus. Small and large bowel loops are normal in caliber and wall thickness. No pericecal inflammatory changes to suggest appendicitis. There is colonic diverticulosis without acute diverticulitis. Peritoneum: No abnormal intraperitoneal fluid. No free air. Ventral Wall: No hernia. There is a hernia mesh along the ventral abdominal wall. Abdominal Nodes: No retroperitoneal or mesenteric adenopathy by size criteria. Vessels: Aorta and inferior vena cava are normal in size. PELVIS: Pelvic Organs: Unremarkable. Bladder: Unremarkable. Pelvic Nodes: No enlarged lymph nodes. Miscellaneous: No inguinal hernias are seen. Bones: Visualized osseous structures demonstrate no suspicious focal lesions. IMPRESSION: 1. Prominent distention of the stomach with mild wall thickening in the pylorus of indeterminate clinical significance. The findings are nonspecific and may reflect gastroparesis or a gastric outlet obstruction. Dictated by: Samuel Magallon M.D. on 09/29/2022 at 0:00 Approved by: Samuel Magallon M.D. on 09/29/2022 at 0:06
[2022-09-28] MEDS: SODIUM CHLORIDE 0.9% 1,000 ML 1000 ML IV (22:42)
[2022-09-28] MEDS: PANTOPRAZOLE 40 MG VIAL IV (22:42)
[2022-09-28] MEDS: MORPHINE 4 MG/ML INJ IV (23:31)
[2022-09-28] MEDS: ONDANSETRON 4 MG/2 ML INJ IV (23:35)
[2022-09-29] VITALS: PULSE 70
[2022-09-29 00:01] VITALS: BP 124/84; PULSE 74
[2022-09-29 00:30] VITALS: BP 132/86; PULSE 66; RESP 18; O2SAT 94
[2022-09-29] MEDS: METOCLOPRAMIDE 10 MG/2 ML INJ IV (00:41)
[2022-09-29 01:00] VITALS: BP 142/85; PULSE 70; RESP 18; O2SAT 97
== END 2022-09-29 01:06 | disposition home or self-care (01) ==
PROVIDERS: Emergency Provider Emergency Medicine; PCP Family Medicine
DX: K52.9 Noninfective gastroenteritis and colitis, unspecified (principal); R10.9 Unspecified abdominal pain
CPT/HCPCS: 36415; 74177; 80053; 82550; 83690; 84484; 85025; 93005; 96361; 96374; 96375; 99284; C9113; J2270; J2405; J2765; Q9967

== ENCOUNTER → 2023-02-21 13:09 | Outpatient (CLI) | payer MEDICARE, OTHER, SELFPAY ==
[2021-07-12 12:35] VITALS: BP 108/64; BMI 27.6
[2023-02-21 14:35] LABS: Prostate Specific Antigen < 0.064 ng/mL (0.10-4.00)
[2023-02-21 14:38] LABS: TSH w/ Reflex to FT4 3.19 uIU/mL (0.47-4.68); Thyroid Stimulating Hormone 3.19 uIU/mL (0.47-4.68)
== END ==
PROVIDERS: PCP Family Medicine; Referring Provider Family Medicine; Visit Provider Family Medicine
DX: C61 Malignant neoplasm of prostate (principal); E03.9 Hypothyroidism, unspecified
CPT/HCPCS: 36415; 84153; 84443

== ENCOUNTER → 2023-08-01 11:33 | Outpatient (CLI) | payer MEDICARE, OTHER, SELFPAY ==
[2021-07-12 12:35] VITALS: BP 108/64; BMI 27.6
[2023-08-02 14:22] LABS: Prostate Specific Antigen < 0.064 ng/mL (0.10-4.00)
== END ==
PROVIDERS: PCP Family Medicine; Referring Provider Urology; Visit Provider Urology
DX: C61 Malignant neoplasm of prostate (principal)
CPT/HCPCS: 36415; 84153

== ENCOUNTER → 2023-10-02 14:23 | Outpatient (CLI) | payer MEDICARE, OTHER, SELFPAY ==
[2021-07-12 12:35] VITALS: BP 108/64; BMI 27.6
--- NOTE | 2023-10-02 14:24 | DI.RAD.S_ITS ---
PROCEDURE: XR SHOULDER RT MIN 2V INDICATIONS: pain TECHNIQUE: 3 views of the shoulder were acquired. COMPARISON: [facility], CR, XR SHOULDER RT MIN 2V, 01/29/2019, 12:32. FINDINGS: Bones: No fractures or dislocations. Marked narrowing of the acromiohumeral interval with remodeling of the acromion, worse compared to prior. Mild acromioclavicular and coracoclavicular joint space narrowing and juxta-articular osteophytosis. No suspicious bony lesions. Visualized ribs appear intact. Soft tissues: No suspicious soft tissue calcifications. IMPRESSION: 1. No acute bony abnormality. 2. Marked narrowing of the acromiohumeral interval with remodeling of the acromion, worse compared to prior dated January 29, 2019, compatible with rotator cuff injury. Recommend an MRI for further characterization. 3. Mild acromioclavicular and glenohumeral joint osteoarthritis. Dictated by: Ceci Garcia M.D. on 10/02/2023 at 16:59 Approved by: Ceci Garcia M.D. on 10/02/2023 at 17:00
== END ==
PROVIDERS: PCP Family Medicine; Referring Provider Family Medicine; Visit Provider Family Medicine
DX: M19.011 Primary osteoarthritis, right shoulder (principal); M25.519 Pain in unspecified shoulder
CPT/HCPCS: 73030

== ENCOUNTER → 2023-12-11 09:59 | Outpatient (CLI) | payer MEDICARE, OTHER, SELFPAY ==
[2021-07-12 12:35] VITALS: BP 108/64; BMI 27.6
--- NOTE | 2023-12-11 10:01 | DI.RAD.S_ITS ---
PROCEDURE: XR CERVICAL SPINE 2V OR 3V INDICATIONS: Neck pain TECHNIQUE: A total of 3 view(s) of the cervical spine were acquired. COMPARISON: None. FINDINGS: Bones: No fractures or dislocations to the T1 level. The lateral masses of C1 appear intact on the odontoid view. No suspicious bony lesions. Moderate degenerative changes seen at the disc spaces and facet joints, left greater than right, of the middle and lower thirds of the cervical spine, without subluxation Soft tissues: No prevertebral soft tissue swelling. IMPRESSION: No displaced fracture or traumatic subluxation. Moderate middle 3rd and lower 3rd cervical spine degenerative changes with potential for spinal and foraminal stenosis. Dictated by: Nico Vo M.D. on 12/12/2023 at 11:25 Approved by: Nico Vo M.D. on 12/12/2023 at 11:26
== END ==
PROVIDERS: PCP Family Medicine; Referring Provider Family Medicine; Visit Provider Family Medicine
DX: M47.812 Spondylosis without myelopathy or radiculopathy, cervical region (principal); M54.2 Cervicalgia; M54.10 Radiculopathy, site unspecified
CPT/HCPCS: 72040

== ENCOUNTER → 2023-12-21 07:25 | Outpatient (CLI) | payer MEDICARE, OTHER, SELFPAY ==
[2021-07-12 12:35] VITALS: BP 108/64; BMI 27.6
--- NOTE | 2023-12-21 07:26 | DI.MRI.S_ITS ---
PROCEDURE: MR CERVICAL SPINE WO CON INDICATIONS: neck pain TECHNIQUE: Noncontrast sagittal T1 spin echo and T2 fast spin echo, sagittal STIR, foraminal oblique sagittal T2 fast spin echo, and axial gradient echo or T2 fast spin echo through the cervical spine. COMPARISON: [facility], CR, XR CERVICAL SPINE 2V OR 3V, 12/11/2023, 10:09. FINDINGS: Image quality: Diagnostic, with note made of motion artifact. Alignment and Curvature: There is minimal retrolisthesis seen at C3-C4 and C5-C6. Bone Marrow: Marrow demonstrates normal overall signal. Spinal Cord: Visualized spinal cord has normal size and signal. No cerebellar tonsillar herniation. Paraspinous Soft Tissues: No paravertebral masses. Prevertebral soft tissues are normal in thickness. C2-C3: Normal appearance. C3-C4: Mild loss of disc height is seen. Loss of disc signal is seen. Mild to moderate disc bulge is seen, which is eccentric to the right. Moderate facet joint hypertrophy is seen. There is at least moderate right-sided and moderate to severe left-sided neural foraminal narrowing seen. Mild central canal narrowing is seen. C4-C5: The disc height and disk signal are relatively well-preserved. [id number] disc osteophyte complex is seen. There is mild right-sided and at least moderate left-sided facet hypertrophy. There is moderate left-sided and no right-sided neural foraminal narrowing. No central canal narrowing is seen. C5-C6: Moderate loss of disc height is seen. Loss of disc signal is seen. Reactive marrow endplate changes are seen posteriorly, which are hypointense on T1-weighted imaging and hyperintense on T2 weighted imaging, which is most consistent with edema (Modic type I changes). Uncovertebral joint hypertrophy is seen at this level. Moderate facet joint hypertrophy is seen. There is moderate to severe bilateral neural foraminal narrowing seen. Mild to moderate central canal narrowing is seen, with mild mass effect upon the ventral spinal cord. C6-C7: At least moderate loss of disc height and disc signal can be seen. At least moderate disc osteophyte complex is seen, which is slightly eccentric to the right. Uncovertebral joint hypertrophy is seen at this level. There is a central disc osteophyte protrusion. At least moderate facet hypertrophy can be seen on both sides. There is moderate to severe bilateral neural foraminal narrowing, right worse than left. Mild central canal narrowing is seen. C7-T1: No significant abnormality is seen. IMPRESSION: Multiple levels of cervical spine degenerative change can be seen, which are worst at C5-C6 and C6-C7. Dictated by: Luis Brown M.D. on 12/23/2023 at 11:02 Approved by: Luis Brown M.D. on 12/23/2023 at 11:07
== END ==
PROVIDERS: PCP Family Medicine; Referring Provider Family Medicine; Visit Provider Family Medicine
DX: M54.2 Cervicalgia (principal); M54.10 Radiculopathy, site unspecified; M47.812 Spondylosis without myelopathy or radiculopathy, cervical region
CPT/HCPCS: 72141

== ENCOUNTER 2024-05-07 08:24 | Outpatient (CLI) | payer MEDICARE, OTHER, SELFPAY ==
[2021-07-12 12:35] VITALS: BP 108/64; BMI 27.6
[2024-05-07] VITALS (9 sets, daily range): BP systolic 97–136; BP diastolic 62–73; PULSE 46–56; RESP 14–17; TEMP 36.4; O2SAT 93–99
--- NOTE | 2024-05-07 08:25 | DI.RAD.S_ITS ---
PROCEDURE: PAIN C/T INTERLAMINAR INJECT INDICATIONS: C6-7 translaminar KIET COMPARISON: None. FINDINGS/IMPRESSION: Fluoroscopic spot filming was performed to verify placement of spinal needles at the right C6-C7 level(s), as labeled on the films. Appropriate location(s) of the needle tip(s) was confirmed by injection of iodinated contrast. Approved by: Shanda Otto M.D.,Ph.D. on 05/07/2024 at 21:42
[2024-05-07] MEDS: MIDAZOLAM 2 MG/2 ML VIAL IV (09:31)
[2024-05-07] MEDS: DEXAMETHASONE 10 MG/ML VIAL 20 MG INJ (09:38)
[2024-05-07] MEDS: iopamidoL 15 ML VIAL 3 ML INJ (09:38)
[2024-05-07] MEDS: BUPIVACAINE 0.25% (PF) VIAL 2 ML INJ (09:38)
[2024-05-07] MEDS: DEXAMETHASONE 10 MG/ML VIAL INJ (09:40)
--- NOTE | 2024-05-07 09:51 | P.PCN_ITS ---
Date/Time/Diagnoses Date of procedure: 05/07/24 Time of procedure: 09:51 Pre-procedure diagnosis: 1. CERVICAL STENOSIS, 2. CERVICAL HNP WITH UPPER EXTREMITY RADICULAR FEATURES Post-procedure diagnosis: same Procedure Notes Procedure: 1. FLUORSCOPICALLY GUIDED CONTRAST CONTROLLED INTERLAMINAR EPIDURAL STEROID INJECTION - C6/7 TL KIET Indications: Yelitza is referred by Dr. Rowe for treatment of Cervical HNP with Upper Extremity Paresthesias. Physician: Cameron Alejandre Total Fluoroscopy time (seconds): 29 Total sedation minutes: 18 Complications: none Procedure in detail & Post-procedure care: FINDINGS Cervical Stenosis due to disc deterioration and nerve root irritation and nerve root irritation DESCRIPTION OF PROCEDURE Fluoroscopically guided, contrast-controlled C6/7 translaminar epidural steroid injection with conscious sedation. Following review of allergy and review of potential side effects and complications, including, but not necessarily limited to, infection, allergic reaction, local tissue breakdown, temporary as well as permanent nerve injury, stroke, paralysis, and possible , the patient indicated that patient understood and agreed to proceed. An informed consent document was signed by the patient, witnessed by a nurse, and placed in the patient's chart. Additionally, other treatment options including modalities, medications, and physical therapy were reviewed with the patient. After review of previous anaesthesic history and IV conscious sedation the patient was deemed safe to proceed with today?s procedure with IV conscious sedation as ASA class II designation. Safety time-out was performed to confirm patient ID, procedure to be performed and site of procedure. IV sedation was accomplished with a combination of 2mg of Versed administered by the RN after DO order, titrated to patient comfort during the course of the procedure while the patient remained responsive to all verbal commands. In the prone position, following sterile prep and drape of the cervical region, the C6/7 translaminar space was identified fluoroscopically. The skin was anesthetized via a 25-gauge 1.5-inch needle with 1% lidocaine solution. At this point, a 25-gauge, 2.5-inch short bevel spinal needle was atraumatically introduced and advanced under fluoroscopic guidance into epidural space at the C6/7 translaminar space. Depth was confirmed on lateral view. Radiological data, including multiple fluoroscopic views of the cervical spine, reveal a spinal needle at the C6/7 translaminar space. Lateral views then show placement of the needle in the epidural space. Subsequent views show contrast material flowing superiorly and inferiorly in the epidural space. DSA fluoroscopy with live contrast injection, once again, confirmed no vascular or intrathecal uptake. At this point, using loss of resistance technique with saline and air, the epidural space was entered. Following negative aspiration, injection of approximately 1.5 cc of Isovue-200 with live fluoroscopy in the AP view confirmed epidural flow in the epidural space without vascular or intrathecal uptake observed. Subsequently, a test dose of 1 cc of 1% lidocaine solution was injected and patient was observed for two minutes without signs or symptoms of complications, including abdominal pain, shortness of breath, bilateral upper or lower extremity weakness, nausea and vomiting, prior to steroid injection. At this point, 3cc or 370mg of dexamethasone was then injected without incident. The patient tolerated the procedure well without signs or symptoms of compli cations prior to being transferred to the recovery area for further monitoring, The patient was then transferred to the recovery area where they were observed for an appropriate period of time after the injection. The patient reported a VAS score of 6 prior to the procedure and a post-procedure VAS of 0. POST OP INSTRUCTIONS The patient was provided a Pain Log to continue to record their response to the target-specific procedure prior to follow-up visit with the referring provider. Additionally, specific post-injection care instructions and a contact number to our office were provided if concerns arise regarding possible complications associated with the procedure are suspected.
== END 2024-05-07 10:05 | disposition home or self-care (01) ==
PROVIDERS: PCP Family Medicine; Referring Provider Physical Medicine & Rehabilitation; Visit Provider Physical Medicine & Rehabilitation
DX: M48.02 Spinal stenosis, cervical region (principal); M50.123 Cervical disc disorder at C6-C7 level with radiculopathy
CPT/HCPCS: 62321; 99152; J1100; J2250; J3490

== ENCOUNTER 2024-09-01 09:14 | Outpatient (CLI) | payer MEDICARE, OTHER, SELFPAY ==
[2021-07-12 12:35] VITALS: BP 108/64; BMI 27.6
[2024-09-01] VITALS (10 sets, daily range): BP systolic 109–140; BP diastolic 56–73; PULSE 47–54; RESP 14–16; TEMP 36.4; O2SAT 92–99
[2024-09-01] MEDS: MIDAZOLAM 2 MG/2 ML VIAL IV (10:16)
[2024-09-01] MEDS: DEXAMETHASONE 10 MG/ML VIAL 30 MG INJ (10:23)
[2024-09-01] MEDS: iopamidoL 15 ML VIAL 3 ML INJ (10:23)
[2024-09-01] MEDS: BUPIVACAINE 0.25% (PF) VIAL 2 ML INJ (10:24)
--- NOTE | 2024-09-01 10:36 | P.PCN_ITS ---
Date/Time/Diagnoses Date of procedure: 09/01/24 Time of procedure: 10:37 Pre-procedure diagnosis: 1. FACET ARTHROPATHY 2. AXIAL NECK PAIN Post-procedure diagnosis: same Procedure Notes Procedure: 1. FLUOROSCOPICALLY GUIDED, CONTRAST-CONTROLLED RIGHT C3/4, C5/6 AND C6/7 FACET JOINT INJECTIONS WITH CONSCIOUS SEDATION. Indications: Yelitza is referred by Dr. Rowe for treatment of Axial Neck Pain Physician: Cameron Alejandre Total Fluoroscopy time (seconds): 8 Total sedation minutes: 14 Complications: none Procedure in detail & Post-procedure care: DESCRIPTION OF PROCEDURE Fluoroscopically guided, contrast-controlled right C3/4, C5/6 and C6/7 facet joint injections with conscious sedation. Following review of allergy and review of potential side effects and complications, including, but not necessarily limited to, infection, allergic reaction, local tissue breakdown, stroke, temporary or permanent nerve injury and paralysis, the patient indicated that the patient understood and agreed to proceed. An informed consent document was signed by the patient, witnessed by a nurse, and placed in the patient's chart. Additionally, other treatment options including medications, modalities, and physical therapy were reviewed with the patient. After review of previous anaesthesic history and IV conscious sedation the patient was deemed safe to proceed with today?s procedure with IV conscious sed ation as ASA class II designation. Safety time-out was performed to confirm patient ID, procedure to be performed and site of procedure. IV sedation was accomplished with a combination of 2mg of Versed was administered by the RN after DO order, titrated to patient comfort during the course of the procedure while the patient remained responsive to all verbal commands In the prone position, following sterile prep and drape of the cervical spine region, the posterior aspect of the right C3/4, C5/6 and C6/7 facet joints were identified fluoroscopically. The skin was anesthetized via a 25-gauge 1.5-inch needle with 1% lidocaine solution into the corresponding facet joints. At this point, a 25-gauge 2.5-inch spinal needle was atraumatically introduced and advanced under fluoroscopic guidance into the corresponding facet joints. Following negative aspiration, injections of approximately 0.2-cc of Isovue 200 confirmed interarticular placement without vascular uptake. At this point, a total of 1cc including 0.5cc or 5 mg of dexamethasone combined with 0.5cc of 1% lidocaine solution was injected without complication into each of the corresponding facet joints. The procedure tolerated the procedure well without signs or symptoms of complications prior to transfer to the recovery area continued monitoring without incident. The patient was then transferred to the recovery area where they were observed for an appropriate period of time after the injection. The patient reported a VAS score of 7 prior to the procedure and a post- procedure VAS of 1. POST OP INSTRUCTIONS They were provided a Pain Log to continue to record their response to the target-specific procedure prior to their follow-up visit with their referring physician. Additionally, specific post-injection care instructions and a contact number to our office were provided if concerns arise regarding possible complications associated with the procedure are suspected.
== END 2024-09-01 11:30 | disposition home or self-care (01) ==
PROVIDERS: PCP Family Medicine; Referring Provider Physical Medicine & Rehabilitation; Visit Provider Physical Medicine & Rehabilitation
DX: M47.812 Spondylosis without myelopathy or radiculopathy, cervical region (principal); M54.2 Cervicalgia
CPT/HCPCS: 64490; 64491; 64492; 99152; J1100; J2250

== ENCOUNTER → 2024-09-21 06:43 | Outpatient (CLI) | payer MEDICARE, OTHER, SELFPAY ==
[2021-07-12 12:35] VITALS: BP 108/64; BMI 27.6
--- NOTE | 2024-09-21 06:45 | DI.US.S_ITS ---
PROCEDURE: US ABDOMEN LIMITED INDICATIONS: GERD; EPIGASTRIC PAIN TECHNIQUE: Real-time scanning was performed of the abdominal and retroperitoneal organs, with image documentation. COMPARISON: [facility], CT, CT ABDOMEN PELVIS W CON, 09/28/2022, 22:17. FINDINGS: Liver: Liver is normal in size and increased in echogenicity. Gallbladder: No gallstones. No wall thickening. No pericholecystic edema. Negative sonographic Brandt's sign. Biliary ducts: Intrahepatic bile ducts are non-dilated. Extrahepatic bile duct caliber measures 5.3 mm. Normal is 6-7 mm or less in diameter, or 10 mm or less post-cholecystectomy. Pancreas: Visualized portions of the pancreas are sonographically normal. Miscellaneous: No free abdominal fluid. IMPRESSION: No cause for patient's pain is identified. Increased hepatic echogenicity, most consistent with hepatic steatosis. Dictated by: Jarek Resendiz M.D. on 09/22/2024 at 16:14 Approved by: Jarek Resendiz M.D. on 09/22/2024 at 16:17
== END ==
PROVIDERS: PCP Family Medicine; Referring Provider Surgery; Visit Provider Surgery
DX: R10.13 Epigastric pain (principal)
CPT/HCPCS: 76705

== ENCOUNTER → 2024-09-21 06:46 | Outpatient (CLI) | payer MEDICARE, OTHER, SELFPAY ==
[2021-07-12 12:35] VITALS: BP 108/64; BMI 27.6
== END ==
PROVIDERS: PCP Family Medicine; Referring Provider Family Medicine; Visit Provider Family Medicine
DX: Z12.5 Encounter for screening for malignant neoplasm of prostate (principal); R10.13 Epigastric pain
CPT/HCPCS: 36415; 76705; G0103

== ENCOUNTER 2024-10-06 10:20 | Day surgery (SDC) | payer MEDICARE, OTHER, SELFPAY ==
[2021-07-12 12:35] VITALS: BP 108/64; BMI 27.6
--- NOTE | 2024-10-06 | PATH_ITS ---
[facility] Accession Number: [id number] No. of containers..03 Tissue . 01 Material submitted: . PART A: body - STOMACH PART B: colon - CECAL POLYP PART C: rectum - RECTAL POLYPS . 01 Clinical history: . R/O H PYLORI . 01 Diagnosis: Part A: STOMACH: Gastric mucosa with no diagnostic alterations. No Helicobacter organisms identified on H/E stain. No intestinal metaplasia, dysplasia, or malignancy identified. . Part B: CECAL POLYP: Tubular adenoma. . Part C: RECTAL POLYPS: Hyperplastic polyp. [facility] 10/15/2024 [facility] Local . 01 Electronically signed: . Samuel Garvey MD, Pathologist NPI- [id number] . 01 Gross description: . Part A: NO SITE DESIGNATED: Received in formalin are 2 fragment(s) of whelan, soft tissue measuring 0.3 x 0.2 x 0.2 cm to 0.4 x 0.2 x 0.2 cm submitted entirely in 1 cassette(s) . Part B: CECAL POLYP: Received in formalin are multiple fragment(s) of whelan, soft tissue measuring 0.1 x 0.1 x 0.1 cm to 0.3 x 0.3 x 0.1 cm submitted entirely in 1 cassette(s) . Part C: RECTAL POLYPS: Received in formalin is 1 fragment(s) of whelan, soft tissue measuring 0.6 x 0.3 x 0.3 cm submitted entirely in 1 cassette(s) /[facility]NNE 10/15/2024 144 Local . 01 Pathologist provided ICD-10: D12.0, K21.9, K62.1 . 01 CPT . 478095, 843960, 813025 Specimen Comment: A courtesy copy of this report has been sent to [facility] Performed at: 01 [facility] [place] [address] [address], [place], [place] [id number] MD Samuel Garvey MD Phone: [phone]
[2024-10-06 10:49] VITALS: BP 126/79; PULSE 105; RESP 16; TEMP 36.3; O2SAT 96
[2024-10-06] MEDS: LACTATED RINGERS 1,000 ML 42 ML IV (10:57)
--- NOTE | 2024-10-06 11:11 | PM.PREOP ---
Pre-operative Note Interval Note History & Physical reviewed/Exam performed by Physician: No Changes to H&P: No ASA Class (for procedural sedation): I
--- NOTE | 2024-10-06 11:26 | PM.OP.EC ---
Operative Date/Time/Diagnoses Date of procedure: 10/06/24 Time of procedure: 12:15 Pre-op diagnosis: GERD, need for screening colonoscopy Post-op diagnosis: other (Hiatal hernia, moderate, no esophagitis, mild antral gastritis) Procedure & Clinicians Study performed: EGD/colonoscopy with biopsy Same procedure(s) as scheduled: Yes Indications: 69yo M with GERD, need for screening colonoscopy Surgeon: Prashanth Urbina Anesthesia Type: MAC +/- Procedure Notes SCOAP/Timeout: Performed Procedure in detail: EGD Informed consent was obtained. The procedure, its risks, benefits, and alternatives were discussed. Patient understood and was agreed to proceed. The patient was placed in the left lateral decubitus position with head elevated. Sedation given per anesthesia. The video endoscope was inserted into the oropharynx and guided under direct vision into the esophagus, stomach, and duodenum which were carefully examined. The scope was retroflexed to examine the hiatus and gastroesophageal junction. Antral biopsies were obtained for Helicobacter pylori. The patient tolerated the procedure very well. There were no apparent complications. Significant EGD findings: Z-line noted at 39cm Moderate 3-4cm hiatal hernia, likely cause of his symptoms No esophagitis, no esophageal mass, stricture or web Mild antral gastritis, biopsies taken for hpylori Normal duodenum No gastric ulcer or mass Colonoscopy Patient placed in left lateral recumbent position. Time out was performed. Procedural sedation was administered by anesthesia. Examination began with a thorough inspection of the perianal area. There was no evidence of fissures, fistulae, external hemorrhoids or cutaneous malignancy. The colonoscope was then placed into the rectum and the lumen was insufflated with carbon dioxide. The scope was carefully advanced forward. Ultimately the cecum was intubated and confirmed by identification of the ileocecal valve and the confluence of the taenia. The scope was then slowly withdrawn examining the colon thoroughly in all directions. In the rectum, retroflexion of the scope was performed for inspection of the distal rectum and anal canal. ?Significant colonoscopy findings: ?1. Quality of the preparation-good ?2. Multiple sessile polyps 3mm, removed with cold snare and retrieved for pathology, cecum x 1, rectal x 2; will likely need next screening colonoscopy in 5 years pending pathology Scope withdrawal time: 12 minutes Findings: gastritis, hiatal hernia and other findings (colon polyps) Specimen(s): other (antral biopsies for hpylori; colon polyps) Complications: none Impression: Hiatal hernia Mild antral gastritis Multiple sessile colon polyps, likely need next screening colonoscopy in 5 years pending pathology Post-procedure Recommendations: Colonscopy in 5 years and Will call with biopsy results Plan for aftercare: PACU then home Follow up: as needed (Can discuss hiatal hernia repair, antireflux surgery in office if desired.) Disposition: PACU
[2024-10-06 12:15] VITALS: BP 103/68; PULSE 89; RESP 12; TEMP 36.6; O2SAT 96
[2024-10-06 12:20] VITALS: BP 90/60; PULSE 99; RESP 13; O2SAT 97
[2024-10-06 12:27] VITALS: BP 128/77; PULSE 93; RESP 12; TEMP 36.6; O2SAT 98
== END 2024-10-06 12:50 | disposition home or self-care (01) ==
PROVIDERS: PCP Family Medicine; Referring Provider Surgery; Visit Provider Surgery
PROC: 0DJ08ZZ Inspection of Upper Intestinal Tract, Via Natural or Artificial Opening Endoscopic (ICD-10-PCS; CPT 45385; principal; 2024-10-06 11:30)
PROC: 0DJD8ZZ Inspection of Lower Intestinal Tract, Via Natural or Artificial Opening Endoscopic (ICD-10-PCS; CPT 45378; 2024-10-06 11:30)
DX: Z12.11 Encounter for screening for malignant neoplasm of colon (principal); K21.9 Gastro-esophageal reflux disease without esophagitis; Z79.01 Long term (current) use of anticoagulants; I48.91 Unspecified atrial fibrillation; I50.22 Chronic systolic (congestive) heart failure; K29.70 Gastritis, unspecified, without bleeding; K44.9 Diaphragmatic hernia without obstruction or gangrene; D12.0 Benign neoplasm of cecum; K62.1 Rectal polyp
CPT/HCPCS: 45385; 43239; J2704

== ENCOUNTER 2025-01-14 09:10 | Outpatient (CLI) | payer MEDICARE, OTHER, SELFPAY ==
[2021-07-12 12:35] VITALS: BP 108/64; BMI 27.6
[2025-01-14] VITALS (8 sets, daily range): BP systolic 109–125; BP diastolic 73–89; PULSE 76–84; RESP 11–16; TEMP 36.7; O2SAT 94–97
[2025-01-14] MEDS: MIDAZOLAM 2 MG/2 ML VIAL IV (10:31)
--- NOTE | 2025-01-14 10:51 | P.PCN_ITS ---
Date/Time/Diagnoses Date of procedure: 01/14/25 Time of procedure: 10:51 Pre-procedure diagnosis: 1. FACET ARTHROPATHY 2. AXIAL NECK PAIN Post-procedure diagnosis: same Procedure Notes Procedure: 1. FLUOROSCOPICALLY GUIDED, CONTRAST-CONTROLLED LEFT C3/4, C4/5, C5/6 FACET JOINT INJECTIONS WITH CONSCIOUS SEDATION. Indications: Yelitza is referred by Dr. Rowe for treatment of Axial Neck Pain Physician: Cameron Alejandre Total Fluoroscopy time (seconds): 9 Total sedation minutes: 16 Complications: none Procedure in detail & Post-procedure care: DESCRIPTION OF PROCEDURE Fluoroscopically guided, contrast-controlled left C3/4, C4/5, C5/6 facet joint injections with conscious sedation. Following review of allergy and review of potential side effects and complications, including, but not necessarily limited to, infection, allergic reaction, local tissue breakdown, stroke, temporary or permanent nerve injury and paralysis, the patient indicated that the patient understood and agreed to proceed. An informed consent document was signed by the patient, witnessed by a nurse, and placed in the patient's chart. Additionally, other treatment options including medications, modalities, and physical therapy were reviewed with the patient. After review of previous anaesthesic history and IV conscious sedation the patient was deemed safe to proceed with today?s procedure with IV conscious sedation as ASA class II designation. Safety time-out was performed to confirm patient ID, procedure to be performed and site of procedure. IV sedation was accomplished with a combination of 2mg of Versed was administered by the RN after DO order, titrated to patient comfort during the course of the procedure while the patient remained responsive to all verbal commands In the prone position, following sterile prep and drape of the cervical spine region, the posterior aspect of the left C3/4, C4/5, C5/6 facet joints were identified fluoroscopically. The skin was anesthetized via a 25-gauge 1.5-inch needle with 1% lidocaine solution into the corresponding facet joints. At this point, a 25-gauge 2.5-inch spinal needle was atraumatically introduced and advanced under fluoroscopic guidance into the corresponding facet joints. Following negative aspiration, injections of approximately 0.2-cc of Isovue 200 confirmed interarticular placement without vascular uptake. At this point, a total of 1cc including 0.5cc or 5mg of dexamethasone combined with 0.5cc of 1% lidocaine solution was injected without complication into each of the corresponding facet joints. The patient tolerated the procedure well without signs or symptoms of complications prior to transfer to the recovery area continued monitoring without incident. The patient was then transferred to the recovery area where they were observed for an appropriate period of time after the injection. The patient reported a VAS score of 7 prior to the procedure and a post- procedure VAS of 0. POST OP INSTRUCTIONS They were provided a Pain Log to continue to record their response to the target-specific procedure prior to their follow-up visit with their referring physician. Additionally, specific post-injection care instructions and a contact number to our office were provided if concerns arise regarding possible complications associated with the procedure are suspected.
== END 2025-01-14 11:14 | disposition home or self-care (01) ==
LOC: RAD 09:11
PROVIDERS: PCP Family Medicine; Referring Provider Physical Medicine & Rehabilitation; Visit Provider Physical Medicine & Rehabilitation
DX: M47.812 Spondylosis without myelopathy or radiculopathy, cervical region (principal); M54.2 Cervicalgia
CPT/HCPCS: 64490; 64491; 64492; 99152; J1100; J2250